=== PATIENT | male | born 1940 | race Caucasian/White ===

== ENCOUNTER 2016-08-26 13:20 | Inpatient (IN) ==
[2016-08-26] MEDS ORDERED: Furosemide 40 MG/4 ML VIAL IVP ONE (13:55)
[2016-08-26] MEDS ORDERED: Ipratropium/Albuterol Neb 3 ML IH ONE (14:01)
[2016-08-26 14:05] LABS: Basophils % 0.1 %; Eosinophils % 0.1 %; Hemoglobin 10.6 g/dL (12.9-16.9); Immature Granulocytes % 0.5 % (0-4); Lymphocytes # 0.7 K/mcL (0.6-4.6); Mean Corpuscular HGB Conc 32.1 g/dL (31.6-35.5); Mean Corpuscular Volume 90.4 fL (83.0-100.0); Mean Platelet Volume 10.3 fL (9.4-12.4); Monocytes # 0.7 K/mcL (0.0-1.3); Monocytes % 6.4 %; Platelet Count 160 K/mcL (140-400); Red Blood Count 3.65 M/mcL (4.19-5.50); Red Cell Distribution Width 14.1 % (11.5-14.5); Segmented Neutrophils % 86.9 %
[2016-08-26 14:10] LABS: INR 1.2; Prothrombin Time 12.8 Seconds (9.4-12.1)
[2016-08-26 14:13] LABS: Activated Partial Thrombo Time 31.8 Seconds (26.0-36.0)
[2016-08-26 14:20] LABS: Alanine Aminotransferase 18 Units/L (0-55); Albumin 3.3 g/dL (3.5-5.0); Albumin/Globulin Ratio 0.8 (1.1-2.2); Alkaline Phosphatase 79 Units/L (38-126); Aspartate Amino Transferase 15 Units/L (5-34); BUN/Creatinine Ratio 20 (6-26); Bilirubin,Direct 0.6 mg/dL (0.0-0.5); Bilirubin,Indirect 0.5 mg/dL (0.0-1.2); Bilirubin,Total 1.1 mg/dL (0.2-1.2); Blood Urea Nitrogen 26 mg/dL (8-26); Calcium 9.6 mg/dL (8.6-10.8); Carbon Dioxide 27 mEq/L (19-29); Chloride 98 mEq/L (98-109); Globulin 4.4 g/dL (2.4-3.5); Glucose 125 mg/dL (70-99); Magnesium 2.2 mg/dL (1.6-2.6); Osmolality,Calculated 290 (280-300); Potassium 3.9 mEq/L (3.5-4.5); Sodium 137 mEq/L (136-145); Total Protein 7.7 g/dL (6.0-8.3); eGFR For African Americans > 60 (> 60); eGFR For Non-African Americans 55 (> 60)
[2016-08-26 14:33] LABS: Neutrophils # 9.6 K/mcL (1.6-8.9)
[2016-08-26 14:34] LABS: Polychromasia 1+ (Not Present)
[2016-08-26] MEDS ORDERED: Piperacillin/Tazobactam 3.375 GM in D5% in Water (Mini-Bag+) 100 ML IVPB ONE (16:07)
[2016-08-26 16:40] LABS: Bilirubin,Urine Small (Negative); Blood,Urine Negative (Negative); Clarity,Urine Cloudy (Clear); Color,Urine Orange (Yellow); Glucose,Urine (UA) Normal (Normal); Ketones,Urine Trace mg/dL (Negative); Leukocyte Esterase,Urine Small (Negative); Nitrite,Urine Positive (Negative); PH,Urine 5.5 pH Units (5.0-8.0); Protein,Urine Trace mg/dL (Neg-Trace); Specific Gravity,Urine 1.017 (1.010-1.025); Urobilinogen,Urine Normal (Normal)
[2016-08-26 16:44] LABS: Bacteria,Urine None Seen per hpf (None-Few); Hyaline Casts,Urine None Seen per lpf (None-Few); RBC,Urine 0-3 per hpf (0-3); Squamous Epithelial Cell,Urine None Seen per lpf (None-Few); WBC,Urine 0-3 per hpf (0-3)
--- NOTE | 2016-08-26 16:46 | Emergency Department Note ---
Disposition Clinical Impression: Multifocal pneumonia Disposition: Admitted As Inpatient Condition: Fair Referrals: ChemungRadha navarro DO [Primary Care Provider] - Forms: ED Satisfaction Letter SOB HPI - General Chief Complaint: ED Shortness of Breath/Dyspnea Stated Complaint: EHCTOR Time Seen by Provider: 08/26/16 13:38 Source: patient, family Limitations: no limitations Nursing Notes Reviewed: Yes Vital Signs Reviewed: Yes - History of Present Illness Pt Subjective Complaint: shortness of breath, cough Onset (ago): day(s) (3) Context: recent illness Severity: moderate Consistency/Duration: intermittent, gradually worsening Improves with: rest, bronchodilators Worsens with: exertion Known history of: COPD, congestive heart failure Associated symptoms: Reports: fever Treatment prior to arrival: bronchodilator Cough present: Yes Cough Description: Involuntary Cough Frequency: Intermittent Sputum production: Yes Sputum Amount: Scant - Related Data Home Medications Medication Instructions Recorded Confirmed Albuterol Neb [Proventil Neb] 2.5 mg IH QID PRN 03/31/15 03/31/15 Albuterol Sulfate [Proventil Hfa] 2 puff IH QID PRN 03/31/15 03/31/15 Atorvastatin [Lipitor] 10 mg PO HS 03/31/15 03/31/15 Cetirizine HCl [Zyrtec] 10 mg PO DAILY 03/31/15 03/31/15 Cholestyramine/Aspartame 4 gm PO DAILY 03/31/15 03/31/15 [Cholestyramine Light Packet] ClonazePAM [Klonopin] 0.5 mg PO BID 03/31/15 03/31/15 Dicyclomine [Bentyl] 20 mg PO QID 03/31/15 03/31/15 Domperidome 20 mg PO QIDAC 03/31/15 03/31/15 Esomeprazole Magnesium [Nexium] 40 mg PO DAILY 03/31/15 03/31/15 Fluticasone Propionate Nasal 100 mcg NS DAILY 03/31/15 03/31/15 [Flonase] Furosemide [Lasix] 40 mg PO QPM 03/31/15 03/31/15 Furosemide [Lasix] 80 mg PO QAM 03/31/15 03/31/15 Gabapentin [Neurontin] 600 mg PO BID 03/31/15 03/31/15 HYDROcodone/Acet 5/325 mg [[place] 1 - 2 tab PO TID PRN 03/31/15 03/31/15 5-325 mg] Montelukast [Singulair] 10 mg PO DAILY 03/31/15 03/31/15 Nortriptyline [Pamelor] 75 mg PO HS 03/31/15 03/31/15 Phenazopyridine HCl [Pyridium] 200 mg PO TID 03/31/15 03/31/15 Potassium Chloride [Klor-Con 10 meq PO BID 03/31/15 03/31/15 Sprinkle] Ranitidine HCl [Zantac] 150 mg PO HS 03/31/15 03/31/15 Sertraline [Zoloft] 50 mg PO HS 03/31/15 03/31/15 Tamsulosin [Flomax] 0.4 mg PO DAILY 03/31/15 03/31/15 Theophylline Anhydrous [Theodur] 300 mg PO TID 03/31/15 03/31/15 Tizanidine HCl [Zanaflex] 4 - 8 mg PO HS 03/31/15 03/31/15 Previous Rx's Medication Instructions Recorded Azithromycin [Zithromax Tri-Kurt] 500 mg PO DAILY #8 tablet 04/04/15 Allergies Allergy/AdvReac Type Severity Reaction Status Date / Time ciprofloxacin [From Cipro] Allergy Hives Verified 03/31/15 15:16 levofloxacin [From Levaquin] Allergy Hives Verified 03/31/15 15:16 Tetracycline Allergy Rash Verified 03/31/15 17:20 All systems ED: reviewed and negative except as stated. Constitutional: Reports: fever, chills Respiratory: Reports: cough, dyspnea Past Medical History - Past Medical History Source: patient, old records reviewed, obtained from family, nursing notes reviewed Medical history: Reports: CHF, COPD, hyperlipidemia, hypertension, other Surgical history: Reports: appendectomy, knee replacement, sinus surgery, other (hiatal hernia) Psychiatric history: Reports: no psych history - Social History Smoking Status: Never smoker Alcohol use: Reports: none Drug use: Reports: none Physical Exam - General Limitations: no limitations General appearance: alert - Head Head exam: atraumatic, normocephalic, normal inspection - Eye Eye exam: Present: normal appearance, PERRL, EOMI - Neck Neck exam: Present: normal inspection - Chest Chest inspection: Present: normal inspection, symmetric chest wall rise - Respiratory Respiratory exam: Present: other (bilat scattered coarse rhonchi). Absent: accessory muscle use - Cardiovascular Cardiovascular exam: Present: regular rate, normal rhythm, normal heart sounds - Abdominal Exam Abdominal exam: Present: soft, Non-Tender. Absent: tenderness, distention, guarding, rebound, rigidity - Expanded Lower Extremity Exam Ankle exam: Present: other (bilat pitting edema) - Back Exam Back exam: Present: normal inspection, full ROM. Absent: tenderness - Neurological Exam Neurological exam: Present: alert, oriented X3 - Psychiatric Psychiatric exam: Present: normal affect, normal mood - Skin Skin exam: Present: warm, dry, intact, normal color Course Vital Signs Temperature 102.0 F H 08/26/16 13:25 Pulse Rate 84 08/26/16 13:25 Respiratory Rate 22 08/26/16 13:25 Blood Pressure 127/76 08/26/16 13:25 O2 Sat by Pulse Oximetry 88 08/26/16 13:25 Temperature 102.6 F H 08/26/16 15:49 Pulse Rate 89 08/26/16 15:49 Respiratory Rate 28 08/26/16 15:49 Blood Pressure 124/58 08/26/16 15:49 O2 Sat by Pulse Oximetry 93 08/26/16 15:49 Oxygen Delivery Oxygen Delivery Nasal Cannula Shortness of Breath/Dyspnea - Differential Diagnosis Likely: congestive heart failure, pneumonia, asthma with exacerbation, pulmonary embolism, pneumothorax - Medical Records Medical records reviewed: Yes I reviewed the patient's medical records. - Lab Data Lab results reviewed: Yes I reviewed the patient's lab results. Result diagrams: 08/26/16 13:52 08/26/16 13:55 Lab Results 08/26/16 08/26/16 08/26/16 Range/Units 13:52 13:52 13:55 WBC 11.0 (4.3-11.1) K/mcL RBC 3.65 L (4.19-5.50) M/mcL Hgb 10.6 L (12.9-16.9) g/dL Hct 33.0 L (37.5-50.1) % MCV 90.4 (83.0-100.0) fL MCH 29.0 (28.0-33.3) pg MCHC 32.1 (31.6-35.5) g/dL RDW 14.1 (11.5-14.5) % Plt Count 160 (140-400) K/mcL MPV 10.3 (9.4-12.4) fL Immature Gran % 0.5 (0-4) % Seg Neutrophils % 86.9 % Lymphocytes % 6.0 % Monocytes % 6.4 % Eosinophils % 0.1 % Basophils % 0.1 % Neutrophils # 9.6 H (1.6-8.9) K/mcL Lymphocytes # 0.7 (0.6-4.6) K/mcL Monocytes # 0.7 (0.0-1.3) K/mcL Eosinophils # 0.0 (0.0-0.6) K/mcL Basophils # 0.0 (0.0-0.2) K/mcL Polychromasia 1+ A (Not Present) PT 12.8 H (9.4-12.1) Seconds INR 1.2 APTT 31.8 (26.0-36.0) Seconds Sodium 137 (136-145) mEq/L Potassium 3.9 (3.5-4.5) mEq/L Chloride 98 (98-109) mEq/L Carbon Dioxide 27 (19-29) mEq/L BUN 26 (8-26) mg/dL Creatinine 1.28 H (0.72-1.25) mg/dL Est GFR ( Amer) > 60 (> 60) Est GFR (Non-Af Amer) 55 L (> 60) BUN/Creatinine Ratio 20 (6-26) Glucose 125 H (70-99) mg/dL Calculated Osmolality 290 (280-300) Lactic Acid (0.5-2.2) mmol/L Calcium 9.6 (8.6-10.8) mg/dL Magnesium 2.2 (1.6-2.6) mg/dL Total Bilirubin 1.1 (0.2-1.2) mg/dL Direct Bilirubin 0.6 H (0.0-0.5) mg/dL Indirect Bilirubin 0.5 (0.0-1.2) mg/dL AST 15 (5-34) Units/L ALT 18 (0-55) Units/L Alkaline Phosphatase 79 (38-126) Units/L Troponin I (0-0.03) ng/mL Serum Total Protein 7.7 (6.0-8.3) g/dL Albumin 3.3 L (3.5-5.0) g/dL Globulin 4.4 H (2.4-3.5) g/dL Albumin/Globulin Ratio 0.8 L (1.1-2.2) 08/26/16 08/26/16 Range/Units 13:55 13:55 WBC (4.3-11.1) K/mcL RBC (4.19-5.50) M/mcL Hgb (12.9-16.9) g/dL Hct (37.5-50.1) % MCV (83.0-100.0) fL MCH (28.0-33.3) pg MCHC (31.6-35.5) g/dL RDW (11.5-14.5) % Plt Count (140-400) K/mcL MPV (9.4-12.4) fL Immature Gran % (0-4) % Seg Neutrophils % % Lymphocytes % % Monocytes % % Eosinophils % % Basophils % % Neutrophils # (1.6-8.9) K/mcL Lymphocytes # (0.6-4.6) K/mcL Monocytes # (0.0-1.3) K/mcL Eosinophils # (0.0-0.6) K/mcL Basophils # (0.0-0.2) K/mcL Polychromasia (Not Present) PT (9.4-12.1) Seconds INR APTT (26.0-36.0) Seconds Sodium (136-145) mEq/L Potassium (3.5-4.5) mEq/L Chloride (98-109) mEq/L Carbon Dioxide (19-29) mEq/L BUN (8-26) mg/dL Creatinine (0.72-1.25) mg/dL Est GFR ( Amer) (> 60) Est GFR (Non-Af Amer) (> 60) BUN/Creatinine Ratio (6-26) Glucose (70-99) mg/dL Calculated Osmolality (280-300) Lactic Acid 1.2 (0.5-2.2) mmol/L Calcium (8.6-10.8) mg/dL Magnesium (1.6-2.6) mg/dL Total Bilirubin (0.2-1.2) mg/dL Direct Bilirubin (0.0-0.5) mg/dL Indirect Bilirubin (0.0-1.2) mg/dL AST (5-34) Units/L ALT (0-55) Units/L Alkaline Phosphatase (38-126) Units/L Troponin I 0.01 (0-0.03) ng/mL Serum Total Protein (6.0-8.3) g/dL Albumin (3.5-5.0) g/dL Globulin (2.4-3.5) g/dL Albumin/Globulin Ratio (1.1-2.2) - Radiology Data Radiology results reviewed: Yes I reviewed the patient's radiology results.
[2016-08-26] MEDS ORDERED: Naloxone 0.4 MG/ML INJ IVP PRN (17:41)
[2016-08-26] MEDS ORDERED: Acetaminophen 325 MG TABLET PO PRN (17:41)
[2016-08-26] MEDS ORDERED: Albuterol 2.5 MG/3 ML NEBULIZER IH PRN (17:49)
--- NOTE | 2016-08-26 18:04 | Internal Med History&Physical ---
Date of Encounter: 08/26/16 Time of Encounter: 18:02 Assessment and Plan (1) Sepsis Current visit: No Status: Acute Patient with pneumonia, fever of 102.6 and tachypnea, meeting sepsis criteria. Blood cultures and urine cultures obtained and pending. sputum culture ordered. Lactate normal at 1.2 Antibiotics initiated with zosyn and Azithromycin. Qualifiers: Sepsis type: sepsis due to unspecified organism Qualified Code(s): A41.9 - Sepsis, unspecified organism (2) Multifocal pneumonia Current visit: Yes Status: Acute patient presents with shortness of fever, chest congestion. CT of the chest showed multifocal bilateral pneumonia. Zosyn and azithromycin IV piggyback Sputum culture DuoNeb treatments 4 times a day Albuterol nebulizer every 2 when necessary Titrate oxygen to maintain oxygen saturation greater than 90%. (3) Acute respiratory failure Current visit: No Status: Acute Patient requiring 4L NC to maintain saturation > 90%. Only wears oxygen at home overnight. Patient with multifocal pnuemonia on CT. ABG ordered duoneb treatments QID albuterol nebulizer Q2 prn titrate oxygen to maintain saturation > 90%. Qualifiers: Respiratory failure complication: hypoxia Qualified Code(s): J96.01 - Acute respiratory failure with hypoxia (4) COPD (chronic obstructive pulmonary disease) Current visit: No Status: Acute Patient with COPD, wears oxygen at night. Continue home doses of Singulair and Budesonide/formotorol duoneb treatments QID albuterol nebulizer Q2hr PRN titrate oxygen to maintain O2 saturation > 90% Qualifiers: COPD type: unspecified COPD Qualified Code(s): J44.9 - Chronic obstructive pulmonary disease, unspecified (5) DVT prophylaxis Current visit: No Status: Acute anti-embolic stockings lovenox 40mg SQ daily Internal Medicine - H&P: HPI Chief complaint: shortness of breath Admitted From: Emergency Dept Plans for Post Hospital Care: Home History of present illness: Mr. Gaston is a 75 year old male with COPD, hyperlipidemia, hypertension, GERD, congestive heart failure who presented to the emergency department today with complaints of fever, chest congestion, and shortness of breath. Patient reports he started experiencing chest congestion approximately 1 week ago and it has been progressively getting worse, fevers started couple days ago he has been having chills, and poor appetite. Shortness of breath has gradually been increasing over time as well. He has pain in his chest when he coughs and when he takes deep breaths. He denies headache, palpitations, vomiting, abdominal pain, diarrhea. Evaluation in the emergency department revealed a fever with temperature 102.6, white count of 11.0, lactate was normal at 1.2, troponin was normal at 0.01. Chest x-ray showed suggestion of mild perihilar congestive changes, mild dependent opacification at the left base with small effusion. CT of the chest showed multifocal bilateral pneumonic infiltrates, with patchy areas of consolidation seen predominantly within the lower lobes, there is also small amount of endobronchial material seen within the left lower lobe posteriorly which could be related to aspiration. On exam, patient satting 89- 90% on 4L NC. Lungs with diffuse rales bilaterally. Heart with regular rate and rhythm. Past Med Surg Social Fam HX - Past Medical History Medical history: CHF, COPD, GERD (manzano's esophagus), hyperlipidemia, hypertension, other Psychiatric history: no psych history - Past Surgical History Surgical History: appendectomy, knee replacement, sinus surgery, other (hiatal hernia repair) - Social History Smoking Status: Former smoker Alcohol use: none Drug use: none - Family History Mother Living Status: Father Living Status: Hx Family Cardiac Disorders: Yes Internal Medicine - H&P: Meds Albuterol Neb [Proventil Neb] 2.5 mg IH QID PRN 03/31/15 [History] Albuterol Sulfate [Proventil Hfa] 2 puff IH QID PRN 03/31/15 [History] Atorvastatin [Lipitor] 10 mg PO HS 03/31/15 [History] Cetirizine HCl [Zyrtec] 10 mg PO DAILY 03/31/15 [History] Cholestyramine/Aspartame [Cholestyramine Light Packet] 4 gm PO DAILY 03/31/15 [ History] Dicyclomine [Bentyl] 20 mg PO QID 03/31/15 [History] Esomeprazole Magnesium [Nexium] 40 mg PO DAILY 03/31/15 [History] Fluticasone Propionate Nasal [Flonase] 100 mcg NS DAILY 03/31/15 [History] Furosemide [Lasix] 40 mg PO QPM 03/31/15 [History] Furosemide [Lasix] 80 mg PO QAM 03/31/15 [History] Gabapentin [Neurontin] 600 mg PO BID 03/31/15 [History] Montelukast [Singulair] 10 mg PO DAILY 03/31/15 [History] Nortriptyline [Pamelor] 75 mg PO HS 03/31/15 [History] Potassium Chloride [Klor-Con Sprinkle] 10 meq PO BID 03/31/15 [History] Ranitidine HCl [Zantac] 150 mg PO HS 03/31/15 [History] Sertraline [Zoloft] 50 mg PO HS 03/31/15 [History] Tamsulosin [Flomax] 0.4 mg PO DAILY 03/31/15 [History] Tizanidine HCl [Zanaflex] 4 - 8 mg PO HS 03/31/15 [History] Budesonide/Formoterol 160/4.5 [Symbicort 160/4.5] 2 puff IH BIDR 08/26/16 [ History] Domperidone 20 mg PO QIDAC 08/26/16 [History] OxyCODONE CONC 5 mg PO BID PRN 08/26/16 [History] Allergies ciprofloxacin [From Cipro] Allergy (Verified 03/31/15 15:16) Hives levofloxacin [From Levaquin] Allergy (Verified 03/31/15 15:16) Hives Tetracycline Allergy (Verified 03/31/15 17:20) Rash All Systems PM: A 10-system review of systems was performed and is negative for pertinent findings except as documented above in the HPI. - Constitutional Constitutional: anorexia, chills, fever(s), malaise, no night sweats - EENT Eyes: blurry vision, no change in vision, no discharge, no pain, no photophobia Ears: no ear discharge, no ear pain, no tinnitus Nose, mouth and throat: no dysphagia, no nasal discharge, no neck pain, no sore throat - Cardiovascular Cardiovascular ROS IM: dyspnea, no chest pain, no diaphoresis, no lightheadedness, no palpitations, no syncope - Respiratory Respiratory: cough, dyspnea, wheezing, pain on inspiration, pain with cough, no excessive phlegm production - Gastrointestinal Gastrointestinal: no abdominal pain, no diarrhea, no hematemesis, no hematochezia, no melena, no nausea, no vomiting - Musculoskeletal Musculoskeletal ROS IM: no numbness, no tingling - Integumentary Integumentary IM: no rash, no unusual bruising - Neurological Neurological ROS: no confusion, no convulsions, no focal weakness, no numbness, no tingling, no tremor(s) - Hematologic/Lymphatic Hematologic/Lymphatic: no easy bruising - Constitutional Vitals: Temp Pulse Resp BP Pulse Ox 101.2 F H 84 28 109/53 89 08/26/16 16:58 08/26/16 16:58 08/26/16 16:58 08/26/16 16:58 08/26/16 16:58 General appearance: Present: A&O X 3, pleasant, no acute distress - Head Head exam: Present: atraumatic, normocephalic - Eye Eye exam: Present: PERRL, conjuntiva pink, sclera anicteric Pupils: Present: PERRL - Neck Neck exam general surgery: Present: supple, trachea midline. Absent: lymphadenopathy - Respiratory Respiratory exam: Present: rales (bilateral), tachypnea (mild). Absent: accessory muscle use, rhonchi, wheezes - Cardiovascular Cardiovascular exam: Present: RRR, +S1, +S2. Absent: diastolic murmur, gallop, rubs, systolic murmur - GI/Abdominal GI/Abdominal exam: Present: normal bowel sounds, soft, no peritoneal signs. Absent: distended, tenderness - Extremities Exam Extremities exam: Present: warm, radial pulses palpable and symetrical. Absent : calf tenderness, cyanotic, pedal edema - Neurological Exam Neurological exam: Present: CN II-XII intact, oriented X3, no focal deficits. Absent: facial droop, speech deficit - Skin Skin exam: Present: dry, intact Internal Med - H&P Results - Labs CBC & Chem 7: 08/26/16 13:52 08/26/16 13:55 Labs: All Lab Results (24 Hours) 08/26/16 08/26/16 08/26/16 Range/Units 13:52 13:52 13:55 WBC 11.0 (4.3-11.1) K/mcL RBC 3.65 L (4.19-5.50) M/mcL Hgb 10.6 L (12.9-16.9) g/dL Hct 33.0 L (37.5-50.1) % MCV 90.4 (83.0-100.0) fL MCH 29.0 (28.0-33.3) pg MCHC 32.1 (31.6-35.5) g/dL RDW 14.1 (11.5-14.5) % Plt Count 160 (140-400) K/mcL MPV 10.3 (9.4-12.4) fL Immature Gran % 0.5 (0-4) % Seg Neutrophils % 86.9 % Lymphocytes % 6.0 % Monocytes % 6.4 % Eosinophils % 0.1 % Basophils % 0.1 % Neutrophils # 9.6 H (1.6-8.9) K/mcL Lymphocytes # 0.7 (0.6-4.6) K/mcL Monocytes # 0.7 (0.0-1.3) K/mcL Eosinophils # 0.0 (0.0-0.6) K/mcL Basophils # 0.0 (0.0-0.2) K/mcL Polychromasia 1+ A (Not Present) PT 12.8 H (9.4-12.1) Seconds INR 1.2 APTT 31.8 (26.0-36.0) Seconds Sodium 137 (136-145) mEq/L Potassium 3.9 (3.5-4.5) mEq/L Chloride 98 (98-109) mEq/L Carbon Dioxide 27 (19-29) mEq/L BUN 26 (8-26) mg/dL Creatinine 1.28 H (0.72-1.25) mg/dL Est GFR ( Amer) > 60 (> 60) Est GFR (Non-Af Amer) 55 L (> 60) BUN/Creatinine Ratio 20 (6-26) Glucose 125 H (70-99) mg/dL Calculated Osmolality 290 (280-300) Lactic Acid (0.5-2.2) mmol/L Calcium 9.6 (8.6-10.8) mg/dL Magnesium 2.2 (1.6-2.6) mg/dL Total Bilirubin 1.1 (0.2-1.2) mg/dL Direct Bilirubin 0.6 H (0.0-0.5) mg/dL Indirect Bilirubin 0.5 (0.0-1.2) mg/dL AST 15 (5-34) Units/L ALT 18 (0-55) Units/L Alkaline Phosphatase 79 (38-126) Units/L Troponin I (0-0.03) ng/mL Serum Total Protein 7.7 (6.0-8.3) g/dL Albumin 3.3 L (3.5-5.0) g/dL Globulin 4.4 H (2.4-3.5) g/dL Albumin/Globulin Ratio 0.8 L (1.1-2.2) Urine Color (Yellow) Urine Clarity (Clear) Urine pH (5.0-8.0) pH Units Ur Specific [place] (1.010-1.025) Urine Protein (Neg-Trace) mg/dL Urine Glucose (UA) (Normal) mg/dL Urine Ketones (Negative) mg/dL Urine Blood (Negative) Urine Nitrite (Negative) Urine Bilirubin (Negative) Urine Urobilinogen (Normal) mg/dL Ur Leukocyte Esterase (Negative) Urine Microscopic RBC (0-3) per hpf Urine Microscopic WBC (0-3) per hpf Ur Squamous Epith Cells (None-Few) per lpf Urine Bacteria (None-Few) per hpf Hyaline Casts (None-Few) per lpf Ur Culture Indicated? (NO) 08/26/16 08/26/16 08/26/16 Range/Units 13:55 13:55 16:00 WBC (4.3-11.1) K/mcL RBC (4.19-5.50) M/mcL Hgb (12.9-16.9) g/dL Hct (37.5-50.1) % MCV (83.0-100.0) fL MCH (28.0-33.3) pg MCHC (31.6-35.5) g/dL RDW (11.5-14.5) % Plt Count (140-400) K/mcL MPV (9.4-12.4) fL Immature Gran % (0-4) % Seg Neutrophils % % Lymphocytes % % Monocytes % % Eosinophils % % Basophils % % Neutrophils # (1.6-8.9) K/mcL Lymphocytes # (0.6-4.6) K/mcL Monocytes # (0.0-1.3) K/mcL Eosinophils # (0.0-0.6) K/mcL Basophils # (0.0-0.2) K/mcL Polychromasia (Not Present) PT (9.4-12.1) Seconds INR APTT (26.0-36.0) Seconds Sodium (136-145) mEq/L Potassium (3.5-4.5) mEq/L Chloride (98-109) mEq/L Carbon Dioxide (19-29) mEq/L BUN (8-26) mg/dL Creatinine (0.72-1.25) mg/dL Est GFR ( Amer) (> 60) Est GFR (Non-Af Amer) (> 60) BUN/Creatinine Ratio (6-26) Glucose (70-99) mg/dL Calculated Osmolality (280-300) Lactic Acid 1.2 (0.5-2.2) mmol/L Calcium (8.6-10.8) mg/dL Magnesium (1.6-2.6) mg/dL Total Bilirubin (0.2-1.2) mg/dL Direct Bilirubin (0.0-0.5) mg/dL Indirect Bilirubin (0.0-1.2) mg/dL AST (5-34) Units/L ALT (0-55) Units/L Alkaline Phosphatase (38-126) Units/L Troponin I 0.01 (0-0.03) ng/mL Serum Total Protein (6.0-8.3) g/dL Albumin (3.5-5.0) g/dL Globulin (2.4-3.5) g/dL Albumin/Globulin Ratio (1.1-2.2) Urine Color [place] A (Yellow) Urine Clarity Cloudy A (Clear) Urine pH 5.5 (5.0-8.0) pH Units Ur Specific [place] 1.017 (1.010-1.025) Urine Protein Trace (Neg-Trace) mg/dL Urine Glucose (UA) Normal (Normal) mg/dL Urine Ketones Trace H (Negative) mg/dL Urine Blood Negative (Negative) Urine Nitrite Positive A (Negative) Urine Bilirubin Small H (Negative) Urine Urobilinogen Normal (Normal) mg/dL Ur Leukocyte Esterase Small H (Negative) Urine Microscopic RBC 0-3 (0-3) per hpf Urine Microscopic WBC 0-3 (0-3) per hpf Ur Squamous Epith Cells None Seen (None-Few) per lpf Urine Bacteria None Seen (None-Few) per hpf Hyaline Casts None Seen (None-Few) per lpf Ur Culture Indicated? YES A (NO) - Impressions ITS Impressions Chest X-Ray 08/26/16 13:42 IMPRESSION: Suggestion of mild perihilar congestive changes. Mild dependent opacification at the left base with small effusion. D/ / Erik Najera MD / Erik Najera MD Interpreting Provider: Erik Najera MD Chest CT 08/26/16 14:56 IMPRESSION: Multifocal bilateral pneumonic infiltrates are identified, with patchy areas of consolidation seen predominantly within the lower lobes. There is also a small amount of endobronchial material seen within the left lower lobe posteriorly which could be related to aspiration. Atherosclerotic disease with heavy coronary artery involvement. Multilevel degenerative changes are seen in the spine. Mildly asymmetric gynecomastia, left greater than right. D/ / Erik Peres MD / Erik Peres MD Interpreting Provider: Erik Peres MD - Diagnostic Studies Chest x-ray Additional comments: Chest X-Ray 08/26/16 13:42 IMPRESSION: Suggestion of mild perihilar congestive changes. Mild dependent opacification at the left base with small effusion. D/ / Erik Najera MD / Erik Najera MD Interpreting Provider: Erik Najera MD CT scan - chest Additional comments: Chest CT 08/26/16 14:56
[2016-08-26] MEDS: Azithromycin 500 MG in D5% in Water 250 ML IVPB SCH (18:34)
--- NOTE | 2016-08-26 18:56 | Event Note ---
Date of Encounter: 08/26/16 Time of Encounter: 18:49 Patient seen and examined with nurse practitioner. Agree with this assessment and plan. Multiple lobar pneumonia. Will treat for community acquired pneumonia. However because of concern for aspiration Zosyn will be added to cover for anaerobes. Hypoxic respiratory failure. patient requiring 4 L of nasal oxygen. conversational dyspnea. Arterial blood gas will be checked. If Patient continues to spiked fevers with current antibiotics, will add Vancomycin. Sputum and blood cultures. Patient is full code. Inpatient admission
[2016-08-26] MEDS: Ipratropium/Albuterol Neb 3 ML IH SCH ×2 (19:15→22:00)
[2016-08-26] MEDS: tiZANidine 4 MG TABLET PO SCH (21:25)
[2016-08-26] MEDS: Potassium Chloride Elixir 20 MEQ/15 ML UDC PO SCH (21:25)
[2016-08-26] MEDS: Famotidine 20 MG TABLET PO SCH (21:25)
[2016-08-26] MEDS: Gabapentin 300 MG CAPSULE PO SCH (21:25)
[2016-08-26] MEDS: Budesonide/Formoterol 160/4.5 MDI IH SCH (22:01)
[2016-08-27] MEDS: Piperacillin/Tazobactam 3.375 GM in D5% in Water (Mini-Bag+) 100 ML IVPB SCH ×3 (00:14→15:57)
[2016-08-27] MEDS: Ipratropium/Albuterol Neb 3 ML IH SCH ×4 (03:24→23:01)
[2016-08-27 05:09] LABS: Basophils % 0.1 %; Eosinophils # 0.1 K/mcL (0.0-0.6); Eosinophils % 0.8 %; Hematocrit 31.7 % (37.5-50.1); Hemoglobin 10.1 g/dL (12.9-16.9); Immature Granulocytes % 0.4 % (0-4); Lymphocytes # 1.2 K/mcL (0.6-4.6); Lymphocytes % 12.6 %; Mean Corpuscular HGB Conc 31.9 g/dL (31.6-35.5); Mean Corpuscular Hemoglobin 29.4 pg (28.0-33.3); Mean Corpuscular Volume 92.2 fL (83.0-100.0); Mean Platelet Volume 10.8 fL (9.4-12.4); Monocytes # 0.7 K/mcL (0.0-1.3); Monocytes % 7.2 %; Platelet Count 150 K/mcL (140-400); Red Blood Count 3.44 M/mcL (4.19-5.50); Red Cell Distribution Width 14.3 % (11.5-14.5); Segmented Neutrophils % 78.9 %
[2016-08-27 05:20] LABS: Neutrophils # 7.3 K/mcL (1.6-8.9)
[2016-08-27 05:35] LABS: BUN/Creatinine Ratio 19 (6-26); Blood Urea Nitrogen 24 mg/dL (8-26); Calcium 8.9 mg/dL (8.6-10.8); Carbon Dioxide 23 mEq/L (19-29); Chloride 98 mEq/L (98-109); Glucose 123 mg/dL (70-99); Osmolality,Calculated 285 (280-300); Potassium 3.5 mEq/L (3.5-4.5); Sodium 135 mEq/L (136-145); eGFR For African Americans > 60 (> 60); eGFR For Non-African Americans 55 (> 60)
[2016-08-27 06:02] LABS: Hypochromasia Present (Not Present); Platelet Estimate Normal (Normal); Polychromasia 1+ (Not Present)
[2016-08-27] MEDS: *HR* Enoxaparin 40 MG/0.4 ML SYRINGE SQ SCH (06:27)
[2016-08-27] MEDS ORDERED: Aminoglycoside Consult 1 EACH MC ONE (07:40)
[2016-08-27] MEDS: Loratadine 10 MG TABLET PO SCH (08:56)
[2016-08-27] MEDS: Potassium Chloride Elixir 20 MEQ/15 ML UDC PO SCH ×2 (08:56→21:27)
[2016-08-27] MEDS: Famotidine 20 MG TABLET PO SCH ×2 (08:56→21:28)
[2016-08-27] MEDS: Gabapentin 300 MG CAPSULE PO SCH ×2 (08:56→21:27)
[2016-08-27] MEDS ORDERED: Vancomycin 1,000 MG in D5% in Water 250 ML IVPB SCH (09:00)
[2016-08-27] MEDS ORDERED: Vancomycin 1,500 MG in D5% in Water 250 ML IVPB ONE (09:23)
[2016-08-27] MEDS: Furosemide 40 MG TABLET PO SCH (10:50)
[2016-08-27] MEDS: Budesonide/Formoterol 160/4.5 MDI IH SCH ×2 (11:05→23:01)
--- NOTE | 2016-08-27 11:08 | Internal Med Progress Note ---
Date of Encounter: 08/27/16 Time of Encounter: 11:03 - Assessment and plan (1) Acute respiratory failure Current Visit: No Status: Acute Assessment and plan: Hypoxic respiratory failure. This is improving. Oxygen requirements decreasing. Currently on 4 L of oxygen. Qualifiers: Respiratory failure complication: hypoxia Qualified Code(s): J96.01 - Acute respiratory failure with hypoxia (2) Multifocal pneumonia Current Visit: Yes Status: Acute Assessment and plan: This is community acquired pneumonia. However because of concern of aspiration Zosyn has been added to cover for anaerobes. Patient continues to spiked fevers and therefore I have covered empirically for MRSA with vancomycin until sputum on blood cultures are back. Await speech service comment on swallow (3) CHF (congestive heart failure) Current Visit: Yes Status: Acute Assessment and plan: I will start the patient on lasix 40 mg PO daily today. Qualifiers: Qualified Code(s): I50.9 - Heart failure, unspecified - Subjective Interval history: Patient seen and examined. Notices some improvement in his respiratory status. Oxygen requirements are decreasing. Currently on 4 L of nasal oxygen. Patient continues to have fever spikes. Antibiotic coverage has been broadened. - Constitutional Vitals: Temp Pulse Resp BP Pulse Ox 101.6 F H 63 32 103/56 93 08/27/16 06:44 08/27/16 10:46 08/27/16 10:46 08/27/16 09:15 08/27/16 10:46 General appearance: Present: A&O X 3, pleasant, no acute distress Exam: Gen.: patient is alert oriented times 3 not in distress. Cardiac: normal S1 S2 no additional sounds or murmurs chest: crackles and bronchial breathing in both lower lobes abdomen: soft nontender nondistended normal bowel sounds neuro: no focal deficit Internal Medicine: Result - Labs CBC & Chem 7: 08/27/16 04:25 08/27/16 04:25 Labs: Short CBC 08/27/16 Range/Units 04:25 WBC 9.2 (4.3-11.1) K/mcL Hgb 10.1 L (12.9-16.9) g/dL Hct 31.7 L (37.5-50.1) % Plt Count 150 (140-400) K/mcL Neutrophils # 7.3 (1.6-8.9) K/mcL BMP 08/27/16 04:25 Sodium 135 L Potassium 3.5 Chloride 98 Carbon Dioxide 23 BUN 24 Creatinine 1.28 H Glucose 123 H Calcium 8.9 - ABG Interpretation ABG results: PT/INR, D-dimer PT 12.8 Seconds (9.4-12.1) H 08/26/16 13:52 Consult Discharge Plan - Plan Referrals: Radha Rojas DO [Primary Care Provider] - 09/03/16 10:30 am
--- NOTE | 2016-08-27 12:18 | Electrocardiograph Report ---
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
[2016-08-27] MEDS: Azithromycin 500 MG in D5% in Water 250 ML IVPB SCH (15:50)
[2016-08-27] MEDS: tiZANidine 4 MG TABLET PO SCH (21:28)
[2016-08-28] MEDS: Piperacillin/Tazobactam 3.375 GM in D5% in Water (Mini-Bag+) 100 ML IVPB SCH ×3 (01:11→16:14)
[2016-08-28 04:16] LABS: Basophils % 0.3 %; Eosinophils # 0.3 K/mcL (0.0-0.6); Eosinophils % 3.5 %; Hematocrit 29.1 % (37.5-50.1); Hemoglobin 9.2 g/dL (12.9-16.9); Immature Granulocytes % 1.1 % (0-4); Lymphocytes % 10.1 %; Mean Corpuscular HGB Conc 31.6 g/dL (31.6-35.5); Mean Corpuscular Hemoglobin 28.9 pg (28.0-33.3); Mean Corpuscular Volume 91.5 fL (83.0-100.0); Mean Platelet Volume 10.3 fL (9.4-12.4); Monocytes # 0.9 K/mcL (0.0-1.3); Neutrophils # 7.5 K/mcL (1.6-8.9); Platelet Count 163 K/mcL (140-400); Red Blood Count 3.18 M/mcL (4.19-5.50); Red Cell Distribution Width 14.2 % (11.5-14.5)
[2016-08-28 04:32] LABS: BUN/Creatinine Ratio 21 (6-26); Blood Urea Nitrogen 25 mg/dL (8-26); Calcium 8.9 mg/dL (8.6-10.8); Carbon Dioxide 26 mEq/L (19-29); Chloride 103 mEq/L (98-109); Glucose 120 mg/dL (70-99); Magnesium 2.2 mg/dL (1.6-2.6); Osmolality,Calculated 294 (280-300); Potassium 3.8 mEq/L (3.5-4.5); Sodium 139 mEq/L (136-145); eGFR For African Americans > 60 (> 60); eGFR For Non-African Americans 60 (> 60)
[2016-08-28 05:28] LABS: Platelet Clumps Few (Not Present)
[2016-08-28] MEDS: Ipratropium/Albuterol Neb 3 ML IH SCH ×4 (05:48→21:44)
[2016-08-28] MEDS: *HR* Enoxaparin 40 MG/0.4 ML SYRINGE SQ SCH (05:53)
[2016-08-28] MEDS: Potassium Chloride Elixir 20 MEQ/15 ML UDC PO SCH ×2 (07:38→20:59)
[2016-08-28] MEDS: Furosemide 40 MG TABLET PO SCH (07:39)
[2016-08-28] MEDS: Gabapentin 300 MG CAPSULE PO SCH ×2 (07:39→20:59)
[2016-08-28] MEDS: Loratadine 10 MG TABLET PO SCH (07:39)
[2016-08-28] MEDS ORDERED: Vancomycin 1,250 MG in D5% in Water 250 ML IVPB SCH (10:00)
[2016-08-28] MEDS: Budesonide/Formoterol 160/4.5 MDI IH SCH ×2 (10:54→21:44)
--- NOTE | 2016-08-28 12:47 | Internal Med Progress Note ---
Date of Encounter: 08/28/16 Time of Encounter: 10:00 - Assessment and plan (1) Sepsis Current Visit: No Status: Acute Assessment and plan: Secondary to multifocal pneumonia. CT chest showed multifocal bilateral pneumonic infiltrates with patchy areas of consolidation seen predominantly within the lower lobes. There is also a small amount of endobronchial material within the left lower lobe posteriorly. 08/26 blood cultures are negative so far. Urine culture negative. Influenza test negative. Stop IV azithromycin and vancomycin. Continue IV Zosyn. Check Legionella and Streptococcus antigen in urine. Qualifiers: Sepsis type: sepsis due to unspecified organism Qualified Code(s): A41.9 - Sepsis, unspecified organism (2) Acute respiratory failure Current Visit: No Status: Acute Assessment and plan: Hypoxemic respiratory failure. Contrary to multifocal pneumonia and COPD exacerbation. With history of a static heart failure, last echocardiogram in 2014 (LVEF 50%). CT chest showed multifocal bilateral pneumonic infiltrates with patchy areas of consolidation seen predominantly within the lower lobes. There is also a small amount of endobronchial material within the left lower lobe posteriorly. Continue nebulizations, singular, Mucinex and empiric antibiotics with IV Zosyn. Clinically is slowly improving. Check echocardiogram. Qualifiers: Respiratory failure complication: hypoxia Qualified Code(s): J96.01 - Acute respiratory failure with hypoxia (3) Multifocal pneumonia Current Visit: Yes Status: Acute Assessment and plan: Bacterial pneumonia. Plan as above. (4) Acute exacerbation of chronic obstructive pulmonary disease (COPD) Current Visit: Yes Status: Acute Assessment and plan: Plan as above. - Subjective Interval history: Patient complains of persistent cough. - Constitutional Vitals: Temp Pulse Resp BP Pulse Ox 98.1 F 75 18 113/53 99 08/28/16 11:33 08/28/16 12:00 08/28/16 11:33 08/28/16 11:33 08/28/16 10:55 General appearance: Present: cooperative, A&O X 3, pleasant, no acute distress, answers questions appropriately - Neck Neck exam general surgery: Present: supple, trachea midline. Absent: lymphadenopathy - Respiratory Respiratory exam: Present: rales (bilateral crackles L>R) - Cardiovascular Cardiovascular exam: Present: RRR - GI/Abdominal GI/Abdominal exam: Present: normal bowel sounds, soft. Absent: distended, tenderness - Extremities Exam Extremities exam: Absent: pedal edema - Back Exam Back exam: Absent: CVA tenderness (L), CVA tenderness (R) - Neurological Exam Neurological exam: Present: alert, oriented X3, no focal deficits, strengths equal and symetr throughout. Absent: facial droop, speech deficit Internal Medicine: Result - Labs CBC & Chem 7: 08/28/16 03:38 08/28/16 03:38 Labs: Short CBC 08/28/16 Range/Units 03:38 WBC 9.8 (4.3-11.1) K/mcL Hgb 9.2 L (12.9-16.9) g/dL Hct 29.1 L (37.5-50.1) % Plt Count 163 (140-400) K/mcL Neutrophils # 7.5 (1.6-8.9) K/mcL BMP 08/28/16 03:38 Sodium 139 Potassium 3.8 Chloride 103 Carbon Dioxide 26 BUN 25 Creatinine 1.19 Glucose 120 H Calcium 8.9 - ABG Interpretation ABG results: PT/INR, D-dimer PT 12.8 Seconds (9.4-12.1) H 08/26/16 13:52 Consult Discharge Plan - Plan Referrals: Radha Rojas DO [Primary Care Provider] - 09/03/16 10:30 am
--- NOTE | 2016-08-28 17:40 | ECHO - Doppler Report ---
Echocardiogram Name: Sesar Gaston Date of Study: 08/28/2016 Date: 1940 Ht: 68.0 in Medical Record#: [id number] Age: 75 Wt: 168.0 lb Gender: Male BSA: 1.9 Order #: [id number] Location: [facility] Room #: 2N06 Reading Physician: Lamine Abdullahi MD, [facility] Auto V[employer] Top Installer: Dede Bush RVT Ordering Physician: Henrietta Dominguez MD Primary Physician: Radha Rojas DO Indications: Pulmonary edema Impressions: LVEF 40-45%. Mild segmental left ventricular systolic dysfunction. Moderate aortic regurgitation. Mild left ventricular diastolic dysfunction. Moderate mitral stenosis. Left Ventricular Wall Motion: Rest Echo Findings The apex, apical septal, mid inferior septal and mid anterior septal galindo were hypokinetic. All other wall segments showed normal motion. Findings: Study Quality * Technically adequate exam. Right Ventricle * Normal right ventricular structure and function. Right Atrium * Normal right atrial size. Aortic Valve * Moderate aortic regurgitation. * Normal aortic valve structure. * No aortic stenosis. Interatrial Septum * No evidence of PFO by color Doppler. Aorta * Normally sized aortic root. Pericardium * The pericardium appears normal. Left Ventricle * Basal sigmoid septum. * Mild left ventricular diastolic dysfunction. * LVEF 40-45%. * Mild segmental left ventricular systolic dysfunction. Tricuspid Valve * No tricuspid stenosis. * Trace tricuspid regurgitation. * Unable to estimate RVSP due to lack of TR jet. Pulmonic Valve * No pulmonic regurgitation. * No pulmonic stenosis. Mitral Valve * Moderate mitral stenosis. * Mean transmitral gradient is mean 8 mmhg mmHg. * Moderate mitral annular calcification * No mitral regurgitation. IVC * Normal IVC dimensions and inspiratory collapse. Left Atrium * Moderately dilated left atrium. History Family History of CAD Congestive Heart Failure Measurements: BP: 113/ 53 2D Normal Values RVIDd: 1.95 cm <2.7 cm IVSd: .81 cm 0.6 - 1.0 cm LVIDd: 4.31 cm 3.7 - 5.6 cm LVPWd: .87 cm 0.6 - 1.1 cm LVIDs: 3.21 cm 1.5 - 3.6 cm LA: 4.80 cm 2.0 - 4.0cm %FS: 25.50 cm >25 % LA volume: 93 Mitral Valve Peak Velocity 1.78 m/sec Mean Velocity:1.33 m/sec Peak Grad:13.00 mmHg Mean Grad:8.00 mmHg Pressure Time:38.00 msec Valve Area:5.79 cm2 Peak E:1.47 m/sec Peak A:.97 m/sec E/A Ratio:1.5 Peak E' Lat [place]:10.1 cm/s Peak E' Med [place]:7.83 cm/s E/E' Lat Ratio:14.6 E/E' Med Ratio:18.8 Aortic Valve AI pressure Half-time: 360.00 msec Tricuspid Valve TV Regurg Peak Grad: 11.00mmHg TV Regurg Peak [place]: 1.68m/sec Updated by Lamine Abdullahi MD, FACC on 08/28/2016 5:32:58 PM electronically signed on 08/28/2016 5:35:58 PM with status of Final Wall Motion [place]: 1=Normal, 2=Hypokinesis, 3=Akinesis, 4=Dyskinesis, 5=Aneurysmal, 6=Hyperkinetic, X=Not Visualized (Blank)=Missing
[2016-08-28] MEDS: tiZANidine 4 MG TABLET PO SCH (20:58)
[2016-08-28] MEDS: Famotidine 20 MG TABLET PO SCH (20:59)
[2016-08-29] MEDS: Piperacillin/Tazobactam 3.375 GM in D5% in Water (Mini-Bag+) 100 ML IVPB SCH ×4 (00:09→23:37)
[2016-08-29] MEDS: Benzonatate 100 MG CAPSULE PO PRN ×2 (00:50→20:41)
[2016-08-29 04:08] LABS: Basophils % 0.4 %; Eosinophils # 0.4 K/mcL (0.0-0.6); Eosinophils % 4.6 %; Hematocrit 27.5 % (37.5-50.1); Hemoglobin 8.7 g/dL (12.9-16.9); Immature Granulocytes % 3.1 % (0-4); Lymphocytes # 1.2 K/mcL (0.6-4.6); Lymphocytes % 12.6 %; Mean Corpuscular HGB Conc 31.6 g/dL (31.6-35.5); Mean Corpuscular Hemoglobin 28.6 pg (28.0-33.3); Mean Corpuscular Volume 90.5 fL (83.0-100.0); Mean Platelet Volume 9.8 fL (9.4-12.4); Monocytes # 1.1 K/mcL (0.0-1.3); Monocytes % 11.9 %; Neutrophils # 6.3 K/mcL (1.6-8.9); Platelet Count 173 K/mcL (140-400); Red Blood Count 3.04 M/mcL (4.19-5.50); Red Cell Distribution Width 14.1 % (11.5-14.5); Segmented Neutrophils % 67.4 %
[2016-08-29 04:24] LABS: BUN/Creatinine Ratio 21 (6-26); Blood Urea Nitrogen 19 mg/dL (8-26); Calcium 8.6 mg/dL (8.6-10.8); Carbon Dioxide 25 mEq/L (19-29); Chloride 101 mEq/L (98-109); Glucose 112 mg/dL (70-99); Magnesium 2.1 mg/dL (1.6-2.6); Osmolality,Calculated 287 (280-300); Potassium 3.7 mEq/L (3.5-4.5); Sodium 137 mEq/L (136-145); eGFR For African Americans > 60 (> 60); eGFR For Non-African Americans > 60 (> 60)
[2016-08-29] MEDS: Ipratropium/Albuterol Neb 3 ML IH SCH ×4 (05:07→23:13)
[2016-08-29] MEDS: *HR* Enoxaparin 40 MG/0.4 ML SYRINGE SQ SCH (06:14)
[2016-08-29] MEDS: Loratadine 10 MG TABLET PO SCH (08:22)
[2016-08-29] MEDS: Furosemide 40 MG TABLET PO SCH (08:22)
[2016-08-29] MEDS: Gabapentin 300 MG CAPSULE PO SCH ×2 (08:23→21:58)
[2016-08-29] MEDS: Potassium Chloride Elixir 20 MEQ/15 ML UDC PO SCH ×2 (08:23→21:59)
[2016-08-29] MEDS: Budesonide/Formoterol 160/4.5 MDI IH SCH ×2 (10:58→23:13)
[2016-08-29] MEDS: HYDROcodone BIT/Homatropine 5 MG TABLET PO SCH ×2 (11:46→20:41)
--- NOTE | 2016-08-29 17:24 | Internal Med Progress Note ---
Date of Encounter: 08/29/16 Time of Encounter: 10:30 - Assessment and plan (1) Sepsis Current Visit: No Status: Acute Assessment and plan: Secondary to multifocal pneumonia. CT chest showed multifocal bilateral pneumonic infiltrates with patchy areas of consolidation seen predominantly within the lower lobes. There is also a small amount of endobronchial material within the left lower lobe posteriorly. 08/26 blood cultures are negative so far. Urine culture negative. Influenza test negative. Negative Legionella and Streptococcus antigen in urine. slowly improving. Continue IV Zosyn. Qualifiers: Sepsis type: sepsis due to unspecified organism Qualified Code(s): A41.9 - Sepsis, unspecified organism (2) Acute respiratory failure Current Visit: No Status: Acute Assessment and plan: Hypoxemic respiratory failure. Contrary to multifocal pneumonia and COPD exacerbation. With history of a static heart failure, last echocardiogram in 2014 (LVEF 50%). CT chest showed multifocal bilateral pneumonic infiltrates with patchy areas of consolidation seen predominantly within the lower lobes. There is also a small amount of endobronchial material within the left lower lobe posteriorly. Echocardiogram 08/28 showed LVEF 40-45%, moderate AR, mild LV diastolic dysfunction, moderate MS. Clinically is slowly improving. Still requiring 3L NC. will repeat CXR. Continue nebulizations, singular, Mucinex and empiric antibiotics with IV Zosyn. Qualifiers: Respiratory failure complication: hypoxia Qualified Code(s): J96.01 - Acute respiratory failure with hypoxia (3) Multifocal pneumonia Current Visit: Yes Status: Acute Assessment and plan: Bacterial pneumonia. Plan as above. (4) Acute exacerbation of chronic obstructive pulmonary disease (COPD) Current Visit: Yes Status: Acute Assessment and plan: Plan as above. (5) Heart failure Current Visit: Yes Status: Acute Assessment and plan: chronic systolic HF, compensated. continue home dose furosemide. fluid restriction. 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 - Constitutional Vitals: Temp Pulse Resp BP Pulse Ox 98.0 F 66 16 105/55 97 08/29/16 16:08 08/29/16 16:08 08/29/16 16:16 08/29/16 16:08 05/21/17 16:16 General appearance: Present: cooperative, A&O X 3, pleasant, no acute distress, answers questions appropriately - Respiratory Respiratory exam: Present: rales (crackles bibasal, less compared to yesterday.) - Cardiovascular Cardiovascular exam: Present: RRR - GI/Abdominal GI/Abdominal exam: Present: normal bowel sounds, soft. Absent: distended, tenderness - Extremities Exam Extremities exam: Absent: pedal edema - Back Exam Back exam: Absent: CVA tenderness (L), CVA tenderness (R) - Neurological Exam Neurological exam: Present: alert, oriented X3. Absent: facial droop, speech deficit - Skin Skin exam: Absent: rash Internal Medicine: Result - Labs CBC & Chem 7: 08/29/16 03:56 08/29/16 03:56 Labs: Short CBC 08/29/16 Range/Units 03:56 WBC 9.3 (4.3-11.1) K/mcL Hgb 8.7 L (12.9-16.9) g/dL Hct 27.5 L (37.5-50.1) % Plt Count 173 (140-400) K/mcL Neutrophils # 6.3 (1.6-8.9) K/mcL BMP 08/29/16 03:56 Sodium 137 Potassium 3.7 Chloride 101 Carbon Dioxide 25 BUN 19 Creatinine 0.92 Glucose 112 H Calcium 8.6 - ABG Interpretation ABG results: PT/INR, D-dimer PT 12.8 Seconds (9.4-12.1) H 08/26/16 13:52 Consult Discharge Plan - Plan Referrals: Radha Rojas DO [Primary Care Provider] - 09/03/16 10:30 am
[2016-08-29] MEDS: tiZANidine 4 MG TABLET PO SCH (21:58)
[2016-08-29] MEDS: Famotidine 20 MG TABLET PO SCH (21:58)
[2016-08-30] MEDS: Ipratropium/Albuterol Neb 3 ML IH SCH ×4 (04:11→23:39)
[2016-08-30 04:48] LABS: Hematocrit 28.6 % (37.5-50.1); Mean Corpuscular HGB Conc 31.5 g/dL (31.6-35.5); Mean Corpuscular Hemoglobin 28.8 pg (28.0-33.3); Mean Corpuscular Volume 91.7 fL (83.0-100.0); Mean Platelet Volume 10.4 fL (9.4-12.4); Platelet Count 214 K/mcL (140-400); Red Blood Count 3.12 M/mcL (4.19-5.50); Red Cell Distribution Width 14.1 % (11.5-14.5)
[2016-08-30 04:56] LABS: BUN/Creatinine Ratio 20 (6-26); Blood Urea Nitrogen 16 mg/dL (8-26); Calcium 8.7 mg/dL (8.6-10.8); Carbon Dioxide 27 mEq/L (19-29); Chloride 101 mEq/L (98-109); Glucose 110 mg/dL (70-99); Osmolality,Calculated 284 (280-300); Potassium 3.9 mEq/L (3.5-4.5); Sodium 136 mEq/L (136-145); eGFR For African Americans > 60 (> 60); eGFR For Non-African Americans > 60 (> 60)
[2016-08-30] MEDS: *HR* Enoxaparin 40 MG/0.4 ML SYRINGE SQ SCH (05:28)
[2016-08-30] MEDS: Benzonatate 100 MG CAPSULE PO PRN (05:28)
[2016-08-30 05:42] LABS: Eosinophils # 0.7 K/mcL (0.0-0.6); Lymphocytes # 1.5 K/mcL (0.6-4.6); Neutrophils # 5.9 K/mcL (1.6-8.9); Platelet Estimate Normal (Normal)
[2016-08-30] MEDS: Piperacillin/Tazobactam 3.375 GM in D5% in Water (Mini-Bag+) 100 ML IVPB SCH ×2 (08:33→17:37)
[2016-08-30] MEDS: Gabapentin 300 MG CAPSULE PO SCH ×2 (08:34→21:30)
[2016-08-30] MEDS: Potassium Chloride Elixir 20 MEQ/15 ML UDC PO SCH ×2 (08:34→21:31)
[2016-08-30] MEDS: HYDROcodone BIT/Homatropine 5 MG TABLET PO SCH (08:35)
[2016-08-30] MEDS: Loratadine 10 MG TABLET PO SCH (08:35)
[2016-08-30] MEDS ORDERED: Furosemide 40 MG/4 ML VIAL IVP SCH (09:00)
[2016-08-30] MEDS: Budesonide/Formoterol 160/4.5 MDI IH SCH ×2 (10:38→23:39)
[2016-08-30] MEDS: Furosemide 40 MG/4 ML VIAL IVP SCH (17:37)
--- NOTE | 2016-08-30 18:17 | Internal Med Progress Note ---
Date of Encounter: 08/30/16 Time of Encounter: 11:30 - Assessment and plan (1) Sepsis Current Visit: No Status: Acute Assessment and plan: Secondary to multifocal pneumonia. CT chest showed multifocal bilateral pneumonic infiltrates with patchy areas of consolidation seen predominantly within the lower lobes. There is also a small amount of endobronchial material within the left lower lobe posteriorly. 08/26 blood cultures are negative so far. Urine culture negative. Influenza test negative. Negative Legionella and Streptococcus antigen in urine. slowly improving. Continue IV Zosyn. Qualifiers: Sepsis type: sepsis due to unspecified organism Qualified Code(s): A41.9 - Sepsis, unspecified organism (2) Acute respiratory failure Current Visit: No Status: Acute Assessment and plan: Hypoxemic respiratory failure. On admission, it was secondary to multifocal pneumonia and COPD exacerbation. since 08/29, his systolic heart failure exacerbation is also contributing to his respiratory failure. this is likely from fluid resuscitation. CT chest showed multifocal bilateral pneumonic infiltrates with patchy areas of consolidation seen predominantly within the lower lobes. There is also a small amount of endobronchial material within the left lower lobe posteriorly. Echocardiogram 08/28 showed LVEF 40-45%, moderate AR, mild LV diastolic dysfunction, moderate MS. Clinically improving slowly. Still requiring 3L NC. repeat CXR showed pulmonary edema and multifocal pna. increase Iv lasix to bid. Continue nebulizations, singular, Mucinex and empiric antibiotics with IV Zosyn. Qualifiers: Respiratory failure complication: hypoxia Qualified Code(s): J96.01 - Acute respiratory failure with hypoxia (3) Multifocal pneumonia Current Visit: Yes Status: Acute Assessment and plan: Bacterial pneumonia. Plan as above. (4) Heart failure Current Visit: Yes Status: Acute Assessment and plan: acute systolic HF. PAtient takes furosemide 80 mg in AM and furosemide 40 mg pm. increase IV lasix to 40 mg bid. fluid restriction. Qualifiers: Heart failure type: combined Heart failure chronicity: acute Qualified Code(s): I50.41 - Acute combined systolic (congestive) and diastolic (congestive ) heart failure (5) Acute exacerbation of chronic obstructive pulmonary disease (COPD) Current Visit: Yes Status: Acute Assessment and plan: Plan as above. - Subjective Interval history: Patient reports dry cough. his shortness of breath is better compared to admission. - Constitutional Vitals: Temp Pulse Resp BP Pulse Ox 98.1 F 67 18 108/57 91 08/30/16 16:34 08/30/16 16:34 08/30/16 16:34 08/30/16 16:34 08/30/16 16:34 General appearance: Present: cooperative, A&O X 3, pleasant, no acute distress, answers questions appropriately - Neck Neck exam general surgery: Present: supple, trachea midline. Absent: lymphadenopathy - Respiratory Respiratory exam: Present: rales (diffuse rales bilaterally) - Cardiovascular Cardiovascular exam: Present: RRR - GI/Abdominal GI/Abdominal exam: Present: normal bowel sounds, soft. Absent: distended, tenderness - Extremities Exam Extremities exam: Present: pedal edema (1+ le edema) - Neurological Exam Neurological exam: Present: alert, oriented X3, no focal deficits, strengths equal and symetr throughout. Absent: facial droop, speech deficit - Skin Skin exam: Absent: rash Internal Medicine: Result - Labs CBC & Chem 7: 08/30/16 03:53 08/30/16 03:53 Labs: Short CBC 08/30/16 Range/Units 03:53 WBC 10.0 (4.3-11.1) K/mcL Hgb 9.0 L (12.9-16.9) g/dL Hct 28.6 L (37.5-50.1) % Plt Count 214 (140-400) K/mcL Neutrophils # 5.9 (1.6-8.9) K/mcL BMP 08/30/16 03:53 Sodium 136 Potassium 3.9 Chloride 101 Carbon Dioxide 27 BUN 16 Creatinine 0.79 Glucose 110 H Calcium 8.7 - ABG Interpretation ABG results: PT/INR, D-dimer PT 12.8 Seconds (9.4-12.1) H 08/26/16 13:52 - Impressions Impressions Chest X-Ray 08/29/16 17:26 IMPRESSION: 1. Unchanged bibasilar airspace opacities worse in the lower lobes, most likely pneumonia possibly with superimposed atelectasis. 2. Suspected trace bilateral effusions. 3. Pulmonary vascular congestion. D/ / Refugio Ford MD / Refugio Ford MD Interpreting Provider: Refugio Ford MD - VTE Documentation of Mechanical Device: Graduated compression elastic hosiery Consult Discharge Plan - Plan Referrals: Radha Rojas DO [Primary Care Provider] - 09/03/16 10:30 am
[2016-08-30] MEDS: Famotidine 20 MG TABLET PO SCH (21:31)
[2016-08-30] MEDS: tiZANidine 4 MG TABLET PO SCH (21:31)
[2016-08-31] MEDS: Piperacillin/Tazobactam 3.375 GM in D5% in Water (Mini-Bag+) 100 ML IVPB SCH ×3 (01:00→16:01)
[2016-08-31] MEDS: Ipratropium/Albuterol Neb 3 ML IH SCH ×4 (04:28→22:21)
[2016-08-31] MEDS: *HR* Enoxaparin 40 MG/0.4 ML SYRINGE SQ SCH (06:57)
[2016-08-31 06:59] LABS: BUN/Creatinine Ratio 25 (6-26); Blood Urea Nitrogen 19 mg/dL (8-26); Carbon Dioxide 30 mEq/L (19-29); Chloride 100 mEq/L (98-109); Glucose 119 mg/dL (70-99); Osmolality,Calculated 289 (280-300); Potassium 3.8 mEq/L (3.5-4.5); Sodium 138 mEq/L (136-145); eGFR For African Americans > 60 (> 60); eGFR For Non-African Americans > 60 (> 60)
[2016-08-31 07:08] LABS: Eosinophils # 0.5 K/mcL (0.0-0.6); Hematocrit 29.6 % (37.5-50.1); Hemoglobin 9.2 g/dL (12.9-16.9); Mean Corpuscular HGB Conc 31.1 g/dL (31.6-35.5); Mean Corpuscular Hemoglobin 28.2 pg (28.0-33.3); Mean Corpuscular Volume 90.8 fL (83.0-100.0); Mean Platelet Volume 10.2 fL (9.4-12.4); Platelet Count 261 K/mcL (140-400); Red Blood Count 3.26 M/mcL (4.19-5.50); Red Cell Distribution Width 14.2 % (11.5-14.5)
[2016-08-31 07:44] LABS: Lymphocytes # 2.8 K/mcL (0.6-4.6); Monocytes # 0.3 K/mcL (0.0-1.3); Neutrophils # 9.1 K/mcL (1.6-8.9); Platelet Estimate Normal (Normal)
[2016-08-31] MEDS: Loratadine 10 MG TABLET PO SCH (09:50)
[2016-08-31] MEDS: Gabapentin 300 MG CAPSULE PO SCH ×2 (09:50→21:36)
[2016-08-31] MEDS: Furosemide 40 MG/4 ML VIAL IVP SCH ×2 (09:50→16:00)
[2016-08-31] MEDS: Potassium Chloride Elixir 20 MEQ/15 ML UDC PO SCH ×2 (09:52→21:36)
[2016-08-31] MEDS: Budesonide/Formoterol 160/4.5 MDI IH SCH ×2 (11:17→22:22)
--- NOTE | 2016-08-31 12:09 | Pulmonology Consult Note ---
Date of Encounter: 08/31/16 Time of Encounter: 12:04 Assessment and Plan (1) Pneumonia Current Visit: No Status: Acute Clinical history of dysphasia and radiographic appearance of pneumonia consistent with aspiration pneumonia. Recommend a 7 day total course of antibiotics. Patient is currently on Zosyn, and it would be reasonable to transition to Augmentin at the time of discharge in order to finish a 7 day course. Qualifiers: Pneumonia type: aspiration pneumonia Aspiration pneumonia type: unspecified Laterality: unspecified laterality Lung location: unspecified part of lung Qualified Code(s): J69.0 - Pneumonitis due to inhalation of food and vomit (2) Dysphagia Current Visit: Yes Status: Acute Long-standing history of dysphagia concerning for an esophageal stricture. I suspect this is the etiology of his aspiration pneumonia. It would be reasonable to have the patient evaluated by GI for possible EGD. Qualifiers: Dysphagia type: unspecified Qualified Code(s): R13.10 - Dysphagia, unspecified (3) Abnormal CT scan, chest Current Visit: Yes Status: Acute As above, consistent with aspiration pneumonia. There is a minimal amount of mucus plugging noted in the left lower lobe. It would be reasonable to initiate a flutter valve to assist with mucus clearance. Patient is clinically improving, and I see no indication for bronchoscopy. (4) Hypoxia Current Visit: Yes Status: Acute Chronic hypoxia as the patient is on 2 L of home oxygen nightly. Acute worsening related to pneumonia, and he may need continuous oxygen therapy until this resolves. Recommend obtaining ambulatory room air oxygen saturations for further evaluation of oxygen needs prior to discharge. No further recommendations from a pulmonary perspective. Please call with questions. History of Present Illness Consult date: 08/31/16 Requesting physician: Delicia Guerra Reason for consult: abnormal CXR/CT Chief complaint: Pneumonia History of present illness: 75-year-old white male with a medical history significant for congestive heart failure who presented to the hospital for evaluation of a febrile illness associated with adductive cough and progressive dyspnea. Patient states that he had approximately a week of a cough productive of purulent sputum. This was associated with intermittent fevers and progressive dyspnea. He presented to the emergency department 08/26/2016 for evaluation. Workup included a CT scan of the chest which revealed bibasilar infiltrates left greater than right, and there is concern for mucous plugging on the left. The patient reports feeling significant better since initiation of antibiotics. He is remained on low flow oxygen via nasal cannula (he reports that he is on 2 L nightly at home). The patient reports a long-standing history of dysphagia. He states that he has difficulty swallowing solids with the sensation that the food gets stuck mcfp down. He often times will have to drink significant amounts of water in order to assist with swallowing. He states that there were plans for him to have an outpatient EGD with a physician in [place] for further evaluation. Past Med Surg Social Fam HX - Past Medical History Medical history: CHF, COPD, GERD (manzano's esophagus), hyperlipidemia, hypertension, other Psychiatric history: no psych history - Past Surgical History Surgical History: appendectomy, knee replacement, sinus surgery, other (hiatal hernia repair) - Social History Smoking Status: Former smoker Alcohol use: none Drug use: none - Family History Mother Living Status: Hx Family Cardiac Disorders: Yes Father Living Status: Hx Family Cardiac Disorders: Yes Hx Family Neurologic Disorders: Yes (alzheimers) Medications and Allergies Albuterol Neb [Proventil Neb] 2.5 mg IH QID PRN 03/31/15 [History] Albuterol Sulfate [Proventil Hfa] 2 puff IH QID PRN 03/31/15 [History] Atorvastatin [Lipitor] 10 mg PO HS 03/31/15 [History] Cetirizine HCl [Zyrtec] 10 mg PO DAILY 03/31/15 [History] Cholestyramine/Aspartame [Cholestyramine Light Packet] 4 gm PO DAILY 03/31/15 [ History] Dicyclomine [Bentyl] 20 mg PO QID 03/31/15 [History] Esomeprazole Magnesium [Nexium] 40 mg PO DAILY 03/31/15 [History] Fluticasone Propionate Nasal [Flonase] 100 mcg NS DAILY 03/31/15 [History] Furosemide [Lasix] 40 mg PO QPM 03/31/15 [History] Furosemide [Lasix] 80 mg PO QAM 03/31/15 [History] Gabapentin [Neurontin] 600 mg PO BID 03/31/15 [History] Montelukast [Singulair] 10 mg PO DAILY 03/31/15 [History] Nortriptyline [Pamelor] 75 mg PO HS 03/31/15 [History] Potassium Chloride [Klor-Con Sprinkle] 10 meq PO BID 03/31/15 [History] Ranitidine HCl [Zantac] 150 mg PO HS 03/31/15 [History] Sertraline [Zoloft] 50 mg PO HS 03/31/15 [History] Tamsulosin [Flomax] 0.4 mg PO DAILY 03/31/15 [History] Tizanidine HCl [Zanaflex] 4 - 8 mg PO HS 03/31/15 [History] Budesonide/Formoterol 160/4.5 [Symbicort 160/4.5] 2 puff IH BIDR 08/26/16 [ History] Domperidone 20 mg PO QIDAC 08/26/16 [History] OxyCODONE CONC 5 mg PO BID PRN 08/26/16 [History] Allergies ciprofloxacin [From Cipro] Allergy (Verified 03/31/15 15:16) Hives levofloxacin [From Levaquin] Allergy (Verified 03/31/15 15:16) Hives Tetracycline Allergy (Verified 03/31/15 17:20) Rash All Systems: A 10-system review of systems was performed and is negative for pertinent findings except as documented above in the HPI. Physical Examination Vital Signs: Vital Signs, Last 4 Hours Temp Pulse Resp BP Pulse Ox 08/31/16 11:25 97.6 F 64 17 109/76 96 General: no acute distress Eyes: nonicteric ENT: oropharynx moist Neck: supple, no lymphadenopathy Lungs: Clear to auscultation bilaterally Cardiovascular: regular rate and rhythm Gastrointestinal: normoactive bowel sounds, soft, non-tender, non-distended Integumentary: normal Extremities: no cyanosis, no edema Musculoskeletal: no deformities Neuro: normal mental status, non-focal exam Psych: mood appropriate, affect normal Results - Laboratory Findings CBC and BMP: 08/31/16 06:24 08/31/16 06:24 PT/INR, D-dimer PT 12.8 Seconds (9.4-12.1) H 08/26/16 13:52 Abnormal lab findings: Abnormal lab results WBC 12.6 K/mcL (4.3-11.1) H 08/31/16 06:24 RBC 3.26 M/mcL (4.19-5.50) L 08/31/16 06:24 Hgb 9.2 g/dL (12.9-16.9) L 08/31/16 06:24 Hct 29.6 % (37.5-50.1) L 08/31/16 06:24 MCHC 31.1 g/dL (31.6-35.5) L 08/31/16 06:24 Metamyelocytes % 4.0 % (0) H 08/30/16 03:53 Myelocytes % 2.0 % (0) H 08/30/16 03:53 Promyelocytes % 3.0 % (0) H 08/30/16 03:53 Neutrophils # 9.1 K/mcL (1.6-8.9) H 08/31/16 06:24 Clumped Platelets Few (Not Present) A 08/28/16 03:38 Polychromasia 1+ (Not Present) A 08/27/16 04:25 Hypochromasia Present (Not Present) A 08/27/16 04:25 PT 12.8 Seconds (9.4-12.1) H 08/26/16 13:52 Carbon Dioxide 30 mEq/L (19-29) H 08/31/16 06:24 Glucose 119 mg/dL (70-99) H 08/31/16 06:24 Direct Bilirubin 0.6 mg/dL (0.0-0.5) H 08/26/16 13:55 Albumin 3.3 g/dL (3.5-5.0) L 08/26/16 13:55 Globulin 4.4 g/dL (2.4-3.5) H 08/26/16 13:55 Albumin/Globulin Ratio 0.8 (1.1-2.2) L 08/26/16 13:55 Urine Color [place] (Yellow) A 08/26/16 16:00 Urine Clarity Cloudy (Clear) A 08/26/16 16:00 Urine Ketones Trace mg/dL (Negative) H 08/26/16 16:00 Urine Nitrite Positive (Negative) A 08/26/16 16:00 Urine Bilirubin Small (Negative) H 08/26/16 16:00 Ur Leukocyte Esterase Small (Negative) H 08/26/16 16:00 Ur Culture Indicated? YES (NO) A 08/26/16 16:00 - Microbiology Findings Microbiology Findings: Microbiology, Last 48 Hours 08/30/16 13:10 Sputum Culture - Preliminary Sputum - Clinical Findings Intake & Output: Intake & Output 08/30/16 08/31/16 08/31/16 23:59 07:59 15:59 Intake Total 200 / 200 0 / 0 240 / 240 Output Total 300 / 300 200 / 200 Balance -100 / -100 -200 / -200 240 / 240 Weight 76.7 kg Consult Discharge Plan - Plan Referrals: Radha Rojas DO [Primary Care Provider] - 09/03/16 10:30 am
--- NOTE | 2016-08-31 15:23 | Internal Med Progress Note ---
Date of Encounter: 08/31/16 Time of Encounter: 10:30 - Assessment and plan (1) Acute respiratory failure Current Visit: Yes Status: Acute Assessment and plan: Clinically improving. Currently on 3 L nasal cannula. Qualifiers: Respiratory failure complication: hypoxia Qualified Code(s): J96.01 - Acute respiratory failure with hypoxia (2) Sepsis Current Visit: No Status: Acute Assessment and plan: Likely from aspiration pneumonia and multifocal pneumonia. On IV antibiotics. WBC count slightly elevated today. No fever or chills reported. Consulted pulmonology for further recommendations. Appreciate input. Qualifiers: Sepsis type: sepsis due to unspecified organism Qualified Code(s): A41.9 - Sepsis, unspecified organism (3) Multifocal pneumonia Current Visit: Yes Status: Acute Assessment and plan: Likely from aspiration. Consider modified barium swallow study. Aspiration precautions. Speech therapy has evaluated patient. We will recommend reevaluation. (4) CHF (congestive heart failure) Current Visit: Yes Status: Acute Assessment and plan: Continue IV Lasix. Monitor input and output closely. Renal function remained stable Qualifiers: Congestive heart failure type: combined Congestive heart failure chronicity : acute on chronic Qualified Code(s): I50.43 - Acute on chronic combined systolic (congestive) and diastolic (congestive) heart failure (5) Acute exacerbation of chronic obstructive pulmonary disease (COPD) Current Visit: Yes Status: Acute Assessment and plan: Continue bronchodilator treatments. This is improving. (6) Dysphagia Current Visit: Yes Status: Suspected Assessment and plan: Patient appears to be having episodes of aspiration and has history of Dominguez' s esophagus. We will get a modified barium swallow study and also consult GI for further recommendations. Qualifiers: Dysphagia type: other dysphagia Qualified Code(s): R13.19 - Other dysphagia - Subjective Interval history: Patient is awake and alert. Feels his breathing is better. Does complain of some choking while eating food. Denies any nausea or vomiting. No chest pain. - Constitutional Vitals: Temp Pulse Resp BP Pulse Ox 97.6 F 64 17 109/76 96 08/31/16 11:25 08/31/16 11:25 08/31/16 11:25 08/31/16 11:25 08/31/16 11:25 General appearance: Present: cooperative, A&O X 3, pleasant, no acute distress, answers questions appropriately - Respiratory Respiratory exam: Present: prolonged expiratory phase, rhonchi. Absent: accessory muscle use, rales, wheezes - Cardiovascular Cardiovascular exam: Present: RRR, +S1, +S2. Absent: diastolic murmur, gallop, rubs, systolic murmur - GI/Abdominal GI/Abdominal exam: Present: normal bowel sounds, soft, no peritoneal signs. Absent: distended, tenderness - Extremities Exam Extremities exam: Present: warm, radial pulses palpable and symetrical. Absent : calf tenderness, cyanotic, pedal edema - Neurological Exam Neurological exam: Present: alert, oriented X3, no focal deficits. Absent: facial droop, speech deficit Internal Medicine: Result - Labs CBC & Chem 7: 08/31/16 06:24 08/31/16 06:24 Labs: Short CBC 08/31/16 Range/Units 06:24 WBC 12.6 H (4.3-11.1) K/mcL Hgb 9.2 L (12.9-16.9) g/dL Hct 29.6 L (37.5-50.1) % Plt Count 261 (140-400) K/mcL Neutrophils # 9.1 H (1.6-8.9) K/mcL BMP 08/31/16 06:24 Sodium 138 Potassium 3.8 Chloride 100 Carbon Dioxide 30 H BUN 19 Creatinine 0.75 Glucose 119 H Calcium 9.0 - ABG Interpretation ABG results: PT/INR, D-dimer PT 12.8 Seconds (9.4-12.1) H 08/26/16 13:52 - VTE Documentation of Mechanical Device: Graduated compression elastic hosiery Consult Discharge Plan - Plan Referrals: Radha Rojas DO [Primary Care Provider] - 09/03/16 10:30 am - Attending Attestation This document has been at least partially created by [employer] recognition technology by Dr. Guerra. Errors in grammar, wording or other phrases may exist. If errors are found after the documentation is signed, they will be addressed individually in the addendum section of this document when appropriate.
[2016-08-31] MEDS: tiZANidine 4 MG TABLET PO SCH (21:36)
[2016-09-01] MEDS: Piperacillin/Tazobactam 3.375 GM in D5% in Water (Mini-Bag+) 100 ML IVPB SCH ×3 (00:16→15:31)
[2016-09-01] MEDS: Ipratropium/Albuterol Neb 3 ML IH SCH ×4 (04:20→23:52)
[2016-09-01] MEDS: *HR* Enoxaparin 40 MG/0.4 ML SYRINGE SQ SCH (06:43)
[2016-09-01] MEDS: Furosemide 40 MG/4 ML VIAL IVP SCH (08:38)
[2016-09-01] MEDS: Loratadine 10 MG TABLET PO SCH (08:42)
[2016-09-01] MEDS: Potassium Chloride Elixir 20 MEQ/15 ML UDC PO SCH ×2 (08:43→21:20)
[2016-09-01] MEDS: Gabapentin 300 MG CAPSULE PO SCH ×2 (08:43→21:19)
[2016-09-01 08:45] LABS: Hemoglobin 9.1 g/dL (12.9-16.9); Mean Corpuscular HGB Conc 31.4 g/dL (31.6-35.5); Mean Corpuscular Hemoglobin 28.7 pg (28.0-33.3); Mean Corpuscular Volume 91.5 fL (83.0-100.0); Mean Platelet Volume 9.9 fL (9.4-12.4); Platelet Count 293 K/mcL (140-400); Red Blood Count 3.17 M/mcL (4.19-5.50); Red Cell Distribution Width 14.2 % (11.5-14.5)
[2016-09-01 08:51] LABS: BUN/Creatinine Ratio 26 (6-26); Blood Urea Nitrogen 21 mg/dL (8-26); Calcium 9.1 mg/dL (8.6-10.8); Carbon Dioxide 34 mEq/L (19-29); Chloride 99 mEq/L (98-109); Glucose 102 mg/dL (70-99); Osmolality,Calculated 293 (280-300); Potassium 3.6 mEq/L (3.5-4.5); Sodium 140 mEq/L (136-145); eGFR For African Americans > 60 (> 60); eGFR For Non-African Americans > 60 (> 60)
[2016-09-01 09:06] LABS: Eosinophils # 0.7 K/mcL (0.0-0.6); Lymphocytes # 2.2 K/mcL (0.6-4.6); Monocytes # 0.5 K/mcL (0.0-1.3); Neutrophils # 8.4 K/mcL (1.6-8.9); Platelet Estimate Normal (Normal)
[2016-09-01] MEDS: Budesonide/Formoterol 160/4.5 MDI IH SCH ×2 (09:52→23:52)
--- NOTE | 2016-09-01 12:14 | Gastroenterology Consult Note ---
<Refugio Ham Kylie - Last Filed: 09/01/16 12:11> Date of Encounter: 09/01/16 Time of Encounter: 10:45 - Assessment and plan (1) Dysphagia Current Visit: Yes Status: Suspected Assessment and plan: Plan for EGD with dilation today to r/o structural causes such as stricture, tumor,etc vs esophageal motility disorder. Keep NPO. Qualifiers: Dysphagia type: other dysphagia Qualified Code(s): R13.19 - Other dysphagia (2) COPD (chronic obstructive pulmonary disease) Current Visit: No Status: Acute Assessment and plan: Management per primary team. Qualifiers: COPD type: unspecified COPD Qualified Code(s): J44.9 - Chronic obstructive pulmonary disease, unspecified (3) Multifocal pneumonia Current Visit: Yes Status: Acute Assessment and plan: Management per primary team. (4) CHF (congestive heart failure) Current Visit: Yes Status: Acute Assessment and plan: Management per primary team. Qualifiers: Congestive heart failure type: combined Congestive heart failure chronicity : acute on chronic Qualified Code(s): I50.43 - Acute on chronic combined systolic (congestive) and diastolic (congestive) heart failure - Time Spent With Patient Total time spent is greater than 50% in coordination of care (as documented) at patient's floor/unit and/or counseling patient: GI History of Present Illness - Data of Consult Patient: new to practice Consult date: 09/01/16 Requesting Physician: Delicia Guerra MD - Consult Narrative Reason for consult: dysphagia History of present illness: Mr. Gaston is a 75 year old male with PMHx of CHF, COPD, GERD, Manzano's esophagus, HLD, HTN who presented to the ED with cough productive of purulent sputum, intermittent fevers, and worsening dyspnea. Chest x-ray showed suggestion of mild perihilar congestive changes, mild dependent opacification at the left base with small effusion. CT of the chest showed multifocal bilateral pneumonic infiltrates, with patchy areas of consolidation seen predominantly within the lower lobes, there is also small amount of endobronchial material seen within the left lower lobe posteriorly which could be related to aspiration. He denies abdominal pain, nausea, vomiting, hematemesis, diarrhea, melena, or hematochezia. The patient reports a long- standing history of dysphagia. He states that he has difficulty swallowing solids with the sensation that the food gets stuck senior living down. He often times will have to drink significant amounts of water in order to assist with swallowing. He states that there were plans for him to have an outpatient EGD with a physician in [place] for further evaluation. We were consulted to evaluate his dysphagia. Procedures: EGD 1-2 years ago in [place] per pt report. NSAIDs: None Anticoagulation: None Past Med Surg Social Fam HX - Past Medical History Medical history: CHF, COPD, GERD (manzano's esophagus), hyperlipidemia, hypertension, other Psychiatric history: no psych history - Past Surgical History Surgical History: appendectomy, knee replacement, sinus surgery, other (hiatal hernia repair) - Social History Smoking Status: Former smoker Alcohol use: none Drug use: none - Family History Mother Living Status: Hx Family Cardiac Disorders: Yes Father Living Status: Hx Family Cardiac Disorders: Yes Hx Family Neurologic Disorders: Yes (alzheimers) - Gastrointestinal Gastrointestinal: Present: as per HPI - Constitutional Constitutional: as per HPI - EENT Eyes: as per HPI Ears: Present: as per HPI Nose, mouth and throat: Present: as per HPI - Cardiovascular Cardiovascular ROS: Present: as per HPI - Respiratory Respiratory IM: Present: as per HPI - Genitourinary Genitourinary: Absent: change in color, Urinary frequency - Neurological ROS Neurological GI: Present: as per HPI - Hematologic/Lymphatic Hematologic/Lymphatic pediatric: Present: as per HPI - Musculoskeletal Musculoskeletal ROS GI: Present: as per HPI - Integumentary Integumentary GI: Present: as per HPI - Psychiatric ROS Psychiatric GI: Present: as per HPI - Endocrine Endocrine IM: Present: as per HPI - Constitutional Vitals: Temp Pulse Resp BP Pulse Ox 98.1 F 78 21 138/68 92 09/01/16 11:24 09/01/16 11:24 09/01/16 11:24 09/01/16 11:24 09/01/16 11:24 General appearance: Present: cooperative, A&O X 3, no acute distress, answers questions appropriately - Head Head exam: Present: atraumatic, normocephalic - Eye Eye exam: Present: normal appearance, sclera anicteric - ENT ENT exam: Present: mucous membranes dry - Neck Neck exam general surgery: Present: normal inspection, trachea midline - Respiratory Respiratory exam: Present: decreased breath sounds, CTAB. Absent: rales, rhonchi - Cardiovascular Cardiovascular exam: Present: RRR, +S1, +S2 - GI/Abdominal GI/Abdominal exam: Present: soft, no peritoneal signs. Absent: distended, firm , guarding, tenderness - Rectal Rectal exam: Present: deferred - Extremities Exam Extremities exam: Present: warm - Neurological Exam Neurological exam: Present: no focal deficits - Psychiatric Psychiatric exam: Present: normal affect, normal mood - Skin Skin exam: Present: dry, intact, normal color, warm Results - Labs CBC & Chem 7: 09/01/16 08:27 09/01/16 08:27 Labs: Last Result Calcium 9.1 mg/dL (8.6-10.8) 09/01/16 08:27 Troponin I 0.01 ng/mL (0-0.03) 08/26/16 13:55 Entire Visit Hgb 9.1 g/dL (12.9-16.9) L 09/01/16 08:27 Hct 29.0 % (37.5-50.1) L 09/01/16 08:27 PT 12.8 Seconds (9.4-12.1) H 08/26/16 13:52 Total Bilirubin 1.1 mg/dL (0.2-1.2) 08/26/16 13:55 AST 15 Units/L (5-34) 08/26/16 13:55 ALT 18 Units/L (0-55) 08/26/16 13:55 - ABG ABG results: PT/INR, D-dimer PT 12.8 Seconds (9.4-12.1) H 08/26/16 13:52 Consult Discharge Plan - Plan Referrals: Radha Rojas DO [Primary Care Provider] - 09/10/16 10:00 am <Neal Cornejo - Last Filed: 09/01/16 18:21> Date of Encounter: 09/01/16 Time of Encounter: 14:00 - Time Spent With Patient Total time spent is greater than 50% in coordination of care (as documented) at patient's floor/unit and/or counseling patient: GI History of Present Illness - Data of Consult Requesting Physician: Delicia Guerra MD - Consult Narrative History of present illness: Mr. Gaston is a 75 year old male - Constitutional Vitals: Temp Pulse Resp BP Pulse Ox 98.2 F 66 18 108/57 93 09/01/16 16:20 09/01/16 16:20 09/01/16 16:20 09/01/16 16:20 09/01/16 16:20 Results - Labs CBC & Chem 7: 09/01/16 08:27 09/01/16 08:27 Labs: Last Result Calcium 9.1 mg/dL (8.6-10.8) 09/01/16 08:27 Troponin I 0.01 ng/mL (0-0.03) 08/26/16 13:55 Entire Visit Hgb 9.1 g/dL (12.9-16.9) L 09/01/16 08:27 Hct 29.0 % (37.5-50.1) L 09/01/16 08:27 PT 12.8 Seconds (9.4-12.1) H 08/26/16 13:52 Total Bilirubin 1.1 mg/dL (0.2-1.2) 08/26/16 13:55 AST 15 Units/L (5-34) 08/26/16 13:55 ALT 18 Units/L (0-55) 08/26/16 13:55 - ABG ABG results: PT/INR, D-dimer PT 12.8 Seconds (9.4-12.1) H 08/26/16 13:52 - Attending Attestation I examined this patient and my medical decision-making was reviewed with the MECHANICAL LEAD/PA/Advanced Practice Nurse/Resident Physician. I agree with the documented findings, disposition and treatment plan as described except to the extent set forth below. Dysphagia in this patient with a history of Manzano esophagus rule out esophageal cancer
--- NOTE | 2016-09-01 14:01 | Anesthesia Evaluation PreOp ---
Date of Encounter: 09/01/16 Time of Encounter: 13:59 - Past History Planned Operation: EGD Alcohol Use: none Drug use: none Medications and Allergies Albuterol Neb [Proventil Neb] 2.5 mg IH QID PRN 03/31/15 [History] Albuterol Sulfate [Proventil Hfa] 2 puff IH QID PRN 03/31/15 [History] Atorvastatin [Lipitor] 10 mg PO HS 03/31/15 [History] Cetirizine HCl [Zyrtec] 10 mg PO DAILY 03/31/15 [History] Cholestyramine/Aspartame [Cholestyramine Light Packet] 4 gm PO DAILY 03/31/15 [ History] Dicyclomine [Bentyl] 20 mg PO QID 03/31/15 [History] Esomeprazole Magnesium [Nexium] 40 mg PO DAILY 03/31/15 [History] Fluticasone Propionate Nasal [Flonase] 100 mcg NS DAILY 03/31/15 [History] Furosemide [Lasix] 40 mg PO QPM 03/31/15 [History] Furosemide [Lasix] 80 mg PO QAM 03/31/15 [History] Gabapentin [Neurontin] 600 mg PO BID 03/31/15 [History] Montelukast [Singulair] 10 mg PO DAILY 03/31/15 [History] Nortriptyline [Pamelor] 75 mg PO HS 03/31/15 [History] Potassium Chloride [Klor-Con Sprinkle] 10 meq PO BID 03/31/15 [History] Ranitidine HCl [Zantac] 150 mg PO HS 03/31/15 [History] Sertraline [Zoloft] 50 mg PO HS 03/31/15 [History] Tamsulosin [Flomax] 0.4 mg PO DAILY 03/31/15 [History] Tizanidine HCl [Zanaflex] 4 - 8 mg PO HS 03/31/15 [History] Budesonide/Formoterol 160/4.5 [Symbicort 160/4.5] 2 puff IH BIDR 08/26/16 [ History] Domperidone 20 mg PO QIDAC 08/26/16 [History] OxyCODONE CONC 5 mg PO BID PRN 08/26/16 [History] Allergies ciprofloxacin [From Cipro] Allergy (Verified 03/31/15 15:16) Hives levofloxacin [From Levaquin] Allergy (Verified 03/31/15 15:16) Hives Tetracycline Allergy (Verified 03/31/15 17:20) Rash - Meds/Allergy Pre-op Review Medications Reviewed: Yes Allergies Reviewed: Yes Anesthesia Results - Labs 09/01/16 08:27 09/01/16 08:27 Echo 08/28/16 EF - 40-45% Mod valvular dx - Imaging EKG: image reviewed (SR) Anesthesia Exam O2 Sat Weight 76 kg O2 Sat by Pulse Oximetry 92 O2 Sat by Pulse Oximetry 94 O2 Sat by Pulse Oximetry 94 O2 Sat by Pulse Oximetry 93 O2 Sat by Pulse Oximetry 90 O2 Sat by Pulse Oximetry 94 O2 Sat by Pulse Oximetry 96 O2 Sat by Pulse Oximetry 94 O2 Sat by Pulse Oximetry 94 O2 Sat by Pulse Oximetry 97 O2 Sat by Pulse Oximetry 93 Vital Signs Temp Pulse Resp BP Pulse Ox 102.0 F H 84 22 127/76 88 08/26/16 13:25 08/26/16 13:25 08/26/16 13:25 08/26/16 13:25 08/26/16 13:25 Vital Signs/O2 Sat, Most Current Temp Pulse Resp BP Pulse Ox 98.1 F 66 21 138/68 92 09/01/16 11:24 09/01/16 12:40 09/01/16 11:24 09/01/16 11:24 09/01/16 11:24 Height: 5'6'' Weight: 167# NPO (# of Hours): > 8 Hrs Pain Scale: 0 Pain Scale Used: Numeric (1 - 10) Anesthesia Assess/Plan ASA Score: 3 Modified Deisy Scale for Level of Consciousness: Cooperative, oriented, and tranquil Anesthetic Plan: MAC Autologous Blood: Yes Monitoring Plan: Standard Monitors Recovery Plan: Other
--- NOTE | 2016-09-01 15:43 | Internal Med Progress Note ---
Date of Encounter: 09/01/16 Time of Encounter: 14:45 - Assessment and plan (1) Acute respiratory failure Current Visit: Yes Status: Acute Assessment and plan: Continue O2 supplementation. Will evaluate for home oxygen. Due to multifocal pneumonia and CHF. Chest physiotherapy. Moderate risk for complications. Qualifiers: Respiratory failure complication: hypoxia Qualified Code(s): J96.01 - Acute respiratory failure with hypoxia (2) Sepsis Current Visit: No Status: Acute Assessment and plan: Likely from aspiration pneumonia. Blood cultures have been negative. Will complete antibiotic course tomorrow. WBC count at 12.4 today. Qualifiers: Sepsis type: sepsis due to unspecified organism Qualified Code(s): A41.9 - Sepsis, unspecified organism (3) Multifocal pneumonia Current Visit: Yes Status: Acute Assessment and plan: Possibly from aspiration. Discussed with GI. Plan for upper GI endoscopy today. Follow results. Continue aspiration precautions. Speech and swallow therapy. (4) CHF (congestive heart failure) Current Visit: Yes Status: Acute Assessment and plan: On IV Lasix. We will transition to oral Lasix at the patient is clinically getting better. Qualifiers: Congestive heart failure type: combined Congestive heart failure chronicity : acute on chronic Qualified Code(s): I50.43 - Acute on chronic combined systolic (congestive) and diastolic (congestive) heart failure (5) Acute exacerbation of chronic obstructive pulmonary disease (COPD) Current Visit: Yes Status: Acute Assessment and plan: On bronchodilator nebs and O2 supplementation along with Symbicort. (6) Dysphagia Current Visit: Yes Status: Suspected Assessment and plan: Follow results of upper GI endoscopy. Continue aspiration precautions. Speech and swallow therapy. Qualifiers: Dysphagia type: other dysphagia Qualified Code(s): R13.19 - Other dysphagia - Subjective Interval history: Patient is awake and alert. No new complaints today. Having upper GI endoscopy later today. Does have cough intermittently. Shortness of breath is improving. Continues to require 3 L O2 supplementation. - Constitutional Vitals: Temp Pulse Resp BP Pulse Ox 98.3 F 62 20 121/65 92 09/01/16 14:00 09/01/16 14:00 09/01/16 14:00 09/01/16 14:00 09/01/16 11:24 General appearance: Present: cooperative, A&O X 3, pleasant, no acute distress, answers questions appropriately - Respiratory Respiratory exam: Present: prolonged expiratory phase, wheezes (Minimal). Absent: accessory muscle use, rales, rhonchi - Cardiovascular Cardiovascular exam: Present: RRR, +S1, +S2. Absent: diastolic murmur, gallop, rubs, systolic murmur - GI/Abdominal GI/Abdominal exam: Present: normal bowel sounds, soft, no peritoneal signs. Absent: distended, tenderness - Extremities Exam Extremities exam: Present: warm, radial pulses palpable and symetrical. Absent : calf tenderness, cyanotic, pedal edema - Neurological Exam Neurological exam: Present: alert, oriented X3, no focal deficits. Absent: pronater drift, facial droop, speech deficit - Skin Skin exam: Present: dry, intact Internal Medicine: Result - Labs CBC & Chem 7: 09/01/16 08:27 09/01/16 08:27 Labs: Short CBC 09/01/16 Range/Units 08:27 WBC 12.4 H (4.3-11.1) K/mcL Hgb 9.1 L (12.9-16.9) g/dL Hct 29.0 L (37.5-50.1) % Plt Count 293 (140-400) K/mcL Neutrophils # 8.4 (1.6-8.9) K/mcL BMP 09/01/16 08:27 Sodium 140 Potassium 3.6 Chloride 99 Carbon Dioxide 34 H BUN 21 Creatinine 0.81 Glucose 102 H Calcium 9.1 - ABG Interpretation ABG results: PT/INR, D-dimer PT 12.8 Seconds (9.4-12.1) H 08/26/16 13:52 - VTE Documentation of Mechanical Device: Graduated compression elastic hosiery Consult Discharge Plan - Plan Referrals: Radha Rojas DO [Primary Care Provider] - 09/10/16 10:00 am - Attending Attestation This document has been at least partially created by [employer] recognition technology by Dr. Guerra. Errors in grammar, wording or other phrases may exist. If errors are found after the documentation is signed, they will be addressed individually in the addendum section of this document when appropriate.
[2016-09-01] MEDS ORDERED: *HR* Midazolam HCl 5 MG/5 ML VIAL IVP ONE (17:06)
[2016-09-01] MEDS ORDERED: *HR* FentaNYL (PF) 100 MCG/2 ML VIAL ONE (17:06)
[2016-09-01] MEDS: *HR* Midazolam HCl 5 MG/5 ML VIAL IVP PRN ×2 (17:12→17:15)
[2016-09-01] MEDS: *HR* FentaNYL (PF) 100 MCG/2 ML VIAL IVP PRN ×2 (17:12→17:15)
[2016-09-01] MEDS: Furosemide 40 MG TABLET PO SCH (18:57)
[2016-09-01] MEDS: tiZANidine 4 MG TABLET PO SCH (21:20)
[2016-09-01] MEDS: Benzonatate 100 MG CAPSULE PO PRN (23:14)
[2016-09-02] MEDS: Piperacillin/Tazobactam 3.375 GM in D5% in Water (Mini-Bag+) 100 ML IVPB SCH ×3 (00:11→16:00)
[2016-09-02 04:39] LABS: Basophils # 0.1 K/mcL (0.0-0.2); Basophils % 0.9 %; Eosinophils # 0.6 K/mcL (0.0-0.6); Eosinophils % 4.7 %; Hematocrit 28.8 % (37.5-50.1); Hemoglobin 9.2 g/dL (12.9-16.9); Immature Granulocytes % 10.1 % (0-4); Lymphocytes # 1.6 K/mcL (0.6-4.6); Lymphocytes % 12.4 %; Mean Corpuscular HGB Conc 31.9 g/dL (31.6-35.5); Mean Corpuscular Hemoglobin 29.1 pg (28.0-33.3); Mean Corpuscular Volume 91.1 fL (83.0-100.0); Monocytes # 0.9 K/mcL (0.0-1.3); Monocytes % 6.6 %; Neutrophils # 8.6 K/mcL (1.6-8.9); Platelet Count 318 K/mcL (140-400); Red Blood Count 3.16 M/mcL (4.19-5.50); Red Cell Distribution Width 14.3 % (11.5-14.5); Segmented Neutrophils % 65.3 %
[2016-09-02] MEDS: Ipratropium/Albuterol Neb 3 ML IH SCH ×4 (05:04→22:19)
[2016-09-02 05:18] LABS: Platelet Estimate Normal (Normal)
[2016-09-02] MEDS: *HR* Enoxaparin 40 MG/0.4 ML SYRINGE SQ SCH (06:31)
[2016-09-02] MEDS: Potassium Chloride Elixir 20 MEQ/15 ML UDC PO SCH ×2 (08:45→21:25)
[2016-09-02] MEDS: Gabapentin 300 MG CAPSULE PO SCH ×2 (08:46→21:24)
[2016-09-02] MEDS: Furosemide 40 MG TABLET PO SCH (08:46)
[2016-09-02] MEDS: Loratadine 10 MG TABLET PO SCH (08:46)
[2016-09-02] MEDS: Budesonide/Formoterol 160/4.5 MDI IH SCH ×2 (10:25→22:20)
[2016-09-02] MEDS: Benzonatate 100 MG CAPSULE PO PRN (11:56)
--- NOTE | 2016-09-02 16:16 | Internal Med Progress Note ---
Date of Encounter: 09/02/16 Time of Encounter: 09:45 - Assessment and plan (1) Acute respiratory failure Current Visit: Yes Status: Acute Assessment and plan: Improving. Continue O2 supplementation and treating underlying conditions. Qualifiers: Respiratory failure complication: hypoxia Qualified Code(s): J96.01 - Acute respiratory failure with hypoxia (2) Sepsis Current Visit: Yes Status: Acute Assessment and plan: Likely due to aspiration pneumonia. Leukocytosis worse today. Consulted infectious disease and will follow recommendations. No fever, chills reported. Qualifiers: Sepsis type: sepsis due to unspecified organism Qualified Code(s): A41.9 - Sepsis, unspecified organism (3) Multifocal pneumonia Current Visit: Yes Status: Acute Assessment and plan: Likely aspiration related. Has received 7 days of antibiotics (4) CHF (congestive heart failure) Current Visit: Yes Status: Acute Assessment and plan: Resume home dosage of Lasix. Clinically improving. Qualifiers: Congestive heart failure type: combined Congestive heart failure chronicity : acute on chronic Qualified Code(s): I50.43 - Acute on chronic combined systolic (congestive) and diastolic (congestive) heart failure (5) Acute exacerbation of chronic obstructive pulmonary disease (COPD) Current Visit: Yes Status: Acute Assessment and plan: On bronchodilators. Continue O2 supplementation. (6) Dysphagia Current Visit: Yes Status: Suspected Assessment and plan: Upper GI endoscopy showed Dominguez's esophagus and gastroparesis. Patient takes domperidone at home. Will start patient on Reglan here for gastroparesis. Qualifiers: Dysphagia type: other dysphagia Qualified Code(s): R13.19 - Other dysphagia - Subjective Interval history: Patient complains of cough. Shortness of breath is improving. No chest pain. Tolerating diet well. - Constitutional Vitals: Temp Pulse Resp BP Pulse Ox 98.4 F 66 18 110/60 94 09/02/16 15:26 09/02/16 15:26 09/02/16 15:26 09/02/16 15:26 09/02/16 15:26 General appearance: Present: cooperative, A&O X 3, pleasant, no acute distress, answers questions appropriately - Neck Neck exam general surgery: Present: supple, trachea midline. Absent: lymphadenopathy - Respiratory Respiratory exam: Present: CTAB. Absent: accessory muscle use, rales, rhonchi, wheezes - Cardiovascular Cardiovascular exam: Present: RRR, +S1, +S2. Absent: diastolic murmur, gallop, rubs, systolic murmur - GI/Abdominal GI/Abdominal exam: Present: normal bowel sounds, soft, no peritoneal signs. Absent: distended, tenderness - Extremities Exam Extremities exam: Present: warm, radial pulses palpable and symetrical. Absent : calf tenderness, cyanotic, pedal edema - Neurological Exam Neurological exam: Present: alert, oriented X3, no focal deficits. Absent: facial droop, speech deficit Internal Medicine: Result - Labs CBC & Chem 7: 09/02/16 03:47 09/01/16 08:27 Labs: Short CBC 09/02/16 Range/Units 03:47 WBC 13.2 H (4.3-11.1) K/mcL Hgb 9.2 L (12.9-16.9) g/dL Hct 28.8 L (37.5-50.1) % Plt Count 318 (140-400) K/mcL Neutrophils # 8.6 (1.6-8.9) K/mcL - ABG Interpretation ABG results: PT/INR, D-dimer PT 12.8 Seconds (9.4-12.1) H 08/26/16 13:52 - VTE Documentation of Mechanical Device: Graduated compression elastic hosiery Consult Discharge Plan - Plan Referrals: Radha Rojas DO [Primary Care Provider] - 09/10/16 10:00 am - Attending Attestation This document has been at least partially created by [employer] recognition technology by Dr. Guerra. Errors in grammar, wording or other phrases may exist. If errors are found after the documentation is signed, they will be addressed individually in the addendum section of this document when appropriate.
--- NOTE | 2016-09-02 17:38 | Infectious Disease Consult ---
Date of Encounter: 09/02/16 Time of Encounter: 17:38 Assessment and Plan (1) COPD (chronic obstructive pulmonary disease) Status: Acute Assessment and plan: On 3 L nasal cannula. At baseline. Qualifiers: COPD type: unspecified COPD Qualified Code(s): J44.9 - Chronic obstructive pulmonary disease, unspecified (2) Acute respiratory failure Status: Acute Qualifiers: Respiratory failure complication: hypoxia Qualified Code(s): J96.01 - Acute respiratory failure with hypoxia (3) Pneumonia Status: Acute Assessment and plan: Multifocal pneumonia. NOT ASPIRATION but system doesn't allow me to choose any other dx Causative organism not clear. Sputum culture did not reveal bacterial organism and urine legionella and pneumococcal antigen were negative Clinically improved on Zosyn although chest x-ray appears to be unchanged best Reviewing the cultures on this patient, no history of pseudomonas. Patient is also allergic to Levaquin and ciprofloxacin. On discharge consider discharging on Augmentin and Bactrim combination. If patient returns with worsening pneumonia again, we'll try to get another sputum culture see if Pseudomonas is the culprit and then he might need IV antibiotics if we can give him fluoroquinolones. Patient is on day 8 of IV antibiotics, consider discharging him on Augmentin to finish a 14 day course. No need to treat yeast in the sputum. Qualifiers: Pneumonia type: aspiration pneumonia Aspiration pneumonia type: unspecified Laterality: bilateral Lung location: unspecified part of lung Qualified Code(s): J69.0 - Pneumonitis due to inhalation of food and vomit (4) CHF exacerbation Status: Acute Qualifiers: Congestive heart failure type: unspecified congestive heart failure type Qualified Code(s): I50.9 - Heart failure, unspecified (5) Acute exacerbation of chronic obstructive pulmonary disease (COPD) Status: Acute (6) Multifocal pneumonia Status: Acute Assessment and plan: Causative organism not clear. Clinically patient seems to be improving Came in with sepsis like picture which has been resolved Improving on Zosyn day 8 Sputum positive for yeast no indication to treat Consider the seeing home on Augmentin plus Bactrim combination. (7) Gastroparesis Status: Acute Infectious Disease HPI - Data of Consult Patient: new to practice Consult date: 09/02/16 Requesting Physician: Delicia Guerra MD Primary Care Provider: Radha Rojas - Consult Narrative Reason for consult: pneumonia History of present illness: Mr. Gaston is a 75 year old male Patient is a 75-year-old gentleman admitted on 08/26/2016 with shortness of breath, we are consulted on 09/02/2016 for worsening leukocytosis, yeast in the sputum on multifocal pneumonia. Patient is 75-year-old gentleman with extensive past medical history including COPD, hyperlipidemia, hypertension, GERD and congestive heart failure who presented to the emergency department on the day of admission complaining of fever, chest congestion and shortness of breath that. Apparently the symptoms started about a week prior to admission and have been getting progressively worse. Fever started about 2-3 days prior to the admission but no temperature was obtained at home. Patient was also having chills and just worsening appetite and anorexia. Patient came in to the emergency department for evaluation. In the ED patient was found to be febrile with a temperature of 102.6, white blood cell count of 11,000 with neutrophilic predominance at 87%. Patient had no bands. Patient was also noted to have acute kidney injury, dehydration but no lactic acidosis. A UA was obtained which showed no pyuria but showed small nitrites and leukocyte esterase. A CT chest was obtained which revealed multifocal bilateral pneumonia infiltrates with patchy areas of consolidation seen predominantly within the lower lobes. There is also a small amount of and drill bronchial material seen within the left lower lobe posteriorly which could be related to aspiration. Patient was started on vancomycin, Zosyn and azithromycin. Blood cultures were obtained on 518 2 out of 2 sets were negative urine culture was obtained on 518 which also did not reveal a UTI urine legionella and strep antigen were obtained and came back negative. Influenza A and B antigen nasopharyngeal was also negative. Sputum culture was obtained on and it revealed T species. 2 days post admission azithromycin was DCd, vancomycin was DCd and Zosyn was continued.. Since admission patient is doing significantly better. Patient is back at baseline, comes to his breathing and coughing. Requiring 3 L O2 nasal cannula. Has this hacking cough but he tells me that his chronic. Nursing tells me that he had a swallow eval in the past was eating normal food. Patient denies any diarrhea. CC: Delicia Guerra MD Past Med Surg Social Fam HX - Past Medical History Medical history: CHF, COPD, GERD (manzano's esophagus), hyperlipidemia, hypertension, other Psychiatric history: no psych history - Past Surgical History Surgical History: appendectomy, knee replacement, sinus surgery, other (hiatal hernia repair) - Social History Smoking Status: Former smoker Alcohol use: none Drug use: none - Family History Mother Living Status: Hx Family Cardiac Disorders: Yes Father Living Status: Hx Family Cardiac Disorders: Yes Hx Family Neurologic Disorders: Yes (alzheimers) Infectious Disease-CN:Meds Albuterol Neb [Proventil Neb] 2.5 mg IH QID PRN 03/31/15 [History] Albuterol Sulfate [Proventil Hfa] 2 puff IH QID PRN 03/31/15 [History] Atorvastatin [Lipitor] 10 mg PO HS 03/31/15 [History] Cetirizine HCl [Zyrtec] 10 mg PO DAILY 03/31/15 [History] Cholestyramine/Aspartame [Cholestyramine Light Packet] 4 gm PO DAILY 03/31/15 [ History] Dicyclomine [Bentyl] 20 mg PO QID 03/31/15 [History] Esomeprazole Magnesium [Nexium] 40 mg PO DAILY 03/31/15 [History] Fluticasone Propionate Nasal [Flonase] 100 mcg NS DAILY 03/31/15 [History] Furosemide [Lasix] 40 mg PO QPM 03/31/15 [History] Furosemide [Lasix] 80 mg PO QAM 03/31/15 [History] Gabapentin [Neurontin] 600 mg PO BID 03/31/15 [History] Montelukast [Singulair] 10 mg PO DAILY 03/31/15 [History] Nortriptyline [Pamelor] 75 mg PO HS 03/31/15 [History] Potassium Chloride [Klor-Con Sprinkle] 10 meq PO BID 03/31/15 [History] Ranitidine HCl [Zantac] 150 mg PO HS 03/31/15 [History] Sertraline [Zoloft] 50 mg PO HS 03/31/15 [History] Tamsulosin [Flomax] 0.4 mg PO DAILY 03/31/15 [History] Tizanidine HCl [Zanaflex] 4 - 8 mg PO HS 03/31/15 [History] Budesonide/Formoterol 160/4.5 [Symbicort 160/4.5] 2 puff IH BIDR 08/26/16 [ History] Domperidone 20 mg PO QIDAC 08/26/16 [History] OxyCODONE CONC 5 mg PO BID PRN 08/26/16 [History] Amoxicillin/Clavulanate [Augmentin] 875 mg PO BIDWM #12 tablet 09/03/16 [Rx] Benzonatate [Tessalon] 100 mg PO TID PRN #20 capsule 09/03/16 [Rx] GuaiFENesin/Dextromethorphan [Robitussin/Dm] 10 ml PO QID PRN #200 ml 09/03/16 [ Rx] Sulfamethoxazole/Trimeth DS [Bactrim Ds] 1 each PO BID #12 tablet 09/03/16 [Rx] Allergies ciprofloxacin [From Cipro] Allergy (Verified 03/31/15 15:16) Hives levofloxacin [From Levaquin] Allergy (Verified 03/31/15 15:16) Hives Tetracycline Allergy (Verified 03/31/15 17:20) Rash Review of systems: 10 point review of systems done, negative other for what mentioned in history of present illness. Exam - Constitutional Vitals: Temp Pulse Resp BP Pulse Ox 98.4 F 74 18 110/60 94 09/02/16 15:26 09/02/16 16:00 09/02/16 15:26 09/02/16 15:26 09/02/16 15:26 General appearance: no acute distress, no febrile - Head Head exam: Present: atraumatic, normocephalic - Eye Eye exam: Present: EOMI, PERRL - Neck Neck exam: Present: full ROM. Absent: meningismus - Respiratory Additional comments: Air sounds diminished universally, some diffuse rhonchi at the bases. - Cardiovascular Cardiovascular exam: Present: RRR, +S1, +S2 - GI/Abdominal GI/Abdominal exam: Present: normal bowel sounds, soft. Absent: tenderness - Extremities Exam Extremities exam: Present: normal inspection. Absent: pedal edema - Neurological Exam Neurological exam: Present: alert, oriented X3 - Psychiatric Psychiatric exam: Present: normal affect, normal mood - Skin Skin exam: Absent: rash Infectious Disease CN: Results - Labs CBC & Chem 7: 09/02/16 03:47 09/01/16 08:27 Cultures: Cultures 08/30/16 13:10 Sputum Culture - Preliminary Sputum Yeast Species 08/27/16 04:30 Influenza Types A,B Antigen (GEO) - Final Nasopharyngeal - VTE Documentation of Mechanical Device: Graduated compression elastic hosiery Consult Discharge Plan - Plan Instructions: Sulfamethoxazole/Trimethoprim (By mouth), Benzonatate (By mouth) , Guaifenesin (By mouth), Amoxicillin/Clavulanate Potassium (By mouth), Heart Failure (DC), Pneumonia (DC) Referrals: Radha Rojas DO [Primary Care Provider] - 09/10/16 10:00 am Prescriptions: Amoxicillin/Clavulanate [Augmentin] 875 mg PO BIDWM #12 tablet Benzonatate [Tessalon] 100 mg PO TID PRN #20 capsule PRN Reason: Cough GuaiFENesin/Dextromethorphan [Robitussin/Dm] 10 ml PO QID PRN #200 ml PRN Reason: COUGH/CHEST CONGESTION Sulfamethoxazole/Trimeth DS [Bactrim Ds] 1 each PO BID #12 tablet
[2016-09-02] MEDS ORDERED: Furosemide 40 MG TABLET PO SCH (18:00)
[2016-09-02] MEDS: tiZANidine 4 MG TABLET PO SCH (21:25)
[2016-09-02] MEDS: Lactobacillus 1 EACH CAP.SPRINK PO SCH (21:25)
[2016-09-03] MEDS: Ipratropium/Albuterol Neb 3 ML IH SCH ×2 (05:12→10:36)
[2016-09-03] MEDS: *HR* Enoxaparin 40 MG/0.4 ML SYRINGE SQ SCH (05:34)
[2016-09-03] MEDS ORDERED: Sulfamethoxazole/Trimeth DS 1 EACH TABLET PO SCH (09:00)
[2016-09-03] MEDS ORDERED: Furosemide 40 MG TABLET PO SCH (09:00)
[2016-09-03] MEDS: Gabapentin 300 MG CAPSULE PO SCH (09:24)
[2016-09-03] MEDS: Loratadine 10 MG TABLET PO SCH (09:25)
[2016-09-03] MEDS: Lactobacillus 1 EACH CAP.SPRINK PO SCH (09:26)
[2016-09-03] MEDS: Potassium Chloride Elixir 20 MEQ/15 ML UDC PO SCH (09:26)
--- NOTE | 2016-09-03 10:03 | Discharge Summary ---
Date of Encounter: 09/03/16 Time of Encounter: 09:57 - Discharge Diagnosis (1) Acute respiratory failure Priority: Primary Status: Acute Qualifiers: Respiratory failure complication: hypoxia Qualified Code(s): J96.01 - Acute respiratory failure with hypoxia (2) Sepsis Priority: Secondary Status: Acute Qualifiers: Sepsis type: sepsis due to unspecified organism Qualified Code(s): A41.9 - Sepsis, unspecified organism (3) Multifocal pneumonia Priority: Secondary Status: Acute (4) CHF (congestive heart failure) Priority: Secondary Status: Acute Qualifiers: Congestive heart failure type: combined Congestive heart failure chronicity : acute on chronic Qualified Code(s): I50.43 - Acute on chronic combined systolic (congestive) and diastolic (congestive) heart failure (5) Acute exacerbation of chronic obstructive pulmonary disease (COPD) Priority: Secondary Status: Acute (6) Dysphagia Priority: Secondary Status: Suspected Qualifiers: Dysphagia type: other dysphagia Qualified Code(s): R13.19 - Other dysphagia (7) Gastroparesis Priority: Secondary Status: Acute - Discharge Medications Prescriptions: Amoxicillin/Clavulanate [Augmentin] 875 mg PO BIDWM #12 tablet Benzonatate [Tessalon] 100 mg PO TID PRN #20 capsule PRN Reason: Cough GuaiFENesin/Dextromethorphan [Robitussin/Dm] 10 ml PO QID PRN #200 ml PRN Reason: COUGH/CHEST CONGESTION Sulfamethoxazole/Trimeth DS [Bactrim Ds] 1 each PO BID #12 tablet Home Medications: Albuterol Neb [Proventil Neb] 2.5 mg IH QID PRN 03/31/15 [History] Albuterol Sulfate [Proventil Hfa] 2 puff IH QID PRN 03/31/15 [History] Atorvastatin [Lipitor] 10 mg PO HS 03/31/15 [History] Cetirizine HCl [Zyrtec] 10 mg PO DAILY 03/31/15 [History] Cholestyramine/Aspartame [Cholestyramine Light Packet] 4 gm PO DAILY 03/31/15 [ History] Dicyclomine [Bentyl] 20 mg PO QID 03/31/15 [History] Esomeprazole Magnesium [Nexium] 40 mg PO DAILY 03/31/15 [History] Fluticasone Propionate Nasal [Flonase] 100 mcg NS DAILY 03/31/15 [History] Furosemide [Lasix] 40 mg PO QPM 03/31/15 [History] Furosemide [Lasix] 80 mg PO QAM 03/31/15 [History] Gabapentin [Neurontin] 600 mg PO BID 03/31/15 [History] Montelukast [Singulair] 10 mg PO DAILY 03/31/15 [History] Nortriptyline [Pamelor] 75 mg PO HS 03/31/15 [History] Potassium Chloride [Klor-Con Sprinkle] 10 meq PO BID 03/31/15 [History] Ranitidine HCl [Zantac] 150 mg PO HS 03/31/15 [History] Sertraline [Zoloft] 50 mg PO HS 03/31/15 [History] Tamsulosin [Flomax] 0.4 mg PO DAILY 03/31/15 [History] Tizanidine HCl [Zanaflex] 4 - 8 mg PO HS 03/31/15 [History] Budesonide/Formoterol 160/4.5 [Symbicort 160/4.5] 2 puff IH BIDR 08/26/16 [ History] Domperidone 20 mg PO QIDAC 08/26/16 [History] OxyCODONE CONC 5 mg PO BID PRN 08/26/16 [History] Amoxicillin/Clavulanate [Augmentin] 875 mg PO BIDWM #12 tablet 09/03/16 [Rx] Benzonatate [Tessalon] 100 mg PO TID PRN #20 capsule 09/03/16 [Rx] GuaiFENesin/Dextromethorphan [Robitussin/Dm] 10 ml PO QID PRN #200 ml 09/03/16 [ Rx] Sulfamethoxazole/Trimeth DS [Bactrim Ds] 1 each PO BID #12 tablet 09/03/16 [Rx] Allergies/Adverse Reactions: Allergies ciprofloxacin [From Cipro] Allergy (Verified 03/31/15 15:16) Hives levofloxacin [From Levaquin] Allergy (Verified 03/31/15 15:16) Hives Tetracycline Allergy (Verified 03/31/15 17:20) Rash Date of admission: 08/26/16 19:04 Primary care physician: Radha Rojas Consults: 08/26/16 20:06 Consult to Nutrition [CONS] Routine Comment: Consulting Provider: NUTRITION Reason for Dietary Consult: MST Score Consult to Barrel Inspector [CONS] Routine Reason for SW Consult: discharge planning 08/26/16 23:27 Consult to Speech Therapy [CONS] Routine Comment: Evaluate, develop and implement POC Reason for Consult: patient reports trouble swallowing. Concern for aspiration pneumonia. Please perform swallow study. thanks. Call Completed: No 08/31/16 09:51 Consult to Pulmonology [CONS] Routine Consulting Provider: [facility] [place] Reason for Consult: Multifocal Pneumonia - worsening WBC Time Notified: 09:51 Call Completed: Yes 08/31/16 15:30 Consult to Gastroenterology [CONS] Routine Consulting Provider: [facility] [place] Reason for Consult: Dysphagia/ Aspiration. Hx of Barretts. COncern for stricture. Call Completed: Yes 09/02/16 07:54 Consult to Infectious Diseases [CONS] Routine Consulting Provider: Infectious Disease [facility] Reason for Consult: Worsening leukocytosis/ yeast in sputum/ multifocal pneumonia Call Completed: Yes Discharging clinician: Delicia Guerra Anticipated date of discharge: 09/03/16 - Patient Status Disposition: Home, Self-Care Condition: Good Functional capacity at discharge: independent ambulation - Discharge Instructions Instructions: Pneumonia (DC), Heart Failure (DC) Follow Up With: Radha Rojas DO [Primary Care Provider] - 09/10/16 10:00 am - Diet and Activity Activity: increase activity as tolerated, wear oxygen at all times Diet: low fat, low cholesterol, low salt diet, other (Fluid restriction to 1800 mL per day) Hospital course: Mr. Gaston is a 75 year old male patient with a history of COPD, CHF and Dominguez' s esophagus who was admitted here with sepsis, acute respiratory failure and multifocal pneumonia. He was treated with IV antibiotics, O2 supplementation and bronchodilators. His cultures have so far been negative. It appears that the patient could have underlying aspiration pneumonia as he has a history of gastroparesis. He underwent upper GI endoscopy to look for any esophageal strictures. 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 He has been treated for his gastroparesis with Reglan here. He does take domperidone at home. He has completed 8 days of IV antibiotics and now has been transitioned to oral antibiotics per infectious disease recommendations. He still has slight leukocytosis but this could be reactive. He has not had any further fevers or chills. Clinically he is doing much better. He is stable to be discharged home. He was evaluated for O2 supplementation and he does qualify for chronic home oxygen use and this is currently being arranged. He can follow up with his primary care provider after discharge for further management. He will complete treatment for pneumonia with Augmentin and Bactrim per infectious disease recommendation. - Time Spent with Patient Total time spent providing and/or coordinating discharge services: Greater than 30 minutes (45 min) - Constitutional Vitals: Temp Pulse Resp BP Pulse Ox 98.4 F 64 14 113/62 94 09/03/16 08:07 09/03/16 08:07 09/03/16 08:07 09/03/16 08:07 09/03/16 08:07 General appearance: Present: cooperative, A&O X 3, pleasant, no acute distress, answers questions appropriately - Respiratory Respiratory exam: Present: prolonged expiratory phase. Absent: accessory muscle use, rales, wheezes - Cardiovascular Cardiovascular exam: Present: RRR, +S1, +S2. Absent: diastolic murmur, gallop, rubs, systolic murmur - GI/Abdominal GI/Abdominal exam: Present: normal bowel sounds, soft, no peritoneal signs. Absent: distended, tenderness - Extremities Exam Extremities exam: Present: warm, radial pulses palpable and symetrical. Absent : calf tenderness, cyanotic, pedal edema - VTE Documentation of Mechanical Device: Graduated compression elastic hosiery - Attending Attestation This document has been at least partially created by [employer] voice recognition technology by Dr. Guerra. Errors in grammar, wording or other phrases may exist. If errors are found after the documentation is signed, they will be addressed individually in the addendum section of this document when appropriate.
[2016-09-03] MEDS: Budesonide/Formoterol 160/4.5 MDI IH SCH (10:36)
--- NOTE | 2016-09-03 11:10 | Infectious Disease Progress No ---
Date of Encounter: 09/03/16 Time of Encounter: 11:08 - Assessment and Plan (1) Sepsis Status: Acute The patient had three SIRS criteria on admission. Secondary to multifocal PNA. Resolved. Blood cultures drawn 08/26/16 are negative. Qualifiers: Sepsis type: sepsis due to unspecified organism Qualified Code(s): A41.9 - Sepsis, unspecified organism (2) Multifocal pneumonia Status: Acute Location: bilateral, multifocal. Causative organism unclear. Sputum culture only grew out yeast. S. pneumo and Legionella UAT negative. CT of the chest completed 08/26/16 showed multifocal bilateral pulmonary infiltrates with patchy areas of consolidation predominantly in the lower lobes. There was also noted to be a small amount of endobronchial materail seen within the posterior lower lobe concerning for aspiration. Repeat CXR shows minimal change, but clinically the patient is markedly improved. He has been treated with 9 days of IV Zosyn. Continue Zosyn 3.375 grams IV Q8H. Duration of treatment depends on the clinical picture, but would recommend completing a 14 day course of treatment. Would recommend switching to PO Augmentin when ready for discharge. Monitor renal function and dose-adjust antibiotics. Recommend follow-up with PCP after discharge. (3) Acute respiratory failure Status: Acute Secondary to PNA. Appears improved. Qualifiers: Respiratory failure complication: hypoxia Qualified Code(s): J96.01 - Acute respiratory failure with hypoxia (4) Acute exacerbation of chronic obstructive pulmonary disease (COPD) Status: Acute (5) CHF (congestive heart failure) Status: Acute Qualifiers: Congestive heart failure type: combined Congestive heart failure chronicity : acute on chronic Qualified Code(s): I50.43 - Acute on chronic combined systolic (congestive) and diastolic (congestive) heart failure (6) Gastroparesis Status: Acute - Subjective Interval history: Patient seen and examined. No acute events noted overnight. Patient states he is being discharged home today. States he feels better. Denies fevers or chills. Denies chest pain, but states he continues to have some shortness of breath, but states this is improved since he was admitted. He reports a dry cough yesterday, but none today. He denies nausea, vomiting, diarrhea, or constipation. He denies urinary complaints. He denies pain at this time. He denies oral thrush or skin lesions. Infect Dis PN-Objective Data - Labs CBC & Chem 7: 05/25/17 03:47 09/01/16 08:27 Cultures: Cultures 08/30/16 13:10 Sputum Culture - Final Sputum Kaya albicans 08/27/16 04:30 Influenza Types A,B Antigen (EGO) - Final Nasopharyngeal Exam - Constitutional Vitals: Temp Pulse Resp BP Pulse Ox 98.4 F 64 18 113/62 94 09/03/16 08:07 09/03/16 08:07 09/03/16 10:36 09/03/16 08:07 09/03/16 10:36 General appearance: average body habitus, cooperative, no acute distress - Head Head exam: Present: atraumatic, normal inspection, normocephalic - Eye Eye exam: Present: EOMI, normal appearance Pupils: Present: normal accommodation, PERRL - ENT ENT exam: Present: mucous membranes moist - Neck Neck exam: Present: normal inspection - Respiratory Respiratory exam: Present: CTAB. Absent: rales, respiratory distress, rhonchi, wheezes - Cardiovascular Cardiovascular exam: Present: RRR, +S1, +S2 - GI/Abdominal GI/Abdominal exam: Present: normal bowel sounds, soft. Absent: distended, tenderness - Extremities Exam Extremities exam: Present: normal inspection. Absent: joint swelling, pedal edema, tenderness - Neurological Exam Neurological exam: Present: alert, oriented X3, no focal deficits - Psychiatric Psychiatric exam: Present: normal affect, normal mood - Skin Skin exam: Present: dry, intact, normal color, warm - VTE Documentation of Mechanical Device: Graduated compression elastic hosiery Consult Discharge Plan - Plan Instructions: Sulfamethoxazole/Trimethoprim (By mouth), Benzonatate (By mouth) , Guaifenesin (By mouth), Amoxicillin/Clavulanate Potassium (By mouth), Heart Failure (DC), Pneumonia (DC) Referrals: Radha Rojas DO [Primary Care Provider] - 09/10/16 10:00 am Prescriptions: Amoxicillin/Clavulanate [Augmentin] 875 mg PO BIDWM #12 tablet Benzonatate [Tessalon] 100 mg PO TID PRN #20 capsule PRN Reason: Cough GuaiFENesin/Dextromethorphan [Robitussin/Dm] 10 ml PO QID PRN #200 ml PRN Reason: COUGH/CHEST CONGESTION Sulfamethoxazole/Trimeth DS [Bactrim Ds] 1 each PO BID #12 tablet - Attending Attestation I examined this patient and my medical decision-making was reviewed with the BILLING CHECKER/PA/Advanced Practice Nurse/Resident Physician. I agree with the documented findings, disposition and treatment plan as described except to the extent set forth below.
[2016-09-03 11:31] VITALS: BP 96/55
== END 2016-09-03 15:38 | disposition home or self-care (01) | DRG 871 ==
LOC: EMEROO 13:20 → SUATTDRO 19:04 → 2NNU 19:04
PROVIDERS: ADMIT Nurse Practitioner Family; ATTEND Internal Medicine
PROC: ENDOEBX (2016-09-01 14:30)

== ENCOUNTER 2016-10-03 13:21 | Observation (INO) ==
--- NOTE | 2016-10-03 13:49 | Emergency Department Note ---
Disposition Clinical Impression: Jerky body movements, Neck pain, Paresthesias, Falls frequently Concussion with loss of consciousness Qualifiers: Encounter type: initial encounter Qualified Code(s): S06.0X9A - Concussion with loss of consciousness of unspecified duration, initial encounter COPD (chronic obstructive pulmonary disease) Qualifiers: COPD type: unspecified COPD Qualified Code(s): J44.9 - Chronic obstructive pulmonary disease, unspecified Disposition: Admitted As Inpatient Condition: Fair Time of Disposition: 17:05 Fall HPI - General Chief Complaint: ED Fall Stated Complaint: fall Time Seen by Provider: 10/03/16 13:23 Source: patient, family, EMS Mode of arrival: ambulatory Limitations: no limitations Nursing Notes Reviewed: Yes Vital Signs Reviewed: Yes - History of Present Illness HPI Narrative: 75-year-old male is here hypertension, CHF, GERD, COPD on 3 L at baseline, status post fall, patient had a questionable mechanical fall with back to his head, he was in his room, due to tremors and leg shaking, he fell backwards striking the back of his head and now complains of 4 of 10 head pain, he denies any neck pain though he does have some upper neck pain on further questioning, mostly by his back of his head, and got up and tried to get on the bed and hit his head again and he laid on the bed and waited for EMS to arrive.. Patient states he feels bilateral numbness in his hands he states "I cannot feel them when I push them on one another", he denies any weakness, he can move his upper and lower extremities. Has chest pain abdominal pain, nausea vomiting diarrhea constipation, Pt Subjective Complaint: fall Onset (ago): hour(s) Fall From: standing Fall Witnessed: no Place Fall Occurred: home Loss of Consciousness: unsure Prolonged Down Time?: unclear Symptoms Prior to Fall: lightheadedness Context: tripped/slipped, other (No ACs) Location of injury: head, neck Location of injury - extremities: Bilateral: hand (Paresthesias feels numb) Severity: mild Severity scale (1-10): 4 Associated symptoms (after fall): Reports: numbness. Denies: weakness, chest pain, unable to walk, lightheaded, vertigo, confusion - Related Data Home Medications Medication Instructions Recorded Confirmed Albuterol Neb [Proventil Neb] 2.5 mg IH QID PRN 03/31/15 10/03/16 Albuterol Sulfate [Proventil Hfa] 2 puff IH QID PRN 03/31/15 10/03/16 Atorvastatin [Lipitor] 10 mg PO HS 03/31/15 10/03/16 Cetirizine HCl [Zyrtec] 10 mg PO DAILY 03/31/15 10/03/16 Cholestyramine/Aspartame 4 gm PO DAILY 03/31/15 10/03/16 [Cholestyramine Light Packet] Dicyclomine [Bentyl] 20 mg PO QID 03/31/15 10/03/16 Esomeprazole Magnesium [Nexium] 40 mg PO DAILY 03/31/15 10/03/16 Fluticasone Propionate Nasal 100 mcg NS DAILY 03/31/15 10/03/16 [Flonase] Furosemide [Lasix] 40 mg PO QPM 03/31/15 10/03/16 Furosemide [Lasix] 80 mg PO QAM 03/31/15 10/03/16 Gabapentin [Neurontin] 600 mg PO BID 03/31/15 10/03/16 Montelukast [Singulair] 10 mg PO DAILY 03/31/15 10/03/16 Nortriptyline [Pamelor] 75 mg PO HS 03/31/15 10/03/16 Potassium Chloride [Klor-Con 10 meq PO BID 03/31/15 10/03/16 Sprinkle] Ranitidine HCl [Zantac] 150 mg PO HS 03/31/15 10/03/16 Sertraline [Zoloft] 50 mg PO HS 03/31/15 10/03/16 Tamsulosin [Flomax] 0.4 mg PO DAILY 03/31/15 10/03/16 Tizanidine HCl [Zanaflex] 4 - 8 mg PO HS 03/31/15 10/03/16 Budesonide/Formoterol 160/4.5 2 puff IH BIDR 08/26/16 10/03/16 [Symbicort 160/4.5] Domperidone 20 mg PO QIDAC 08/26/16 10/03/16 OxyCODONE CONC 5 mg PO BID PRN 08/26/16 10/03/16 Allergies Allergy/AdvReac Type Severity Reaction Status Date / Time ciprofloxacin [From Cipro] Allergy Hives Verified 03/31/15 15:16 levofloxacin [From Levaquin] Allergy Hives Verified 03/31/15 15:16 Tetracycline Allergy Rash Verified 03/31/15 17:20 All systems ED: reviewed and negative except as stated. Constitutional: Reports: weakness. Denies: fever, chills Cardiovascular: Denies: chest pain, palpitations Respiratory: Denies: cough, dyspnea Gastrointestinal: Denies: abdominal pain Genitourinary: Denies: urgency, dysuria Musculoskeletal: Reports: as per HPI, neck pain. Denies: back pain Neurological: Reports: as per HPI, headache, numbness, paresthesias. Denies: confusion, abnormal gait Psychiatric: Denies: anxiety Fall PMH - Past Medical History Medical history: Reports: CHF, COPD, GERD, hyperlipidemia, hypertension, other Surgical history: Reports: appendectomy, knee replacement, sinus surgery, other (hiatal hernia repair) Psychiatric history: Reports: no psych history - Social History Smoking Status: Former smoker Alcohol use: Reports: none Drug use: Reports: none Physical Exam A airway patent B bilateral breath sounds C +2 dorsalis pedis and radial pulses bilaterally D bilateral upper extremity sensory deficits no weakness upper or lower extremities E no obvious abrasions deformity or ecchymosis. Constitutional: alert and oriented, in NAD, vital signs reviewed and wnl HEENT: NCAT, sclera anicteric Neck: + Upper cervical tenderness to palpation with no step-off or deformity Resp: normal chest inspection, CTA bilaterally, no resp distress CV: RRR, no m/g/r GI: normal inspection, Soft, NTND, BS present Back: no Palpable step-off or deformity no tenderness to palpation Neuro: A&O3, + weakness on physical exam, subjective decreased sensation in his bilateral hands, normal sensation in his shoulders and arms and forearms MSK: normal inspection, bilateral UE and LE with normal ROM Skin: No rashes, skin warm, dry, intact - General Limitations: no limitations General appearance: in no apparent distress Course Course Narrative: 75-year-old male with a mechanical fall, we will give basic lab work and EKG, also plan to do a CT of the head and C-spine and T-spine and lumbar spine given some mild lumbar tenderness to palpation with no step-off, most concerning is that he has upper extremity sensory deficits unconcern for central cord syndrome , we will get CT imaging given neuro logic symptoms, he may need MRI imaging and transfer to a trauma center - Reevaluation(s) Reevaluation #1: CT imaging negative for acute fracture, patient still with numbness in his bilateral upper extremities. - Consultations Consultation #1: I spoke with Dr. Troy, he recommends clearing C-spine given his negative CT, and transient upper extremity numbness, resolved clear the C-spine of this patient, although given frequent falls concern was to admit patient to the service with a neurology consult. I did speak with Dr. Purcell as well, he recommended admission possible MRI imaging of the T-spine. Time: 17:04 Vital Signs Temperature 98.2 F 10/03/16 13:24 Pulse Rate 62 10/03/16 13:24 Respiratory Rate 16 10/03/16 13:24 Blood Pressure 126/71 10/03/16 13:24 O2 Sat by Pulse Oximetry 93 10/03/16 13:24 Temperature 98.2 F 10/03/16 13:24 Pulse Rate 56 10/03/16 15:55 Respiratory Rate 16 10/03/16 15:55 Blood Pressure 117/62 10/03/16 15:55 O2 Sat by Pulse Oximetry 97 10/03/16 15:55 Oxygen Delivery Oxygen Delivery Nasal Cannula Fall - MDM Narrative Medical decision making narrative: 75-year-old male admitted to the hospitalist service for her logic workup given jerky clonic movements, frequent falls, head injury and transient upper extremity paresthesias. Consultation neurology and orthospine, patient admitted neuro vascularly intact and hemodynamically stable at the time of ED disposition - Differential Diagnosis Likely: syncope - Medical Records Medical records reviewed: Yes I reviewed the patient's medical records. - Lab Data Lab results reviewed: Yes I reviewed the patient's lab results. Result diagrams: 10/03/16 14:18 10/03/16 14:18 Lab Results 10/03/16 10/03/16 10/03/16 Range/Units 14:18 14:18 14:18 WBC 9.1 (4.3-11.1) K/mcL RBC 3.13 L (4.19-5.50) M/mcL Hgb 8.9 L (12.9-16.9) g/dL Hct 29.0 L (37.5-50.1) % MCV 92.7 (83.0-100.0) fL MCH 28.4 (28.0-33.3) pg MCHC 30.7 L (31.6-35.5) g/dL RDW 15.6 H (11.5-14.5) % Plt Count 152 (140-400) K/mcL MPV 9.9 (9.4-12.4) fL Immature Gran % 1.1 (0-4) % Seg Neutrophils % 70.9 % Lymphocytes % 15.2 % Monocytes % 8.9 % Eosinophils % 3.5 % Basophils % 0.4 % Neutrophils # 6.4 (1.6-8.9) K/mcL Lymphocytes # 1.4 (0.6-4.6) K/mcL Monocytes # 0.8 (0.0-1.3) K/mcL Eosinophils # 0.3 (0.0-0.6) K/mcL Basophils # 0.0 (0.0-0.2) K/mcL PT 12.2 H (9.4-12.1) Seconds INR 1.1 Sodium 139 (136-145) mEq/L Potassium 3.8 (3.5-4.5) mEq/L Chloride 101 (98-109) mEq/L Carbon Dioxide 30 H (19-29) mEq/L BUN 19 (8-26) mg/dL Creatinine 0.97 (0.72-1.25) mg/dL Est GFR ( Amer) > 60 (> 60) Est GFR (Non-Af Amer) > 60 (> 60) BUN/Creatinine Ratio 20 (6-26) Glucose 109 H (70-99) mg/dL Calculated Osmolality 291 (280-300) Calcium 8.9 (8.6-10.8) mg/dL Troponin I (0-0.03) ng/mL 10/03/16 Range/Units 14:18 WBC (4.3-11.1) K/mcL RBC (4.19-5.50) M/mcL Hgb (12.9-16.9) g/dL Hct (37.5-50.1) % MCV (83.0-100.0) fL MCH (28.0-33.3) pg MCHC (31.6-35.5) g/dL RDW (11.5-14.5) % Plt Count (140-400) K/mcL MPV (9.4-12.4) fL Immature Gran % (0-4) % Seg Neutrophils % % Lymphocytes % % Monocytes % % Eosinophils % % Basophils % % Neutrophils # (1.6-8.9) K/mcL Lymphocytes # (0.6-4.6) K/mcL Monocytes # (0.0-1.3) K/mcL Eosinophils # (0.0-0.6) K/mcL Basophils # (0.0-0.2) K/mcL PT (9.4-12.1) Seconds INR Sodium (136-145) mEq/L Potassium (3.5-4.5) mEq/L Chloride (98-109) mEq/L Carbon Dioxide (19-29) mEq/L BUN (8-26) mg/dL Creatinine (0.72-1.25) mg/dL Est GFR ( Amer) (> 60) Est GFR (Non-Af Amer) (> 60) BUN/Creatinine Ratio (6-26) Glucose (70-99) mg/dL Calculated Osmolality (280-300) Calcium (8.6-10.8) mg/dL Troponin I 0.00 (0-0.03) ng/mL - Radiology Data Radiology results reviewed: Yes I reviewed the patient's radiology results. Cervical Spine CT 10/03/16 13:41 IMPRESSION: No acute abnormality of the cervical spine. D/ / Scott Matos MD / Scott Matos MD Interpreting Provider: Scott Matos MD Head CT 10/03/16 13:41 IMPRESSION: No acute intracranial abnormality. 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 D/ / Sage North MD / Sage North MD Interpreting Provider: Sage North MD Lumbar Spine CT 10/03/16 13:41 IMPRESSION: No evidence of acute traumatic injury of the thoracic or lumbar spine. D/ / 10/03/2016 14:51:47 Marysol Max MD / nat Interpreting Provider: Marysol Max MD Thoracic Spine CT 10/03/16 13:41 IMPRESSION: No evidence of acute traumatic injury of the thoracic or lumbar spine. D/ / 10/03/2016 14:51:47 Marysol Max MD / nat Interpreting Provider: Marysol Max MD Chest X-Ray 10/03/16 14:12 IMPRESSION: Cardiomegaly with vascular congestion, mild pulmonary edema and small left pleural effusion. D/ / 10/03/2016 14:48:48 Erik Albarran MD / nat Interpreting Provider: Erik Albarran MD - EKG Data EKG attestation: Yes I reviewed and interpreted this EKG. EKG shows normal: sinus rhythm (58 bpm sinus bradycardia LA 173 QRS [address] segment elevations or depressions, normal axis.) Interpretation: no acute changes - Core Measures AMI Core Measures Followed: No Attestation Statement - Attestation Attestation: I personally interviewed and examined this patient and my medical decision- making was reviewed with the ED Resident Physician, Dr. Langley I agree with the documented findings, disposition and treatment plan as described except to the extent set forth below. Pt is a 75-year-old elderly male who presents to the emergency department today after sustaining a fall in which he fell backwards and hit the back of his head at the occiput with positive loss of consciousness. Patient arrives to the emergency department for evaluation of fall, head injury with positive loss of consciousness, and questionable C1 neck pain with initial presentation of bilateral upper extremity paresthesias. Patient has no appreciable weakness in the upper extremities. Patient's concerned because he states he has been having these "jerking" episodes which sound like tonic-clonic movements that are intermittent, random in which extremity it happens with no preceding symptoms that have been contributing to falls. Patient states he began the use when he was ill with pneumonia that he was subsequently hospitalized for proximally month ago. Patient states he has been having them continuously since that time states he has multiple episodes continuously throughout the day minutes apart from each other. Patient states he cannot control them. Patient reports that he maintains consciousness during these episodes of this jerking or spasms. Patient states he was standing up to go off the toilet today and his right lower extremity had this jerking motion which is what caused him to fall. Patient has no loss of bowel or bladder, no tongue biting, no postictal periods, and no alteration of consciousness during the episode as he is aware of what is going on. Patient has no other neurologic complaints of slurred speech, no visual changes, no vertigo or dizziness, no weakness of his extremities and no numbness or paresthesias of his lower extremities. Patient was placed in cervical spine immobilization and IV saline ESTABLISHED to quality assurance monitor body and pulse ox. Labs were obtained and patient was sent for imaging of his head CT and L-spines for evaluation of fall. All of patient's imaging is within normal limits with no bony injury. Relayed reports of imaging results to patient and family, but family remains concerned about these jerking episodes and that he is a fall risk at home while they continue. Patient reports that he has had been in the emergency department during his ED course witnessed by his family. Patient also has a long history of chronic neck pain for which she is received epidural injections and had EMG testing. Patient states this EMG testing was 3 years ago and there was some changes to the left upper extremity that were noted by his doctor. Patient denies having any upper extremity numbness in his hands bilaterally or these jerking episodes prior to this hospitalization for pneumonia. At this time we discussed the patient's initial presentation of numbness with the spine doctors here that were construction plumber in regards to any concern for central cord. Once patient returned back from CT his paresthesias had completely resolved repeat neuro exam was within normal limits and patient is no longer having any paresthesias complete resolution. They felt that he did not require ongoing C-spine immobilization and most likely needed evaluated by neurology for transient symptoms and does not feel this is related to today's fall. We will admit the patient for further evaluation of these transient neurologic symptoms, discussed with hospitalist who accepted patient for admission for further evaluation and management.
[2016-10-03] MEDS ORDERED: 0.9 % Sodium Chloride 500 ML IVC ONE (14:01)
[2016-10-03 14:30] LABS: Basophils % 0.4 %; Eosinophils # 0.3 K/mcL (0.0-0.6); Eosinophils % 3.5 %; Hemoglobin 8.9 g/dL (12.9-16.9); Immature Granulocytes % 1.1 % (0-4); Lymphocytes # 1.4 K/mcL (0.6-4.6); Lymphocytes % 15.2 %; Mean Corpuscular HGB Conc 30.7 g/dL (31.6-35.5); Mean Corpuscular Hemoglobin 28.4 pg (28.0-33.3); Mean Corpuscular Volume 92.7 fL (83.0-100.0); Mean Platelet Volume 9.9 fL (9.4-12.4); Monocytes # 0.8 K/mcL (0.0-1.3); Monocytes % 8.9 %; Neutrophils # 6.4 K/mcL (1.6-8.9); Platelet Count 152 K/mcL (140-400); Red Blood Count 3.13 M/mcL (4.19-5.50); Red Cell Distribution Width 15.6 % (11.5-14.5); Segmented Neutrophils % 70.9 %
[2016-10-03 14:35] LABS: INR 1.1; Prothrombin Time 12.2 Seconds (9.4-12.1)
[2016-10-03 14:45] LABS: BUN/Creatinine Ratio 20 (6-26); Blood Urea Nitrogen 19 mg/dL (8-26); Calcium 8.9 mg/dL (8.6-10.8); Carbon Dioxide 30 mEq/L (19-29); Chloride 101 mEq/L (98-109); Glucose 109 mg/dL (70-99); Osmolality,Calculated 291 (280-300); Potassium 3.8 mEq/L (3.5-4.5); Sodium 139 mEq/L (136-145); eGFR For African Americans > 60 (> 60); eGFR For Non-African Americans > 60 (> 60)
[2016-10-03] MEDS ORDERED: Naloxone 0.4 MG/ML INJ IVP PRN (19:29)
[2016-10-03] MEDS ORDERED: Ondansetron 4 MG/2 ML VIAL IVP PRN (19:29)
--- NOTE | 2016-10-03 19:30 | Internal Med History&Physical ---
Date of Encounter: 10/03/16 Time of Encounter: 19:15 Assessment and Plan (1) Falls frequently Current visit: Yes Status: Acute Patient has been complaining of frequent falls over the past for 4-5 weeks - Associated with myoclonic jerks and transient upper extremity paresthesia Unclear etiology for the myoclonic jerks chest x-ray - cardiomegaly with mild pulmonary edema CT of the head - no acute intracranial abnormality EKG - sinus bradycardia with no acute ST-T changes, troponin negative CT of the cervical spine, thoracic spine and lumbar spine - negative for any acute abnormality Neurology consult - ED physician has discussed with Dr. Purcell MRI pending (2) COPD (chronic obstructive pulmonary disease) Current visit: Yes Status: Chronic Chronic, stable, not in exacerbation Continue O2 via nasal cannula and albuterol and Symbicort Qualifiers: COPD type: unspecified COPD Qualified Code(s): J44.9 - Chronic obstructive pulmonary disease, unspecified (3) CHF (congestive heart failure) Current visit: No Status: Chronic Chronic systolic and diastolic dysfunction, LVEF 40-45% Not in exacerbation Continue home dose of Lasix and home medications Strict I's and O's and daily weight Qualifiers: Congestive heart failure type: combined Congestive heart failure chronicity : acute on chronic Qualified Code(s): I50.43 - Acute on chronic combined systolic (congestive) and diastolic (congestive) heart failure (4) Gastroparesis Current visit: No Status: Chronic No acute symptoms Continue home medication - domperidone (5) DVT prophylaxis Current visit: No Status: Acute Continue subcutaneous heparin Internal Medicine - H&P: HPI Chief complaint: Falls, Jerking movements Admitted From: Emergency Dept History of present illness: Mr. Gaston is a 75 year old male with past medical history of CHF, COPD, GERD, hypertension and hyperlipidemia. He presents to the ED with complaints of multiple falls and tremors and jerking movements of his arms and legs. Patient states he had 2 falls today. He seems to have fallen backwards, striking the back of his head. He initially had some head pain, but no neck pain. Patient also initially had some bilateral numbness in his hands. Patient describes the tremors in his arms and legs as jerking movements, which have been going on for about 4-5 weeks. Movements are random and he describes it like a tonic clonic movement which are intermittent and happens to each extremity at a time. No preceding symptoms. These movements have been likely causing his falls. Patient states he is unable to control these movements. He was treated about a month ago for pneumonia and thinks his symptoms started around that time. No loss of consciousness. Patient denies chest pain denies shortness of breath denies headache or dizziness at this time. No focal deficits and no slurred speech and no facial drooping. He has had frequent falls in the past. Initial imaging with CT of the head, CT C-spine, CT thoracic and lumbar spine are all normal. Patient's transient paresthesias of upper extremities have now improved. No neurovascular compromise, and patient is hemodynamically stable. Initial suspicion for central cord syndrome, but symptoms are now improved. ED physician has discussed with neurologist who recommended MRI imaging and admission. On examination patient is awake and alert. Not in any distress. Able to provide history. Patient has been explained about his condition and plan of care. Understood and agreed. No unanswered questions. No family members at bedside. CODE STATUS full code. Past Med Surg Social Fam HX - Past Medical History Medical history: CHF, COPD, GERD, hyperlipidemia, hypertension, other Psychiatric history: no psych history - Past Surgical History Surgical History: appendectomy, sinus surgery, other - Social History Smoking Status: Former smoker Alcohol use: none Drug use: none - Family History Mother Living Status: Hx Family Cardiac Disorders: Yes Father Living Status: Hx Family Cardiac Disorders: Yes Hx Family Neurologic Disorders: Yes (alzheimers) Internal Medicine - H&P: Meds Albuterol Neb [Proventil Neb] 2.5 mg IH QID PRN 03/31/15 [History] Albuterol Sulfate [Proventil Hfa] 2 puff IH QID PRN 03/31/15 [History] Atorvastatin [Lipitor] 10 mg PO HS 03/31/15 [History] Cetirizine HCl [Zyrtec] 10 mg PO DAILY 03/31/15 [History] Cholestyramine/Aspartame [Cholestyramine Light Packet] 4 gm PO DAILY 03/31/15 [ History] Dicyclomine [Bentyl] 20 mg PO QID 03/31/15 [History] Esomeprazole Magnesium [Nexium] 40 mg PO DAILY 03/31/15 [History] Fluticasone Propionate Nasal [Flonase] 100 mcg NS DAILY 03/31/15 [History] Furosemide [Lasix] 40 mg PO QPM 03/31/15 [History] Furosemide [Lasix] 80 mg PO QAM 03/31/15 [History] Gabapentin [Neurontin] 600 mg PO BID 03/31/15 [History] Montelukast [Singulair] 10 mg PO DAILY 03/31/15 [History] Nortriptyline [Pamelor] 75 mg PO HS 03/31/15 [History] Potassium Chloride [Klor-Con Sprinkle] 10 meq PO BID 03/31/15 [History] Ranitidine HCl [Zantac] 150 mg PO HS 03/31/15 [History] Sertraline [Zoloft] 50 mg PO HS 03/31/15 [History] Tamsulosin [Flomax] 0.4 mg PO DAILY 03/31/15 [History] Tizanidine HCl [Zanaflex] 4 - 8 mg PO HS 03/31/15 [History] Budesonide/Formoterol 160/4.5 [Symbicort 160/4.5] 2 puff IH BIDR 08/26/16 [ History] Domperidone 20 mg PO QIDAC 08/26/16 [History] OxyCODONE CONC 5 mg PO BID PRN 08/26/16 [History] Allergies ciprofloxacin [From Cipro] Allergy (Verified 03/31/15 15:16) Hives levofloxacin [From Levaquin] Allergy (Verified 03/31/15 15:16) Hives Tetracycline Allergy (Verified 03/31/15 17:20) Rash All Systems PM: A 10-system review of systems was performed and is negative for pertinent findings except as documented above in the HPI. - Constitutional Constitutional: as per HPI, fatigue, weakness, no fever(s) - EENT Eyes: no blurry vision, no loss of vision - Cardiovascular Cardiovascular ROS IM: no chest pain, no diaphoresis, no dyspnea, no dyspnea on exertion, no lightheadedness, no orthopnea, no syncope - Respiratory Respiratory: no cough, no dyspnea, no dyspnea on exertion, no chest congestion - Gastrointestinal Gastrointestinal: no abdominal pain, no cramping, no diarrhea, no nausea, no vomiting - Genitourinary Genitourinary ROS male: no dysuria - Musculoskeletal Musculoskeletal ROS IM: arthralgias, numbness (Now resolved) - Neurological Neurological ROS: frequent falls, paresthesias, tingling, tremor(s), weakness, no abnormal speech, no convulsions, no dizziness, no focal weakness, no loss of vision - Constitutional Vitals: Temp Pulse Resp BP Pulse Ox 98.4 F 65 15 138/66 95 10/03/16 18:48 10/03/16 18:48 10/03/16 18:48 10/03/16 18:48 10/03/16 18:48 General appearance: Present: A&O X 3, pleasant, no acute distress, answers questions appropriately - Head Head exam: Present: atraumatic - Eye Eye exam: Present: EOMI - ENT ENT exam: Present: mucous membranes moist - Neck Neck exam general surgery: Present: supple - Respiratory Respiratory exam: Present: CTAB. Absent: rales, rhonchi, wheezes, tachypnea - Cardiovascular Cardiovascular exam: Present: RRR, +S1, +S2, systolic murmur - GI/Abdominal GI/Abdominal exam: Present: soft. Absent: distended, guarding, tenderness - Extremities Exam Extremities exam: Present: radial pulses palpable and symetrical. Absent: cyanotic, pedal edema - Neurological Exam Neurological exam: Present: alert, CN II-XII intact, oriented X3, no focal deficits, strengths equal and symetr throughout. Absent: motor sensory deficit , facial droop, speech deficit Internal Med - H&P Results - Labs CBC & Chem 7: 10/03/16 14:18 10/03/16 14:18
[2016-10-03] MEDS ORDERED: Furosemide 40 MG TABLET PO SCH (19:45)
[2016-10-03] MEDS: Aspirin 81 MG TAB.CHEW PO SCH (22:39)
[2016-10-03] MEDS: Famotidine 20 MG TABLET PO SCH (22:39)
[2016-10-03] MEDS: Gabapentin 300 MG CAPSULE PO SCH (22:39)
[2016-10-03] MEDS: DOMPERIDONE 20 MG PO SCH (22:45)
[2016-10-03] MEDS: Acetaminophen 325 MG TABLET PO PRN (22:49)
[2016-10-03] MEDS: Albuterol 2.5 MG/3 ML NEBULIZER IH SCH (23:00)
[2016-10-03] MEDS: Budesonide/Formoterol 160/4.5 MDI IH SCH (23:00)
[2016-10-03 23:35] LABS: Bilirubin,Urine Negative (Negative); Blood,Urine Negative (Negative); Clarity,Urine Clear (Clear); Color,Urine Dark Yellow (Yellow); Glucose,Urine (UA) Normal (Normal); Ketones,Urine Negative (Negative); Leukocyte Esterase,Urine Negative (Negative); Nitrite,Urine Negative (Negative); Protein,Urine Negative (Neg-Trace); Specific Gravity,Urine 1.016 (1.010-1.025); Urobilinogen,Urine Normal (Normal)
[2016-10-04 03:33] LABS: Basophils % 0.4 %; Eosinophils # 0.4 K/mcL (0.0-0.6); Eosinophils % 4.8 %; Hemoglobin 9.1 g/dL (12.9-16.9); Immature Granulocytes % 0.9 % (0-4); Lymphocytes # 1.7 K/mcL (0.6-4.6); Lymphocytes % 21.2 %; Mean Corpuscular HGB Conc 30.3 g/dL (31.6-35.5); Mean Corpuscular Hemoglobin 28.3 pg (28.0-33.3); Mean Corpuscular Volume 93.2 fL (83.0-100.0); Mean Platelet Volume 10.2 fL (9.4-12.4); Monocytes # 0.9 K/mcL (0.0-1.3); Monocytes % 10.6 %; Neutrophils # 5.1 K/mcL (1.6-8.9); Platelet Count 147 K/mcL (140-400); Red Blood Count 3.22 M/mcL (4.19-5.50); Red Cell Distribution Width 15.5 % (11.5-14.5); Segmented Neutrophils % 62.1 %
[2016-10-04 03:50] LABS: BUN/Creatinine Ratio 18 (6-26); Blood Urea Nitrogen 16 mg/dL (8-26); Calcium 8.5 mg/dL (8.6-10.8); Carbon Dioxide 29 mEq/L (19-29); Chloride 103 mEq/L (98-109); Glucose 104 mg/dL (70-99); Osmolality,Calculated 289 (280-300); Potassium 3.9 mEq/L (3.5-4.5); Sodium 139 mEq/L (136-145); eGFR For African Americans > 60 (> 60); eGFR For Non-African Americans > 60 (> 60)
[2016-10-04] MEDS: Albuterol 2.5 MG/3 ML NEBULIZER IH SCH ×2 (04:32→11:09)
[2016-10-04] MEDS ORDERED: *HR* Heparin 5,000 UNIT/ML VIAL SQ SCH (06:00)
[2016-10-04] MEDS: DOMPERIDONE 20 MG PO SCH ×2 (08:38→12:12)
[2016-10-04] MEDS: Aspirin 81 MG TAB.CHEW PO SCH (08:46)
[2016-10-04] MEDS: Acetaminophen 325 MG TABLET PO PRN (08:47)
[2016-10-04] MEDS: Gabapentin 300 MG CAPSULE PO SCH (08:47)
[2016-10-04] MEDS: Famotidine 20 MG TABLET PO SCH (08:47)
[2016-10-04] MEDS ORDERED: Loratadine 10 MG TABLET PO SCH (09:00)
[2016-10-04] MEDS ORDERED: Furosemide 40 MG TABLET PO SCH (09:00)
[2016-10-04] MEDS ORDERED: CHOLESTYRAMINE LIGHT PO SCH (09:00)
--- NOTE | 2016-10-04 09:37 | Neurology - Consult Note ---
Date of Encounter: 10/04/16 Time of Encounter: 09:37 Assessment and Plan (1) Jerky body movements Current Visit: Yes Status: Acute Consulted for right lower extremity muscle jerking which instigated episodes of imbalance leading to patient falling and hitting his head. Patient currently has no neurological deficits, muscle spasms and jerking not witnessed today. Patient's strength is equal bilaterally 5/5. Patient's able to ambulate without issue patient has no drop foot actions or dragging of his right lower extremity when ambulating. Patient's myoclonic muscle jerks may be a symptom of some cerebral irritation. Patient is currently under polypharmacy treatment for other medical problems and was admitted for pneumonia not too long ago (4 weeks). Recommend no additional treatments at this time additions of new medications. Monitor for any change in symptoms. Given patient's exam, we do not feel MRI is warranted at this time. If symptoms worsen or new symptoms appear that her neurologic in nature reconsult neurology. History of Present Illness Chief complaint: fall 2/2 right leg spasm/ jerking, hit head HPI: Mr. Gaston is a 75 year old male with past medical history for hypertension CHF, COPD, GERD, patient states suffered mechanical ground-level fall 2, 1 day ago. Patient states he was in the bathroom when right leg spasmed and started jerking cause him to lose his balance and fell. Patient's son-in-law helped him up to the bed no loss of consciousness was observed. Patient denies any confusion after the fall. Patient states that after jerking stopped he got up and sustained a second fall this time striking the back of his head ground, no loss consciousness and no confusion. He asked to be helped to the bed again but his son-in-law called the squad patient was brought to the emergency department. CT head was taken which showed no acute intracranial hemorrhage, no fractures seen on CT, T-spine, L-spine. Patient complains to pain 6/10 back of the head constant worse with touch. Patient complains shortness of breath Home O2 for CHF, Nonproductive Cough states he was recently treated for pneumonia times one month ago and admitted for 10 days, cough persists since then. Patient denies any hearing changes, ear pain, notices floaters in his vision 2 months, neck pain for chronic neck pain for which she sees pain specialist. Patient denies chest pain, headache, nausea, vomiting, fever, chills, night sweats, abdominal pain, diarrhea. Patient states he has been having intermittent jerks since then but not as much as yesterday. No jerks and spasms noticed at time of exam Past Med Surg Social Fam HX - Past Medical History Attestation: Yes The following information was validated with the patient. Source: patient Medical history: CHF, COPD, GERD, hyperlipidemia, hypertension, other Psychiatric history: no psych history - Past Surgical History Surgical History: appendectomy, sinus surgery, other - Social History Smoking Status: Former smoker Alcohol use: none Drug use: none - Family History Mother Living Status: Hx Family Cardiac Disorders: Yes Father Living Status: Hx Family Cardiac Disorders: Yes Hx Family Neurologic Disorders: Yes (alzheimers) Medications and Allergies Albuterol Neb [Proventil Neb] 2.5 mg IH QID PRN 03/31/15 [History] Albuterol Sulfate [Proventil Hfa] 2 puff IH QID PRN 03/31/15 [History] Atorvastatin [Lipitor] 10 mg PO HS 03/31/15 [History] Cetirizine HCl [Zyrtec] 10 mg PO DAILY 03/31/15 [History] Cholestyramine/Aspartame [Cholestyramine Light Packet] 4 gm PO DAILY 03/31/15 [ History] Dicyclomine [Bentyl] 20 mg PO QID 03/31/15 [History] Esomeprazole Magnesium [Nexium] 40 mg PO DAILY 03/31/15 [History] Fluticasone Propionate Nasal [Flonase] 100 mcg NS DAILY 03/31/15 [History] Furosemide [Lasix] 40 mg PO QPM 03/31/15 [History] Furosemide [Lasix] 80 mg PO QAM 03/31/15 [History] Gabapentin [Neurontin] 600 mg PO BID 03/31/15 [History] Montelukast [Singulair] 10 mg PO DAILY 03/31/15 [History] Nortriptyline [Pamelor] 75 mg PO HS 03/31/15 [History] Potassium Chloride [Klor-Con Sprinkle] 10 meq PO BID 03/31/15 [History] Ranitidine HCl [Zantac] 150 mg PO HS 03/31/15 [History] Sertraline [Zoloft] 50 mg PO HS 03/31/15 [History] Tamsulosin [Flomax] 0.4 mg PO DAILY 03/31/15 [History] Tizanidine HCl [Zanaflex] 4 - 8 mg PO HS 03/31/15 [History] Budesonide/Formoterol 160/4.5 [Symbicort 160/4.5] 2 puff IH BIDR 08/26/16 [ History] Domperidone 20 mg PO QIDAC 08/26/16 [History] OxyCODONE CONC 5 mg PO BID PRN 08/26/16 [History] Allergies ciprofloxacin [From Cipro] Allergy (Verified 03/31/15 15:16) Hives levofloxacin [From Levaquin] Allergy (Verified 03/31/15 15:16) Hives Tetracycline Allergy (Verified 03/31/15 17:20) Rash All Systems: A 10-system review of systems was performed and is negative for pertinent findings except as documented above in the HPI. - Constitutional Constitutional ROS IM: as per HPI Physical Examination - Vital Signs Vital Signs: Initial Vital Signs Temp Pulse Resp BP Pulse Ox 98.2 F 62 16 126/71 93 10/03/16 13:24 10/03/16 13:24 10/03/16 13:24 10/03/16 13:24 10/03/16 13:24 - Constitutional General appearance: comfortable - Neurologic Sensorimotor examination: intact Detailed motor examination: grossly full strength in all extremities, full strength in all major muscle groups Motor examination - right side: 5/5: deltoids, biceps, triceps, wrist flexion, wrist extension, extruding machine operator, hip flexors, tibialis Anterior, quadriceps, toe extension (EHL), plantarflexion Motor examination - left side: 5/5: deltoids, biceps, triceps, wrist flexion, wrist extension, hip flexors, extruding machine operator, quadriceps, tibialis Anterior, toe extension (EHL), plantarflexion Detailed sensory examination: intact, light touch Reflexes: Biceps: 2+, Triceps: 2+, Brachioradialis: 2+, Patella: 2+, Achilles: 2 + Mental Status Examination: awake, alert, oriented to person, oriented to place, oriented to time, follows commands appropriately, answers questions appropriately, no agnosia, no aphasia, no aproxia Cranial nerve examination: PERRL, EOMI, visual mcintyre intact, corneal reflexes brisk symmetrically, sensory to face intact, mastication intact, no facial asymmetry is present, no dysarthria, hearing is intact symmetrically, soft palate elevates bilaterally upon phonation, gag reflex intact, flexes SCM and trapezius muscles symmetrically with full power, tongue protrudes midline, no atrophy or facial fasiculations present Cerebellar examination: no dysmetria, performs finger to nose and heel to chavez symmetrically without ataxia, no difficulty with rapid alternating movements Results - Laboratory Findings CBC and BMP: 10/04/16 02:55 10/04/16 02:55 Abnormal lab findings: Abnormal lab results RBC 3.22 M/mcL (4.19-5.50) L 10/04/16 02:55 Hgb 9.1 g/dL (12.9-16.9) L 10/04/16 02:55 Hct 30.0 % (37.5-50.1) L 10/04/16 02:55 MCHC 30.3 g/dL (31.6-35.5) L 10/04/16 02:55 RDW 15.5 % (11.5-14.5) H 10/04/16 02:55 PT 12.2 Seconds (9.4-12.1) H 10/03/16 14:18 Glucose 104 mg/dL (70-99) H 10/04/16 02:55 Calcium 8.5 mg/dL (8.6-10.8) L 10/04/16 02:55 B-Natriuretic Peptide 118 pg/mL (0-100) H 10/04/16 02:55 - Diagnostic Findings EKG: image reviewed (EKG in 10/03/2016 at 1430 hrs. shows sinus bradycardia with no acute ST elevations or depressions in any leads.) Additional findings: Cervical Spine CT 10/03/16 13:41 IMPRESSION: No acute abnormality of the cervical spine. D/ / Scott Matos MD / Scott Matos MD Interpreting Provider: Scott Matos MD Head CT 10/03/16 13:41 IMPRESSION: No acute intracranial abnormality. 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 D/ / Sage North MD / Sage North MD Interpreting Provider: Sage North MD Lumbar Spine CT 10/03/16 13:41 IMPRESSION: No evidence of acute traumatic injury of the thoracic or lumbar spine. D/ / 10/03/2016 14:51:47 Marysol Max MD / nat Interpreting Provider: Marysol Max MD Thoracic Spine CT 10/03/16 13:41 IMPRESSION: No evidence of acute traumatic injury of the thoracic or lumbar spine. D/ / 10/03/2016 14:51:47 Marysol Max MD / nat Interpreting Provider: Marysol Max MD Chest X-Ray 10/03/16 14:12 IMPRESSION: Cardiomegaly with vascular congestion, mild pulmonary edema and small left pleural effusion. D/ / 10/03/2016 14:48:48 Erik Albarran MD / nat Interpreting Provider: Erik Albarran MD Consult Discharge Plan - Plan Referrals: Radha Rojas DO [Primary Care Provider] -
[2016-10-04] MEDS: Budesonide/Formoterol 160/4.5 MDI IH SCH (11:10)
[2016-10-04 11:16] VITALS: BP 112/70
--- NOTE | 2016-10-04 13:38 | Electrocardiograph Report ---
[place] [id number] Test Date: 2016-10-03 Pat Name: Sesar Gaston Department: 105 Room: 3B41 Gender: M Fit Model: : 1940 Requested By: Eric Langley Order Number: [id number] Reading MD: Lamine Abdullahi MD Measurements Intervals [place] Rate: 58 P: -15 GA: 173 QRS: -19 QRSD: 101 T: 21 QT: 418 QTc: 416 Interpretive Statements SINUS BRADYCARDIA MODERATE VOLTAGE CRITERIA FOR LVH Electronically Signed On 10-04-2016 13:36:44 EDT by Lamine Abdullahi MD
--- NOTE | 2016-10-04 14:16 | Discharge Summary ---
Date of Encounter: 10/04/16 Time of Encounter: 09:10 - Discharge Diagnosis (1) Falls frequently Priority: Primary Status: Acute Comments: Patient reports that he has had jerking to both legs, both arms, worse right leg jerking than left for one month. He reports that he fell and hit his head in the bathroom yesterday. His grandson helped him up. He reports an occipital headache there is a contusion to the occiput. She states that he has fallen several times at home due to the jerking. He has been evaluated by PT and OT. They have determined he has no inpatient needs and can be discharged home without therapy at home. He has also been evaluated by cardiology. I agree that during exam patient had no neurological deficits, no muscle spasms, and jerking was not witnessed during my nor neurology's assessments. Patient is strong and equal bilaterally in both upper and lower extremities. Patient was able to ambulate without issue for both me and neurology. Neurology suggests that patient is under polypharmacy treatment for other medical problems and has recent pneumonia. They have no new recommendations. They do not feel that he needs an MRI. Patient has no injuries from fall at home. He states he does not need medication for his headache. I would suggest that he use a walker and have assistance when he is up and walking until symptoms have resolved. Cervical Spine CT 10/03/16 13:41 IMPRESSION: No acute abnormality of the cervical spine. D/ / Scott Matos MD / Scott Matos MD Interpreting Provider: Scott Matos MD Head CT 10/03/16 13:41 IMPRESSION: No acute intracranial abnormality. 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 D/ / Sage North MD / Sage North MD Interpreting Provider: Sage North MD Lumbar Spine CT 10/03/16 13:41 IMPRESSION: No evidence of acute traumatic injury of the thoracic or lumbar spine. D/ / 10/03/2016 14:51:47 Marysol Max MD / nat Interpreting Provider: Marysol Max MD Thoracic Spine CT 10/03/16 13:41 IMPRESSION: No evidence of acute traumatic injury of the thoracic or lumbar spine. D/ / 10/03/2016 14:51:47 Marysol Max MD / nat Interpreting Provider: Marysol Max MD Chest X-Ray 10/03/16 14:12 IMPRESSION: Cardiomegaly with vascular congestion, mild pulmonary edema and small left pleural effusion. D/ / 10/03/2016 14:48:48 Erik Albarran MD / ant Interpreting Provider: Erik Albarran MD (2) COPD (chronic obstructive pulmonary disease) Priority: Secondary Status: Chronic Comments: There is no acute exacerbation. His lungs are clear and diminished posteriorly. Patient's saturations are mid 90s on 4 L. He wears oxygen at home at 3 L continuously. There is no peripheral edema. Continue home medications. Qualifiers: COPD type: unspecified COPD Qualified Code(s): J44.9 - Chronic obstructive pulmonary disease, unspecified (3) CHF (congestive heart failure) Priority: Secondary Status: Chronic Comments: No acute exacerbation at this time. Lungs are clear and diminished posteriorly. There is no wheezing, rhonchi, Rales, stridor. Patient is not in respiratory distress. He has oxygen at home that he wears at 3 L all the time. He takes Lasix twice daily, 2 different doses. BNP is 118. No need for change in treatment. Continue home medications. Qualifiers: Congestive heart failure type: combined Congestive heart failure chronicity : acute on chronic Qualified Code(s): I50.43 - Acute on chronic combined systolic (congestive) and diastolic (congestive) heart failure (4) Gastroparesis Priority: Secondary Status: Chronic Comments: Continue home medication. No acute (5) DVT prophylaxis Priority: Secondary Status: Acute Comments: Heparin subcutaneous. - Discharge Medications Home Medications: Albuterol Neb [Proventil Neb] 2.5 mg IH QID PRN 03/31/15 [History] Albuterol Sulfate [Proventil Hfa] 2 puff IH QID PRN 03/31/15 [History] Atorvastatin [Lipitor] 10 mg PO HS 03/31/15 [History] Cetirizine HCl [Zyrtec] 10 mg PO DAILY 03/31/15 [History] Cholestyramine/Aspartame [Cholestyramine Light Packet] 4 gm PO DAILY 03/31/15 [ History] Dicyclomine [Bentyl] 20 mg PO QID 03/31/15 [History] Esomeprazole Magnesium [Nexium] 40 mg PO DAILY 03/31/15 [History] Fluticasone Propionate Nasal [Flonase] 100 mcg NS DAILY 03/31/15 [History] Furosemide [Lasix] 40 mg PO QPM 03/31/15 [History] Furosemide [Lasix] 80 mg PO QAM 03/31/15 [History] Gabapentin [Neurontin] 600 mg PO BID 03/31/15 [History] Montelukast [Singulair] 10 mg PO DAILY 03/31/15 [History] Nortriptyline [Pamelor] 75 mg PO HS 03/31/15 [History] Potassium Chloride [Klor-Con Sprinkle] 10 meq PO BID 03/31/15 [History] Ranitidine HCl [Zantac] 150 mg PO HS 03/31/15 [History] Sertraline [Zoloft] 50 mg PO HS 03/31/15 [History] Tamsulosin [Flomax] 0.4 mg PO DAILY 03/31/15 [History] Tizanidine HCl [Zanaflex] 4 - 8 mg PO HS 03/31/15 [History] Budesonide/Formoterol 160/4.5 [Symbicort 160/4.5] 2 puff IH BIDR 08/26/16 [ History] Domperidone 20 mg PO QIDAC 08/26/16 [History] OxyCODONE CONC 5 mg PO BID PRN 08/26/16 [History] Allergies/Adverse Reactions: Allergies ciprofloxacin [From Cipro] Allergy (Verified 03/31/15 15:16) Hives levofloxacin [From Levaquin] Allergy (Verified 03/31/15 15:16) Hives Tetracycline Allergy (Verified 03/31/15 17:20) Rash Date of admission: 10/03/16 19:29 Primary care physician: Radha Rojas Discharging clinician: Vandana Mueller Anticipated date of discharge: 10/04/16 - Patient Status Disposition: Home, Self-Care Condition: Good Functional capacity at discharge: uses cane/walker Overall status at discharge: patient is back to baseline - Discharge Instructions Follow Up With: Radha Rojas DO [Primary Care Provider] - Additional Instructions: Please follow up with her primary care physician in the next 7-10 days for a follow-up appointment. I am going to write you a prescription for a walker, please use a walker for extra stability within her home. If you choose to not use the walker, please make sure that you are using her cane. Resume your normal home medications. Please return to the emergency department if you have any other concerns, your symptoms become worse, or if you fall and become injured - Diet and Activity Activity: ambulate only with your walker, increase activity as tolerated Diet: advance to your usual diet Hospital course: Mr. Gaston is a 75 year old male with a past medical history of COPD, CHF, GERD, gastroparesis. Patient states that he has been falling over the last few days. States he was in the bathroom when his right leg jerked and caused him to fall backwards hitting his head on the wall. He says that his grandson helped him up from the ground. He did not lose consciousness. There is no laceration. He denies any confusion, however he states that he had an occipital headache, denies need for pain medication. He reports that he has had jerking in both upper and lower extremities, worse in his right leg and his left leg. Onset one month ago. Patient states that he lives with his family, so they are close. Until recently, he cared for young grandchildren at his daughter's home while she worked. Patient had no injuries from falls. He has no neurological deficits. There is no slurred speech, no facial droop, grasps are strong and equal bilaterally, both upper and lower extremities. There is no nystagmus. He denies nausea, vomiting, chest pain, shortness of breath. His lungs are clear anteriorly and posteriorly diminished. He has no peripheral edema. Abdomen is soft slightly rounded, bowel sounds present. Soft and nontender to palpation. I did not witness any jerking or myoclonic movements during assessment. Patient was recently treated for pneumonia with antibiotics at home. He also takes multiple drugs for other medical problems. Patient should follow with primary care for medication review. At this time I see nothing to change other than several sedating that occasions that he takes at bedtime, but sedation does not seem to be the issue for the falls. Patient's labs are within normal limits. He does seem to have some mild anemia , but his been present for about 2 months. He will follow up outpatient for that. BNP is only mildly elevated at 118. Continue Lasix at home. His vital signs have been stable and within normal limits. Mr. Gaston was seen by our hospice social worker who states that he has been falling when he is not using his cane at home. He says that he attempts to help the grandchildren carry things up and down the stairs, this also causes him to feel unbalanced. He is aware that he needs to be more careful about using his cane at home. I am going to write him a prescription for a walker to use when he is walking for more stability. Patient is ready and appropriate for discharge. - Time Spent with Patient Total time spent providing and/or coordinating discharge services: Less than 30 minutes - Constitutional Vitals: Temp Pulse Resp BP Pulse Ox 97.9 F 55 16 112/70 97 10/04/16 11:15 10/04/16 11:15 10/04/16 11:15 10/04/16 11:15 10/04/16 11:15 General appearance: Present: A&O X 3, pleasant, no acute distress, answers questions appropriately - Head Head exam: Present: normal inspection - Eye Eye exam: Present: normal appearance, nystagmus, conjuntiva pink - ENT ENT exam: Present: mucous membranes moist, normal exam - Neck Neck exam general surgery: Present: normal inspection. Absent: lymphadenopathy , tenderness - Respiratory Respiratory exam: Present: CTAB, rales, rhonchi. Absent: respiratory distress, stridor, wheezes, tachypnea - Cardiovascular Cardiovascular exam: Present: RRR, +S1, +S2. Absent: diastolic murmur, systolic murmur - GI/Abdominal GI/Abdominal exam: Present: normal bowel sounds, soft. Absent: hepatomegaly, tenderness - Extremities Exam Extremities exam: Present: warm, radial pulses palpable and symetrical. Absent : pedal edema, tenderness - Neurological Exam Neurological exam: Present: alert, oriented X3, strengths equal and symetr throughout. Absent: motor sensory deficit, no focal deficits, pronater drift, facial droop, speech deficit - Skin Skin exam: Present: dry, intact, normal color, warm
[2016-10-05] MEDS ORDERED: Cholestyramine 4 GM POWD.PACK PO SCH (09:00)
== END 2016-10-04 16:33 | disposition home or self-care (01) ==
LOC: 3BNU 13:21 → EMEROO 13:21 → 3BNU 17:59
PROVIDERS: ADMIT Nurse Practitioner Family; ATTEND Registered Nurse

== ENCOUNTER 2017-01-11 18:36 | Inpatient (IN) ==
[2017-01-11] MEDS ORDERED: methylPREDNISolone 125 MG/2 ML VIAL IVP ONE (19:00)
[2017-01-11] MEDS ORDERED: Ipratropium/Albuterol Neb 3 ML IH ONE ×2 (19:00→20:32)
--- NOTE | 2017-01-11 19:15 | Emergency Department Note ---
Disposition Clinical Impression: Hypoxia COPD (chronic obstructive pulmonary disease) Qualifiers: COPD type: COPD with acute exacerbation Qualified Code(s): J44.1 - Chronic obstructive pulmonary disease with (acute) exacerbation Disposition: Admitted As Inpatient Condition: Good SOB HPI - General Chief Complaint: ED Shortness of Breath/Dyspnea Stated Complaint: HECTOR Time Seen by Provider: 01/11/17 18:44 Source: patient Limitations: no limitations Nursing Notes Reviewed: Yes Vital Signs Reviewed: Yes - History of Present Illness The patient is a 76 y/o M with a past medical history of COPD and CHF who presents with cough and shortness of breath. Patient is on 3L of oxygen at home. Patient states that the cough is productive and has been going on for 3 days and has progressively worsened. Patient admits he had a temperature of 100.4F at his primary care physician office today around 3:30pm. Patient also states that he has been having shortness of breath at rest and with exertion that is progressively worsening over the past three days. Patient admits that laying down flat also makes it worse. He admits using his nebulizer last night that improved his breathing. His primary care physician told him today that he has fluids in his left lung and if he feels worse later today, then he needs to report to the ER. Patient states that he was recently admitted to [facility] on for bilateral pneumonia and COPD exacerbation. Patient denies any headaches , vision changes, chest pain, abdominal pain, nausea and vomiting, dizziness, any neurological deficits, and any weaknesses at this time. - Related Data Home Medications Medication Instructions Recorded Confirmed Albuterol Neb [Proventil Neb] 2.5 mg IH QID PRN 03/31/15 01/11/17 Albuterol Sulfate [Proventil Hfa] 2 puff IH QID PRN 03/31/15 01/11/17 Cetirizine HCl [Zyrtec] 10 mg PO DAILY 03/31/15 01/11/17 Cholestyramine/Aspartame 4 gm PO DAILY 03/31/15 01/11/17 [Cholestyramine Light Packet] Dicyclomine [Bentyl] 20 mg PO QID 03/31/15 01/11/17 Esomeprazole Magnesium [Nexium] 40 mg PO DAILY 03/31/15 01/11/17 Fluticasone Propionate Nasal 100 mcg NS DAILY 03/31/15 01/11/17 [Flonase] Furosemide [Lasix] 40 mg PO QPM 03/31/15 01/11/17 Furosemide [Lasix] 80 mg PO QAM 03/31/15 01/11/17 Gabapentin [Neurontin] 600 mg PO BID 03/31/15 01/11/17 Montelukast [Singulair] 10 mg PO DAILY 03/31/15 01/11/17 Nortriptyline [Pamelor] 75 mg PO HS 03/31/15 01/11/17 Potassium Chloride [Klor-Con 10 meq PO BID 03/31/15 01/11/17 Sprinkle] Ranitidine HCl [Zantac] 150 mg PO HS 03/31/15 01/11/17 Sertraline [Zoloft] 50 mg PO HS 03/31/15 01/11/17 Tamsulosin [Flomax] 0.4 mg PO DAILY 03/31/15 01/11/17 Tizanidine HCl [Zanaflex] 4 - 8 mg PO HS 03/31/15 01/11/17 Budesonide/Formoterol 160/4.5 2 puff IH BIDR 08/26/16 01/11/17 [Symbicort 160/4.5] Domperidone 20 mg PO QIDAC 08/26/16 01/11/17 OxyCODONE CONC 5 mg PO BID PRN 08/26/16 01/11/17 Tiotropium [Spiriva] 18 mcg IH 0700 12/15/16 01/11/17 Atorvastatin Calcium [Lipitor] 20 mg PO HS 01/11/17 01/11/17 Previous Rx's Medication Instructions Recorded Aspirin 81 mg PO DAILY #30 tab 12/22/16 Benzonatate [Tessalon] 200 mg PO TID PRN #90 cap 12/22/16 GuaiFENesin ER [Mucinex] 1,200 mg PO BID #120 12/22/16 Allergies Allergy/AdvReac Type Severity Reaction Status Date / Time ciprofloxacin [From Cipro] Allergy Hives Verified 03/31/15 15:16 levofloxacin [From Levaquin] Allergy Hives Verified 03/31/15 15:16 Tetracycline Allergy Rash Verified 03/31/15 17:20 All systems ED: reviewed and negative except as stated. Constitutional: Reports: fever. Denies: weakness Cardiovascular: Reports: dyspnea on exertion, orthopnea. Denies: chest pain, palpitations Respiratory: Reports: cough, dyspnea, wheezes, sputum production. Denies: hemoptysis Gastrointestinal: Denies: abdominal pain, nausea, vomiting, diarrhea, constipation Genitourinary: Reports: other (Patient states that he takes pyridium which makes his urine look red and orange.). Denies: urgency, dysuria, frequency, hematuria Past Medical History - Past Medical History Medical history: Reports: CHF, COPD, GERD, hyperlipidemia, hypertension Surgical history: Reports: appendectomy, sinus surgery Psychiatric history: Reports: no psych history - Social History Smoking Status: Former smoker Smokeless Tobacco Status: No Alcohol use: Reports: none Drug use: Reports: none Physical Exam - General Limitations: no limitations General appearance: alert - Chest Chest inspection: Present: normal inspection, symmetric chest wall rise - Respiratory Respiratory exam: Present: respiratory distress, wheezes, other (Conversational dyspnea) - Expanded Respiratory Exam Location: wheezes: Left, Right, Upper, Lower, rales: Left, Right, Upper, Lower, decreased breath sounds: Left, Right, Lower - Cardiovascular Cardiovascular exam: Present: regular rate. Absent: bradycardia, tachycardia, rubs, gallop, clicks - Abdominal Exam Abdominal exam: Present: soft, Non-Tender, other (No umbilicus present.). Absent: tenderness, distention, guarding, rebound, rigidity - Neurological Exam Neurological exam: Present: alert, oriented X3 Course Vital Signs Temperature 99.9 F H 01/11/17 18:37 Pulse Rate 70 01/11/17 18:37 Respiratory Rate 20 01/11/17 18:37 Blood Pressure 106/58 01/11/17 18:37 O2 Sat by Pulse Oximetry 88 01/11/17 18:37 Temperature 99.9 F H 01/11/17 18:37 Pulse Rate 70 01/11/17 18:37 Respiratory Rate 16 01/11/17 21:57 Blood Pressure 150/60 01/11/17 21:57 O2 Sat by Pulse Oximetry 95 01/11/17 20:55 Oxygen Delivery Oxygen Delivery Nasal Cannula Shortness of Breath/Dyspnea - MDM Narrative Medical decision making narrative: The patient is a 76 y/o M with a past medical history of COPD and CHF who presents with productive cough and shortness of breath. Patient is on 3L of oxygen at home. He was recently admitted to [facility] on 12/16/15 for bilateral pneumonia and COPD exacerbation.Patient is afebrile at this time but he did take 2 Tylenol at 6:00pm. O2 sat 88% on room air. Patient is placed on 3L of oxygen. Will give patient Duoneb with solumedrol. Dyspnea workup pending with blood cultures pending. 20:01 - CBC showed elevated WBC of 13.2 and Hgb is 8.8, which is lower than his baseline. CXR still pending. Will do a fecal occult test at this time. 21:20- Spoke with Dr. Mukherjee and discussed the patient. Dr. Mukherjee agrees to accept the patient. 21:31- Reassessed the patient. Oxygen is 91% on 3 L. Patient states he feel the same after the breathing treatment. Expiratory wheezes and crackles are still present on exam. Will do another DuoNeb treatment. Patient agrees with another breathing treatment. - Medical Records Medical records reviewed: Yes I reviewed the patient's medical records. - Lab Data Lab results reviewed: Yes I reviewed the patient's lab results. Result diagrams: 01/11/17 19:31 01/11/17 19:31 Lab Results 01/11/17 01/11/17 01/11/17 Range/Units 19:31 19:31 19:31 WBC 12.4 H (4.3-11.1) K/mcL RBC 3.10 L (4.19-5.50) M/mcL Hgb 8.8 L (12.9-16.9) g/dL Hct 27.7 L (37.5-50.1) % MCV 89.4 (83.0-100.0) fL MCH 28.4 (28.0-33.3) pg MCHC 31.8 (31.6-35.5) g/dL RDW 15.0 H (11.5-14.5) % Plt Count 211 (140-400) K/mcL MPV 9.5 (9.4-12.4) fL Immature Gran % 4.1 H (0-4) % Seg Neutrophils % 74.8 % Lymphocytes % 9.8 % Monocytes % 8.4 % Eosinophils % 2.7 % Basophils % 0.2 % Neutrophils # 9.3 H (1.6-8.9) K/mcL Lymphocytes # 1.2 (0.6-4.6) K/mcL Monocytes # 1.0 (0.0-1.3) K/mcL Eosinophils # 0.3 (0.0-0.6) K/mcL Basophils # 0.0 (0.0-0.2) K/mcL Sodium 138 (136-145) mEq/L Potassium 3.4 L (3.5-4.5) mEq/L Chloride 99 (98-109) mEq/L Carbon Dioxide 30 H (19-29) mEq/L BUN 18 (8-26) mg/dL Creatinine 1.10 (0.72-1.25) mg/dL Est GFR ( Amer) > 60 (> 60) Est GFR (Non-Af Amer) > 60 (> 60) BUN/Creatinine Ratio 16 (6-26) Glucose 117 H (70-99) mg/dL Calculated Osmolality 289 (280-300) Lactic Acid 0.9 (0.5-2.2) mmol/L Calcium 9.2 (8.6-10.8) mg/dL Troponin I (0-0.03) ng/mL B-Natriuretic Peptide (0-100) pg/mL Stool Occult Blood (Negative) 01/11/17 01/11/17 01/11/17 Range/Units 19:31 19:31 20:30 WBC (4.3-11.1) K/mcL RBC (4.19-5.50) M/mcL Hgb (12.9-16.9) g/dL Hct (37.5-50.1) % MCV (83.0-100.0) fL MCH (28.0-33.3) pg MCHC (31.6-35.5) g/dL RDW (11.5-14.5) % Plt Count (140-400) K/mcL MPV (9.4-12.4) fL Immature Gran % (0-4) % Seg Neutrophils % % Lymphocytes % % Monocytes % % Eosinophils % % Basophils % % Neutrophils # (1.6-8.9) K/mcL Lymphocytes # (0.6-4.6) K/mcL Monocytes # (0.0-1.3) K/mcL Eosinophils # (0.0-0.6) K/mcL Basophils # (0.0-0.2) K/mcL Sodium (136-145) mEq/L Potassium (3.5-4.5) mEq/L Chloride (98-109) mEq/L Carbon Dioxide (19-29) mEq/L BUN (8-26) mg/dL Creatinine (0.72-1.25) mg/dL Est GFR ( Amer) (> 60) Est GFR (Non-Af Amer) (> 60) BUN/Creatinine Ratio (6-26) Glucose (70-99) mg/dL Calculated Osmolality (280-300) Lactic Acid (0.5-2.2) mmol/L Calcium (8.6-10.8) mg/dL Troponin I 0.02 (0-0.03) ng/mL B-Natriuretic Peptide 121 H (0-100) pg/mL Stool Occult Blood Negative (Negative) - Radiology Data Radiology results reviewed: Yes I reviewed the patient's radiology results. Chest X-Ray 01/11/17 19:00 IMPRESSION: No acute cardiopulmonary process. D/ / 01/11/2017 20:25:33 Marysol Max MD / earshara Interpreting Provider: Marysol Max MD Attestation Statement - Attestation Attestation: I examined this patient and my medical decision-making was reviewed with the Resident Physician, Dr. Caldera. I agree with the documented findings, disposition and treatment plan as described except to the extent set forth below. Patient is a 76-year-old white male with a history of CHF and COPD who presents to the emergency department today with family with complaints of gradually worsening upper respiratory symptoms over the past 3 days. Patient states he started with what seemed like a cold and progressed into a productive cough with yellow sputum and a gradually increasing shortness of breath. Patient denies any chest pain pressure or heaviness, no diaphoresis, no fevers or chills , no abdominal pain or flank pain. Patient denies any lower extremity or abdominal edema. Patient denies any recent changes in his medications and despite his illness over the last 3 days has been taking his medications as prescribed. Patient's is having conversational dyspnea at bedside, patient is on 3 L nasal cannula oxygen at home and on initial presentation was hypoxic on this rate at approximately 88% O2 sats. I agree with patient's physical exam findings as documented. On my assessment patient was satting 92% on his home 3 L nasal cannula oxygen, having mild conversational dyspnea with an occasional coarse cough at bedside. On auscultation patient was having expiratory wheezing bilaterally in the bases. No coarse rhonchi were appreciated. No lower extremity edema. EKG showed no acute evidence of ischemia. Patient was started on breathing treatments and IV steroids as well as aspirin. Patient had an IV saline lock established, laboratory evaluation as well as chest x-ray was obtained. Patient with only minimal improvement with breathing treatments of these were repeated. Laboratory evaluation shows a negative troponin, negative BNP, chest x-ray showed no acute findings, no pneumonia or CHF. Based on patient's clinical symptoms I do feel that we should cover him with antibiotics considering his lung disease. Patient is allergic to Cipro and Levaquin so he was started on Rocephin and Zithromax. Due to his hypoxia we will bring the patient for further evaluation and treatment of his exacerbation of COPD. Patient agrees with this plan. Case was discussed with the hospitalist who accepted patient for admission.
[2017-01-11] MEDS ORDERED: Aspirin 325 MG TABLET PO ONE (19:35)
[2017-01-11 19:40] LABS: Basophils % 0.2 %; Eosinophils # 0.3 K/mcL (0.0-0.6); Eosinophils % 2.7 %; Hematocrit 27.7 % (37.5-50.1); Hemoglobin 8.8 g/dL (12.9-16.9); Immature Granulocytes % 4.1 % (0-4); Lymphocytes # 1.2 K/mcL (0.6-4.6); Lymphocytes % 9.8 %; Mean Corpuscular HGB Conc 31.8 g/dL (31.6-35.5); Mean Corpuscular Hemoglobin 28.4 pg (28.0-33.3); Mean Corpuscular Volume 89.4 fL (83.0-100.0); Mean Platelet Volume 9.5 fL (9.4-12.4); Monocytes % 8.4 %; Neutrophils # 9.3 K/mcL (1.6-8.9); Platelet Count 211 K/mcL (140-400); Segmented Neutrophils % 74.8 %
[2017-01-11 19:53] LABS: BUN/Creatinine Ratio 16 (6-26); Blood Urea Nitrogen 18 mg/dL (8-26); Calcium 9.2 mg/dL (8.6-10.8); Carbon Dioxide 30 mEq/L (19-29); Chloride 99 mEq/L (98-109); Glucose 117 mg/dL (70-99); Osmolality,Calculated 289 (280-300); Potassium 3.4 mEq/L (3.5-4.5); Sodium 138 mEq/L (136-145); eGFR For African Americans > 60 (> 60); eGFR For Non-African Americans > 60 (> 60)
[2017-01-11] MEDS ORDERED: Azithromycin 500 MG in D5% in Water 250 ML IVPB ONE (20:32)
[2017-01-12] MEDS ORDERED: *HR* Promethazine 25 MG/ML VIAL IVP PRN (00:24)
[2017-01-12] MEDS ORDERED: *HR* Morphine 2 MG/ML SYRINGE IVP PRN (00:24)
[2017-01-12] MEDS ORDERED: *HR* HYDROcodone/Acet 5/325 mg TABLET PO PRN (00:24)
[2017-01-12] MEDS ORDERED: Naloxone 0.4 MG/ML INJ IVP PRN (00:24)
[2017-01-12] MEDS ORDERED: MOM Conc 10 ML UD.LIQ PO PRN (00:24)
[2017-01-12] MEDS ORDERED: Acetaminophen 325 MG TABLET PO PRN (00:24)
[2017-01-12] MEDS ORDERED: Ondansetron 4 MG/2 ML VIAL IVP PRN (00:24)
[2017-01-12] MEDS ORDERED: Benzonatate 100 MG CAPSULE PO PRN (00:26)
[2017-01-12] MEDS: Furosemide 40 MG TABLET PO SCH ×3 (00:48→17:00)
[2017-01-12] MEDS: Albuterol 2.5 MG/3 ML NEBULIZER IH SCH ×3 (00:53→07:44)
--- NOTE | 2017-01-12 02:35 | Internal Med History&Physical ---
Date of Encounter: 01/12/17 Time of Encounter: 01:00 Assessment and Plan (1) SIRS (systemic inflammatory response syndrome) Current visit: No Status: Acute Pt does meet SIRS criteria with elevated WBC, Fever Tmax 100.4, source of inf as Pneumonia will admit the pt into Tele Will start him on broad spec abx coverage with Zosyn , cont Azithromycin for atypical coverage blood cx drawn in the ER will check Sputum cx (2) Pneumonia Current visit: No Status: Acute Mostly bacterial pneumonia will get CT of chest since he does have recurrent pneumonia and also have significant coarse BS, concerned for bronchieactasis / pneumonitis cont broad spec abx Qualifiers: Pneumonia type: due to other aerobic Gram-negative bacteria Laterality: bilateral Lung location: unspecified part of lung Qualified Code(s): J15.6 - Pneumonia due to other Gram-negative bacteria (3) Acute exacerbation of chronic obstructive pulmonary disease (COPD) Current visit: No Status: Acute started him on IV Steroids cont duoneb and O2 cont home steroid INH (4) Chronic respiratory failure with hypoxia Current visit: Yes Status: Acute on 3 lit home O2 (5) Essential hypertension Current visit: Yes Status: Acute Resumed home meds (6) Gastroparesis Current visit: No Status: Chronic resumed all his home meds Internal Medicine - H&P: HPI Chief complaint: Shortness of breath Admitted From: Emergency Dept Plans for Post Hospital Care: Home History of present illness: Mr. Gaston is a 76 year old male with known PMH of HTN, COPD, Chronic hypoxic resp failure on home O2 at 3lit, chronic diastolic CHF pt who recently admitted here on 12/15/16 with pneumonia, now he presented to ER with fever and chills, as well as progressively worsening SOB / RODRIGUEZ. He also has cough with yellowish expectoration and had fever T max 100.4 this afternoon at PCP office. He denied any CP. No nausea / vomiting. Past Med Surg Social Fam HX - Past Medical History Medical history: CHF, COPD, GERD, hyperlipidemia, hypertension Psychiatric history: no psych history - Past Surgical History Surgical History: appendectomy, sinus surgery - Social History Smoking Status: Former smoker Smokeless Tobacco Status: No Alcohol use: none Drug use: none - Family History Mother Living Status: Hx Family Cardiac Disorders: Yes Father Living Status: Hx Family Cardiac Disorders: Yes (heart problems) Hx Family Neurologic Disorders: Yes (alzheimers) Brother Age: 92 Living Status: Still Living Hx Family Cardiac Disorders: Yes Sister Age: 80 Family Member Ethnicity: Non- Living Status: Still Living Hx Family Cardiac Disorders: Yes Internal Medicine - H&P: Meds Albuterol Neb [Proventil Neb] 2.5 mg IH QID PRN 03/31/15 [History] Albuterol Sulfate [Proventil Hfa] 2 puff IH QID PRN 03/31/15 [History] Cetirizine HCl [Zyrtec] 10 mg PO DAILY 03/31/15 [History] Cholestyramine/Aspartame [Cholestyramine Light Packet] 4 gm PO DAILY 03/31/15 [ History] Dicyclomine [Bentyl] 20 mg PO QID 03/31/15 [History] Esomeprazole Magnesium [Nexium] 40 mg PO DAILY 03/31/15 [History] Fluticasone Propionate Nasal [Flonase] 100 mcg NS DAILY 03/31/15 [History] Furosemide [Lasix] 40 mg PO QPM 03/31/15 [History] Furosemide [Lasix] 80 mg PO QAM 03/31/15 [History] Gabapentin [Neurontin] 600 mg PO BID 03/31/15 [History] Montelukast [Singulair] 10 mg PO DAILY 03/31/15 [History] Nortriptyline [Pamelor] 75 mg PO HS 03/31/15 [History] Potassium Chloride [Klor-Con Sprinkle] 10 meq PO BID 03/31/15 [History] Ranitidine HCl [Zantac] 150 mg PO HS 03/31/15 [History] Sertraline [Zoloft] 50 mg PO HS 03/31/15 [History] Tamsulosin [Flomax] 0.4 mg PO DAILY 03/31/15 [History] Tizanidine HCl [Zanaflex] 4 - 8 mg PO HS 03/31/15 [History] Budesonide/Formoterol 160/4.5 [Symbicort 160/4.5] 2 puff IH BIDR 08/26/16 [ History] Domperidone 20 mg PO QIDAC 08/26/16 [History] OxyCODONE CONC 5 mg PO BID PRN 05/18/17 [History] Tiotropium [Spiriva] 18 mcg IH 0700 12/15/16 [History] Aspirin 81 mg PO DAILY #30 tab 12/22/16 [Rx] Benzonatate [Tessalon] 200 mg PO TID PRN #90 cap 12/22/16 [Rx] GuaiFENesin ER [Mucinex] 1,200 mg PO BID #120 12/22/16 [Rx] Atorvastatin Calcium [Lipitor] 20 mg PO HS 01/11/17 [History] 3 Allergy/AdvReac Type Severity Reaction Status Date / Time ciprofloxacin [From Cipro] Allergy Hives Verified 03/31/15 15:16 levofloxacin [From Levaquin] Allergy Hives Verified 03/31/15 15:16 Tetracycline Allergy Rash Verified 03/31/15 17:20 All Systems PM: A 10-system review of systems was performed and is negative for pertinent findings except as documented above in the HPI. Review of systems: All the systems are reviewed everything is benign except the systems and symptoms I mentioned in the history of present illness - Constitutional Vitals: Temp Pulse Resp BP Pulse Ox 100.1 F H 79 17 114/67 90 01/11/17 22:28 01/11/17 22:28 01/11/17 22:28 01/11/17 22:28 01/11/17 22:28 General appearance: Present: A&O X 3, no acute distress, answers questions appropriately - Head Head exam: Present: atraumatic, normal inspection - Respiratory Respiratory exam: Present: decreased breath sounds, rhonchi (moderate), wheezes (moderate). Absent: rales, respiratory distress Additional comments: junky and coarse BS b/l - Cardiovascular Cardiovascular exam: Present: RRR, +S1, +S2. Absent: systolic murmur - GI/Abdominal GI/Abdominal exam: Present: normal bowel sounds, soft. Absent: distended, rebound, rigid, tenderness - Extremities Exam Extremities exam: Absent: calf tenderness, pedal edema, tenderness - Neurological Exam Neurological exam: Present: alert, oriented X3, no focal deficits - Psychiatric Psychiatric exam: Present: normal affect, normal mood - Skin Skin exam: Present: dry Internal Med - H&P Results - Labs CBC & Chem 7: 01/11/17 19:31 01/11/17 19:31
[2017-01-12] MEDS: Piperacillin/Tazobactam 3.375 GM in D5% in Water (Mini-Bag+) 100 ML IVPB SCH ×3 (03:13→18:19)
[2017-01-12] MEDS: MethylPREDNISolone 40 MG/ML VIAL IVP SCH ×3 (05:34→17:00)
[2017-01-12] MEDS: *HR* Enoxaparin 40 MG/0.4 ML SYRINGE SQ SCH (05:34)
[2017-01-12 05:50] LABS: Basophils % 0.1 %; Eosinophils % 0.1 %; Hematocrit 29.3 % (37.5-50.1); Hemoglobin 9.3 g/dL (12.9-16.9); Immature Granulocytes % 1.6 % (0-4); Lymphocytes # 0.8 K/mcL (0.6-4.6); Lymphocytes % 5.9 %; Mean Corpuscular HGB Conc 31.7 g/dL (31.6-35.5); Mean Corpuscular Hemoglobin 28.6 pg (28.0-33.3); Mean Corpuscular Volume 90.2 fL (83.0-100.0); Mean Platelet Volume 10.2 fL (9.4-12.4); Monocytes # 0.2 K/mcL (0.0-1.3); Monocytes % 1.6 %; Neutrophils # 12.2 K/mcL (1.6-8.9); Platelet Count 230 K/mcL (140-400); Red Blood Count 3.25 M/mcL (4.19-5.50); Red Cell Distribution Width 14.8 % (11.5-14.5); Segmented Neutrophils % 90.7 %
[2017-01-12 06:09] LABS: BUN/Creatinine Ratio 18 (6-26); Blood Urea Nitrogen 19 mg/dL (8-26); Calcium 9.3 mg/dL (8.6-10.8); Carbon Dioxide 31 mEq/L (19-29); Chloride 98 mEq/L (98-109); Glucose 165 mg/dL (70-99); Magnesium 2.2 mg/dL (1.6-2.6); Osmolality,Calculated 292 (280-300); Potassium 3.4 mEq/L (3.5-4.5); Sodium 138 mEq/L (136-145); eGFR For African Americans > 60 (> 60); eGFR For Non-African Americans > 60 (> 60)
[2017-01-12] MEDS ORDERED: Tiotropium 18 MCG inhalation IH SCH (07:00)
[2017-01-12] MEDS ORDERED: DOMPERIDONE 20 MG PO SCH (07:30)
[2017-01-12] MEDS: Budesonide/Formoterol 160/4.5 MDI IH SCH ×2 (07:44→20:59)
[2017-01-12] MEDS ORDERED: Albuterol 2.5 MG/3 ML NEBULIZER IH PRN (08:10)
[2017-01-12] MEDS: Aspirin 81 MG TAB.CHEW PO SCH (08:11)
[2017-01-12] MEDS: Loratadine 10 MG TABLET PO SCH (08:11)
[2017-01-12] MEDS: Gabapentin 300 MG CAPSULE PO SCH ×2 (08:12→20:11)
[2017-01-12] MEDS: Fluticasone Propionate Nasal 50 MCG/SPRAY BOTTLE NS SCH (08:13)
[2017-01-12] MEDS ORDERED: Famotidine 20 MG TABLET PO SCH (09:00)
[2017-01-12] MEDS: Azithromycin 500 MG in D5% in Water 250 ML IVPB SCH (11:29)
[2017-01-12] MEDS: DOMPERIDONE 20 MG PO SCH ×3 (11:32→22:16)
--- NOTE | 2017-01-12 12:22 | Electrocardiograph Report ---
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
--- NOTE | 2017-01-12 14:41 | Internal Med Progress Note ---
Date of Encounter: 01/12/17 Time of Encounter: 14:39 - Assessment and plan (1) Sepsis Current Visit: No Status: Acute Assessment and plan: Acute on chronic hypoxic respiratory failure secondary to acute COPD exacerbation due to sepsis from healthcare associated pneumonia present upon admission and/gram-negative pneumonia Continue Solu-Medrol, oxygen therapy Continue Zosyn and azithromycin Uses 3 L of oxygen at home Sputum culture pending Qualifiers: Sepsis type: sepsis due to unspecified organism Qualified Code(s): A41.9 - Sepsis, unspecified organism (2) COPD (chronic obstructive pulmonary disease) Current Visit: Yes Status: Chronic Qualifiers: COPD type: COPD with acute exacerbation Qualified Code(s): J44.1 - Chronic obstructive pulmonary disease with (acute) exacerbation (3) Pneumonia Current Visit: No Status: Acute Qualifiers: Pneumonia type: due to other aerobic Gram-negative bacteria Laterality: bilateral Lung location: unspecified part of lung Qualified Code(s): J15.6 - Pneumonia due to other Gram-negative bacteria (4) Acute exacerbation of chronic obstructive pulmonary disease (COPD) Current Visit: No Status: Acute (5) Hypokalemia Current Visit: No Status: Resolved Assessment and plan: Likely exacerbated by Lasix Replete as needed (6) Congestive heart failure Current Visit: No Status: Acute Assessment and plan: Chronic diastolic CHF Continue Lasix Qualifiers: Congestive heart failure type: diastolic Congestive heart failure chronicity: chronic Qualified Code(s): I50.32 - Chronic diastolic (congestive ) heart failure (7) HCAP (healthcare-associated pneumonia) Current Visit: No Status: Acute (8) Essential hypertension Current Visit: Yes Status: Acute Assessment and plan: Stable (9) Gastroparesis Current Visit: No Status: Chronic Assessment and plan: Stable - Subjective Interval history: Not for billing purposes. Feels still very short of breath but less than yesterday, denies any chest pain , no abdominal pain, no dizziness, no fevers or chills, no dysuria or diarrhea - Constitutional Vitals: Temp Pulse Resp BP Pulse Ox 97.7 F 70 18 104/55 89 01/12/17 11:17 01/12/17 11:17 01/12/17 11:17 01/12/17 11:17 01/12/17 11:17 General appearance: Present: A&O X 3, no acute distress, answers questions appropriately - Head Head exam: Present: atraumatic, normocephalic - Eye Eye exam: Present: PERRL, conjuntiva pink, sclera anicteric Pupils: Present: PERRL - Neck Neck exam general surgery: Present: supple, trachea midline. Absent: lymphadenopathy - Respiratory Respiratory exam: Present: CTAB, rales, wheezes (Diffuse crackles and wheezing) . Absent: accessory muscle use, rhonchi - Cardiovascular Cardiovascular exam: Present: RRR, +S1, +S2. Absent: diastolic murmur, gallop, rubs, systolic murmur - GI/Abdominal GI/Abdominal exam: Present: normal bowel sounds, soft, no peritoneal signs. Absent: distended, tenderness - Extremities Exam Extremities exam: Present: warm, radial pulses palpable and symmetrical. Absent : calf tenderness, cyanotic, pedal edema - Neurological Exam Neurological exam: Present: CN II-XII intact, oriented X3, no focal deficits. Absent: pronater drift, facial droop, speech deficit - Skin Skin exam: Present: dry, intact Internal Medicine: Result - Labs CBC & Chem 7: 01/12/17 05:14 01/12/17 05:14 Labs: Short CBC 01/12/17 Range/Units 05:14 WBC 13.5 H (4.3-11.1) K/mcL Hgb 9.3 L (12.9-16.9) g/dL Hct 29.3 L (37.5-50.1) % Plt Count 230 (140-400) K/mcL Neutrophils # 12.2 H (1.6-8.9) K/mcL BMP 01/12/17 05:14 Sodium 138 Potassium 3.4 L Chloride 98 Carbon Dioxide 31 H BUN 19 Creatinine 1.05 Glucose 165 H Calcium 9.3 - Impressions Impressions Chest CT 01/12/17 08:00 IMPRESSION: 1. Stable pleural based nodule in the left upper lobe unchanged dating back to 05/23/2012, given the long-term stability, considered benign. 2. Bilateral bronchial wall thickening, particular in the bilateral lower lobes with minimal increased density in the left lower lobe. Airspace disease is markedly improved compared to the CT from 08/26/2016. Overall, findings may reflect bronchitis with atelectasis and/or pneumonia/ aspiration pneumonitis. Continued imaging follow-up is suggested. D/ / Destin Mir / Destin Mir Interpreting Provider: Destin Mir Consult Discharge Plan - Plan Referrals: Radha Rojas DO [Primary Care Provider] -
[2017-01-12] MEDS: Ipratropium/Albuterol Neb 3 ML IH SCH ×2 (16:20→21:00)
[2017-01-12] MEDS ORDERED: Azithromycin 500 MG in D5% in Water 250 ML IVPB SCH (18:00)
[2017-01-12] MEDS: Famotidine 20 MG TABLET PO SCH (20:12)
[2017-01-13] MEDS: MethylPREDNISolone 40 MG/ML VIAL IVP SCH ×5 (00:04→20:21)
[2017-01-13] MEDS: Piperacillin/Tazobactam 3.375 GM in D5% in Water (Mini-Bag+) 100 ML IVPB SCH ×3 (03:10→18:06)
[2017-01-13] MEDS: Ipratropium/Albuterol Neb 3 ML IH SCH ×4 (03:29→21:52)
[2017-01-13 04:53] LABS: Hematocrit 28.5 % (37.5-50.1); Hemoglobin 8.8 g/dL (12.9-16.9); Mean Corpuscular HGB Conc 30.9 g/dL (31.6-35.5); Mean Corpuscular Hemoglobin 27.7 pg (28.0-33.3); Mean Corpuscular Volume 89.6 fL (83.0-100.0); Mean Platelet Volume 10.4 fL (9.4-12.4); Platelet Count 265 K/mcL (140-400); Red Blood Count 3.18 M/mcL (4.19-5.50); Red Cell Distribution Width 14.9 % (11.5-14.5)
[2017-01-13 05:05] LABS: BUN/Creatinine Ratio 27 (6-26); Calcium 8.9 mg/dL (8.6-10.8); Carbon Dioxide 27 mEq/L (19-29); Chloride 101 mEq/L (98-109); Glucose 152 mg/dL (70-99); Osmolality,Calculated 296 (280-300); Potassium 3.7 mEq/L (3.5-4.5); Sodium 138 mEq/L (136-145); eGFR For African Americans > 60 (> 60); eGFR For Non-African Americans 57 (> 60)
[2017-01-13 05:10] LABS: Blood Urea Nitrogen 33 mg/dL (8-26)
[2017-01-13] MEDS: *HR* Enoxaparin 40 MG/0.4 ML SYRINGE SQ SCH (05:55)
[2017-01-13] MEDS: Loratadine 10 MG TABLET PO SCH (08:21)
[2017-01-13] MEDS: Aspirin 81 MG TAB.CHEW PO SCH (08:21)
[2017-01-13] MEDS: Cholestyramine 4 GM POWD.PACK PO SCH (08:22)
[2017-01-13] MEDS: Gabapentin 300 MG CAPSULE PO SCH ×2 (08:22→20:20)
[2017-01-13] MEDS: Furosemide 40 MG TABLET PO SCH ×2 (08:22→17:04)
[2017-01-13] MEDS: DOMPERIDONE 20 MG PO SCH ×4 (08:23→22:12)
[2017-01-13] MEDS: Fluticasone Propionate Nasal 50 MCG/SPRAY BOTTLE NS SCH (08:23)
[2017-01-13] MEDS: Budesonide/Formoterol 160/4.5 MDI IH SCH ×2 (10:26→21:52)
[2017-01-13] MEDS: Azithromycin 500 MG in D5% in Water 250 ML IVPB SCH (10:58)
--- NOTE | 2017-01-13 12:19 | Internal Med Progress Note ---
Date of Encounter: 01/13/17 Time of Encounter: 12:17 - Assessment and plan (1) Sepsis Current Visit: No Status: Acute Assessment and plan: Acute on chronic hypoxic respiratory failure secondary to acute COPD exacerbation due to sepsis from healthcare associated pneumonia present upon admission /gram-negative pneumonia Continue Solu-Medrol, oxygen therapy Continue Zosyn and azithromycin day 2 Uses 3 L of oxygen at home Sputum culture pending CT scan of the chest showed bilateral bronchial wall thickening especially in day lower lobes, increased density in the left lower lobe with possible reflect bronchitis with atelectasis or pneumonia/aspiration pneumonitis Qualifiers: Sepsis type: sepsis due to unspecified organism Qualified Code(s): A41.9 - Sepsis, unspecified organism (2) COPD (chronic obstructive pulmonary disease) Current Visit: Yes Status: Chronic Qualifiers: COPD type: COPD with acute exacerbation Qualified Code(s): J44.1 - Chronic obstructive pulmonary disease with (acute) exacerbation (3) Pneumonia Current Visit: No Status: Acute Qualifiers: Pneumonia type: due to other aerobic Gram-negative bacteria Laterality: bilateral Lung location: unspecified part of lung Qualified Code(s): J15.6 - Pneumonia due to other Gram-negative bacteria (4) Acute exacerbation of chronic obstructive pulmonary disease (COPD) Current Visit: No Status: Acute (5) Hypokalemia Current Visit: No Status: Resolved Assessment and plan: Likely exacerbated by Lasix Replete as needed (6) Congestive heart failure Current Visit: No Status: Acute Assessment and plan: Chronic diastolic CHF Continue Lasix Qualifiers: Congestive heart failure type: diastolic Congestive heart failure chronicity: chronic Qualified Code(s): I50.32 - Chronic diastolic (congestive ) heart failure (7) HCAP (healthcare-associated pneumonia) Current Visit: No Status: Acute (8) Essential hypertension Current Visit: Yes Status: Acute Assessment and plan: Stable (9) Gastroparesis Current Visit: No Status: Chronic Assessment and plan: Stable - Subjective Interval history: Feels less short of breath but , denies any chest pain, no abdominal pain, no dizziness, no fevers (had a fever of 100.1 on 01/11/2017 )or chills, no dysuria or diarrhea - Constitutional Vitals: Temp Pulse Resp BP Pulse Ox 97.9 F 71 19 115/66 94 01/13/17 11:22 01/13/17 11:22 01/13/17 11:22 01/13/17 11:22 01/13/17 11:22 General appearance: Present: A&O X 3, no acute distress, answers questions appropriately - Head Head exam: Present: atraumatic, normocephalic - Eye Eye exam: Present: PERRL, conjuntiva pink, sclera anicteric Pupils: Present: PERRL - Neck Neck exam general surgery: Present: supple, trachea midline. Absent: lymphadenopathy - Respiratory Respiratory exam: Present: CTAB, rales, wheezes (Diffuse crackles and wheezing) . Absent: accessory muscle use, rhonchi - Cardiovascular Cardiovascular exam: Present: RRR, +S1, +S2, systolic murmur (Systolic murmur 2 out of 6 radiated to the aortic area). Absent: diastolic murmur, gallop, rubs - GI/Abdominal GI/Abdominal exam: Present: normal bowel sounds, soft, no peritoneal signs. Absent: distended, tenderness - Extremities Exam Extremities exam: Present: warm, radial pulses palpable and symmetrical. Absent : calf tenderness, cyanotic, pedal edema - Neurological Exam Neurological exam: Present: CN II-XII intact, oriented X3, no focal deficits. Absent: pronater drift, facial droop, speech deficit - Skin Skin exam: Present: dry, intact Internal Medicine: Result - Labs CBC & Chem 7: 01/13/17 03:50 01/13/17 03:50 Labs: Short CBC 01/13/17 Range/Units 03:50 WBC 14.4 H (4.3-11.1) K/mcL Hgb 8.8 L (12.9-16.9) g/dL Hct 28.5 L (37.5-50.1) % Plt Count 265 (140-400) K/mcL BMP 01/13/17 03:50 Sodium 138 Potassium 3.7 Chloride 101 Carbon Dioxide 27 BUN 33 H D Creatinine 1.24 Glucose 152 H Calcium 8.9 Consult Discharge Plan - Plan Referrals: Radha Rojas DO [Primary Care Provider] - 01/19/17 11:00 am (Please follow up as schedule...)
[2017-01-13] MEDS: Famotidine 20 MG TABLET PO SCH (20:20)
[2017-01-14] MEDS: Piperacillin/Tazobactam 3.375 GM in D5% in Water (Mini-Bag+) 100 ML IVPB SCH (03:11)
[2017-01-14] MEDS: Ipratropium/Albuterol Neb 3 ML IH SCH ×4 (04:36→22:16)
[2017-01-14 05:46] LABS: Hematocrit 29.7 % (37.5-50.1); Hemoglobin 9.2 g/dL (12.9-16.9); Mean Corpuscular Hemoglobin 28.2 pg (28.0-33.3); Mean Corpuscular Volume 91.1 fL (83.0-100.0); Mean Platelet Volume 10.1 fL (9.4-12.4); Platelet Count 280 K/mcL (140-400); Red Blood Count 3.26 M/mcL (4.19-5.50)
[2017-01-14] MEDS: *HR* Enoxaparin 40 MG/0.4 ML SYRINGE SQ SCH (06:02)
[2017-01-14 06:07] LABS: BUN/Creatinine Ratio 29 (6-26); Blood Urea Nitrogen 37 mg/dL (8-26); Calcium 8.6 mg/dL (8.6-10.8); Carbon Dioxide 28 mEq/L (19-29); Chloride 104 mEq/L (98-109); Glucose 139 mg/dL (70-99); Osmolality,Calculated 303 (280-300); Potassium 3.8 mEq/L (3.5-4.5); Sodium 141 mEq/L (136-145); eGFR For African Americans > 60 (> 60); eGFR For Non-African Americans 55 (> 60)
[2017-01-14] MEDS: Cholestyramine 4 GM POWD.PACK PO SCH (08:06)
[2017-01-14] MEDS: DOMPERIDONE 20 MG PO SCH ×4 (08:06→21:06)
--- NOTE | 2017-01-14 08:57 | Internal Med Progress Note ---
Date of Encounter: 01/14/17 Time of Encounter: 08:54 - Assessment and plan (1) Sepsis Current Visit: No Status: Acute Assessment and plan: Acute on chronic hypoxic respiratory failure secondary to acute COPD exacerbation due to sepsis from healthcare associated pneumonia present upon admission /gram-negative pneumonia Continue Solu-Medrol, oxygen therapy De-escalate antibiotics, discontinue Zosyn and azithromycin day 3 Start Unasyn IV Uses 3 L of oxygen at home Sputum culture showed normal ambreen CT scan of the chest showed bilateral bronchial wall thickening especially in day lower lobes, increased density in the left lower lobe with possible reflect bronchitis with atelectasis or pneumonia/aspiration pneumonitis Qualifiers: Sepsis type: sepsis due to unspecified organism Qualified Code(s): A41.9 - Sepsis, unspecified organism (2) COPD (chronic obstructive pulmonary disease) Current Visit: Yes Status: Chronic Qualifiers: COPD type: COPD with acute exacerbation Qualified Code(s): J44.1 - Chronic obstructive pulmonary disease with (acute) exacerbation (3) Pneumonia Current Visit: No Status: Acute Qualifiers: Pneumonia type: due to other aerobic Gram-negative bacteria Laterality: bilateral Lung location: unspecified part of lung Qualified Code(s): J15.6 - Pneumonia due to other Gram-negative bacteria (4) Acute exacerbation of chronic obstructive pulmonary disease (COPD) Current Visit: No Status: Acute (5) Hypokalemia Current Visit: No Status: Resolved Assessment and plan: Likely exacerbated by Lasix Replete as needed (6) Congestive heart failure Current Visit: No Status: Acute Assessment and plan: Chronic diastolic CHF Continue Lasix Qualifiers: Congestive heart failure type: diastolic Congestive heart failure chronicity: chronic Qualified Code(s): I50.32 - Chronic diastolic (congestive ) heart failure (7) HCAP (healthcare-associated pneumonia) Current Visit: No Status: Acute (8) Essential hypertension Current Visit: Yes Status: Acute Assessment and plan: Stable (9) Gastroparesis Current Visit: No Status: Chronic Assessment and plan: Stable - Subjective Interval history: Mildly short of breath , denies any chest pain, no abdominal pain, no dizziness , no fevers (had a fever of 100.1 on 01/11/2017 )or chills, no dysuria or diarrhea - Constitutional Vitals: Temp Pulse Resp BP Pulse Ox 97.6 F 69 17 138/70 96 01/14/17 06:43 10/06/17 06:43 01/14/17 06:43 01/14/17 06:43 01/14/17 06:43 General appearance: Present: A&O X 3, no acute distress, answers questions appropriately - Head Head exam: Present: atraumatic, normocephalic - Eye Eye exam: Present: PERRL, conjuntiva pink, sclera anicteric Pupils: Present: PERRL - Neck Neck exam general surgery: Present: supple, trachea midline. Absent: lymphadenopathy - Respiratory Respiratory exam: Present: CTAB, rales (Diffuse crackles and rhonchi, minimal wheezing). Absent: accessory muscle use, rhonchi, wheezes - Cardiovascular Cardiovascular exam: Present: RRR, +S1, +S2, systolic murmur (Systolic murmur 2 out of 6 radiated to the aortic area). Absent: diastolic murmur, gallop, rubs - GI/Abdominal GI/Abdominal exam: Present: normal bowel sounds, soft, no peritoneal signs. Absent: distended, tenderness - Extremities Exam Extremities exam: Present: warm, radial pulses palpable and symmetrical. Absent : calf tenderness, cyanotic, pedal edema - Neurological Exam Neurological exam: Present: CN II-XII intact, oriented X3, no focal deficits. Absent: pronater drift, facial droop, speech deficit - Skin Skin exam: Present: dry, intact Internal Medicine: Result - Labs CBC & Chem 7: 01/14/17 05:05 01/14/17 05:05 Labs: Short CBC 01/14/17 Range/Units 05:05 WBC 15.2 H (4.3-11.1) K/mcL Hgb 9.2 L (12.9-16.9) g/dL Hct 29.7 L (37.5-50.1) % Plt Count 280 (140-400) K/mcL BMP 01/14/17 05:05 Sodium 141 Potassium 3.8 Chloride 104 Carbon Dioxide 28 BUN 37 H Creatinine 1.28 H Glucose 139 H Calcium 8.6 Consult Discharge Plan - Plan Referrals: Radha Rojas DO [Primary Care Provider] - 01/19/17 11:00 am (Please follow up as schedule...)
[2017-01-14] MEDS: Furosemide 40 MG TABLET PO SCH ×2 (09:57→17:25)
[2017-01-14] MEDS: Aspirin 81 MG TAB.CHEW PO SCH (09:58)
[2017-01-14] MEDS: Loratadine 10 MG TABLET PO SCH (09:58)
[2017-01-14] MEDS: Fluticasone Propionate Nasal 50 MCG/SPRAY BOTTLE NS SCH (09:59)
[2017-01-14] MEDS: Gabapentin 300 MG CAPSULE PO SCH ×2 (09:59→21:04)
[2017-01-14] MEDS: MethylPREDNISolone 40 MG/ML VIAL IVP SCH ×3 (09:59→21:05)
[2017-01-14] MEDS: Budesonide/Formoterol 160/4.5 MDI IH SCH ×2 (10:10→22:15)
[2017-01-14] MEDS: Azithromycin 500 MG in D5% in Water 250 ML IVPB SCH (11:46)
[2017-01-14] MEDS: Ampicillin/Sulbactam 1,500 MG in 0.9 % Sodium Chloride Mini Bag 100 ML IVPB SCH ×2 (13:26→17:25)
[2017-01-14] MEDS: Famotidine 20 MG TABLET PO SCH (21:05)
[2017-01-14 21:08] LABS: Adenovirus F 40/41 PCR Not detected (Not detect); Astrovirus PCR Not detected (Not detect); C.difficile Toxin A/B by PCR See reflex test (Not detect); Campylobacter by PCR Not detected (Not detect); Cryptosporidium by PCR Not detected (Not detect); Cyclospora cayetanensis PCR Not detected (Not detect); E. coli O157 by PCR Not detected (Not detect); Entamoeba histolytica PCR Not detected (Not detect); Enteroaggregative E.coli(EAEC) Not detected (Not detect); Enteropathogenic E.coli(EPEC) Not detected (Not detect); Enterotoxigenic E.coli (ETEC) Not detected (Not detect); Giardia lamblia PCR Not detected (Not detect); Norovirus GI/GII PCR Not detected (Not detect); Plesiomonas shigelloides PCR Not detected (Not detect); Rotavirus A PCR Not detected (Not detect); Salmonella PCR Not detected (Not detect); Sapovirus PCR Not detected (Not detect); Shig/EnteroinvasiveE coli EIEC Not detected (Not detect); Shigalike tox-prod E coli STEC Not detected (Not detect); Vibrio PCR Not detected (Not detect); Vibrio cholerae PCR Not detected (Not detect); Yersinia enterocolitica PCR Not detected (Not detect)
[2017-01-15] MEDS: Ampicillin/Sulbactam 1,500 MG in 0.9 % Sodium Chloride Mini Bag 100 ML IVPB SCH ×2 (00:23→06:02)
[2017-01-15] MEDS: Ipratropium/Albuterol Neb 3 ML IH SCH ×2 (04:12→10:55)
[2017-01-15] MEDS: *HR* Enoxaparin 40 MG/0.4 ML SYRINGE SQ SCH (06:02)
[2017-01-15] MEDS: Cholestyramine 4 GM POWD.PACK PO SCH (06:34)
[2017-01-15 07:31] VITALS: BP 148/79
[2017-01-15 07:58] LABS: BUN/Creatinine Ratio 32 (6-26); Blood Urea Nitrogen 29 mg/dL (8-26); Calcium 8.2 mg/dL (8.6-10.8); Carbon Dioxide 28 mEq/L (19-29); Chloride 107 mEq/L (98-109); Glucose 113 mg/dL (70-99); Osmolality,Calculated 303 (280-300); Potassium 3.8 mEq/L (3.5-4.5); Sodium 143 mEq/L (136-145); eGFR For African Americans > 60 (> 60); eGFR For Non-African Americans > 60 (> 60)
[2017-01-15] MEDS ORDERED: MetroNIDAZOLE 500 MG/100 ML 500 MG/100 ML BAG IVPB SCH (08:00)
--- NOTE | 2017-01-15 08:04 | Discharge Summary ---
Date of Encounter: 01/15/17 Time of Encounter: 08:01 - Discharge Diagnosis (1) Sepsis Priority: Primary Status: Acute Comments: Acute on chronic hypoxic respiratory failure secondary to acute COPD exacerbation due to sepsis from healthcare associated pneumonia present upon admission /gram-negative pneumonia Qualifiers: Sepsis type: sepsis due to unspecified organism Qualified Code(s): A41.9 - Sepsis, unspecified organism (2) COPD (chronic obstructive pulmonary disease) Priority: Primary Status: Chronic Qualifiers: COPD type: COPD with acute exacerbation Qualified Code(s): J44.1 - Chronic obstructive pulmonary disease with (acute) exacerbation (3) Pneumonia Priority: Primary Status: Acute Qualifiers: Pneumonia type: due to other aerobic Gram-negative bacteria Laterality: bilateral Lung location: unspecified part of lung Qualified Code(s): J15.6 - Pneumonia due to other Gram-negative bacteria (4) Acute exacerbation of chronic obstructive pulmonary disease (COPD) Priority: Primary Status: Acute (5) Hypokalemia Priority: Secondary Status: Resolved (6) Congestive heart failure Priority: Secondary Status: Acute Qualifiers: Congestive heart failure type: diastolic Congestive heart failure chronicity: chronic Qualified Code(s): I50.32 - Chronic diastolic (congestive ) heart failure (7) HCAP (healthcare-associated pneumonia) Priority: Primary Status: Acute (8) Essential hypertension Priority: Secondary Status: Acute (9) Gastroparesis Priority: Secondary Status: Chronic - Discharge Medications Prescriptions: Amoxicillin/Clavulanate [Augmentin] 875 mg PO BIDWM #8 tablet metroNIDAZOLE [Flagyl] 500 mg PO TID #21 tablet Potassium Chloride 10 meq PO DAILY #30 tab.er.prt predniSONE [PredniSONE] 10 mg PO DAILY 20 Days tablet Home Medications: Albuterol Neb [Proventil Neb] 2.5 mg IH QID PRN 03/31/15 [History] Albuterol Sulfate [Proventil Hfa] 2 puff IH QID PRN 03/31/15 [History] Cetirizine HCl [Zyrtec] 10 mg PO DAILY 03/31/15 [History] Cholestyramine/Aspartame [Cholestyramine Light Packet] 4 gm PO DAILY 03/31/15 [ History] Dicyclomine [Bentyl] 20 mg PO QID 03/31/15 [History] Esomeprazole Magnesium [Nexium] 40 mg PO DAILY 03/31/15 [History] Fluticasone Propionate Nasal [Flonase] 100 mcg NS DAILY 03/31/15 [History] Furosemide [Lasix] 40 mg PO QPM 03/31/15 [History] Furosemide [Lasix] 80 mg PO QAM 03/31/15 [History] Gabapentin [Neurontin] 600 mg PO BID 03/31/15 [History] Montelukast [Singulair] 10 mg PO DAILY 03/31/15 [History] Nortriptyline [Pamelor] 75 mg PO HS 03/31/15 [History] Potassium Chloride [Klor-Con Sprinkle] 10 meq PO BID 03/31/15 [History] Ranitidine HCl [Zantac] 150 mg PO HS 03/31/15 [History] Sertraline [Zoloft] 50 mg PO HS 03/31/15 [History] Tamsulosin [Flomax] 0.4 mg PO DAILY 03/31/15 [History] Tizanidine HCl [Zanaflex] 4 - 8 mg PO HS 03/31/15 [History] Budesonide/Formoterol 160/4.5 [Symbicort 160/4.5] 2 puff IH BIDR 08/26/16 [ History] Domperidone 20 mg PO QIDAC 08/26/16 [History] OxyCODONE CONC 5 mg PO BID PRN 08/26/16 [History] Tiotropium [Spiriva] 18 mcg IH 0700 12/15/16 [History] Aspirin 81 mg PO DAILY #30 tab 12/22/16 [Rx] Benzonatate [Tessalon] 200 mg PO TID PRN #90 cap 12/22/16 [Rx] GuaiFENesin ER [Mucinex] 1,200 mg PO BID #120 12/22/16 [Rx] Atorvastatin Calcium [Lipitor] 20 mg PO HS 01/11/17 [History] Amoxicillin/Clavulanate [Augmentin] 875 mg PO BIDWM #8 tablet 01/15/17 [Rx] Potassium Chloride 10 meq PO DAILY #30 tab.er.prt 01/15/17 [Rx] metroNIDAZOLE [Flagyl] 500 mg PO TID #21 tablet 01/15/17 [Rx] predniSONE [PredniSONE] 10 mg PO DAILY 20 Days tablet 01/15/17 [Rx] Allergies/Adverse Reactions: 3 Allergy/AdvReac Type Severity Reaction Status Date / Time ciprofloxacin [From Cipro] Allergy Hives Verified 03/31/15 15:16 levofloxacin [From Levaquin] Allergy Hives Verified 03/31/15 15:16 Tetracycline Allergy Rash Verified 03/31/15 17:20 Procedures/tests Complete & Pending: Procedures Performed prior 72 hours Category Date Time Status CT chest wo con [CT] Routine Cat Scan 01/12/17 08:00 Completed Date of admission: 01/12/17 00:24 Primary care physician: Radha Rojas - Patient Status Disposition: Home Health Service Condition: Good Overall status at discharge: patient is progressing back to baseline - Discharge Instructions Follow Up With: Radha Rojas DO [Primary Care Provider] - 01/19/17 11:00 am (Please follow up as schedule...) Additional Instructions: Follow-up with primary care physician within the next 7 days. Continue prednisone taper. Complete 4 more days of Augmentin, one week of Flagyl/ metronidazole. Minimize fluid intake. Continue oxygen therapy - Diet and Activity Activity: increase activity as tolerated Diet: low fat, low cholesterol Hospital course: Mr. Gaston is a 76 year old male with known PMH of HTN, COPD O 2 dep 3 Lt at home , Chronic hypoxic resp failure on home O2 at 3lit, chronic diastolic CHF, GERD, hypertension, hyperlipidemia, who recently was admitted here on 12/15/16 with pneumonia, now he presented to ER with fever and chills, as well as progressively worsening SOB / RODRIGUEZ. He also has cough with yellowish expectoration and had fever T max 100.4 at his PCP office. He denied any CP. No nausea / vomiting. CT scan of the chest showed bilateral bronchial wall thickening with bilateral lower lobes increased densities mainly in the left lower lobe. Air space disease improved, overall findings reflected bronchitis with atelectases and/or pneumonia/aspiration pneumonitis. Uses 3 L of oxygen at home Sputum culture showed normal ambreen Was continued on Solu-Medrol, oxygen therapy Received 3 days of Zosyn and azithromycin day 3, was switched to Unasyn IV. Developed diarrhea , GI panel was sent, c diff toxin A was positive, and reflex test for toxin B was negative showing no active infection. The patient prefers to be treated as he is on steroids and will continue antibiotics. Stable to be discharged, we will complete 4 more days of Augmentin and one week of metronidazole, prednisone taper - Time Spent with Patient Total time spent providing and/or coordinating discharge services: Greater than 30 minutes (40 min) - Constitutional Vitals: Temp Pulse Resp BP Pulse Ox 97.6 F 66 16 148/79 97 01/15/17 07:26 01/15/17 07:26 01/15/17 07:26 01/15/17 07:26 01/15/17 07:26 General appearance: Present: A&O X 3, no acute distress, answers questions appropriately - Head Head exam: Present: atraumatic, normocephalic - Eye Eye exam: Present: PERRL, conjuntiva pink, sclera anicteric Pupils: Present: PERRL - Neck Neck exam general surgery: Present: supple, trachea midline. Absent: lymphadenopathy - Respiratory Respiratory exam: Present: CTAB, rales (Diffuse rhonchi and bibasilar crackles) . Absent: accessory muscle use, rhonchi, wheezes - Cardiovascular Cardiovascular exam: Present: RRR, +S1, +S2. Absent: diastolic murmur, gallop, rubs, systolic murmur - GI/Abdominal GI/Abdominal exam: Present: normal bowel sounds, soft, no peritoneal signs. Absent: distended, tenderness - Extremities Exam Extremities exam: Present: warm, radial pulses palpable and symmetrical. Absent : calf tenderness, cyanotic, pedal edema - Neurological Exam Neurological exam: Present: CN II-XII intact, oriented X3, no focal deficits. Absent: pronater drift, facial droop, speech deficit - Skin Skin exam: Present: dry, intact
[2017-01-15 08:20] LABS: Hematocrit 27.4 % (37.5-50.1); Hemoglobin 8.7 g/dL (12.9-16.9); Mean Corpuscular HGB Conc 31.8 g/dL (31.6-35.5); Mean Corpuscular Hemoglobin 29.1 pg (28.0-33.3); Mean Corpuscular Volume 91.6 fL (83.0-100.0); Mean Platelet Volume 10.1 fL (9.4-12.4); Platelet Count 274 K/mcL (140-400); Red Blood Count 2.99 M/mcL (4.19-5.50); Red Cell Distribution Width 14.9 % (11.5-14.5)
--- NOTE | 2017-01-15 08:21 | Physician Discharge Referral ---
Home Health/Hosp Referral Info Transfer to: Home Health Provider in Charge Post Discharge: PCP - Diagnosis (1) Sepsis Status: Acute (2) COPD (chronic obstructive pulmonary disease) Status: Chronic (3) Pneumonia Status: Acute (4) Acute exacerbation of chronic obstructive pulmonary disease (COPD) Status: Acute (5) Hypokalemia Status: Resolved (6) Congestive heart failure Status: Acute (7) HCAP (healthcare-associated pneumonia) Status: Acute (8) Essential hypertension Status: Acute (9) Gastroparesis Status: Chronic - Respiratory Orders Smoking Cessation: Smoking cessation has been advised. For more information, call the [place] [employer] Quit Line at 8-019-DAXH-NOW. - Diet/Nutrition Diet/Nutrition Orders: No Added Salt (IAN) - Services Needed Following services are medically necessary services: Nursing, Home Health Aide, Physical Therapy Home Care Orders: Follow-up with primary care physician within the next 7 days. Continue prednisone taper. Complete 4 more days of Augmentin, one week of Flagyl/ metronidazole. Minimize fluid intake. Continue oxygen therapy - Transfer Medications Prescriptions: Amoxicillin/Clavulanate [Augmentin] 875 mg PO BIDWM #8 tablet metroNIDAZOLE [Flagyl] 500 mg PO TID #21 tablet Potassium Chloride 10 meq PO DAILY #30 tab.er.prt predniSONE [PredniSONE] 10 mg PO DAILY 20 Days tablet Home Medications: Albuterol Neb [Proventil Neb] 2.5 mg IH QID PRN 03/31/15 [History] Albuterol Sulfate [Proventil Hfa] 2 puff IH QID PRN 03/31/15 [History] Cetirizine HCl [Zyrtec] 10 mg PO DAILY 03/31/15 [History] Cholestyramine/Aspartame [Cholestyramine Light Packet] 4 gm PO DAILY 03/31/15 [ History] Dicyclomine [Bentyl] 20 mg PO QID 03/31/15 [History] Esomeprazole Magnesium [Nexium] 40 mg PO DAILY 03/31/15 [History] Fluticasone Propionate Nasal [Flonase] 100 mcg NS DAILY 03/31/15 [History] Furosemide [Lasix] 40 mg PO QPM 03/31/15 [History] Furosemide [Lasix] 80 mg PO QAM 03/31/15 [History] Gabapentin [Neurontin] 600 mg PO BID 03/31/15 [History] Montelukast [Singulair] 10 mg PO DAILY 03/31/15 [History] Nortriptyline [Pamelor] 75 mg PO HS 03/31/15 [History] Potassium Chloride [Klor-Con Sprinkle] 10 meq PO BID 03/31/15 [History] Ranitidine HCl [Zantac] 150 mg PO HS 03/31/15 [History] Sertraline [Zoloft] 50 mg PO HS 03/31/15 [History] Tamsulosin [Flomax] 0.4 mg PO DAILY 03/31/15 [History] Tizanidine HCl [Zanaflex] 4 - 8 mg PO HS 03/31/15 [History] Budesonide/Formoterol 160/4.5 [Symbicort 160/4.5] 2 puff IH BIDR 08/26/16 [ History] Domperidone 20 mg PO QIDAC 08/26/16 [History] OxyCODONE CONC 5 mg PO BID PRN 08/26/16 [History] Tiotropium [Spiriva] 18 mcg IH 0700 12/15/16 [History] Aspirin 81 mg PO DAILY #30 tab 12/22/16 [Rx] Benzonatate [Tessalon] 200 mg PO TID PRN #90 cap 12/22/16 [Rx] GuaiFENesin ER [Mucinex] 1,200 mg PO BID #120 12/22/16 [Rx] Atorvastatin Calcium [Lipitor] 20 mg PO HS 01/11/17 [History] Amoxicillin/Clavulanate [Augmentin] 875 mg PO BIDWM #8 tablet 01/15/17 [Rx] Potassium Chloride 10 meq PO DAILY #30 tab.er.prt 01/15/17 [Rx] metroNIDAZOLE [Flagyl] 500 mg PO TID #21 tablet 01/15/17 [Rx] predniSONE [PredniSONE] 10 mg PO DAILY 20 Days tablet 01/15/17 [Rx] Allergies/Adverse Reactions: 3 Allergy/AdvReac Type Severity Reaction Status Date / Time ciprofloxacin [From Cipro] Allergy Hives Verified 03/31/15 15:16 levofloxacin [From Levaquin] Allergy Hives Verified 03/31/15 15:16 Tetracycline Allergy Rash Verified 03/31/15 17:20 Certification: Further, I certify that my clinical findings support that this patient is homebound (i.e. absences from home require considerable and taxing effort and are for medical reasons or buddhist services or infrequently or short duration when for other reasons) because: Homebound Reason: Patient requires assistance of a person or device to safely leave home Attestation: My signature below is to certify that this patient is under my care and that I, or nurse practitioner, or a physician's payroll and benefits assistant working with me, has a face-to -face encounter with this patient.
[2017-01-15] MEDS: Gabapentin 300 MG CAPSULE PO SCH (10:36)
[2017-01-15] MEDS: Furosemide 40 MG TABLET PO SCH (10:36)
[2017-01-15] MEDS: Loratadine 10 MG TABLET PO SCH (10:36)
[2017-01-15] MEDS: Aspirin 81 MG TAB.CHEW PO SCH (10:36)
[2017-01-15] MEDS: MethylPREDNISolone 40 MG/ML VIAL IVP SCH (10:37)
[2017-01-15] MEDS ORDERED: FLUARIX QUAD 2017-18 36MOS UP/PF 0.5 ML SYRINGE IM ONE (10:48)
[2017-01-15] MEDS: Budesonide/Formoterol 160/4.5 MDI IH SCH (10:55)
== END 2017-01-15 13:08 | disposition home health service (06) | DRG 871 ==
LOC: EMEROO 18:36 → 2ANU 18:36
PROVIDERS: ADMIT Family Medicine; ATTEND Internal Medicine

== ENCOUNTER 2017-06-22 15:07 | Inpatient (IN) ==
[2017-06-22] MEDS ORDERED: Ipratropium/Albuterol Neb 3 ML IH ONE (15:52)
--- NOTE | 2017-06-22 15:58 | Emergency Department Note ---
Disposition Clinical Impression: Acute exacerbation of chronic obstructive airways disease Community acquired pneumonia Qualifiers: Laterality: unspecified laterality Qualified Code(s): J18.9 - Pneumonia, unspecified organism Anemia Qualifiers: Anemia type: unspecified type Qualified Code(s): D64.9 - Anemia, unspecified Disposition: Admitted As Inpatient Condition: Good Time of Disposition: 17:57 General Adult HPI - General Chief complaint: ED Shortness of Breath/Dyspnea Stated complaint: congested/chest pressure Time Seen by Provider: 06/22/17 15:14 Source: patient, family Limitations: no limitations Nursing Notes Reviewed: Yes Vital Signs Reviewed: Yes - History of Present Illness HPI Narrative: 3 day History of worsening shortness of breath. History of COPD and CHF. States that he is normally short of breath but this is worse than normal. Has a fever chills. He denies any chest pain. Productive cough with white sputum. Pain Scale: 0 - Related Data Home Medications Medication Instructions Recorded Confirmed Albuterol Sulfate [Proventil Hfa] 2 puff IH QID PRN 03/31/15 06/22/17 Cetirizine HCl [Zyrtec] 10 mg PO DAILY 03/31/15 06/22/17 Cholestyramine/Aspartame 4 gm PO DAILY 03/31/15 06/22/17 [Cholestyramine Light Packet] Dicyclomine [Bentyl] 20 mg PO QID 03/31/15 06/22/17 Esomeprazole Magnesium [Nexium] 40 mg PO DAILY 03/31/15 06/22/17 Fluticasone Propionate Nasal 100 mcg NS DAILY 03/31/15 06/22/17 [Flonase] Furosemide [Lasix] 40 mg PO QPM 03/31/15 06/22/17 Furosemide [Lasix] 80 mg PO QAM 03/31/15 06/22/17 Gabapentin [Neurontin] 600 mg PO BID 03/31/15 06/22/17 Montelukast [Singulair] 10 mg PO DAILY 03/31/15 06/22/17 Nortriptyline [Pamelor] 75 mg PO HS 03/31/15 06/22/17 Potassium Chloride [Klor-Con 10 meq PO BID 03/31/15 06/22/17 Sprinkle] Ranitidine HCl [Zantac] 150 mg PO HS 03/31/15 06/22/17 Sertraline [Zoloft] 50 mg PO HS 03/31/15 06/22/17 Tamsulosin [Flomax] 0.4 mg PO DAILY 03/31/15 06/22/17 Tizanidine HCl [Zanaflex] 4 - 8 mg PO HS 03/31/15 06/22/17 Domperidone 20 mg PO QIDAC 08/26/16 06/22/17 OxyCODONE CONC 5 mg PO BID PRN 08/26/16 06/22/17 Atorvastatin Calcium [Lipitor] 20 mg PO HS 01/11/17 06/22/17 Formoterol Fumarate [Perforomist] 20 mcg IH BID 06/22/17 06/22/17 Ipratropium Neb [Atrovent Neb] 0.5 mg IH Q6HR 06/22/17 06/22/17 Roflumilast [Daliresp] 500 mcg PO DAILY 06/22/17 06/22/17 Previous Rx's Medication Instructions Recorded Aspirin 81 mg PO DAILY #30 tab 12/22/16 Allergies Allergy/AdvReac Type Severity Reaction Status Date / Time ciprofloxacin [From Cipro] Allergy Hives Verified 03/31/15 15:16 levofloxacin [From Levaquin] Allergy Hives Verified 03/31/15 15:16 Tetracycline Allergy Rash Verified 03/31/15 17:20 All systems ED: reviewed and negative except as stated. Constitutional: Denies: fever, chills ENT ED: Denies: congestion Cardiovascular: Reports: edema (biLateral lower extremities). Denies: chest pain, syncope Respiratory: Reports: cough, dyspnea (3 days), sputum production (Yellow to white). Denies: wheezes Gastrointestinal: Denies: abdominal pain, nausea, vomiting, diarrhea Musculoskeletal: Denies: back pain Integumentary: Denies: rash Neurological: Reports: confusion. Denies: headache Past Medical History - Past Medical History Attestation: Yes The following information was validated with the patient. Source: patient Medical history: Reports: CHF, COPD, GERD, hyperlipidemia, hypertension Surgical history: Reports: appendectomy, sinus surgery Psychiatric history: Reports: no psych history - Social History Smoking Status: Former smoker Smokeless Tobacco Status: No Alcohol use: Reports: none Drug use: Reports: none Physical Exam - General Limitations: no limitations General appearance: alert, in no apparent distress - Head Head exam: atraumatic, normocephalic, normal inspection - Eye Eye exam: Present: normal appearance, PERRL, EOMI - ENT ENT exam: normal exam, normal oropharynx, mucous membranes moist - Neck Neck exam: Present: normal inspection, full ROM, trachea midline. Absent: tenderness - Chest Chest inspection: Present: normal inspection, symmetric chest wall rise - Respiratory Respiratory exam: Present: other (Rales of the right upper and lower lobes.). Absent: accessory muscle use, prolonged expiratory phase - Cardiovascular Cardiovascular exam: Present: regular rate, normal rhythm - Abdominal Exam Abdominal exam: Present: soft, Non-Tender, normal bowel sounds. Absent: organomegaly - Extremities Exam Extremities exam: Present: normal inspection, full ROM, pedal edema (bilateral) . Absent: tenderness - Back Exam Back exam: Present: normal inspection, full ROM. Absent: tenderness - Neurological Exam Neurological exam: Present: alert - Psychiatric Psychiatric exam: Present: normal affect, normal mood - Skin Skin exam: Present: warm, dry, intact Course Course Narrative: Male Pt presenting to the emergency department complaining of a Three-day history of worsening shortness of breath. Patient has history of COPD and CHF. States that he is chronically short of breath but this has been getting worse over 3 days. A productive cough of white sputum. Denies any swelling to his lower extremities. He denies any fever or chills. Denies any chest pain. He frequently has to come to the hospital to be treated for pneumonia. Reports last episode of pneumonia was approximately 1 year ago. Resting comfortably in bed at this time does have rales in his right lung field. Left has some mild wheezing. We will give him a DuoNeb and obtain a chest x-ray at this time. - Reevaluation(s) Reevaluation #1: On revaluation Pt stated that the Pt has also been confused recently. A head CT was added and found to be normal. Pt elevated white blood cell count with a productive sputum and history of COPD. We will start the patient on antibiotics and admitted to the hospital for his increased confusion, pneumonia , anemia. - Consultations Consultation #1: Dr Sweeney accepted patient in stable condition Time: 17:56 Vital Signs Temperature 97.1 F L 06/22/17 15:11 Pulse Rate 86 06/22/17 15:11 Respiratory Rate 22 06/22/17 15:11 Blood Pressure 134/75 06/22/17 15:11 O2 Sat by Pulse Oximetry 91 06/22/17 15:11 Temperature 98.1 F 06/22/17 20:15 Pulse Rate 90 06/22/17 20:15 Respiratory Rate 19 06/22/17 20:15 Blood Pressure 107/61 06/22/17 20:15 O2 Sat by Pulse Oximetry 95 06/22/17 20:15 Oxygen Delivery Oxygen Delivery Nasal Cannula Medical Decision Making - Medical Records Medical records reviewed: Yes I reviewed the patient's medical records. - Lab Data Lab results reviewed: Yes I reviewed the patient's lab results. Result diagrams: 06/22/17 16:32 06/22/17 16:32 Lab Results 06/22/17 06/22/17 06/22/17 Range/Units 16:32 16:32 16:32 WBC 16.7 H (4.3-11.1) K/mcL RBC 3.37 L (4.19-5.50) M/mcL Hgb 9.3 L (12.9-16.9) g/dL Hct 30.0 L (37.5-50.1) % MCV 89.0 (83.0-100.0) fL MCH 27.6 L (28.0-33.3) pg MCHC 31.0 L (31.6-35.5) g/dL RDW 15.3 H (11.5-14.5) % Plt Count 172 (140-400) K/mcL MPV 10.4 (9.4-12.4) fL Immature Gran % 0.6 (0-4) % Seg Neutrophils % 79.9 % Lymphocytes % 9.8 % Monocytes % 9.0 % Eosinophils % 0.5 % Basophils % 0.2 % Neutrophils # 13.3 H (1.6-8.9) K/mcL Lymphocytes # 1.6 (0.6-4.6) K/mcL Monocytes # 1.5 H (0.0-1.3) K/mcL Eosinophils # 0.1 (0.0-0.6) K/mcL Basophils # 0.0 (0.0-0.2) K/mcL VBG pH (7.32-7.42) pH Units VBG pCO2 (41-51) mmHg VBG pO2 (25-50) mmHg VBG HCO3 (21-27) mEq/L Sodium 136 (136-145) mEq/L Potassium 3.6 (3.5-5.1) mEq/L Chloride 98 (98-107) mEq/L Carbon Dioxide 28 (23-29) mEq/L BUN 22 (8-23) mg/dL Creatinine 1.21 (0.70-1.30) mg/dL Est GFR ( Amer) > 60 (> 60) Est GFR (Non-Af Amer) 58 L (> 60) BUN/Creatinine Ratio 18 (6-26) Glucose 124 H (70-105) mg/dL Calculated Osmolality 287 (280-300) Lactic Acid 0.7 (0.5-2.2) mmol/L Calcium 9.7 (8.6-10.3) mg/dL Troponin I 0.03 (< 0.04) ng/mL B-Natriuretic Peptide (Less than 100) pg/mL 06/22/17 06/22/17 Range/Units 16:32 16:46 WBC (4.3-11.1) K/mcL RBC (4.19-5.50) M/mcL Hgb (12.9-16.9) g/dL Hct (37.5-50.1) % MCV (83.0-100.0) fL MCH (28.0-33.3) pg MCHC (31.6-35.5) g/dL RDW (11.5-14.5) % Plt Count (140-400) K/mcL MPV (9.4-12.4) fL Immature Gran % (0-4) % Seg Neutrophils % % Lymphocytes % % Monocytes % % Eosinophils % % Basophils % % Neutrophils # (1.6-8.9) K/mcL Lymphocytes # (0.6-4.6) K/mcL Monocytes # (0.0-1.3) K/mcL Eosinophils # (0.0-0.6) K/mcL Basophils # (0.0-0.2) K/mcL VBG pH 7.45 H (7.32-7.42) pH Units VBG pCO2 42 (41-51) mmHg VBG pO2 85 H (25-50) mmHg VBG HCO3 29 H (21-27) mEq/L Sodium (136-145) mEq/L Potassium (3.5-5.1) mEq/L Chloride (98-107) mEq/L Carbon Dioxide (23-29) mEq/L BUN (8-23) mg/dL Creatinine (0.70-1.30) mg/dL Est GFR ( Amer) (> 60) Est GFR (Non-Af Amer) (> 60) BUN/Creatinine Ratio (6-26) Glucose (70-105) mg/dL Calculated Osmolality (280-300) Lactic Acid (0.5-2.2) mmol/L Calcium (8.6-10.3) mg/dL Troponin I (< 0.04) ng/mL B-Natriuretic Peptide 146 H (Less than 100) pg/mL - Radiology Data Radiology results reviewed: Yes I reviewed the patient's radiology results. Chest X-Ray 06/22/17 15:50 IMPRESSION: Mild bibasilar atelectasis. D/ / 06/22/2017 16:29:47 Kulwinder Justice MD / earnold Interpreting Provider: Kulwinder Justice MD Head CT 06/22/17 16:30 IMPRESSION: No acute intracranial abnormality. Extensive paranasal sinus disease. The presence of fluid suggests acute inflammation. D/ / Venice Santos Cha, MD / Venice Santos Cha, MD Interpreting Provider: Venice Santos Cha, MD - EKG Data EKG #1 EKG attestation: Yes I reviewed and interpreted this EKG. EKG results narrative: Sinus rhythm at a rate 82. AK interval is 167. QRS duration is 96. QT is 360. QTC is 398. No signs of acute ischemia. No previous EKG to compare to. Attestation Statement - Attestation Attestation: I examined this patient and my medical decision-making was reviewed with the Resident Physician. I agree with the documented findings, disposition and treatment plan as described except to the extent set forth below. COPD versus CHF. Bronchodilators provided. Patient had some confusion recently related to respiration illness. CT scan of the head shows no acute findings. Plan to admit for further evaluation of COPD exacerbation versus CHF in the setting of confusion.
[2017-06-22 16:49] LABS: VBG HCO3 29 mEq/L (21-27); VBG PCO2 42 mmHg (41-51); VBG PH 7.45 pH Units (7.32-7.42); VBG PO2 85 mmHg (25-50)
[2017-06-22 17:00] LABS: Basophils % 0.2 %; Eosinophils # 0.1 K/mcL (0.0-0.6); Eosinophils % 0.5 %; Hemoglobin 9.3 g/dL (12.9-16.9); Immature Granulocytes % 0.6 % (0-4); Lymphocytes # 1.6 K/mcL (0.6-4.6); Lymphocytes % 9.8 %; Mean Corpuscular Hemoglobin 27.6 pg (28.0-33.3); Mean Platelet Volume 10.4 fL (9.4-12.4); Monocytes # 1.5 K/mcL (0.0-1.3); Neutrophils # 13.3 K/mcL (1.6-8.9); Platelet Count 172 K/mcL (140-400); Red Blood Count 3.37 M/mcL (4.19-5.50); Red Cell Distribution Width 15.3 % (11.5-14.5); Segmented Neutrophils % 79.9 %
[2017-06-22 17:22] LABS: BUN/Creatinine Ratio 18 (6-26); Blood Urea Nitrogen 22 mg/dL (8-23); Calcium 9.7 mg/dL (8.6-10.3); Carbon Dioxide 28 mEq/L (23-29); Chloride 98 mEq/L (98-107); Glucose 124 mg/dL (70-105); Osmolality,Calculated 287 (280-300); Potassium 3.6 mEq/L (3.5-5.1); Sodium 136 mEq/L (136-145); Troponin I 0.03 ng/mL (< 0.04); eGFR For African Americans > 60 (> 60); eGFR For Non-African Americans 58 (> 60)
[2017-06-22] MEDS ORDERED: Azithromycin 500 MG in D5% in Water 250 ML IVPB ONE (17:44)
[2017-06-22] MEDS ORDERED: Acetaminophen 325 MG TABLET PO PRN (22:19)
[2017-06-22] MEDS ORDERED: Naloxone 0.4 MG/ML INJ IVP PRN (22:19)
[2017-06-22] MEDS ORDERED: Ipratropium/Albuterol Neb 3 ML IH PRN (22:24)
[2017-06-22] MEDS ORDERED: OXYCODONE Oral CONC 10 MG/0.5 ML ORAL.SYG PO PRN (22:26)
[2017-06-22] MEDS ORDERED: Acetylcysteine 10% 2 ML INHSOL IH SCH (22:30)
--- NOTE | 2017-06-22 23:02 | Internal Med History&Physical ---
Date of Encounter: 06/22/17 Time of Encounter: 20:00 Assessment and Plan (1) DVT prophylaxis Current visit: Yes Status: Acute Heparin subcutaneously (2) Acute exacerbation of chronic obstructive pulmonary disease (COPD) Current visit: No Status: Acute Patient has increased the shortness of breath. Bilateral rhonchi. Consider COPD exacerbation. - Place patient on antibiotic, steroid, and bronchodilator - Oxygen supportive treatment and symptomatic treatment - Closely monitor patient (3) Congestive heart failure Current visit: No Status: Acute Appears euvolemic at this point. Continue home medications. Recent echo shows LVEF 60% Qualifiers: Qualified Code(s): I50.32 - Chronic diastolic (congestive) heart failure (4) Essential hypertension Current visit: No Status: Acute Continue home medications (5) Community acquired pneumonia Current visit: Yes Status: Acute Patient has leukocytosis, cough with brownish sputum, consider early pneumonia. Patient has not been hospitalized for more than 3 months. Treat as commented a creatinine pneumonia with azithromycin and Rocephin. Qualifiers: Laterality: unspecified laterality Qualified Code(s): J18.9 - Pneumonia, unspecified organism Internal Medicine - H&P: HPI Chief complaint: SOB Admitted From: Home Plans for Post Hospital Care: Home History of present illness: Mr. Gaston is a 76 year old male with history of COPD, CHF, GERD, gastroparesis, presented to ER for shortness of breath and a cough for 3 days. Patient also has poor appetite and poor intake during the 3 days. Patient has brownish sputum. Patient denies a fever but has chills. Patient denies chest pain. Patient has mild nausea but no vomiting. Patient denies leg swelling. Patient did have a hospitalization in last 3 months. Past Med Surg Social Fam HX - Past Medical History Medical history: CHF, COPD, GERD, hyperlipidemia, hypertension Psychiatric history: no psych history - Past Surgical History Surgical History: appendectomy, sinus surgery - Social History Smoking Status: Former smoker Smokeless Tobacco Status: No Alcohol use: none Drug use: none - Family History Mother Living Status: Age at : 90 Hx Family Cardiac Disorders: Yes Father Living Status: Age at : 89 Hx Family Cardiac Disorders: Yes ([place]) Hx Family Neurologic Disorders: Yes (alzheimers) Brother Living Status: Still Living Hx Family Cardiac Disorders: Yes Sister Name: Jossie and Kristi Family Member Ethnicity: Non- Living Status: Still Living Hx Family Cardiac Disorders: Yes Hx Family Cancer: Yes (Breast) Hx Family Endocrine Disorder: Yes (Type II) Internal Medicine - H&P: Meds Albuterol Sulfate [Proventil Hfa] 2 puff IH QID PRN 03/31/15 [History] Cetirizine HCl [Zyrtec] 10 mg PO DAILY 03/31/15 [History] Cholestyramine/Aspartame [Cholestyramine Light Packet] 4 gm PO DAILY 03/31/15 [ History] Dicyclomine [Bentyl] 20 mg PO QID 03/31/15 [History] Esomeprazole Magnesium [Nexium] 40 mg PO DAILY 03/31/15 [History] Fluticasone Propionate Nasal [Flonase] 100 mcg NS DAILY 03/31/15 [History] Furosemide [Lasix] 40 mg PO QPM 03/31/15 [History] Furosemide [Lasix] 80 mg PO QAM 03/31/15 [History] Gabapentin [Neurontin] 600 mg PO BID 03/31/15 [History] Montelukast [Singulair] 10 mg PO DAILY 03/31/15 [History] Nortriptyline [Pamelor] 75 mg PO HS 03/31/15 [History] Potassium Chloride [Klor-Con Sprinkle] 10 meq PO BID 03/31/15 [History] Ranitidine HCl [Zantac] 150 mg PO HS 03/31/15 [History] Sertraline [Zoloft] 50 mg PO HS 03/31/15 [History] Tamsulosin [Flomax] 0.4 mg PO DAILY 03/31/15 [History] Tizanidine HCl [Zanaflex] 4 - 8 mg PO HS 03/31/15 [History] Domperidone 20 mg PO QIDAC 08/26/16 [History] OxyCODONE CONC 5 mg PO BID PRN 08/26/16 [History] Aspirin 81 mg PO DAILY #30 tab 12/22/16 [Rx] Atorvastatin Calcium [Lipitor] 20 mg PO HS 01/11/17 [History] Formoterol Fumarate [Perforomist] 20 mcg IH BID 06/22/17 [History] Ipratropium Neb [Atrovent Neb] 0.5 mg IH Q6HR 06/22/17 [History] Roflumilast [Daliresp] 500 mcg PO DAILY 06/22/17 [History] 3 Allergy/AdvReac Type Severity Reaction Status Date / Time ciprofloxacin [From Cipro] Allergy Hives Verified 03/31/15 15:16 levofloxacin [From Levaquin] Allergy Hives Verified 03/31/15 15:16 Tetracycline Allergy Rash Verified 03/31/15 17:20 All Systems PM: A 10-system review of systems was performed and is negative for pertinent findings except as documented above in the HPI. - Constitutional Vitals: Temp Pulse Resp BP Pulse Ox 98.1 F 90 19 107/61 95 06/22/17 20:15 06/22/17 20:15 06/22/17 20:15 06/22/17 20:15 06/22/17 20:15 General appearance: Present: mild distress, A&O X 3, answers questions appropriately - Head Head exam: Present: atraumatic, normocephalic - Eye Eye exam: Present: PERRL, conjuntiva pink, sclera anicteric Pupils: Present: PERRL - Neck Neck exam general surgery: Present: supple, trachea midline. Absent: lymphadenopathy - Respiratory Respiratory exam: Present: CTAB, rhonchi (Diffused rhonchi bilaterally). Absent : accessory muscle use, rales, wheezes - Cardiovascular Cardiovascular exam: Present: RRR, +S1, +S2. Absent: diastolic murmur, gallop, rubs, systolic murmur - GI/Abdominal GI/Abdominal exam: Present: normal bowel sounds, soft, no peritoneal signs. Absent: distended, tenderness - Extremities Exam Extremities exam: Present: warm, radial pulses palpable and symmetrical. Absent : calf tenderness, cyanotic, pedal edema - Neurological Exam Neurological exam: Present: CN II-XII intact, oriented X3, no focal deficits. Absent: pronater drift, facial droop, speech deficit - Skin Skin exam: Present: dry, intact Internal Med - H&P Results - Labs CBC & Chem 7: 06/22/17 16:32 06/22/17 16:32
[2017-06-23] MEDS: Ipratropium/Albuterol Neb 3 ML IH SCH ×4 (02:30→22:48)
[2017-06-23] MEDS: Acetylcysteine 10% 2 ML INHSOL IH SCH ×4 (02:30→22:48)
[2017-06-23] MEDS: *HR* Heparin 5,000 UNIT/ML VIAL SQ SCH ×2 (05:59→17:35)
[2017-06-23 06:20] LABS: Basophils # 0.1 K/mcL (0.0-0.2); Basophils % 0.4 %; Eosinophils # 0.3 K/mcL (0.0-0.6); Hematocrit 27.5 % (37.5-50.1); Hemoglobin 8.8 g/dL (12.9-16.9); Immature Granulocytes % 0.4 % (0-4); Lymphocytes # 2.1 K/mcL (0.6-4.6); Lymphocytes % 14.9 %; Mean Corpuscular Hemoglobin 27.9 pg (28.0-33.3); Mean Corpuscular Volume 87.3 fL (83.0-100.0); Monocytes # 1.2 K/mcL (0.0-1.3); Monocytes % 8.7 %; Neutrophils # 10.5 K/mcL (1.6-8.9); Platelet Count 168 K/mcL (140-400); Red Blood Count 3.15 M/mcL (4.19-5.50); Red Cell Distribution Width 15.3 % (11.5-14.5); Segmented Neutrophils % 73.6 %
[2017-06-23 09:08] LABS: BUN/Creatinine Ratio 20 (6-26); Blood Urea Nitrogen 22 mg/dL (8-23); Calcium 9.3 mg/dL (8.6-10.3); Carbon Dioxide 28 mEq/L (23-29); Chloride 98 mEq/L (98-107); Glucose 115 mg/dL (70-105); Magnesium 2.1 mg/dL (1.6-2.6); Osmolality,Calculated 286 (280-300); Potassium 3.4 mEq/L (3.5-5.1); Sodium 136 mEq/L (136-145); eGFR For African Americans > 60 (> 60); eGFR For Non-African Americans > 60 (> 60)
[2017-06-23] MEDS: Loratadine 10 MG TABLET PO SCH (09:54)
[2017-06-23] MEDS: DOMPERIDONE 20 MG PO SCH ×4 (09:54→20:48)
[2017-06-23] MEDS: Azithromycin 500 MG in D5% in Water 250 ML IVPB SCH (09:54)
[2017-06-23] MEDS: Aspirin 81 MG TAB.CHEW PO SCH (09:55)
[2017-06-23] MEDS: Furosemide 40 MG TABLET PO SCH ×2 (09:55→17:35)
[2017-06-23] MEDS: predniSONE 20 MG TABLET PO SCH (09:55)
[2017-06-23] MEDS: Gabapentin 300 MG CAPSULE PO SCH ×2 (09:55→20:45)
[2017-06-23] MEDS: (Roflumilast [Daliresp] 500 MCG) PO SCH (09:56)
[2017-06-23] MEDS: Fluticasone Propionate Nasal 50 MCG/SPRAY BOTTLE NS SCH (10:18)
[2017-06-23] MEDS: Cholestyramine 4 GM POWD.PACK PO SCH (10:19)
[2017-06-23] MEDS: Ondansetron 4 MG/2 ML VIAL IVP PRN (11:01)
[2017-06-23] MEDS: tiZANidine 4 MG TABLET PO SCH (20:44)
[2017-06-23] MEDS: Famotidine 20 MG TABLET PO SCH (20:47)
--- NOTE | 2017-06-23 21:40 | Internal Med Progress Note ---
Date of Encounter: 06/23/17 Time of Encounter: 21:38 - Assessment and plan (1) Acute exacerbation of chronic obstructive pulmonary disease (COPD) Current Visit: No Status: Acute Assessment and plan: Improving. Continue steroids and nebs. Continue antibiotics as per below. Continue supplemental O2 (on home requirement of 2L NC at present). Monitor closely. (2) Community acquired pneumonia Current Visit: Yes Status: Suspected Assessment and plan: Suspected CAP given leukocytosis and cough with brownish sputum. Continue rocephin and azithromycin for now. Consider deescalating with improved respiratory status. Repeat CBC in AM. Qualifiers: Laterality: unspecified laterality Qualified Code(s): J18.9 - Pneumonia, unspecified organism (3) Congestive heart failure Current Visit: Yes Status: Chronic Assessment and plan: Appears euvolemic at this point. Continue home medications. Recent echo shows LVEF 60%. Qualifiers: Qualified Code(s): I50.32 - Chronic diastolic (congestive) heart failure (4) Essential hypertension Current Visit: Yes Status: Chronic Assessment and plan: Controlled. Continue home medications. (5) Hypokalemia Current Visit: Yes Status: Acute Assessment and plan: K = 3.4. Give KCl 20 mEq PO once. Recheck BMP in AM. (6) DVT prophylaxis Current Visit: Yes Status: Acute Assessment and plan: Continue SC heparin. - Time Spent With Patient less than 15 minutes - Subjective Interval history: Patient had no acute events overnight. He states that he is feeling better this AM. He denies chest pain, SOB, fever, or chills. He has no new complaints. - Constitutional Vitals: Temp Pulse Resp BP Pulse Ox 98.1 F 68 16 104/66 99 06/23/17 18:55 06/23/17 18:55 06/23/17 18:55 06/23/17 18:55 06/23/17 20:31 General appearance: Present: cooperative, A&O X 3, pleasant, no acute distress, answers questions appropriately - Respiratory Respiratory exam: Present: wheezes (Bilateral expiratory wheezing). Absent: accessory muscle use, rales, rhonchi Additional comments: Normal WOB - Cardiovascular Cardiovascular exam: Present: RRR, +S1, +S2. Absent: diastolic murmur, gallop, rubs, systolic murmur Additional comments: No BLE edema - GI/Abdominal GI/Abdominal exam: Present: normal bowel sounds, soft. Absent: distended, hepatomegaly, mass, splenomegaly, tenderness - Psychiatric Psychiatric exam: Present: normal affect, normal mood. Absent: anxious, depressed - Skin Skin exam: Present: dry, intact, warm. Absent: cyanosis, rash Internal Medicine: Result - Labs CBC & Chem 7: 06/23/17 05:16 06/23/17 05:16 Labs: Short CBC 06/23/17 Range/Units 05:16 WBC 14.3 H (4.3-11.1) K/mcL Hgb 8.8 L (12.9-16.9) g/dL Hct 27.5 L (37.5-50.1) % Plt Count 168 (140-400) K/mcL Neutrophils # 10.5 H (1.6-8.9) K/mcL BMP 06/23/17 05:16 Sodium 136 Potassium 3.4 L Chloride 98 Carbon Dioxide 28 BUN 22 Creatinine 1.12 Glucose 115 H Calcium 9.3 Consult Discharge Plan - Plan Referrals: Radha Rojas DO [Primary Care Provider] -
[2017-06-23] MEDS: cefTRIAXone 1,000 MG in Water for inj. (sterile) 20 ML 10 ML IVPB SCH ×2 (23:22)
[2017-06-24 04:09] LABS: Basophils % 0.1 %; Eosinophils % 0.3 %; Hematocrit 27.6 % (37.5-50.1); Hemoglobin 8.5 g/dL (12.9-16.9); Lymphocytes # 1.4 K/mcL (0.6-4.6); Lymphocytes % 17.2 %; Mean Corpuscular HGB Conc 30.8 g/dL (31.6-35.5); Mean Corpuscular Hemoglobin 27.1 pg (28.0-33.3); Mean Corpuscular Volume 87.9 fL (83.0-100.0); Mean Platelet Volume 10.7 fL (9.4-12.4); Monocytes # 0.7 K/mcL (0.0-1.3); Monocytes % 8.5 %; Neutrophils # 5.7 K/mcL (1.6-8.9); Nucleated Red Blood Cells 0.3 /100 WBC (0); Platelet Count 189 K/mcL (140-400); Red Blood Count 3.14 M/mcL (4.19-5.50); Segmented Neutrophils % 72.9 %
[2017-06-24] MEDS: Acetylcysteine 10% 2 ML INHSOL IH SCH ×4 (04:12→22:40)
[2017-06-24] MEDS: Ipratropium/Albuterol Neb 3 ML IH SCH ×4 (04:12→22:40)
[2017-06-24 04:27] LABS: BUN/Creatinine Ratio 24 (6-26); Blood Urea Nitrogen 29 mg/dL (8-23); Calcium 9.3 mg/dL (8.6-10.3); Carbon Dioxide 29 mEq/L (23-29); Chloride 99 mEq/L (98-107); Glucose 129 mg/dL (70-105); Osmolality,Calculated 290 (280-300); Potassium 4.2 mEq/L (3.5-5.1); Sodium 136 mEq/L (136-145); eGFR For African Americans > 60 (> 60); eGFR For Non-African Americans 58 (> 60)
[2017-06-24] MEDS: *HR* Heparin 5,000 UNIT/ML VIAL SQ SCH ×2 (06:13→17:36)
[2017-06-24] MEDS: Ondansetron 4 MG/2 ML VIAL IVP PRN (08:45)
[2017-06-24] MEDS: Furosemide 40 MG TABLET PO SCH ×2 (08:45→17:35)
[2017-06-24] MEDS: Aspirin 81 MG TAB.CHEW PO SCH (08:45)
[2017-06-24] MEDS: Loratadine 10 MG TABLET PO SCH (08:45)
[2017-06-24] MEDS: Fluticasone Propionate Nasal 50 MCG/SPRAY BOTTLE NS SCH (08:45)
[2017-06-24] MEDS: Azithromycin 500 MG in D5% in Water 250 ML IVPB SCH (08:46)
[2017-06-24] MEDS: predniSONE 20 MG TABLET PO SCH (08:46)
[2017-06-24] MEDS: Gabapentin 300 MG CAPSULE PO SCH ×2 (08:46→21:46)
[2017-06-24] MEDS: (Roflumilast [Daliresp] 500 MCG) PO SCH (10:04)
[2017-06-24] MEDS: Cholestyramine 4 GM POWD.PACK PO SCH (10:04)
[2017-06-24] MEDS: DOMPERIDONE 20 MG PO SCH ×3 (10:04→17:34)
[2017-06-24] MEDS: methylPREDNISolone 125 MG/2 ML VIAL IVP SCH ×2 (13:08→17:35)
[2017-06-24] MEDS: cefTRIAXone 1,000 MG in Water for inj. (sterile) 20 ML 10 ML IVPB SCH (21:45)
[2017-06-24] MEDS: tiZANidine 4 MG TABLET PO SCH (21:46)
[2017-06-24] MEDS: Famotidine 20 MG TABLET PO SCH (21:47)
--- NOTE | 2017-06-24 23:53 | Internal Med Progress Note ---
Date of Encounter: 06/24/17 Time of Encounter: 23:53 - Assessment and plan (1) Acute exacerbation of chronic obstructive pulmonary disease (COPD) Current Visit: No Status: Acute Assessment and plan: Improving per patient. However, still significant wheezing. Will discontinue prednisone and bump up steroids to solumedrol 80 mg IV Q12H. Continue nebs. Continue antibiotics as per below. Continue supplemental O2 (on home requirement of 2L NC at present). Monitor closely. (2) Community acquired pneumonia Current Visit: Yes Status: Suspected Assessment and plan: Suspected CAP given leukocytosis and cough with brownish sputum. Continue rocephin and azithromycin for now. Consider deescalating with improved respiratory status. Repeat CBC in AM. Qualifiers: Laterality: unspecified laterality Qualified Code(s): J18.9 - Pneumonia, unspecified organism (3) Essential hypertension Current Visit: Yes Status: Chronic Assessment and plan: Controlled. Continue home medications. (4) Hypokalemia Current Visit: Yes Status: Resolved Assessment and plan: Resolved. K = 4.2. (5) Chronic CHF Current Visit: Yes Status: Acute Assessment and plan: Appears euvolemic at this point. Continue home medications. Recent echo shows LVEF 60%. Qualifiers: Heart failure type: unspecified Qualified Code(s): I50.9 - Heart failure, unspecified (6) DVT prophylaxis Current Visit: Yes Status: Acute Assessment and plan: Continue SC heparin. - Time Spent With Patient less than 15 minutes - Subjective Interval history: Patient had no acute events overnight. He feels good today; breathing continues to improve per patient. He denies chest pain, SOB, fever, or chills. He has no new complaints. - Constitutional Vitals: Temp Pulse Resp BP Pulse Ox 98.6 F 74 16 125/67 95 06/24/17 21:01 06/24/17 21:01 06/24/17 23:27 06/24/17 21:01 06/24/17 23:27 General appearance: Present: cooperative, A&O X 3, pleasant, no acute distress, answers questions appropriately - Respiratory Respiratory exam: Present: CTAB. Absent: accessory muscle use, rales, rhonchi Additional comments: Mildly labored WOB, bilateral expiratory wheezing - Cardiovascular Cardiovascular exam: Present: RRR, +S1, +S2. Absent: diastolic murmur, gallop, rubs, systolic murmur Additional comments: No BLE edema - GI/Abdominal GI/Abdominal exam: Present: normal bowel sounds, soft. Absent: distended, hepatomegaly, mass, splenomegaly, tenderness - Psychiatric Psychiatric exam: Present: normal affect, normal mood. Absent: anxious, depressed - Skin Skin exam: Present: dry, intact, warm. Absent: cyanosis, rash Internal Medicine: Result - Labs CBC & Chem 7: 06/24/17 03:48 06/24/17 03:48 Labs: Short CBC 06/24/17 Range/Units 03:48 WBC 7.9 (4.3-11.1) K/mcL Hgb 8.5 L (12.9-16.9) g/dL Hct 27.6 L (37.5-50.1) % Plt Count 189 (140-400) K/mcL Neutrophils # 5.7 (1.6-8.9) K/mcL BMP 06/24/17 03:48 Sodium 136 Potassium 4.2 Chloride 99 Carbon Dioxide 29 BUN 29 H Creatinine 1.21 Glucose 129 H Calcium 9.3 Consult Discharge Plan - Plan Referrals: Radha Rojas DO [Primary Care Provider] -
[2017-06-25] MEDS: DOMPERIDONE 20 MG PO SCH ×5 (00:37→21:44)
[2017-06-25] MEDS: Acetylcysteine 10% 2 ML INHSOL IH SCH ×4 (03:56→22:30)
[2017-06-25] MEDS: Ipratropium/Albuterol Neb 3 ML IH SCH ×4 (03:56→22:30)
[2017-06-25] MEDS: methylPREDNISolone 125 MG/2 ML VIAL IVP SCH ×3 (05:42→21:01)
[2017-06-25] MEDS: *HR* Heparin 5,000 UNIT/ML VIAL SQ SCH ×2 (05:42→18:35)
[2017-06-25] MEDS: Furosemide 40 MG TABLET PO SCH (09:17)
[2017-06-25] MEDS: Aspirin 81 MG TAB.CHEW PO SCH (09:25)
[2017-06-25] MEDS: Gabapentin 300 MG CAPSULE PO SCH ×2 (09:25→21:00)
[2017-06-25] MEDS: Cholestyramine 4 GM POWD.PACK PO SCH (09:26)
[2017-06-25] MEDS: Loratadine 10 MG TABLET PO SCH (09:26)
[2017-06-25] MEDS: Azithromycin 500 MG in D5% in Water 250 ML IVPB SCH (09:26)
[2017-06-25] MEDS: (Roflumilast [Daliresp] 500 MCG) PO SCH (09:26)
[2017-06-25] MEDS: Fluticasone Propionate Nasal 50 MCG/SPRAY BOTTLE NS SCH (09:27)
[2017-06-25] MEDS ORDERED: Furosemide 40 MG/4 ML VIAL IVP STA (13:26)
--- NOTE | 2017-06-25 13:30 | Internal Med Progress Note ---
Date of Encounter: 06/25/17 Time of Encounter: 13:28 - Assessment and plan (1) Acute exacerbation of chronic obstructive pulmonary disease (COPD) Current Visit: Yes Status: Acute Assessment and plan: Unchanged from yesterday. Wheezing seems a little better, but now has some intermittent rhonchi. He complains of difficulty coughing up secretions. Will add guaifenesin 600 mg BID. Will increase solumedrol to 80 mg IV Q8H. Will add incentive spirometer due to atelectasis on admission chest x-ray. Continue nebs. Continue antibiotics as per below. Continue supplemental O2. Monitor closely. (2) Community acquired pneumonia Current Visit: Yes Status: Suspected Assessment and plan: Suspected CAP given leukocytosis and cough with brownish sputum. Continue rocephin and azithromycin for now. Consider deescalating with improved respiratory status. CBC in AM. Qualifiers: Laterality: unspecified laterality Qualified Code(s): J18.9 - Pneumonia, unspecified organism (3) Essential hypertension Current Visit: Yes Status: Chronic Assessment and plan: Controlled. Continue home medications. (4) Hypokalemia Current Visit: Yes Status: Resolved Assessment and plan: Resolved. (5) Chronic CHF Current Visit: Yes Status: Acute Assessment and plan: Starting to have some increased fluid retention. Recent echo shows LVEF 60%. Hold PO lasix and start IV lasix 40 mg BID. Check BMP in AM. Having difficulties at night, so make sure HOB is elevated to 45 degrees at bedtime. Qualifiers: Heart failure type: unspecified Qualified Code(s): I50.9 - Heart failure, unspecified (6) DVT prophylaxis Current Visit: Yes Status: Acute Assessment and plan: Continue SC heparin. - Time Spent With Patient less than 15 minutes - Subjective Interval history: Patient had no acute events overnight. He states that he had a "rough" night, with some worsening SOB. This morning he is doing better. He denies chest pain , fever, or chills. He states that he can hear himself with a worse wheeze. He is currently saturating normal on 3 L by NC (at home on 2 L by NC). He has no other complaints. - Constitutional Vitals: Temp Pulse Resp BP Pulse Ox 97.4 F L 60 16 116/60 97 06/25/17 06:00 06/25/17 06:00 06/25/17 10:05 06/25/17 06:00 06/25/17 10:05 General appearance: Present: cooperative, A&O X 3, pleasant, no acute distress, answers questions appropriately - Respiratory Respiratory exam: Absent: accessory muscle use, rales Additional comments: Mildly labored WOB, bilateral intermittent rhonchi with expiratory wheezing - Cardiovascular Cardiovascular exam: Present: RRR, +S1, +S2, systolic murmur. Absent: diastolic murmur, gallop, rubs Additional comments: Trace BLE edema - GI/Abdominal GI/Abdominal exam: Present: normal bowel sounds, soft. Absent: distended, hepatomegaly, mass, splenomegaly, tenderness - Psychiatric Psychiatric exam: Present: normal affect, normal mood. Absent: anxious, depressed - Skin Skin exam: Present: dry, intact, warm. Absent: cyanosis, rash Internal Medicine: Result - Labs CBC & Chem 7: 06/24/17 03:48 06/24/17 03:48 Consult Discharge Plan - Plan Referrals: Radha Rojas DO [Primary Care Provider] -
[2017-06-25] MEDS: Famotidine 20 MG TABLET PO SCH (21:00)
[2017-06-25] MEDS: tiZANidine 4 MG TABLET PO SCH (21:00)
[2017-06-25] MEDS: Furosemide 40 MG/4 ML VIAL IVP SCH (21:01)
[2017-06-25] MEDS: cefTRIAXone 1,000 MG in Water for inj. (sterile) 20 ML 10 ML IVPB SCH (23:39)
[2017-06-26] MEDS: Ipratropium/Albuterol Neb 3 ML IH SCH ×5 (03:46→21:42)
[2017-06-26] MEDS: Acetylcysteine 10% 2 ML INHSOL IH SCH ×4 (03:46→21:41)
[2017-06-26] MEDS: *HR* Heparin 5,000 UNIT/ML VIAL SQ SCH ×2 (05:41→17:41)
[2017-06-26] MEDS: methylPREDNISolone 125 MG/2 ML VIAL IVP SCH ×3 (05:41→21:39)
[2017-06-26 06:37] LABS: Basophils % 0.2 %; Hematocrit 29.1 % (37.5-50.1); Hemoglobin 9.1 g/dL (12.9-16.9); Immature Granulocytes % 3.4 % (0-4); Lymphocytes # 1.3 K/mcL (0.6-4.6); Lymphocytes % 13.5 %; Mean Corpuscular HGB Conc 31.3 g/dL (31.6-35.5); Mean Corpuscular Hemoglobin 27.6 pg (28.0-33.3); Mean Corpuscular Volume 88.2 fL (83.0-100.0); Mean Platelet Volume 10.6 fL (9.4-12.4); Monocytes # 0.6 K/mcL (0.0-1.3); Monocytes % 6.6 %; Neutrophils # 7.2 K/mcL (1.6-8.9); Platelet Count 271 K/mcL (140-400); Red Cell Distribution Width 15.2 % (11.5-14.5); Segmented Neutrophils % 76.3 %
[2017-06-26 07:00] LABS: BUN/Creatinine Ratio 44 (6-26); Blood Urea Nitrogen 54 mg/dL (8-23); Carbon Dioxide 27 mEq/L (23-29); Chloride 99 mEq/L (98-107); Glucose 143 mg/dL (70-105); Osmolality,Calculated 299 (280-300); Potassium 3.8 mEq/L (3.5-5.1); Sodium 136 mEq/L (136-145); eGFR For African Americans > 60 (> 60); eGFR For Non-African Americans 57 (> 60)
[2017-06-26] MEDS: DOMPERIDONE 20 MG PO SCH ×3 (07:57→17:42)
[2017-06-26] MEDS: Gabapentin 300 MG CAPSULE PO SCH ×2 (09:25→21:40)
[2017-06-26] MEDS: Azithromycin 500 MG in D5% in Water 250 ML IVPB SCH (09:25)
[2017-06-26] MEDS: Cholestyramine 4 GM POWD.PACK PO SCH (09:25)
[2017-06-26] MEDS: Loratadine 10 MG TABLET PO SCH (09:25)
[2017-06-26] MEDS: Aspirin 81 MG TAB.CHEW PO SCH (09:25)
[2017-06-26] MEDS: Furosemide 40 MG/4 ML VIAL IVP SCH ×2 (09:25→21:39)
[2017-06-26] MEDS: Fluticasone Propionate Nasal 50 MCG/SPRAY BOTTLE NS SCH (09:27)
[2017-06-26] MEDS: (Roflumilast [Daliresp] 500 MCG) PO SCH (09:27)
--- NOTE | 2017-06-26 20:32 | Internal Med Progress Note ---
Date of Encounter: 06/26/17 Time of Encounter: 20:30 - Assessment and plan (1) Acute exacerbation of chronic obstructive pulmonary disease (COPD) Current Visit: Yes Status: Acute Assessment and plan: Improved. Wheezing better; rhonchi resolved. Cough more productive. Continue guaifenesin and mucomyst for cough. Continue solumedrol; plan for discharge tomorrow with prednisone taper. Continue incentive spirometer for atelectasis. Continue nebs. Continue antibiotics as per below. Continue supplemental O2. Monitor closely. (2) Community acquired pneumonia Current Visit: Yes Status: Suspected Assessment and plan: Suspected CAP given leukocytosis and cough with brownish sputum. Continue rocephin and azithromycin for now. Qualifiers: Laterality: unspecified laterality Qualified Code(s): J18.9 - Pneumonia, unspecified organism (3) Essential hypertension Current Visit: Yes Status: Chronic Assessment and plan: Controlled. Continue home medications. (4) Hypokalemia Current Visit: Yes Status: Resolved Assessment and plan: Resolved. (5) Chronic CHF Current Visit: Yes Status: Chronic Assessment and plan: Lungs sound better today. Recent echo shows LVEF 60%. Continue IV lasix 40 mg BID; plan for discharge home tomorrow with home PO lasix. Check BMP in AM. Keep HOB elevated at bedtime. Qualifiers: Heart failure type: unspecified Qualified Code(s): I50.9 - Heart failure, unspecified (6) DVT prophylaxis Current Visit: Yes Status: Acute Assessment and plan: Continue SC heparin. - Time Spent With Patient less than 15 minutes - Subjective Interval history: Patient had no acute events overnight. He states that breathing continues to improve; he is now "75%" back to baseline. Cough is much better today with new medications. He denies chest pain, fever, or chills. He has no other complaints. - Constitutional Vitals: Temp Pulse Resp BP Pulse Ox 97.9 F 72 18 124/70 95 06/26/17 19:51 06/26/17 19:51 06/26/17 19:51 06/26/17 19:51 06/26/17 19:51 General appearance: Present: cooperative, A&O X 3, pleasant, no acute distress, answers questions appropriately - Respiratory Respiratory exam: Present: CTAB. Absent: accessory muscle use, rales, rhonchi Additional comments: Normal WOB, intermittent expiratory wheeze - Cardiovascular Cardiovascular exam: Present: RRR, +S1, +S2. Absent: diastolic murmur, gallop, rubs, systolic murmur Additional comments: No BLE edema - GI/Abdominal GI/Abdominal exam: Present: normal bowel sounds, soft. Absent: distended, hepatomegaly, mass, splenomegaly, tenderness - Psychiatric Psychiatric exam: Present: normal affect, normal mood. Absent: anxious, depressed - Skin Skin exam: Present: dry, intact, warm. Absent: cyanosis, rash Internal Medicine: Result - Labs CBC & Chem 7: 06/26/17 06:03 06/26/17 06:03 Labs: Short CBC 06/26/17 Range/Units 06:03 WBC 9.5 (4.3-11.1) K/mcL Hgb 9.1 L (12.9-16.9) g/dL Hct 29.1 L (37.5-50.1) % Plt Count 271 (140-400) K/mcL Neutrophils # 7.2 (1.6-8.9) K/mcL BMP 06/26/17 06:03 Sodium 136 Potassium 3.8 Chloride 99 Carbon Dioxide 27 BUN 54 H Creatinine 1.24 Glucose 143 H Calcium 9.0 Consult Discharge Plan - Plan Referrals: Radha Rojas DO [Primary Care Provider] -
[2017-06-26] MEDS: tiZANidine 4 MG TABLET PO SCH (21:40)
[2017-06-26] MEDS: Famotidine 20 MG TABLET PO SCH (21:40)
[2017-06-26] MEDS: cefTRIAXone 1,000 MG in Water for inj. (sterile) 20 ML 10 ML IVPB SCH (22:26)
[2017-06-27] MEDS: Ipratropium/Albuterol Neb 3 ML IH SCH ×6 (03:22→22:21)
[2017-06-27] MEDS: Acetylcysteine 10% 2 ML INHSOL IH SCH ×4 (03:22→22:21)
[2017-06-27 05:21] LABS: BUN/Creatinine Ratio 49 (6-26); Blood Urea Nitrogen 58 mg/dL (8-23); Calcium 8.6 mg/dL (8.6-10.3); Carbon Dioxide 28 mEq/L (23-29); Chloride 98 mEq/L (98-107); Glucose 172 mg/dL (70-105); Osmolality,Calculated 304 (280-300); Potassium 4.1 mEq/L (3.5-5.1); Sodium 137 mEq/L (136-145); eGFR For African Americans > 60 (> 60); eGFR For Non-African Americans 59 (> 60)
[2017-06-27] MEDS: methylPREDNISolone 125 MG/2 ML VIAL IVP SCH ×2 (06:09→18:21)
[2017-06-27] MEDS: *HR* Heparin 5,000 UNIT/ML VIAL SQ SCH ×2 (06:09→18:24)
[2017-06-27] MEDS: DOMPERIDONE 20 MG PO SCH ×2 (10:28→12:40)
[2017-06-27] MEDS: Aspirin 81 MG TAB.CHEW PO SCH (10:29)
[2017-06-27] MEDS: Gabapentin 300 MG CAPSULE PO SCH ×2 (10:29→22:47)
[2017-06-27] MEDS: Loratadine 10 MG TABLET PO SCH (10:29)
[2017-06-27] MEDS: Furosemide 40 MG/4 ML VIAL IVP SCH (10:29)
[2017-06-27] MEDS: (Roflumilast [Daliresp] 500 MCG) PO SCH (10:30)
[2017-06-27] MEDS: Fluticasone Propionate Nasal 50 MCG/SPRAY BOTTLE NS SCH (10:36)
[2017-06-27] MEDS: Azithromycin 500 MG in D5% in Water 250 ML IVPB SCH (10:37)
[2017-06-27] MEDS: Cholestyramine 4 GM POWD.PACK PO SCH (10:49)
[2017-06-27] MEDS ORDERED: Albuterol 2.5 MG/3 ML NEBULIZER IH PRN (13:34)
[2017-06-27] MEDS: Furosemide 40 MG TABLET PO SCH (18:20)
--- NOTE | 2017-06-27 20:55 | Internal Med Progress Note ---
Date of Encounter: 06/27/17 Time of Encounter: 20:52 - Assessment and plan (1) Acute exacerbation of chronic obstructive pulmonary disease (COPD) Current Visit: Yes Status: Acute Assessment and plan: Unchanged. Still minimal wheeze. Patient states not quite back to baseline. Cough improved. Continue guaifenesin and mucomyst for cough. Continue solumedrol at lower dose today; plan for discharge tomorrow with prednisone taper. Continue incentive spirometer for atelectasis. Continue nebs. Continue antibiotics as per below. Continue supplemental O2. Monitor closely. (2) Community acquired pneumonia Current Visit: Yes Status: Suspected Assessment and plan: Suspected CAP given leukocytosis and cough with brownish sputum. Continue rocephin and azithromycin for now. Qualifiers: Laterality: unspecified laterality Qualified Code(s): J18.9 - Pneumonia, unspecified organism (3) Essential hypertension Current Visit: Yes Status: Chronic Assessment and plan: Controlled. Continue home medications. (4) Hypokalemia Current Visit: Yes Status: Resolved (5) Chronic CHF Current Visit: Yes Status: Chronic Assessment and plan: Recent echo shows LVEF 60%. Switch to home PO lasix. Keep HOB elevated at bedtime. Qualifiers: Heart failure type: unspecified Qualified Code(s): I50.9 - Heart failure, unspecified (6) DVT prophylaxis Current Visit: Yes Status: Acute Assessment and plan: Continue SC heparin. - Time Spent With Patient less than 15 minutes - Subjective Interval history: Patient had no acute events overnight. He states that breathing unchanged from yesterday; still not quite back to baseline. Cough continues to get better. He denies chest pain, fever, or chills. He has no other complaints. - Constitutional Vitals: Temp Pulse Resp BP Pulse Ox 98.1 F 72 16 134/65 97 06/27/17 18:57 06/27/17 18:57 06/27/17 18:57 06/27/17 18:57 06/27/17 18:57 General appearance: Present: cooperative, A&O X 3, pleasant, no acute distress, answers questions appropriately - Respiratory Respiratory exam: Absent: accessory muscle use, rales, rhonchi Additional comments: Mildly labored WOB, rare intermittent expiratory wheeze - Cardiovascular Cardiovascular exam: Present: RRR, +S1, +S2. Absent: diastolic murmur, gallop, rubs, systolic murmur Additional comments: No BLE edema - GI/Abdominal GI/Abdominal exam: Present: normal bowel sounds, soft. Absent: distended, hepatomegaly, mass, splenomegaly, tenderness - Psychiatric Psychiatric exam: Present: normal affect, normal mood. Absent: anxious, depressed - Skin Skin exam: Present: intact, warm. Absent: cyanosis, dry, rash Internal Medicine: Result - Labs CBC & Chem 7: 06/26/17 06:03 06/27/17 04:21 Labs: BMP 06/27/17 04:21 Sodium 137 Potassium 4.1 Chloride 98 Carbon Dioxide 28 BUN 58 H Creatinine 1.19 Glucose 172 H Calcium 8.6 Consult Discharge Plan - Plan Referrals: Radha Rojas DO [Primary Care Provider] -
[2017-06-27] MEDS: Famotidine 20 MG TABLET PO SCH (22:48)
[2017-06-27] MEDS: cefTRIAXone 1,000 MG in Water for inj. (sterile) 20 ML 10 ML IVPB SCH (22:48)
[2017-06-27] MEDS: tiZANidine 4 MG TABLET PO SCH (22:48)
[2017-06-28] MEDS: Acetylcysteine 10% 2 ML INHSOL IH SCH (03:13)
[2017-06-28] MEDS: Ipratropium/Albuterol Neb 3 ML IH SCH ×4 (03:13→21:45)
[2017-06-28] MEDS: methylPREDNISolone 125 MG/2 ML VIAL IVP SCH ×2 (06:25→19:02)
[2017-06-28] MEDS: *HR* Heparin 5,000 UNIT/ML VIAL SQ SCH ×2 (06:25→19:02)
--- NOTE | 2017-06-28 08:10 | Electrocardiograph Report ---
[place] [id number] Test Date: 2017-06-22 Pat Name: Sesar Gaston Department: 104 Room: [facility] Gender: M [employer] Teacher: NAE : 1940 Requested By: Diandra Enrique Order Number: [id number] Reading MD: Travis Winn DO Measurements Intervals [place] Rate: 82 P: 4 DC: 167 QRS: -19 QRSD: 96 T: 18 QT: 360 QTc: 398 Interpretive Statements SINUS RHYTHM NONSPECIFIC T-WAVE ABNORMALITY Electronically Signed On 06-28-2017 7:56:21 EDT by Travis Winn DO
[2017-06-28] MEDS ORDERED: Azithromycin 500 MG in D5% in Water 250 ML IVPB SCH (09:00)
[2017-06-28] MEDS: Gabapentin 300 MG CAPSULE PO SCH ×2 (09:15→22:06)
[2017-06-28] MEDS: Cholestyramine 4 GM POWD.PACK PO SCH (09:16)
[2017-06-28] MEDS: Furosemide 40 MG TABLET PO SCH ×2 (09:16→19:02)
[2017-06-28] MEDS: Aspirin 81 MG TAB.CHEW PO SCH (09:16)
[2017-06-28] MEDS: Loratadine 10 MG TABLET PO SCH (09:16)
[2017-06-28] MEDS: Fluticasone Propionate Nasal 50 MCG/SPRAY BOTTLE NS SCH (09:17)
--- NOTE | 2017-06-28 14:45 | Internal Med Progress Note ---
<Jason Rao - Last Filed: 06/28/17 14:48> Date of Encounter: 06/28/17 Time of Encounter: 09:00 - Assessment and plan (1) Acute exacerbation of chronic obstructive pulmonary disease (COPD) Current Visit: Yes Status: Acute Assessment and plan: - Continue steroid, bronchodilators, antibiotic and supplemental oxygen. - Patient likely has significant mucus congestion of chest given patient's rhonchi on lung auscultation. Will increase Mucinex to 1,200 mg PO daily and start chest percussion therapy to loose up the mucus and facilitate movement. - Continue to monitor. Possible discharge tomorrow if patient's respiratory status continues to improve. (2) Community acquired pneumonia Current Visit: Yes Status: Suspected Assessment and plan: - Suspected on admission given leukocytosis, worsening dyspnea and cough on initial presentation. - Will discontinue azithromycin as patient finishes 5-day course today. Continue ceftriaxone for now. Qualifiers: Laterality: unspecified laterality Qualified Code(s): J18.9 - Pneumonia, unspecified organism (3) Essential hypertension Current Visit: Yes Status: Chronic Assessment and plan: - BP within normal range. - Continue current antihypertensive regimen. (4) CHF (congestive heart failure) Current Visit: No Status: Chronic Assessment and plan: - History of systolic CHF with LVEF 40-45% and mild LV diastolic dysfunction per echo on 08/28/16 - Improved as echo on 12/16/16 showed LVEF 60%. - Continue Lasix, strict I/O and daily weight. Qualifiers: Qualified Code(s): I50.43 - Acute on chronic combined systolic (congestive) and diastolic (congestive) heart failure (5) DVT prophylaxis Current Visit: No Status: Acute Assessment and plan: - Continue SQ heparin. - Subjective Interval history: Patient was seen and examined this morning. Patient reports breathing and cough better compared to yesterday but still not back to his baseline yet. Patient feels mucus congestion in the chest. Patient denies fever, chills, chest pain. - Constitutional Vitals: Temp Pulse Resp BP Pulse Ox 97.7 F 73 16 121/61 93 06/28/17 07:00 06/28/17 14:27 06/28/17 14:27 06/28/17 14:27 06/28/17 14:27 General appearance: Present: cooperative, A&O X 3, pleasant, no acute distress, answers questions appropriately - Head Head exam: Present: normal inspection - Eye Eye exam: Present: EOMI - Neck Neck exam general surgery: Present: normal inspection, trachea midline - Respiratory Respiratory exam: Present: rhonchi - Cardiovascular Cardiovascular exam: Present: RRR, +S1, +S2 - GI/Abdominal GI/Abdominal exam: Present: normal bowel sounds, soft. Absent: tenderness - Extremities Exam Extremities exam: Absent: cyanotic, pedal edema - Neurological Exam Neurological exam: Present: alert, no focal deficits. Absent: facial droop, speech deficit - Skin Skin exam: Present: dry, warm Internal Medicine: Result - Labs CBC & Chem 7: 06/26/17 06:03 06/27/17 04:21 Consult Discharge Plan - Plan Referrals: Radha Rojas DO [Primary Care Provider] - 07/01/17 11:00 am <Sage Delaney - Last Filed: 06/28/17 15:30> Date of Encounter: 06/28/17 - Constitutional Vitals: Temp Pulse Resp BP Pulse Ox 97.7 F 73 16 121/61 93 06/28/17 07:00 06/28/17 14:27 06/28/17 14:27 06/28/17 14:27 06/28/17 14:27 Internal Medicine: Result - Labs CBC & Chem 7: 06/26/17 06:03 06/27/17 04:21 - Attending Attestation I performed an independent interview and exam of this patient. I agree with the findings, assessment, and plan of Dr. Villanueva, internal medicine resident. Patient continues to improve. We will change steroids to by mouth. She still has a markedly abnormal lung exam and will need to emphasize pulmonary toilet. Also de-escalate antibiotics for his pneumonia. Patient otherwise appears to be improved. He is not showing any obvious evidence of acute decompensated CHF. Continue his usual meds including oral Lasix. All else as outlined above.
[2017-06-28] MEDS: Sennosides/Docusate Sodium TABLET PO SCH (14:46)
[2017-06-28] MEDS: Famotidine 20 MG TABLET PO SCH (22:06)
[2017-06-28] MEDS: tiZANidine 4 MG TABLET PO SCH (22:06)
[2017-06-28] MEDS: cefTRIAXone 1,000 MG in Water for inj. (sterile) 20 ML 10 ML IVPB SCH (22:07)
[2017-06-29] MEDS: Ipratropium/Albuterol Neb 3 ML IH SCH ×3 (03:55→15:59)
[2017-06-29] MEDS: methylPREDNISolone 125 MG/2 ML VIAL IVP SCH (06:29)
[2017-06-29] MEDS: *HR* Heparin 5,000 UNIT/ML VIAL SQ SCH (06:29)
--- NOTE | 2017-06-29 09:25 | Discharge Summary ---
<Sage Delaney R - Last Filed: 06/29/17 12:47> Date of Encounter: 06/29/17 Hospital course: Mr. Gaston is a 76 year old male - Time Spent with Patient Total time spent providing and/or coordinating discharge services: - Discharge Medications Prescriptions: GuaiFENesin ER [Mucinex] 1,200 mg PO BID #14 tbbp.12hr predniSONE [PredniSONE] See Taper PO DAILY #30 tablet Home Medications: Albuterol Sulfate [Proventil Hfa] 2 puff IH QID PRN 03/31/15 [History] Cetirizine HCl [Zyrtec] 10 mg PO DAILY 03/31/15 [History] Cholestyramine/Aspartame [Cholestyramine Light Packet] 4 gm PO DAILY 03/31/15 [ History] Dicyclomine [Bentyl] 20 mg PO QID 03/31/15 [History] Esomeprazole Magnesium [Nexium] 40 mg PO DAILY 03/31/15 [History] Fluticasone Propionate Nasal [Flonase] 100 mcg NS DAILY 03/31/15 [History] Furosemide [Lasix] 40 mg PO QPM 03/31/15 [History] Furosemide [Lasix] 80 mg PO QAM 03/31/15 [History] Gabapentin [Neurontin] 600 mg PO BID 03/31/15 [History] Montelukast [Singulair] 10 mg PO DAILY 03/31/15 [History] Nortriptyline [Pamelor] 75 mg PO HS 03/31/15 [History] Potassium Chloride [Klor-Con Sprinkle] 10 meq PO BID 03/31/15 [History] Ranitidine HCl [Zantac] 150 mg PO HS 03/31/15 [History] Sertraline [Zoloft] 50 mg PO HS 03/31/15 [History] Tamsulosin [Flomax] 0.4 mg PO DAILY 03/31/15 [History] Tizanidine HCl [Zanaflex] 4 - 8 mg PO HS 03/31/15 [History] Domperidone 20 mg PO QIDAC 08/26/16 [History] OxyCODONE CONC 5 mg PO BID PRN 08/26/16 [History] Aspirin 81 mg PO DAILY #30 tab 12/22/16 [Rx] Atorvastatin Calcium [Lipitor] 20 mg PO HS 01/11/17 [History] Formoterol Fumarate [Perforomist] 20 mcg IH BID 06/22/17 [History] Ipratropium Neb [Atrovent Neb] 0.5 mg IH Q6HR 06/22/17 [History] Roflumilast [Daliresp] 500 mcg PO DAILY 06/22/17 [History] GuaiFENesin ER [Mucinex] 1,200 mg PO BID #14 tbbp.12hr 06/29/17 [Rx] predniSONE [PredniSONE] See Taper PO DAILY #30 tablet 06/29/17 [Rx] Allergies/Adverse Reactions: 3 Allergy/AdvReac Type Severity Reaction Status Date / Time ciprofloxacin [From Cipro] Allergy Hives Verified 03/31/15 15:16 levofloxacin [From Levaquin] Allergy Hives Verified 03/31/15 15:16 Tetracycline Allergy Rash Verified 03/31/15 17:20 Date of admission: 06/22/17 23:51 Primary care physician: Radha Rojas Consults: 06/27/17 12:01 Consult to Physical Therapy [CONS] Routine Comment: Evaluate, develop and implement POC Reason for Consult: EVAL AND TREAT Does patient have active BEDREST order?: No Is patient medically & hemodynamically stable?: No 06/27/17 12:35 Consult to Occupational Therapy [CONS] Routine Comment: Evaluate, develop and implement POC Reason for Consult: eval and treat Does patient have active BEDREST order?: No Is patient medically & hemodynamically stable?: Yes - Constitutional Vitals: Temp Pulse Resp BP Pulse Ox 98 F 75 18 117/57 97 06/29/17 06:34 06/29/17 10:26 06/29/17 10:55 06/29/17 10:26 06/29/17 10:55 - Patient Status Disposition: Home, Self-Care Condition: Good - Discharge Instructions Instructions: Decongestant/Expectorant (By mouth), Prednisone (By mouth), Heart Failure (DC), Urinary Tract Infection in Men (DC), Chronic Obstructive Pulmonary Disease (DC), Sepsis (DC), Chronic Hypertension (DC), Anemia (GEN), Pneumonia (DC) Follow Up With: Radha Rojas DO [Primary Care Provider] - 07/01/17 11:00 am Additional Instructions: Please take prescribed prednisone taper (40 mg daily x 3 days, then 30 mg daily x 3 days, followed by 20 mg daily x 3 days and finally 10 mg daily x 3 days). Please follow up with your primary care physician on 07/01/17 regarding your hospitalization for COPD exacerbation. - Attending Attestation I performed an independent interview and exam of this patient. I agree with the findings, assessment, and plan of Dr. Rao, internal medicine resident. Patient is doing well and is stable for discharge. It will of 45 minutes was spent on discharge and coordination of care. Patient will continue on steroid taper as planned. Patient completed antibiotics. Will need follow-up with his primary care provider next week. <JalenJason - Last Filed: 06/29/17 17:19> - NOTES TO OUTPATIENT PROVIDER Notes to Outpatient Provider: Mr. Gaston was admitted on 06/22/17 for COPD exacerbation and suspected pneumonia. Patient received 5-day course of antibiotic along with steroid, bronchodilators and supplemental oxygen. Patient is discharged home with prednisone taper. Date of Encounter: 06/29/17 Time of Encounter: 08:30 - Discharge Diagnosis (1) Acute exacerbation of chronic obstructive pulmonary disease (COPD) Priority: Primary Status: Acute (2) Community acquired pneumonia Priority: Secondary Status: Suspected Qualifiers: Laterality: unspecified laterality Qualified Code(s): J18.9 - Pneumonia, unspecified organism (3) Essential hypertension Priority: Secondary Status: Chronic (4) Chronic CHF Priority: Secondary Status: Chronic Qualifiers: Heart failure type: unspecified Qualified Code(s): I50.9 - Heart failure, unspecified Hospital course: Mr. Gaston is a 76 year old male with PMH of COPD, CHF, GERD and gastroparesis who presented with 3-day history of worsening dyspnea and cough. Patient was admitted on 06/22/17 for COPD exacerbation and suspected pneumonia. Patient was started on IV Rocephin, azithromycin, Solu-Medrol, scheduled bronchodilators and supplemental oxygen. Mucinex was increased and chest percussion therapy was started for patient's mucus congestion in the chest. Patient's respiratory status improves overtime since admission and patient finished course of IV Rocephin (6 days) and azithromycin (5 days). PT/OT recommended home health but patient declines home health. Given patient improves clinically and remains clinically stable, patient can be discharged home with prescribed prednisone taper (40 mg daily x 3 days, then 30 mg daily x 3 days, followed by 20 mg daily x 3 days and finally 10 mg daily x 3 days). Patient will need follow up with his primary care physician on 07/01/17 regarding his hospitalization for COPD exacerbation. Patient expressed his understanding and agreement with the discharge plan. All questions were answered. Discharge discussed with: patient - Time Spent with Patient Total time spent providing and/or coordinating discharge services: Greater than 30 minutes (45 minutes) Date of admission: 06/22/17 23:51 Primary care physician: Radha Rojas Consults: 06/27/17 12:01 Consult to Physical Therapy [CONS] Routine Comment: Evaluate, develop and implement POC Reason for Consult: EVAL AND TREAT Does patient have active BEDREST order?: No Is patient medically & hemodynamically stable?: No 06/27/17 12:35 Consult to Occupational Therapy [CONS] Routine Comment: Evaluate, develop and implement POC Reason for Consult: eval and treat Does patient have active BEDREST order?: No Is patient medically & hemodynamically stable?: Yes Discharging clinician: Jason Rao Anticipated date of discharge: 06/29/17 - Constitutional Vitals: Temp Pulse Resp BP Pulse Ox 98 F 59 18 133/70 98 06/29/17 06:34 06/29/17 06:34 06/29/17 05:30 06/29/17 06:34 06/29/17 06:34 General appearance: Present: cooperative, A&O X 3, pleasant, no acute distress, answers questions appropriately - Head Head exam: Present: normal inspection - Eye Eye exam: Present: EOMI - Neck Neck exam general surgery: Present: normal inspection, supple - Respiratory Respiratory exam: Present: rhonchi (Occasional, improves compared to yesterday.) - Cardiovascular Cardiovascular exam: Present: RRR, +S1, +S2 - GI/Abdominal GI/Abdominal exam: Present: normal bowel sounds, soft. Absent: tenderness - Extremities Exam Extremities exam: Absent: cyanotic, pedal edema - Neurological Exam Neurological exam: Present: alert, no focal deficits. Absent: facial droop, speech deficit - Skin Skin exam: Present: dry, warm - Patient Status Functional capacity at discharge: independent ambulation Overall status at discharge: patient is progressing back to baseline - Diet and Activity Activity: increase activity as tolerated Diet: advance to your usual diet
[2017-06-29] MEDS: Furosemide 40 MG TABLET PO SCH (09:45)
[2017-06-29] MEDS: Cholestyramine 4 GM POWD.PACK PO SCH (09:45)
[2017-06-29] MEDS: Aspirin 81 MG TAB.CHEW PO SCH (09:45)
[2017-06-29] MEDS: Gabapentin 300 MG CAPSULE PO SCH (09:45)
[2017-06-29] MEDS: Sennosides/Docusate Sodium TABLET PO SCH (09:46)
[2017-06-29] MEDS: Loratadine 10 MG TABLET PO SCH (09:46)
[2017-06-29] MEDS: Fluticasone Propionate Nasal 50 MCG/SPRAY BOTTLE NS SCH (09:47)
[2017-06-29 10:28] VITALS: BP 117/57
== END 2017-06-29 16:29 | disposition home or self-care (01) | DRG 193 ==
LOC: EMEROO 15:07 → 2NENU 15:07
PROVIDERS: ADMIT Student in an Organized Health Care Education/Training Program; ATTEND Family Medicine

== ENCOUNTER 2018-04-09 18:15 | Inpatient (IN) ==
[2018-04-09] MEDS ORDERED: predniSONE 20 MG TABLET PO ONE (18:29)
[2018-04-09] MEDS ORDERED: Ipratropium/Albuterol Neb 3 ML IH ONE (18:29)
--- NOTE | 2018-04-09 18:47 | Emergency Department Note ---
Disposition Clinical Impression: COPD (chronic obstructive pulmonary disease) Qualifiers: COPD type: chronic bronchitis Chronic bronchitis type: mixed simple and mucopurulent Qualified Code(s): J41.8 - Mixed simple and mucopurulent chronic bronchitis Disposition: Still a Patient General Adult HPI - General Chief complaint: ED Shortness of Breath/Dyspnea Stated complaint: HECTOR Time Seen by Provider: 04/09/18 18:26 Source: patient, family Nursing Notes Reviewed: Yes Vital Signs Reviewed: Yes - History of Present Illness HPI Narrative: Attestation note: Patient was seen with the emergency medicine resident/nurse practitioner/physician hospital administrative assistant/transitional resident/medical student: Dr. PATRICIA GONZALES I have personally performed a face to face evaluation on this patient. I have reviewed and agree with history and physical examination patient management and disposition. Briefly the salient points of the case are as follows: 77-year-old male history of COPD CHF comes in with increasing shortness of breath fatigued fevers despite having a course of antibiotics of Zithromax and Augmentin for bronchitis. Uses oxygen at home at night liters per minute has diffuse bilateral auditory wheezes increased work of breathing prolonged expiratory phase he appears nontoxic. Patient will get DuoNeb treatments steroids chest x-ray screening labs EKG shows acute ischemic changes admission anticipated for outpatient failure of pneumonia and COPD flare. Disposition pending Pain Scale: 5 - Related Data Home Medications Medication Instructions Recorded Confirmed Albuterol Sulfate [Proventil Hfa] 2 puff IH QID PRN 03/31/15 06/22/17 Cetirizine HCl [Zyrtec] 10 mg PO DAILY 03/31/15 06/22/17 Cholestyramine/Aspartame 4 gm PO DAILY 03/31/15 06/22/17 [Cholestyramine Light Packet] Dicyclomine [Bentyl] 20 mg PO QID 03/31/15 06/22/17 Esomeprazole Magnesium [Nexium] 40 mg PO DAILY 03/31/15 06/22/17 Fluticasone Propionate Nasal 100 mcg NS DAILY 03/31/15 06/22/17 [Flonase] Furosemide [Lasix] 40 mg PO QPM 03/31/15 06/22/17 Furosemide [Lasix] 80 mg PO QAM 03/31/15 06/22/17 Gabapentin [Neurontin] 600 mg PO BID 03/31/15 06/22/17 Montelukast [Singulair] 10 mg PO DAILY 03/31/15 06/22/17 Nortriptyline [Pamelor] 75 mg PO HS 03/31/15 06/22/17 Potassium Chloride [Klor-Con 10 meq PO BID 03/31/15 06/22/17 Sprinkle] Ranitidine HCl [Zantac] 150 mg PO HS 03/31/15 06/22/17 Sertraline [Zoloft] 50 mg PO HS 03/31/15 06/22/17 Tamsulosin [Flomax] 0.4 mg PO DAILY 03/31/15 06/22/17 Tizanidine HCl [Zanaflex] 4 - 8 mg PO HS 03/31/15 06/22/17 Domperidone 20 mg PO QIDAC 08/26/16 06/22/17 OxyCODONE CONC 5 mg PO BID PRN 08/26/16 06/22/17 Atorvastatin Calcium [Lipitor] 20 mg PO HS 01/11/17 06/22/17 Formoterol Fumarate [Perforomist] 20 mcg IH BID 06/22/17 06/22/17 Ipratropium Neb [Atrovent Neb] 0.5 mg IH Q6HR 06/22/17 06/22/17 Roflumilast [Daliresp] 500 mcg PO DAILY 06/22/17 06/22/17 Previous Rx's Medication Instructions Recorded Aspirin 81 mg PO DAILY #30 tab 12/22/16 GuaiFENesin ER [Mucinex] 1,200 mg PO BID #14 tbbp.12hr 06/29/17 predniSONE [PredniSONE] See Taper PO DAILY #30 tablet 06/29/17 Allergies Allergy/AdvReac Type Severity Reaction Status Date / Time ciprofloxacin [From Cipro] Allergy Hives Verified 04/09/18 18:37 levofloxacin [From Levaquin] Allergy Hives Verified 04/09/18 18:37 tetracycline [Tetracycline] Allergy Rash Verified 04/09/18 18:37 Past Medical History - Past Medical History Medical history: Reports: CHF, COPD, GERD, hyperlipidemia, hypertension Surgical history: Reports: appendectomy, sinus surgery Psychiatric history: Reports: no psych history - Social History Smoking Status: Former smoker Smokeless Tobacco Status: No Alcohol use: Reports: none Drug use: Reports: none Course Vital Signs Temperature 98.8 F 04/09/18 18:19 Pulse Rate 85 04/09/18 18:19 Respiratory Rate 34 04/09/18 18:19 Blood Pressure 166/78 04/09/18 18:19 O2 Sat by Pulse Oximetry 91 04/09/18 18:19 Temperature 98.8 F 04/09/18 18:19 Pulse Rate 84 04/09/18 18:42 Respiratory Rate 28 04/09/18 18:42 Blood Pressure 150/62 04/09/18 18:42 O2 Sat by Pulse Oximetry 95 04/09/18 18:42 Oxygen Delivery Oxygen Delivery Nasal Cannula
--- NOTE | 2018-04-09 18:47 | Emergency Department Note ---
Disposition Clinical Impression: COPD (chronic obstructive pulmonary disease) Qualifiers: COPD type: chronic bronchitis Chronic bronchitis type: mixed simple and mucopurulent Qualified Code(s): J41.8 - Mixed simple and mucopurulent chronic bronchitis Pneumonia Qualifiers: Pneumonia type: due to unspecified organism Laterality: right Lung location: middle lobe of lung Qualified Code(s): J18.1 - Lobar pneumonia, unspecified organism Disposition: Admitted As Inpatient Condition: Good Referrals: Radha Rojas DO [Primary Care Provider] - Forms: ED Satisfaction Letter General Adult HPI - General Chief complaint: ED Shortness of Breath/Dyspnea Stated complaint: HECTOR Time Seen by Provider: 04/09/18 18:26 Source: patient, family Mode of arrival: private vehicle Nursing Notes Reviewed: Yes Vital Signs Reviewed: Yes - History of Present Illness HPI Narrative: 77-year-old male with past medical history including COPD on 3 L of oxygen per nasal cannula at home, congestive heart failure, presenting with chief complaint of worsening shortness of breath for the past 4 days. The patient states he had shortness of breath and productive cough and March 21 he was diagnosed with bronchitis/pneumonia her primary care physician and completed a 5 day course of Augmentin, Z-Kurt, prednisone. For the past 4 days, he complains of progressively worsening shortness of breath with productive cough. He denies fevers. He states his nebulizer treatments are not helping his symptoms. He complains of bilateral chest pain with coughing. No chest pain at rest or on exertion. Denies new lower extremity swelling. Denies abdominal pain, nausea, vomiting, diarrhea. Pain Scale: 5 - Related Data Home Medications Medication Instructions Recorded Confirmed Albuterol Sulfate [Proventil Hfa] 2 puff IH QID PRN 03/31/15 06/22/17 Cetirizine HCl [Zyrtec] 10 mg PO DAILY 03/31/15 06/22/17 Cholestyramine/Aspartame 4 gm PO DAILY 03/31/15 06/22/17 [Cholestyramine Light Packet] Dicyclomine [Bentyl] 20 mg PO QID 03/31/15 06/22/17 Esomeprazole Magnesium [Nexium] 40 mg PO DAILY 03/31/15 06/22/17 Fluticasone Propionate Nasal 100 mcg NS DAILY 03/31/15 06/22/17 [Flonase] Furosemide [Lasix] 40 mg PO QPM 03/31/15 06/22/17 Furosemide [Lasix] 80 mg PO QAM 03/31/15 06/22/17 Gabapentin [Neurontin] 600 mg PO BID 03/31/15 06/22/17 Montelukast [Singulair] 10 mg PO DAILY 03/31/15 06/22/17 Nortriptyline [Pamelor] 75 mg PO HS 03/31/15 06/22/17 Potassium Chloride [Klor-Con 10 meq PO BID 03/31/15 06/22/17 Sprinkle] Ranitidine HCl [Zantac] 150 mg PO HS 03/31/15 06/22/17 Sertraline [Zoloft] 50 mg PO HS 03/31/15 06/22/17 Tamsulosin [Flomax] 0.4 mg PO DAILY 03/31/15 06/22/17 Tizanidine HCl [Zanaflex] 4 - 8 mg PO HS 03/31/15 06/22/17 Domperidone 20 mg PO QIDAC 08/26/16 06/22/17 OxyCODONE CONC 5 mg PO BID PRN 08/26/16 06/22/17 Atorvastatin Calcium [Lipitor] 20 mg PO HS 01/11/17 06/22/17 Formoterol Fumarate [Perforomist] 20 mcg IH BID 06/22/17 06/22/17 Ipratropium Neb [Atrovent Neb] 0.5 mg IH Q6HR 06/22/17 06/22/17 Roflumilast [Daliresp] 500 mcg PO DAILY 06/22/17 06/22/17 Previous Rx's Medication Instructions Recorded Aspirin 81 mg PO DAILY #30 tab 12/22/16 GuaiFENesin ER [Mucinex] 1,200 mg PO BID #14 tbbp.12hr 06/29/17 predniSONE [PredniSONE] See Taper PO DAILY #30 tablet 06/29/17 Allergies Allergy/AdvReac Type Severity Reaction Status Date / Time ciprofloxacin [From Cipro] Allergy Hives Verified 04/09/18 18:37 levofloxacin [From Levaquin] Allergy Hives Verified 04/09/18 18:37 tetracycline [Tetracycline] Allergy Rash Verified 04/09/18 18:37 All systems ED: reviewed and negative except as stated. Review of Systems: As Per HPI Constitutional: Denies: fever, chills, weakness Eyes: Denies: eye pain, vision change ENT ED: Denies: ear pain, throat pain Cardiovascular: Denies: chest pain, palpitations Respiratory: Reports: cough, dyspnea, wheezes Gastrointestinal: Denies: abdominal pain, nausea, vomiting, diarrhea Genitourinary: Denies: urgency, dysuria Musculoskeletal: Denies: back pain Neurological: Denies: headache, weakness Past Medical History - Past Medical History Attestation: Yes The following information was validated with the patient. Source: patient Medical history: Reports: CHF, COPD, GERD, hyperlipidemia, hypertension Surgical history: Reports: appendectomy, sinus surgery Psychiatric history: Reports: no psych history - Social History Smoking Status: Former smoker Smokeless Tobacco Status: No Alcohol use: Reports: none Drug use: Reports: none Physical Exam - General Limitations: no limitations General appearance: alert, in no apparent distress - Head Head exam: atraumatic, normocephalic, normal inspection - Eye Eye exam: Present: normal appearance, PERRL, EOMI - ENT ENT exam: normal exam, normal oropharynx, mucous membranes moist - Neck Neck exam: Present: normal inspection, full ROM, trachea midline - Chest Chest inspection: Present: normal inspection, symmetric chest wall rise - Respiratory Respiratory exam: Present: other (On oxygen per nasal cannula. Bilateral expi ratory wheezing, rhonchorous breath sounds right greater than left.) - Cardiovascular Cardiovascular exam: Present: regular rate, normal rhythm, normal heart sounds - Abdominal Exam Abdominal exam: Present: soft, Non-Tender. Absent: tenderness, distention, guarding, rebound, rigidity - Extremities Exam Extremities exam: Present: normal inspection, full ROM. Absent: tenderness, p edal edema - Neurological Exam Neurological exam: Present: alert, oriented X3, CN II-XII intact - Psychiatric Psychiatric exam: Present: normal affect, normal mood - Skin Skin exam: Present: warm, dry, intact, normal color. Absent: diaphoresis Course Vital Signs Temperature 98.8 F 04/09/18 18:19 Pulse Rate 85 04/09/18 18:19 Respiratory Rate 34 04/09/18 18:19 Blood Pressure 166/78 04/09/18 18:19 O2 Sat by Pulse Oximetry 91 04/09/18 18:19 Temperature 98.8 F 04/09/18 18:43 Pulse Rate 73 04/09/18 20:36 Respiratory Rate 22 04/09/18 20:36 Blood Pressure 126/54 04/09/18 20:36 O2 Sat by Pulse Oximetry 95 04/09/18 20:36 Oxygen Delivery Oxygen Delivery Nasal Cannula Medical Decision Making - MDM Narrative Medical decision making narrative: Patient likely has COPD exacerbation. Given his pulmonary examination with rhonchorous breath sounds and significant wheezing, we will also evaluate for pneumonia. Patient was recently on Augmentin, Z-Kurt, prednisone for 5 days prescribed to him on March 21. We will give DuoNeb treatment. Prednisone. Check EKG, chest x-ray, CBC, BMP, troponin, BNP, lactate. Anticipate the patient will be admitted. 20:00 Mild improvement in wheezing and shortness of breath. Chest x-ray results reviewed. There is streaky opacity in the right middle lobe that may relate to atelectasis or developing infiltrate. Patient does have a mild leukocytosis. He meets SIRS with tachypnea and leukocytosis. Will obtain blood cultures and start IV antibiotics with levofloxacin as patient was recently treated with augmentin and zpak. Lactate normal. Will admit for further management. 20:55 Accepted by Hospitalist, Dr. Uriostegui. Vitals stable. - Medical Records Medical records reviewed: Yes I reviewed the patient's medical records. - Lab Data Lab results reviewed: Yes I reviewed the patient's lab results. Result diagrams: 04/09/18 18:47 04/09/18 18:47 Lab Results 04/09/18 04/09/18 04/09/18 Range/Units 18:47 18:47 18:47 WBC 12.8 H (4.3-11.1) K/mcL RBC 3.64 L (4.19-5.50) M/mcL Hgb 10.4 L (12.9-16.9) g/dL Hct 33.6 L (37.5-50.1) % MCV 92.3 (83.0-100.0) fL MCH 28.6 (28.0-33.3) pg MCHC 31.0 L (31.6-35.5) g/dL RDW 14.9 H (11.5-14.5) % Plt Count 172 (140-400) K/mcL MPV 10.4 (9.4-12.4) fL Immature Gran % 0.7 (0-4) % Seg Neutrophils % 78.7 % Lymphocytes % 7.9 % Monocytes % 7.4 % Eosinophils % 4.9 % Basophils % 0.4 % Neutrophils # 10.1 H (1.6-8.9) K/mcL Lymphocytes # 1.0 (0.6-4.6) K/mcL Monocytes # 1.0 (0.0-1.3) K/mcL Eosinophils # 0.6 (0.0-0.6) K/mcL Basophils # 0.1 (0.0-0.2) K/mcL Sodium 139 (136-145) mEq/L Potassium 4.1 (3.5-5.1) mEq/L Chloride 98 (98-107) mEq/L Carbon Dioxide 31 H (23-29) mEq/L BUN 27 H (8-23) mg/dL Creatinine 1.43 H (0.70-1.30) mg/dL Est GFR ( Amer) 58 L (> 60) Est GFR (Non-Af Amer) 48 L (> 60) BUN/Creatinine Ratio 19 (6-26) Glucose 120 H (70-105) mg/dL Calculated Osmolality 294 (280-300) Lactic Acid 2.2 (0.5-2.2) mmol/L Calcium 9.0 (8.6-10.3) mg/dL Troponin I < 0.03 (< 0.04) ng/mL B-Natriuretic Peptide (Less than 100) pg/mL 04/09/18 Range/Units 18:47 WBC (4.3-11.1) K/mcL RBC (4.19-5.50) M/mcL Hgb (12.9-16.9) g/dL Hct (37.5-50.1) % MCV (83.0-100.0) fL MCH (28.0-33.3) pg MCHC (31.6-35.5) g/dL RDW (11.5-14.5) % Plt Count (140-400) K/mcL MPV (9.4-12.4) fL Immature Gran % (0-4) % Seg Neutrophils % % Lymphocytes % % Monocytes % % Eosinophils % % Basophils % % Neutrophils # (1.6-8.9) K/mcL Lymphocytes # (0.6-4.6) K/mcL Monocytes # (0.0-1.3) K/mcL Eosinophils # (0.0-0.6) K/mcL Basophils # (0.0-0.2) K/mcL Sodium (136-145) mEq/L Potassium (3.5-5.1) mEq/L Chloride (98-107) mEq/L Carbon Dioxide (23-29) mEq/L BUN (8-23) mg/dL Creatinine (0.70-1.30) mg/dL Est GFR ( Amer) (> 60) Est GFR (Non-Af Amer) (> 60) BUN/Creatinine Ratio (6-26) Glucose (70-105) mg/dL Calculated Osmolality (280-300) Lactic Acid (0.5-2.2) mmol/L Calcium (8.6-10.3) mg/dL Troponin I (< 0.04) ng/mL B-Natriuretic Peptide 394 H (Less than 100) pg/mL - Radiology Data Radiology results reviewed: Yes I reviewed the patient's radiology results. - EKG Data EKG #1 EKG attestation: Yes I reviewed and interpreted this EKG. EKG results narrative: Chest x-ray from 1838 shows sinus rhythm with heart rate 86. W[place] interval 91. QRS duration 93. QT 362. QTC 433. No ST elevation or depression noted. No prior EKG to compare to.
[2018-04-09 19:08] LABS: Basophils # 0.1 K/mcL (0.0-0.2); Basophils % 0.4 %; Eosinophils # 0.6 K/mcL (0.0-0.6); Eosinophils % 4.9 %; Hematocrit 33.6 % (37.5-50.1); Hemoglobin 10.4 g/dL (12.9-16.9); Immature Granulocytes % 0.7 % (0-4); Lymphocytes % 7.9 %; Mean Corpuscular Hemoglobin 28.6 pg (28.0-33.3); Mean Corpuscular Volume 92.3 fL (83.0-100.0); Mean Platelet Volume 10.4 fL (9.4-12.4); Monocytes % 7.4 %; Neutrophils # 10.1 K/mcL (1.6-8.9); Platelet Count 172 K/mcL (140-400); Red Blood Count 3.64 M/mcL (4.19-5.50); Red Cell Distribution Width 14.9 % (11.5-14.5); Segmented Neutrophils % 78.7 %
[2018-04-09 19:24] LABS: BUN/Creatinine Ratio 19 (6-26); Blood Urea Nitrogen 27 mg/dL (8-23); Carbon Dioxide 31 mEq/L (23-29); Chloride 98 mEq/L (98-107); Glucose 120 mg/dL (70-105); Osmolality,Calculated 294 (280-300); Potassium 4.1 mEq/L (3.5-5.1); Sodium 139 mEq/L (136-145); eGFR For Non-African Americans 48 (> 60)
[2018-04-09 19:25] LABS: Troponin I < 0.03 ng/mL (< 0.04)
[2018-04-09] MEDS ORDERED: Levofloxacin 750 MG/150 ML 750 MG/150 ML BAG IVPB ONE (20:17)
[2018-04-09] MEDS ORDERED: Naloxone 0.4 MG/ML INJ IVP PRN (23:36)
[2018-04-09] MEDS ORDERED: Albuterol 2.5 MG/3 ML NEBULIZER IH PRN (23:38)
--- NOTE | 2018-04-10 00:20 | Internal Med History&Physical ---
Date of Encounter: 04/10/18 Time of Encounter: 01:20 Internal Medicine - H&P: HPI Chief complaint: Pneumonia Admitted From: Emergency Dept Plans for Post Hospital Care: Home History of present illness: Mr. Gaston is a 77 year old male With shortness of breath for 4 days. He has a history of congestive heart failure, COPD and recently treated for pneumonia outpatient. He had been started on Augmentin, Z-Kurt and prednisone by his primary care physician on March 21, but his symptoms continued to worsen. He is experiencing bilateral chest pain when he coughs but not at rest or with exertion. He has noticed it s putum change his cough from his baseline. Came to emergency room for further evaluation. Emergency room patient's white count was 12.8, hemoglobin 10.4. BMP showed a BUN of 27 and creatinine of 1.43. Patient's GFR was 48. Patient's initial lactic acid level was 2.2, improving to 1.9 on recheck. Initial troponin is undetectable and patient's BUN was elevated at 394. Chest x-ray revealed a st reaky opacity in the right middle lobe which could be developing infiltrate. EKG showed normal sinus rhythm with a rate of 86. There are no ST elevations or depressions noted. Blood cultures were drawn, patient was given breathing treatments, prednisone and levofloxacin, despite patient having a listed allergy to levofloxacin. He was sent to the medical floor for further management. Upon my evaluation patient states that he is feeling better. Says that he first started feeling his symptoms about 4 weeks ago. His symptoms improved after the antibiotics and steroids, but they have returned. He denies nausea, vomiting, chest pain, diarrhea, constipation and abdominal pain. Past Med Surg Social Fam HX - Past Medical History Medical history: CHF, COPD, GERD, hyperlipidemia, hypertension, renal disease Additional medical history: Anemia Psychiatric history: no psych history - Past Surgical History Surgical History: appendectomy, sinus surgery Additional surgical history: hernia repair - Social History Smoking Status: Former smoker Smokeless Tobacco Status: No Alcohol use: none Drug use: none - Family History Mother Living Status: Hx Family Cardiac Disorders: Yes Father Living Status: Hx Family Cardiac Disorders: Yes ([place]) Hx Family Neurologic Disorders: Yes (alzheimers) Brother Living Status: Still Living Hx Family Cardiac Disorders: Yes Sister Family Member Ethnicity: Non- Living Status: Still Living Hx Family Cardiac Disorders: Yes Hx Family Cancer: Yes (Breast) Hx Family Endocrine Disorder: Yes (Type II) Internal Medicine - H&P: Meds Albuterol Sulfate [Proventil Hfa] 2 puff IH QID PRN 03/31/15 [History] Cetirizine HCl [Zyrtec] 10 mg PO DAILY 03/31/15 [History] Cholestyramine/Aspartame [Cholestyramine Light Packet] 4 gm PO DAILY 03/31/15 [History] Dicyclomine [Bentyl] 20 mg PO QID 03/31/15 [History] Esomeprazole Magnesium [Nexium] 40 mg PO DAILY 03/31/15 [History] Fluticasone Propionate Nasal [Flonase] 100 mcg NS DAILY 03/31/15 [History] Furosemide [Lasix] 40 mg PO QPM 03/31/15 [History] Furosemide [Lasix] 80 mg PO QAM 03/31/15 [History] Gabapentin [Neurontin] 600 mg PO BID 03/31/15 [History] Montelukast [Singulair] 10 mg PO DAILY 03/31/15 [History] Nortriptyline [Pamelor] 75 mg PO HS 03/31/15 [History] Potassium Chloride [Klor-Con Sprinkle] 10 meq PO BID 03/31/15 [History] Ranitidine HCl [Zantac] 150 mg PO HS 03/31/15 [History] Sertraline [Zoloft] 50 mg PO HS 03/31/15 [History] Tamsulosin [Flomax] 0.4 mg PO DAILY 03/31/15 [History] Tizanidine HCl [Zanaflex] 4 - 8 mg PO HS 03/31/15 [History] Domperidone 20 mg PO QIDAC 08/26/16 [History] OxyCODONE CONC 5 mg PO BID PRN 08/26/16 [History] Aspirin 81 mg PO DAILY #30 tab 12/22/16 [Rx] Atorvastatin Calcium [Lipitor] 20 mg PO HS 01/11/17 [History] Formoterol Fumarate [Perforomist] 20 mcg IH BID 06/22/17 [History] Ipratropium Neb [Atrovent Neb] 0.5 mg IH Q6HR 06/22/17 [History] Roflumilast [Daliresp] 500 mcg PO DAILY 06/22/17 [History] GuaiFENesin ER [Mucinex] 1,200 mg PO BID #14 tbbp.12hr 06/29/17 [Rx] predniSONE [PredniSONE] See Taper PO DAILY #30 tablet 06/29/17 [Rx] Allergy/AdvReac Type Severity Reaction Status Date / Time ciprofloxacin [From Cipro] Allergy Hives Verified 04/09/18 18:37 levofloxacin [From Levaquin] Allergy Hives Verified 04/09/18 18:37 tetracycline [Tetracycline] Allergy Rash Verified 04/09/18 18:37 All Systems PM: A 10-system review of systems was performed and is negative for pertinent findings except as documented above in the HPI. - Constitutional Vitals: Temp Pulse Resp BP Pulse Ox 98.8 F 77 18 145/52 94 04/09/18 22:20 04/09/18 22:20 04/09/18 22:20 04/09/18 22:20 04/09/18 22:20 General appearance: Present: cooperative, A&O X 3, pleasant, no acute distress, answers questions appropriately Exam: - - Head Head exam: Present: normal inspection - Eye Eye exam: Present: EOMI, normal appearance - Neck Neck exam general surgery: Absent: tenderness - Respiratory Respiratory exam: Present: rales, wheezes. Absent: CTAB, respiratory distress, rhonchi - Cardiovascular Cardiovascular exam: Present: RRR, systolic murmur. Absent: diastolic murmur Additional comments: +2 systolic murmur, known - GI/Abdominal GI/Abdominal exam: Present: normal bowel sounds, soft. Absent: tenderness - Extremities Exam Extremities exam: Present: warm, radial pulses palpable and symmetrical. Absent: calf tenderness, pedal edema, tenderness - Neurological Exam Neurological exam: Present: no focal deficits, strengths equal and symetr throughout. Absent: motor sensory deficit, facial droop, speech deficit - Skin Skin exam: Present: dry, normal color, warm Internal Med - H&P Results - Labs CBC & Chem 7: 04/10/18 02:43 04/09/18 18:47 Labs: Short CBC 04/09/18 Range/Units 18:47 WBC 12.8 H (4.3-11.1) K/mcL Hgb 10.4 L (12.9-16.9) g/dL Hct 33.6 L (37.5-50.1) % Plt Count 172 (140-400) K/mcL Neutrophils # 10.1 H (1.6-8.9) K/mcL BMP 04/09/18 18:47 Sodium 139 Potassium 4.1 Chloride 98 Carbon Dioxide 31 H BUN 27 H Creatinine 1.43 H Glucose 120 H Calcium 9.0 Cardiac Enzymes 04/09/18 Range/Units 18:47 Troponin I < 0.03 (< 0.04) ng/mL - Impressions ITS Impressions Chest X-Ray 04/09/18 18:29 IMPRESSION: Streaky opacity right middle lobe may relate to atelectasis or developing infiltrate. Continued follow-up suggested. D/ / Dony Mark MD / Dony Mark MD Interpreting Provider: Dony Mark MD - Assessment and plan (1) Pneumonia Current Visit: Yes Status: Acute Assessment and plan: Patient has a streaky opacity on chest x-ray. Started on levaqin in the ER. Patient has a listed allergy to this medication but has not demonstrated any allergic signs at this point. Monitoring with bedside pulse ox, and physical exam did not reveal any skin changes. Continue to monitor Will start ceftriaxone in the AM as well as azithromycin Follow up blood cultures when available. Monitor for worsening signs of infection. Qualifiers: Pneumonia type: due to unspecified organism Laterality: right Lung location: middle lobe of lung Qualified Code(s): J18.1 - Lobar pneumonia, unspecified organism (2) Acute exacerbation of chronic obstructive airways disease Current Visit: No Status: Acute Assessment and plan: Breathing treatments and steroids given in the ER. Patient's symptoms improved. Continue breathing treatments Continue steroids Treating pneumonia as above. (3) History of CHF (congestive heart failure) Current Visit: No Status: Acute Assessment and plan: BNP elevated at 394, up from previous value of in the mid-100's. Lasix IV Strict I's and O's Daily weights (4) JANELL (acute kidney injury) Current Visit: Yes Status: Acute Assessment and plan: Patient has elevated creatinine, and decreased GFR. Treating for CHF exacerbation with lasix. Will monitor fluid status, and repeat labs in the AM. Patient takes lasix at home. (5) DVT prophylaxis Current Visit: No Status: Acute Assessment and plan: Subcutaneous heparin - Time Spent With Patient Total time spent is greater than 50% in coordination of care (as documented) at patient's floor/unit and/or counseling patient: Greater than 35 minutes
[2018-04-10 03:15] LABS: Hemoglobin 9.7 g/dL (12.9-16.9); Mean Corpuscular HGB Conc 32.3 g/dL (31.6-35.5); Mean Corpuscular Volume 89.8 fL (83.0-100.0); Mean Platelet Volume 10.4 fL (9.4-12.4); Platelet Count 158 K/mcL (140-400); Red Blood Count 3.34 M/mcL (4.19-5.50); Red Cell Distribution Width 14.9 % (11.5-14.5)
[2018-04-10 03:35] LABS: BUN/Creatinine Ratio 22 (6-26); Blood Urea Nitrogen 27 mg/dL (8-23); Calcium 8.9 mg/dL (8.6-10.3); Carbon Dioxide 30 mEq/L (23-29); Chloride 99 mEq/L (98-107); Glucose 155 mg/dL (70-105); Osmolality,Calculated 288 (280-300); Potassium 4.2 mEq/L (3.5-5.1); Sodium 135 mEq/L (136-145); eGFR For Non-African Americans 57 (> 60)
[2018-04-10] MEDS: Ipratropium/Albuterol Neb 3 ML IH SCH ×4 (04:32→22:24)
[2018-04-10] MEDS: *HR* Heparin 5,000 UNIT/ML VIAL SQ SCH ×2 (04:34→16:38)
[2018-04-10] MEDS ORDERED: Furosemide 40 MG/4 ML VIAL IVP SCH (08:00)
[2018-04-10] MEDS: cefTRIAXone 1,000 MG in Water for inj. (sterile) 20 ML 10 ML IVP SCH (08:48)
[2018-04-10] MEDS: Azithromycin 500 MG in D5% in Water 250 ML IVPB SCH (08:49)
[2018-04-10] MEDS: predniSONE 20 MG TABLET PO SCH (08:49)
--- NOTE | 2018-04-10 13:12 | Event Note ---
Date of Encounter: 04/10/18 Time of Encounter: 13:09 Patient continues to have shortness of breath. Was unable to sleep much last night due to the constant coughing. His not been able to cough up much sputum. No fever reported today. On 3 L nasal cannula at this time. Continue treatment for pneumonia and acute exacerbation of COPD. Continue ceftriaxone and azithromycin. Patient is also receiving IV Lasix due to his history of congestive heart failure. Patient appears to have acute on chronic diastolic congestive heart failure. Renal function has improved. We will transition to oral Lasix tomorrow. We will also obtain 2-D echocardiogram.
[2018-04-10] MEDS: *HR* OxyCODONE Immed Rel 5 MG TABLET PO PRN ×2 (13:49→23:13)
[2018-04-10] MEDS ORDERED: tiZANidine 4 MG TABLET PO PRN (14:42)
[2018-04-10] MEDS: Furosemide 40 MG TABLET PO SCH (16:38)
[2018-04-10] MEDS: Gabapentin 300 MG CAPSULE PO SCH (20:48)
[2018-04-11 04:36] LABS: Basophils % 0.2 %; Eosinophils # 0.1 K/mcL (0.0-0.6); Eosinophils % 1.1 %; Hematocrit 32.5 % (37.5-50.1); Hemoglobin 9.7 g/dL (12.9-16.9); Immature Granulocytes % 0.3 % (0-4); Lymphocytes # 1.6 K/mcL (0.6-4.6); Lymphocytes % 17.5 %; Mean Corpuscular HGB Conc 29.8 g/dL (31.6-35.5); Mean Corpuscular Hemoglobin 28.5 pg (28.0-33.3); Mean Corpuscular Volume 95.6 fL (83.0-100.0); Mean Platelet Volume 10.2 fL (9.4-12.4); Monocytes # 1.1 K/mcL (0.0-1.3); Monocytes % 11.8 %; Platelet Count 163 K/mcL (140-400); Red Cell Distribution Width 15.3 % (11.5-14.5); Segmented Neutrophils % 69.1 %
[2018-04-11 04:44] LABS: Neutrophils # 6.4 K/mcL (1.6-8.9)
[2018-04-11] MEDS: Ipratropium/Albuterol Neb 3 ML IH SCH ×4 (04:51→22:59)
[2018-04-11 04:53] LABS: BUN/Creatinine Ratio 28 (6-26); Blood Urea Nitrogen 30 mg/dL (8-23); Calcium 8.9 mg/dL (8.6-10.3); Carbon Dioxide 29 mEq/L (23-29); Chloride 100 mEq/L (98-107); Glucose 127 mg/dL (70-105); Osmolality,Calculated 292 (280-300); Potassium 3.7 mEq/L (3.5-5.1); Sodium 137 mEq/L (136-145); eGFR For Non-African Americans > 60 (> 60)
[2018-04-11 05:16] LABS: Platelet Estimate Normal (Normal)
[2018-04-11] MEDS: *HR* Heparin 5,000 UNIT/ML VIAL SQ SCH ×2 (06:00→16:40)
[2018-04-11] MEDS: predniSONE 20 MG TABLET PO SCH (07:25)
[2018-04-11] MEDS: Gabapentin 300 MG CAPSULE PO SCH ×2 (07:26→20:06)
[2018-04-11] MEDS: Loratadine 10 MG TABLET PO SCH (07:26)
[2018-04-11] MEDS: Furosemide 40 MG TABLET PO SCH ×2 (07:27→16:40)
[2018-04-11] MEDS: Fluticasone Propionate Nasal 50 MCG/SPRAY BOTTLE NS SCH (07:27)
[2018-04-11] MEDS: cefTRIAXone 1,000 MG in Water for inj. (sterile) 20 ML 10 ML IVP SCH (07:30)
[2018-04-11] MEDS: Azithromycin 500 MG in D5% in Water 250 ML IVPB SCH (07:32)
--- NOTE | 2018-04-11 07:44 | Internal Med Progress Note ---
Hospitalist Progress Note - Encounter Date of Encounter: 04/11/18 Time of Encounter: 07:30 - Subjective Interval History: 77 year old male With shortness of breath for 4 days. He has a history of congestive heart failure, COPD and recently treated for pneumonia outpatient. He had been started on Augmentin, Z-Kurt and prednisone by his primary care physi vikki on March 21, but his symptoms continued to worsen. He is experiencing bilateral chest pain when he coughs but not at rest or with exertion. He has noticed it sputum change his cough from his baseline. Came to emergency room for further evaluation. Feeling slightly better today - Exam Vitals: Temp Pulse Resp BP Pulse Ox 98.1 F 65 18 126/64 97 04/11/18 07:00 04/11/18 07:00 04/11/18 07:00 04/11/18 07:00 04/11/18 07:00 Exam: Gen - Awake, alert, oriented x 3, no acute distress HEENT - NCAT, PERRLA, EOMI, hearing grossly intact, oropharynx benign CV - RRR, normal S1 and S2, no M/R/G, no BLE edema Resp - has wheezes bilaterally GI - Soft, NT/ND, no masses, normal bowel sounds, Skin - Warm, dry, no rashes/lesions/ulcers Psych - Normal mood and affect, no depression or anxiety - Assessment and Plan (1) Pneumonia Current Visit: Yes Status: Acute Assessment and Plan: Pt comes in with coughing and shortness of breath with infiltrate on chest xray. Continue ceftriaxone and azithromycin (2) Acute exacerbation of chronic obstructive pulmonary disease (COPD) Current Visit: No Status: Acute Assessment and Plan: Continue nebs, steroids and antibiotics. Still has wheezes this am (3) Heart failure with preserved ejection fraction Current Visit: Yes Status: Acute Assessment and Plan: Has mild acute worsening of chronic diastolic CHF. Continue lasix (4) JANELL (acute kidney injury) Current Visit: Yes Status: Acute Assessment and Plan: Janell improved with diuresis. Likely secondary to volume overload and poor kidney perfusion (5) DVT prophylaxis Current Visit: Yes Status: Acute Assessment and Plan: Heparin sc - Time Spent with Patient Total time spent is greater than 50% in coordination of care (as documented) at patient's floor/unit and/or counseling patient: Internal Medicine: Result - Labs CBC & Chem 7: 04/11/18 03:49 04/11/18 03:49 Labs: Short CBC 04/11/18 Range/Units 03:49 WBC 9.2 (4.3-11.1) K/mcL Hgb 9.7 L (12.9-16.9) g/dL Hct 32.5 L (37.5-50.1) % Plt Count 163 (140-400) K/mcL Neutrophils # 6.4 (1.6-8.9) K/mcL BMP 04/11/18 03:49 Sodium 137 Potassium 3.7 Chloride 100 Carbon Dioxide 29 BUN 30 H Creatinine 1.08 Glucose 127 H Calcium 8.9 Consult Discharge Plan - Plan Referrals: Radha Rojas DO [Primary Care Provider] - (1) Pneumonia Qualifiers: Pneumonia type: due to unspecified organism Laterality: right Lung location: middle lobe of lung Qualified Code(s): J18.1 - Lobar pneumonia, unspecified organism
[2018-04-11] MEDS: Budesonide/Formoterol 160/4.5 1 PUFF INH IH SCH ×2 (09:52→22:59)
[2018-04-11] MEDS: DOMPERIDONE 10 MG PO SCH (20:06)
[2018-04-11] MEDS: *HR* OxyCODONE Immed Rel 5 MG TABLET PO PRN (22:35)
[2018-04-12] MEDS: Ipratropium/Albuterol Neb 3 ML IH SCH ×4 (04:30→22:59)
[2018-04-12] MEDS: *HR* Heparin 5,000 UNIT/ML VIAL SQ SCH ×2 (06:12→16:45)
[2018-04-12] MEDS: Gabapentin 300 MG CAPSULE PO SCH ×2 (07:59→20:00)
[2018-04-12] MEDS: DOMPERIDONE 10 MG PO SCH (07:59)
[2018-04-12] MEDS: Furosemide 40 MG TABLET PO SCH ×2 (07:59→16:44)
[2018-04-12] MEDS: predniSONE 20 MG TABLET PO SCH (07:59)
[2018-04-12] MEDS: Loratadine 10 MG TABLET PO SCH (08:01)
[2018-04-12] MEDS: Fluticasone Propionate Nasal 50 MCG/SPRAY BOTTLE NS SCH (08:01)
[2018-04-12] MEDS: Azithromycin 500 MG in D5% in Water 250 ML IVPB SCH (08:02)
[2018-04-12] MEDS: cefTRIAXone 1,000 MG in Water for inj. (sterile) 20 ML 10 ML IVP SCH (08:04)
[2018-04-12] MEDS ORDERED: Acetylcysteine 10% 2 ML INHSOL IH ONE (08:33)
[2018-04-12] MEDS ORDERED: GuaiFENesin/Codeine Oral Soln 5 ML UDC PO PRN (08:34)
--- NOTE | 2018-04-12 08:35 | Internal Med Progress Note ---
Hospitalist Progress Note - Encounter Date of Encounter: 04/12/18 Time of Encounter: 08:35 - Subjective Interval History: 77 year old male With shortness of breath for 4 days. He has a history of congestive heart failure, COPD and recently treated for pneumonia outpatient. He had been started on Augmentin, Z-Kurt and prednisone by his primary care physi vikki on March 21, but his symptoms continued to worsen. He is experiencing bilateral chest pain when he coughs but not at rest or with exertion. He has noticed it sputum change his cough from his baseline. Came to emergency room for further evaluation. Feeling slightly better today - Exam Vitals: Temp Pulse Resp BP Pulse Ox 97.8 F 71 18 125/72 96 04/12/18 06:29 04/12/18 06:29 04/12/18 06:29 04/12/18 06:29 04/12/18 08:09 Exam: Gen - Awake, alert, oriented x 3, no acute distress HEENT - NCAT, PERRLA, EOMI, hearing grossly intact, oropharynx benign CV - RRR, normal S1 and S2, no M/R/G, no BLE edema Resp - has wheezes bilaterally GI - Soft, NT/ND, no masses, normal bowel sounds, Skin - Warm, dry, no rashes/lesions/ulcers Psych - Normal mood and affect, no depression or anxiety - Assessment and Plan (1) Pneumonia Current Visit: Yes Status: Acute Assessment and Plan: Pt comes in with coughing and shortness of breath with infiltrate on chest xray. Continue ceftriaxone and azithromycin (2) Acute exacerbation of chronic obstructive pulmonary disease (COPD) Current Visit: Yes Status: Acute Assessment and Plan: Continue nebs, steroids and antibiotics. Still has wheezes this am (3) Heart failure with preserved ejection fraction Current Visit: Yes Status: Acute Assessment and Plan: Has mild acute worsening of chronic diastolic CHF. Continue lasix (4) JANELL (acute kidney injury) Current Visit: Yes Status: Acute Assessment and Plan: Janell improved with diuresis. Likely secondary to volume overload and poor kidney perfusion (5) DVT prophylaxis Current Visit: Yes Status: Acute Assessment and Plan: Heparin sc - Time Spent with Patient Total time spent is greater than 50% in coordination of care (as documented) at patient's floor/unit and/or counseling patient: Internal Medicine: Result - Labs CBC & Chem 7: 04/11/18 03:49 01/01/19 03:49 Consult Discharge Plan - Plan Referrals: Radha Rojas DO [Primary Care Provider] - (1) Pneumonia Qualifiers: Pneumonia type: due to unspecified organism Laterality: right Lung location: middle lobe of lung Qualified Code(s): J18.1 - Lobar pneumonia, unspecified organism
[2018-04-12] MEDS: Budesonide/Formoterol 160/4.5 1 PUFF INH IH SCH ×2 (10:48→22:59)
--- NOTE | 2018-04-12 16:43 | Electrocardiograph Report ---
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
[2018-04-12] MEDS: *HR* OxyCODONE Immed Rel 5 MG TABLET PO PRN (23:14)
[2018-04-13] MEDS: Ipratropium/Albuterol Neb 3 ML IH SCH ×2 (04:02→10:11)
[2018-04-13] MEDS: *HR* Heparin 5,000 UNIT/ML VIAL SQ SCH (06:23)
[2018-04-13 07:02] VITALS: BP 132/61
[2018-04-13] MEDS ORDERED: Azithromycin 250 MG TABLET PO SCH (09:00)
--- NOTE | 2018-04-13 09:00 | Discharge Summary ---
Orders not resulted at time of discharge: Pending orders 04/09/18 21:01 Culture,Blood [BC] Stat Date of Encounter: 04/13/18 Time of Encounter: 09:00 - Discharge Diagnosis (1) Pneumonia Priority: Primary Status: Acute Assessment and Plan: 77 year old male with shortness of breath for 4 days. He has a history of congestive heart failure, COPD and recently treated for pneumonia outpatient. He had been started on Augmentin, Z-Kurt and prednisone by his primary care physician on March 21, but his symptoms continued to worsen. He is experiencing bilateral chest pain when he coughs but not at rest or with exertion. He has noticed it sputum change his cough from his baseline. Came to emergency room for further evaluation. Emergency room patient's white count was 12.8, hemoglobin 10.4. BMP showed a BUN of 27 and creatinine of 1.43. Patient's GFR was 48. Patient's initial lactic acid level was 2.2, improving to 1.9 on recheck. Initial troponin is undetectable and patient's BUN was elevated at 394. Chest x-ray revealed a streaky opacity in the right middle lobe which could be developing infiltrate. He was assessed with acute COPD exacerbation and community acquired pneumonia. He improved on nebs , steroids and antibiotics. He was discharged on a course of azithromycin and a steroid taper Qualifiers: Pneumonia type: due to unspecified organism Laterality: right Lung location: middle lobe of lung Qualified Code(s): J18.1 - Lobar pneumonia, unspecified organism (2) Acute exacerbation of chronic obstructive pulmonary disease (COPD) Priority: Primary Status: Acute (3) Heart failure with preserved ejection fraction Priority: Primary Status: Acute (4) JANELL (acute kidney injury) Priority: Primary Status: Acute (5) DVT prophylaxis Priority: Primary Status: Acute Hospital course: Mr. Gaston is a 77 year old male - Time Spent with Patient Total time spent providing and/or coordinating discharge services: - Discharge Medications Prescriptions: GuaiFENesin/Codeine [ROBITUSSIN w/CODEINE] 10 ml PO Q6HR PRN 10 Days #30 udc PRN Reason: Cough Azithromycin [Azithromycin 6-Tab Pack] 250 mg PO PER PKG DI #6 tab predniSONE [PredniSONE] 40 mg PO DAILY 3 Days #6 tablet Home Medications: Albuterol Sulfate [Proventil Hfa] 2 puff IH QID PRN 03/31/15 [History] Cetirizine HCl [Zyrtec] 10 mg PO DAILY 03/31/15 [History] Cholestyramine/Aspartame [Cholestyramine Light Packet] 4 gm PO BID 03/31/15 [History] Dicyclomine [Bentyl] 20 mg PO QID 03/31/15 [History] Esomeprazole Magnesium [Nexium] 40 mg PO DAILY 03/31/15 [History] Fluticasone Propionate Nasal [Flonase] 50 mcg NS DAILY 03/31/15 [History] Furosemide [Lasix] 40 mg PO QPM 03/31/15 [History] Furosemide [Lasix] 80 mg PO QAM 03/31/15 [History] Gabapentin [Neurontin] 600 mg PO TID 03/31/15 [History] Montelukast [Singulair] 10 mg PO DAILY 03/31/15 [History] Nortriptyline [Pamelor] 25 mg PO HS 03/31/15 [History] Potassium Chloride [Klor-Con Sprinkle] 10 meq PO BIDWM 03/31/15 [History] Ranitidine HCl [Zantac] 150 mg PO HS 03/31/15 [History] Sertraline [Zoloft] 50 mg PO DAILY 03/31/15 [History] Tamsulosin [Flomax] 0.4 mg PO DAILY 03/31/15 [History] Tizanidine HCl [Zanaflex] 4 mg PO TID PRN 03/31/15 [History] Domperidone 20 mg PO QIDAC 08/26/16 [History] Aspirin 81 mg PO DAILY #30 tab 12/22/16 [Rx] Atorvastatin Calcium [Lipitor] 10 mg PO HS 01/11/17 [History] Formoterol Fumarate [Perforomist] 20 mcg IH BID 06/22/17 [History] Ipratropium Neb [Atrovent Neb] 0.5 mg IH Q6HR 06/22/17 [History] Roflumilast [Daliresp] 500 mcg PO DAILY 06/22/17 [History] GuaiFENesin ER [Mucinex] 1,200 mg PO BID #14 tbbp.12hr 06/29/17 [Rx] predniSONE [PredniSONE] See Taper PO DAILY #30 tablet 06/29/17 [Rx] OxyCODONE Immed Rel [Roxicodone 5 MG] 5 mg PO Q6HR PRN 04/10/18 [History] Azithromycin [Azithromycin 6-Tab Pack] 250 mg PO PER PKG DI #6 tab 04/13/18 [Rx] GuaiFENesin/Codeine [ROBITUSSIN w/CODEINE] 10 ml PO Q6HR PRN 10 Days #30 udc 04/13/18 [Rx] predniSONE [PredniSONE] 40 mg PO DAILY 3 Days #6 tablet 04/13/18 [Rx] Allergies/Adverse Reactions: Allergy/AdvReac Type Severity Reaction Status Date / Time ciprofloxacin [From Cipro] Allergy Hives Verified 04/09/18 18:37 levofloxacin [From Levaquin] Allergy Hives Verified 04/09/18 18:37 tetracycline [Tetracycline] Allergy Rash Verified 04/09/18 18:37 Date of admission: 04/10/18 14:32 Primary care physician: Radha Rojas Consults: 04/09/18 23:38 Consult to Nurse Navigator [CONS] Routine Comment: 04/09/18 23:54 Consult to Nurse Navigator [CONS] Routine Comment: - Constitutional Vitals: Temp Pulse Resp BP Pulse Ox 97.8 F 59 15 132/61 96 04/13/18 06:59 04/13/18 06:59 04/13/18 06:59 04/13/18 06:59 04/13/18 06:59 General appearance: Present: cooperative, A&O X 3, pleasant, no acute distress, answers questions appropriately Exam: Gen - Awake, alert, oriented x 3, no acute distress HEENT - NCAT, PERRLA, EOMI, hearing grossly intact, oropharynx benign CV - RRR, normal S1 and S2, no M/R/G, no BLE edema Resp - has wheezes bilaterally GI - Soft, NT/ND, no masses, normal bowel sounds, Skin - Warm, dry, no rashes/lesions/ulcers Psych - Normal mood and affect, no depression or anxiety - Patient Status Disposition: Home Health Service Condition: Good - Discharge Instructions Instructions: Chronic Obstructive Pulmonary Disease (DC) Follow Up With: Radha Rojas DO [Primary Care Provider] - 04/17/18 10:00 am ( Please follow up as schedule...)
[2018-04-13] MEDS: Furosemide 40 MG TABLET PO SCH (09:07)
[2018-04-13] MEDS: predniSONE 20 MG TABLET PO SCH (09:07)
[2018-04-13] MEDS: Loratadine 10 MG TABLET PO SCH (09:08)
[2018-04-13] MEDS: Gabapentin 300 MG CAPSULE PO SCH (09:08)
[2018-04-13] MEDS: Fluticasone Propionate Nasal 50 MCG/SPRAY BOTTLE NS SCH (09:09)
[2018-04-13] MEDS: cefTRIAXone 1,000 MG in Water for inj. (sterile) 20 ML 10 ML IVP SCH (09:09)
[2018-04-13] MEDS: Budesonide/Formoterol 160/4.5 1 PUFF INH IH SCH (10:12)
== END 2018-04-13 12:00 | disposition home health service (06) | DRG 193 ==
LOC: EMEROOARM 18:15 → 2ANU 18:15 → SUATTDRO 21:06 → 2ANU 21:55
PROVIDERS: ADMIT Family Medicine; ATTEND Internal Medicine

== ENCOUNTER 2019-06-11 22:26 | Observation (INO) ==
[2019-06-11] MEDS ORDERED: Azithromycin 500 MG in 0.9 % Sodium Chloride 250 ML IVPB ONE (23:59)
[2019-06-11] MEDS ORDERED: MethylPREDNISolone 40 MG/ML VIAL IVP ONE (23:59)
[2019-06-12] MEDS ORDERED: Ipratropium/Albuterol Neb 3 ML IH ONE (00:07)
[2019-06-12 00:25] LABS: Basophils % 0.6 %; Eosinophils # 0.2 K/mcL (0.0-0.6); Eosinophils % 2.7 %; Hematocrit 33.1 % (37.5-50.1); Hemoglobin 10.1 g/dL (12.9-16.9); Immature Granulocytes % 0.6 % (0-4); Lymphocytes # 1.2 K/mcL (0.6-4.6); Lymphocytes % 18.8 %; Mean Corpuscular HGB Conc 30.5 g/dL (31.6-35.5); Mean Corpuscular Hemoglobin 29.4 pg (28.0-33.3); Mean Corpuscular Volume 96.5 fL (83.0-100.0); Mean Platelet Volume 10.2 fL (9.4-12.4); Monocytes # 0.8 K/mcL (0.0-1.3); Monocytes % 11.8 %; Neutrophils # 4.3 K/mcL (1.6-8.9); Platelet Count 202 K/mcL (140-400); Red Blood Count 3.43 M/mcL (4.19-5.50); Red Cell Distribution Width 16.4 % (11.5-14.5); Segmented Neutrophils % 65.5 %; White Blood Count 6.6 K/mcL (4.3-11.1)
[2019-06-12 00:28] LABS: INR 1.1; Prothrombin Time 12.8 Seconds (9.4-12.1)
[2019-06-12 00:30] LABS: Activated Partial Thrombo Time 34.4 Seconds (26.0-36.0)
[2019-06-12 00:33] LABS: Bilirubin,Urine Negative (Negative); Blood,Urine Negative (Negative); Clarity,Urine Clear (Clear); Color,Urine Orange (Yellow); Glucose,Urine (UA) Normal (Normal); Ketones,Urine Negative (Negative); Leukocyte Esterase,Urine Trace (Negative); Nitrite,Urine Positive (Negative); Protein,Urine Negative (Neg-Trace); Specific Gravity,Urine 1.017 (1.010-1.025); Urobilinogen,Urine Normal (Normal)
[2019-06-12 00:36] LABS: Bacteria,Urine None Seen per hpf (None-Few); Hyaline Casts,Urine None Seen per lpf (None-Few); RBC,Urine 0-3 per hpf (0-3); Squamous Epithelial Cell,Urine Few per lpf (None-Few); WBC,Urine 0-3 per hpf (0-3)
[2019-06-12 00:45] LABS: Albumin 3.7 g/dL (3.5-5.7); Albumin/Globulin Ratio 1.1 (1.1-2.2); Bilirubin,Direct 0.2 mg/dL (0.0-0.2); Bilirubin,Indirect 0.4 mg/dL (0.0-1.0); Bilirubin,Total 0.6 mg/dL (0.3-1.0); Globulin 3.4 g/dL (2.4-3.5); Total Protein 7.1 g/dL (6.4-8.9)
[2019-06-12 00:46] LABS: BUN/Creatinine Ratio 20 (6-26); Blood Urea Nitrogen 29 mg/dL (8-23); Calcium 8.7 mg/dL (8.6-10.3); Carbon Dioxide 31 mEq/L (23-29); Chloride 96 mEq/L (98-107); Glucose 110 mg/dL (70-105); Osmolality,Calculated 290 (280-300); Potassium 3.9 mEq/L (3.5-5.1); Sodium 137 mEq/L (136-145); Troponin I < 0.03 ng/mL (< 0.04); eGFR For African Americans 58 (> 60); eGFR For Non-African Americans 48 (> 60)
[2019-06-12] MEDS ORDERED: Isovue-370 500 ML BOTTLE IVP ONE (00:48)
[2019-06-12] MEDS ORDERED: Naloxone 0.4 MG/ML INJ IVP PRN (02:58)
[2019-06-12] MEDS ORDERED: tiZANidine 4 MG TABLET PO PRN (03:04)
[2019-06-12] MEDS ORDERED: *HR* OxyCODONE Immed Rel 5 MG TABLET PO PRN (03:04)
[2019-06-12] MEDS ORDERED: 0.9 % Sodium Chloride 1,000 ML IVC SCH (04:15)
[2019-06-12] MEDS: Ipratropium Neb 0.5 MG NEBULIZER IH SCH ×4 (04:40→22:27)
[2019-06-12 08:06] LABS: Basophils % 0.5 %; Hematocrit 31.2 % (37.5-50.1); Hemoglobin 9.6 g/dL (12.9-16.9); Lymphocytes # 0.6 K/mcL (0.6-4.6); Lymphocytes % 16.1 %; Mean Corpuscular HGB Conc 30.8 g/dL (31.6-35.5); Mean Corpuscular Hemoglobin 29.4 pg (28.0-33.3); Mean Corpuscular Volume 95.4 fL (83.0-100.0); Mean Platelet Volume 10.3 fL (9.4-12.4); Monocytes # 0.1 K/mcL (0.0-1.3); Monocytes % 3.4 %; Platelet Count 186 K/mcL (140-400); Red Blood Count 3.27 M/mcL (4.19-5.50); Red Cell Distribution Width 16.4 % (11.5-14.5); White Blood Count 3.8 K/mcL (4.3-11.1)
[2019-06-12 08:19] LABS: BUN/Creatinine Ratio 22 (6-26); Blood Urea Nitrogen 29 mg/dL (8-23); Calcium 8.6 mg/dL (8.6-10.3); Carbon Dioxide 29 mEq/L (23-29); Chloride 99 mEq/L (98-107); Glucose 157 mg/dL (70-105); Osmolality,Calculated 291 (280-300); Sodium 136 mEq/L (136-145); eGFR For African Americans > 60 (> 60); eGFR For Non-African Americans 53 (> 60)
[2019-06-12] MEDS: Furosemide 40 MG TABLET PO SCH ×2 (08:44→17:00)
[2019-06-12] MEDS: Gabapentin 300 MG CAPSULE PO SCH ×3 (08:44→21:26)
[2019-06-12] MEDS: DOMPERIDONE 20 MG PO SCH ×2 (08:45→13:19)
[2019-06-12] MEDS: MethylPREDNISolone 40 MG/ML VIAL IVP SCH ×2 (08:45→21:26)
[2019-06-12] MEDS: Loratadine 10 MG TABLET PO SCH (08:45)
[2019-06-12] MEDS ORDERED: NON-FORMULARY MEDICATION 1 EACH EACH (Formoterol Fumarate [Perforomist] 20 MCG) IH SCH (09:00)
[2019-06-12] MEDS: Fluticasone Propionate Nasal 50 MCG/SPRAY BOTTLE NS SCH (15:31)
[2019-06-12] MEDS: Cholestyramine 4 GM POWD.PACK PO SCH ×2 (15:31→21:30)
[2019-06-12] MEDS: Famotidine 20 MG TABLET PO SCH (21:27)
[2019-06-13] MEDS: Ipratropium Neb 0.5 MG NEBULIZER IH SCH ×4 (03:10→21:52)
[2019-06-13 05:00] LABS: Basophils % 0.2 %; Hematocrit 29.6 % (37.5-50.1); Hemoglobin 9.1 g/dL (12.9-16.9); Immature Granulocytes % 0.5 % (0-4); Lymphocytes # 0.9 K/mcL (0.6-4.6); Lymphocytes % 15.6 %; Mean Corpuscular HGB Conc 30.7 g/dL (31.6-35.5); Mean Corpuscular Hemoglobin 29.2 pg (28.0-33.3); Mean Corpuscular Volume 94.9 fL (83.0-100.0); Mean Platelet Volume 10.1 fL (9.4-12.4); Monocytes # 0.5 K/mcL (0.0-1.3); Monocytes % 8.6 %; Neutrophils # 4.3 K/mcL (1.6-8.9); Platelet Count 193 K/mcL (140-400); Red Blood Count 3.12 M/mcL (4.19-5.50); Red Cell Distribution Width 16.1 % (11.5-14.5); Segmented Neutrophils % 75.1 %; White Blood Count 5.7 K/mcL (4.3-11.1)
[2019-06-13 05:18] LABS: BUN/Creatinine Ratio 35 (6-26); Blood Urea Nitrogen 47 mg/dL (8-23); Calcium 8.5 mg/dL (8.6-10.3); Carbon Dioxide 28 mEq/L (23-29); Chloride 100 mEq/L (98-107); Glucose 154 mg/dL (70-105); Osmolality,Calculated 297 (280-300); Sodium 136 mEq/L (136-145); eGFR For African Americans > 60 (> 60); eGFR For Non-African Americans 52 (> 60)
[2019-06-13] MEDS: Furosemide 40 MG TABLET PO SCH ×2 (08:17→17:00)
[2019-06-13] MEDS: Gabapentin 300 MG CAPSULE PO SCH ×3 (08:17→21:07)
[2019-06-13] MEDS: Loratadine 10 MG TABLET PO SCH (08:17)
[2019-06-13] MEDS: MethylPREDNISolone 40 MG/ML VIAL IVP SCH (08:17)
[2019-06-13] MEDS: Cholestyramine 4 GM POWD.PACK PO SCH ×2 (08:18→21:07)
[2019-06-13] MEDS: Fluticasone Propionate Nasal 50 MCG/SPRAY BOTTLE NS SCH (12:07)
[2019-06-13] MEDS: Famotidine 20 MG TABLET PO SCH (21:08)
[2019-06-14] MEDS: Ipratropium Neb 0.5 MG NEBULIZER IH SCH ×2 (03:27→10:22)
[2019-06-14 06:38] LABS: Mean Corpuscular HGB Conc 30.3 g/dL (31.6-35.5); Mean Corpuscular Volume 95.7 fL (83.0-100.0); Mean Platelet Volume 10.6 fL (9.4-12.4); Platelet Count 193 K/mcL (140-400); Red Blood Count 3.45 M/mcL (4.19-5.50); Red Cell Distribution Width 15.9 % (11.5-14.5); White Blood Count 7.7 K/mcL (4.3-11.1)
[2019-06-14 07:01] LABS: BUN/Creatinine Ratio 38 (6-26); Blood Urea Nitrogen 49 mg/dL (8-23); Calcium 8.4 mg/dL (8.6-10.3); Carbon Dioxide 28 mEq/L (23-29); Chloride 101 mEq/L (98-107); Glucose 100 mg/dL (70-105); Osmolality,Calculated 293 (280-300); Potassium 3.8 mEq/L (3.5-5.1); Sodium 135 mEq/L (136-145); eGFR For African Americans > 60 (> 60); eGFR For Non-African Americans 54 (> 60)
[2019-06-14] MEDS: Furosemide 40 MG TABLET PO SCH (08:13)
[2019-06-14] MEDS: Loratadine 10 MG TABLET PO SCH (08:13)
[2019-06-14] MEDS: Gabapentin 300 MG CAPSULE PO SCH (08:13)
[2019-06-14] MEDS: Fluticasone Propionate Nasal 50 MCG/SPRAY BOTTLE NS SCH (08:14)
[2019-06-14] MEDS: Cholestyramine 4 GM POWD.PACK PO SCH (08:15)
[2019-06-14] MEDS ORDERED: predniSONE 20 MG TABLET PO SCH (09:00)
[2019-06-14 12:04] VITALS: BP 97/60
== END 2019-06-14 14:27 | disposition home or self-care (01) ==
LOC: EMEROOARM 22:26 → CDU 22:26 → SUATTDRO 06-12 03:05 → CDU 06-12 03:30 → 3ANU 06-12 15:28
PROVIDERS: ADMIT Internal Medicine; ATTEND Internal Medicine

== ENCOUNTER 2020-07-12 11:27 | Inpatient (IN) ==
[2020-07-12] MEDS ORDERED: 0.9 % Sodium Chloride 1,000 ML IVC ONE ×2 (11:44→13:16)
[2020-07-12] MEDS ORDERED: methylPREDNISolone 125 MG/2 ML VIAL IVP ONE (11:53)
[2020-07-12 12:37] LABS: Eosinophils % 0.1 %; Mean Corpuscular Hemoglobin 27.5 pg (28.0-33.3)
[2020-07-12 12:39] LABS: Basophils # 0.1 K/mcL (0.0-0.2); Basophils % 0.3 %; Hematocrit 32.9 % (37.5-50.1); Hemoglobin 9.8 g/dL (12.9-16.9); Immature Granulocytes % 1.4 % (0-4); Lymphocytes # 0.6 K/mcL (0.6-4.6); Lymphocytes % 1.9 %; Mean Corpuscular HGB Conc 29.8 g/dL (31.6-35.5); Mean Corpuscular Volume 92.2 fL (83.0-100.0); Mean Platelet Volume 10.7 fL (9.4-12.4); Monocytes # 2.8 K/mcL (0.0-1.3); Monocytes % 8.8 %; Neutrophils # 27.5 K/mcL (1.6-8.9); Platelet Count 224 K/mcL (140-400); Red Blood Count 3.57 M/mcL (4.19-5.50); Red Cell Distribution Width 15.8 % (11.5-14.5); Segmented Neutrophils % 87.5 %
[2020-07-12 12:47] LABS: White Blood Count 31.4 K/mcL (4.3-11.1)
[2020-07-12] MEDS ORDERED: cefTRIAXone 1,000 MG in Water for inj. (sterile) 10 ML IVP ONE (12:49)
[2020-07-12] MEDS ORDERED: Azithromycin 500 MG in 0.9 % Sodium Chloride 250 ML IVPB ONE (12:52)
[2020-07-12 12:53] LABS: Albumin 3.7 g/dL (3.5-5.7); Bilirubin,Total 0.6 mg/dL (0.3-1.0); Calcium 9.1 mg/dL (8.6-10.3); Globulin 3.8 g/dL (2.4-3.5); Potassium 3.4 mEq/L (3.5-5.1); Total Protein 7.5 g/dL (6.4-8.9)
[2020-07-12] MEDS ORDERED: Ondansetron 4 MG/2 ML VIAL IVP PRN (13:34)
[2020-07-12] MEDS ORDERED: Naloxone 0.4 MG/ML INJ IVP PRN (13:34)
[2020-07-12 13:37] LABS: Troponin I 0.09 ng/mL (< 0.04)
[2020-07-12] MEDS ORDERED: 0.9 % Sodium Chloride 1,000 ML IVC SCH (13:45)
[2020-07-12] MEDS: Piperacillin/Tazobactam 3.375 GM in 0.9 % Sodium Chloride Mini Bag 100 ML IVPB SCH ×2 (16:06→23:35)
[2020-07-12] MEDS: Ipratropium/Albuterol Neb 3 ML IH SCH ×2 (16:12→22:59)
[2020-07-12] MEDS: 0.9 % Sodium Chloride 1,000 ML IVC SCH (16:30)
[2020-07-12] MEDS: *HR* Heparin 5,000 UNIT/ML VIAL SQ SCH (17:45)
[2020-07-13 01:14] LABS: Calcium 8.4 mg/dL (8.6-10.3); Potassium 3.8 mEq/L (3.5-5.1)
[2020-07-13 01:48] LABS: Bacteria,Urine Few per hpf (None-Few); Bilirubin,Urine Negative (Negative); Blood,Urine Moderate (Negative); Clarity,Urine Clear (Clear); Color,Urine Dark-Yellow (Yellow); Glucose,Urine (UA) Normal (Normal); Ketones,Urine Negative (Negative); Leukocyte Esterase,Urine Trace (Negative); Mucus,Urine Few per lpf (None-Few); Nitrite,Urine Negative (Negative); Protein,Urine 30 mg/dL (Neg-Trace); RBC,Urine TNTC per hpf (0-3); Specific Gravity,Urine 1.019 (1.010-1.025); Urobilinogen,Urine Normal (Normal)
[2020-07-13] MEDS: Ipratropium/Albuterol Neb 3 ML IH SCH ×4 (03:23→22:22)
[2020-07-13] MEDS: *HR* Heparin 5,000 UNIT/ML VIAL SQ SCH ×2 (06:16→17:10)
[2020-07-13] MEDS: 0.9 % Sodium Chloride 1,000 ML IVC SCH (06:16)
[2020-07-13] MEDS ORDERED: tiZANidine 4 MG TABLET PO PRN (07:13)
[2020-07-13] MEDS ORDERED: Fluticasone Propionate Nasal 50 MCG/SPRAY BOTTLE NS PRN (07:13)
[2020-07-13] MEDS: Ipratropium/Albuterol Neb 3 ML IH PRN (07:46)
[2020-07-13] MEDS: Loratadine 10 MG TABLET PO SCH (08:54)
[2020-07-13] MEDS: predniSONE 20 MG TABLET PO SCH (08:55)
[2020-07-13] MEDS: Gabapentin 300 MG CAPSULE PO SCH ×3 (08:55→20:43)
[2020-07-13] MEDS: Piperacillin/Tazobactam 3.375 GM in 0.9 % Sodium Chloride Mini Bag 100 ML IVPB SCH ×2 (08:55→15:28)
[2020-07-13] MEDS ORDERED: NON-FORMULARY MEDICATION 1 EACH EACH (Formoterol Fumarate [Perforomist] 20 MCG/2 ML Vial.N IH SCH (09:00)
[2020-07-13] MEDS: Acetaminophen 325 MG TABLET PO PRN ×2 (12:52→20:43)
[2020-07-13 13:06] LABS: Basophils % 0.1 %
[2020-07-13 13:08] LABS: Eosinophils % 0.1 %; Hematocrit 30.2 % (37.5-50.1); Hemoglobin 9.3 g/dL (12.9-16.9); Immature Granulocytes % 0.8 % (0-4); Lymphocytes % 3.5 %; Mean Corpuscular HGB Conc 30.8 g/dL (31.6-35.5); Mean Corpuscular Hemoglobin 27.6 pg (28.0-33.3); Mean Corpuscular Volume 89.6 fL (83.0-100.0); Mean Platelet Volume 10.8 fL (9.4-12.4); Monocytes % 3.8 %; Platelet Count 203 K/mcL (140-400); Red Blood Count 3.37 M/mcL (4.19-5.50); Segmented Neutrophils % 91.7 %; White Blood Count 26.9 K/mcL (4.3-11.1)
[2020-07-13 13:10] LABS: Lymphocytes # 0.9 K/mcL (0.6-4.6); Neutrophils # 24.7 K/mcL (1.6-8.9)
[2020-07-13 13:37] LABS: Platelet Estimate Slight Decrease (Normal)
[2020-07-13] MEDS ORDERED: *HR* Heparin 5,000 UNIT/ML VIAL IVP ONE (20:28)
[2020-07-13] MEDS ORDERED: *HR* Heparin 5,000 UNIT/ML VIAL IVP PRN ×2 (20:28)
[2020-07-13] MEDS ORDERED: Heparin 25,000UNIT/250ML 1/2NS 25,000 UNIT/250 ML IV.SOLN IVC SCH (20:30)
[2020-07-14] MEDS: Ipratropium/Albuterol Neb 3 ML IH PRN (00:29)
[2020-07-14] MEDS ORDERED: Furosemide 20 MG/2 ML VIAL IVP ONE ×2 (00:36→02:48)
[2020-07-14] MEDS: Piperacillin/Tazobactam 3.375 GM in 0.9 % Sodium Chloride Mini Bag 100 ML IVPB SCH ×3 (00:49→15:39)
[2020-07-14] MEDS: 0.9 % Sodium Chloride 1,000 ML IVC SCH ×2 (01:00→12:36)
[2020-07-14 03:44] LABS: Basophils % 0.2 %; Eosinophils % 0.1 %; Hematocrit 33.1 % (37.5-50.1); Hemoglobin 10.1 g/dL (12.9-16.9); Immature Granulocytes % 0.8 % (0-4); Lymphocytes % 3.7 %; Mean Corpuscular HGB Conc 30.5 g/dL (31.6-35.5); Mean Corpuscular Hemoglobin 27.5 pg (28.0-33.3); Mean Corpuscular Volume 90.2 fL (83.0-100.0); Monocytes # 1.4 K/mcL (0.0-1.3); Monocytes % 5.1 %; Neutrophils # 24.1 K/mcL (1.6-8.9); Platelet Count 239 K/mcL (140-400); Red Blood Count 3.67 M/mcL (4.19-5.50); Segmented Neutrophils % 90.1 %; White Blood Count 26.7 K/mcL (4.3-11.1)
[2020-07-14 03:45] LABS: Basophils # 0.1 K/mcL (0.0-0.2)
[2020-07-14] MEDS: Ipratropium/Albuterol Neb 3 ML IH SCH ×4 (03:46→22:16)
[2020-07-14 03:58] LABS: BUN/Creatinine Ratio 26 (6-26); Blood Urea Nitrogen 32 mg/dL (8-23); Calcium 8.3 mg/dL (8.6-10.3); Carbon Dioxide 24 mEq/L (23-29); Chloride 104 mEq/L (98-107); Glucose 117 mg/dL (70-105); Osmolality,Calculated 292 (280-300); Potassium 3.7 mEq/L (3.5-5.1); Sodium 137 mEq/L (136-145); eGFR For African Americans > 60 (> 60); eGFR For Non-African Americans 56 (> 60)
[2020-07-14 04:17] LABS: Platelet Estimate Normal (Normal)
[2020-07-14 06:10] LABS: ABG Base Excess 0 mEq/L (-2 to 3); ABG HCO3 26 mEq/L (21-27); ABG Oxygen Saturation 97 % (95-98); ABG PCO2 43 mmHg (35-45); ABG PH 7.39 pH Units (7.32-7.45); ABG PO2 90 mmHg (85-104); ABG TCO2 27 mEq/L (20-26)
[2020-07-14] MEDS ORDERED: Perflutren Lipid Microsphere 1.3 ML in 0.9 % Sodium Chloride 8.7 ML IVP PRN (06:53)
[2020-07-14] MEDS ORDERED: *HR* FentaNYL (PF) 100 MCG/2 ML VIAL ONE (08:00)
[2020-07-14] MEDS ORDERED: Dexamethasone 4 MG/ML VIAL ONE (08:01)
[2020-07-14] MEDS ORDERED: Ondansetron 4 MG/2 ML VIAL ONE (08:01)
[2020-07-14] MEDS ORDERED: Lidocaine -MPF 2% 2 ML VIAL ONE (08:01)
[2020-07-14] MEDS ORDERED: Lidocaine -MPF 4% 5 ML AMPUL ONE (08:01)
[2020-07-14] MEDS ORDERED: *HR* Succinylcholine 200 MG/10 ML VIAL IVP ONE (08:01)
[2020-07-14] MEDS ORDERED: *HR* Etomidate 40 MG/20 ML VIAL IVP ONE (08:04)
[2020-07-14] MEDS ORDERED: *HR* Vasopressin 20 UNIT/ML VIAL ONE (08:08)
[2020-07-14] MEDS ORDERED: EPHEDrine 50 MG/ML VIAL ONE (08:11)
[2020-07-14] MEDS ORDERED: *HR* PHENYLEPHRINE 1,000 MCG/10 ML SYRINGE IVP ONE (08:12)
[2020-07-14] MEDS ORDERED: *HR* EPINEPHrine 1 MG/10 ML SYRINGE INTRATRACH PRN (08:46)
[2020-07-14] MEDS: predniSONE 20 MG TABLET PO SCH (10:23)
[2020-07-14] MEDS: Gabapentin 300 MG CAPSULE PO SCH ×3 (10:24→21:40)
[2020-07-14] MEDS: Loratadine 10 MG TABLET PO SCH (10:24)
[2020-07-14] MEDS: Acetaminophen 325 MG TABLET PO PRN (10:45)
[2020-07-14] MEDS ORDERED: *HR* EPINEPHrine 1 MG/10 ML SYRINGE ONE (13:07)
[2020-07-14] MEDS: MethylPREDNISolone 40 MG/ML VIAL IVP SCH (15:39)
[2020-07-14] MEDS: Furosemide 40 MG TABLET PO SCH (16:55)
[2020-07-14] MEDS: Budesonide/Formoterol 160/4.5 1 PUFF INH IH SCH (22:16)
[2020-07-14] MEDS ORDERED: Artificial Tears SOLN 15 ML BOTTLE BOTH EYES PRN (23:14)
[2020-07-14] MEDS ORDERED: *HR* Midazolam HCl 5 MG/5 ML VIAL IVP ONE ×2 (23:21→23:22)
[2020-07-14] MEDS ORDERED: FentaNYL (PF) 1,000 MCG/100 ML IV.SOLN IVC SCH (23:30)
[2020-07-14] MEDS: FentaNYL (PF) 1,000 MCG/100 ML IV.SOLN IVC SCH (23:30)
[2020-07-15] MEDS: Artificial Tears SOLN 15 ML BOTTLE BOTH EYES SCH ×7 (00:34→23:32)
[2020-07-15] MEDS: MethylPREDNISolone 40 MG/ML VIAL IVP SCH ×4 (00:34→23:32)
[2020-07-15] MEDS: Piperacillin/Tazobactam 3.375 GM in 0.9 % Sodium Chloride Mini Bag 100 ML IVPB SCH ×4 (01:26→23:33)
[2020-07-15] MEDS ORDERED: *HR* Midazolam HCl 5 MG/5 ML VIAL IVP ONE (01:46)
[2020-07-15] MEDS ORDERED: *HR* Etomidate 20 MG/10 ML AMPUL IVP ONE (01:46)
[2020-07-15 02:05] LABS: ABG Base Excess 1 mEq/L (-2 to 3); ABG HCO3 27 mEq/L (21-27); ABG Oxygen Saturation 89 % (95-98); ABG PCO2 47 mmHg (35-45); ABG PH 7.37 pH Units (7.32-7.45); ABG PO2 58 mmHg (85-104); ABG TCO2 28 mEq/L (20-26); Blood Gas VT 500 cc
[2020-07-15] MEDS ORDERED: Norepinephrine 8 MG in 0.9 % Sodium Chloride 250 ML IVC SCH (02:15)
[2020-07-15] MEDS: Norepinephrine 4 MG/254 ML IV.SOLN IVC SCH ×2 (03:15→23:31)
[2020-07-15] MEDS: Ipratropium/Albuterol Neb 3 ML IH SCH ×4 (03:29→21:27)
[2020-07-15 03:49] LABS: Basophils % 0.1 %; Hematocrit 27.7 % (37.5-50.1); Immature Granulocytes % 0.6 % (0-4); Lymphocytes # 0.5 K/mcL (0.6-4.6); Lymphocytes % 4.6 %; Mean Corpuscular Hemoglobin 27.1 pg (28.0-33.3); Mean Corpuscular Volume 90.5 fL (83.0-100.0); Mean Platelet Volume 10.7 fL (9.4-12.4); Monocytes # 0.6 K/mcL (0.0-1.3); Monocytes % 5.3 %; Neutrophils # 9.3 K/mcL (1.6-8.9); Platelet Count 190 K/mcL (140-400); Red Blood Count 3.06 M/mcL (4.19-5.50); Red Cell Distribution Width 15.9 % (11.5-14.5); Segmented Neutrophils % 89.4 %
[2020-07-15 03:52] LABS: Hemoglobin 8.3 g/dL (12.9-16.9); White Blood Count 10.4 K/mcL (4.3-11.1)
[2020-07-15 04:10] LABS: Calcium 7.8 mg/dL (8.6-10.3); Magnesium 2.3 mg/dL (1.6-2.6); Potassium 3.8 mEq/L (3.5-5.1)
[2020-07-15 05:38] LABS: ABG Base Excess 2 mEq/L (-2 to 3); ABG HCO3 28 mEq/L (21-27); ABG Oxygen Saturation 100 % (95-98); ABG PCO2 49 mmHg (35-45); ABG PH 7.37 pH Units (7.32-7.45); ABG PO2 374 mmHg (85-104); ABG TCO2 29 mEq/L (20-26); Blood Gas VT 500 cc
[2020-07-15 06:08] LABS: Troponin I 1.73 ng/mL (< 0.04)
[2020-07-15] MEDS: FentaNYL (PF) 1,000 MCG/100 ML IV.SOLN IVC SCH (07:15)
[2020-07-15] MEDS: Chlorhexidine Rinse 15 ML MOUTHWASH MM SCH ×2 (08:21→20:41)
[2020-07-15] MEDS: Pantoprazole 40 MG VIAL IVP SCH (08:21)
[2020-07-15] MEDS: Loratadine 10 MG TABLET PO SCH (08:22)
[2020-07-15] MEDS: Gabapentin 300 MG CAPSULE PO SCH ×3 (08:22→21:04)
[2020-07-15] MEDS: Furosemide 40 MG TABLET PO SCH ×2 (08:22→18:24)
[2020-07-15] MEDS: Aspirin Enteric Coated 81 MG Tablet PO SCH (08:22)
[2020-07-15] MEDS: Budesonide/Formoterol 160/4.5 1 PUFF INH IH SCH ×2 (09:08→21:26)
[2020-07-15] MEDS ORDERED: *HR* EPINEPHrine 1 MG/10 ML SYRINGE INTRATRACH PRN (09:45)
[2020-07-15] MEDS: Potassium Chloride Elixir 20 MEQ/15 ML UDC GTUBE SCH ×2 (13:08→21:06)
[2020-07-15] MEDS: *HR* Heparin 5,000 UNIT/ML VIAL SQ SCH ×2 (17:12→21:06)
[2020-07-15] MEDS: Acetaminophen 325 MG TABLET PO PRN (21:10)
[2020-07-16 04:09] LABS: Basophils % 0.1 %; Hematocrit 30.2 % (37.5-50.1); Hemoglobin 9.2 g/dL (12.9-16.9); Immature Granulocytes % 0.8 % (0-4); Lymphocytes # 0.5 K/mcL (0.6-4.6); Lymphocytes % 4.4 %; Mean Corpuscular HGB Conc 30.5 g/dL (31.6-35.5); Mean Corpuscular Hemoglobin 27.1 pg (28.0-33.3); Mean Corpuscular Volume 89.1 fL (83.0-100.0); Mean Platelet Volume 10.7 fL (9.4-12.4); Monocytes # 0.4 K/mcL (0.0-1.3); Monocytes % 3.7 %; Neutrophils # 9.6 K/mcL (1.6-8.9); Platelet Count 186 K/mcL (140-400); Red Blood Count 3.39 M/mcL (4.19-5.50); Red Cell Distribution Width 15.9 % (11.5-14.5); White Blood Count 10.6 K/mcL (4.3-11.1)
[2020-07-16] MEDS: Ipratropium/Albuterol Neb 3 ML IH SCH ×4 (04:11→22:21)
[2020-07-16 04:24] LABS: BUN/Creatinine Ratio 32 (6-26); Blood Urea Nitrogen 41 mg/dL (8-23); Calcium 8.4 mg/dL (8.6-10.3); Carbon Dioxide 27 mEq/L (23-29); Chloride 107 mEq/L (98-107); Glucose 119 mg/dL (70-105); Magnesium 2.5 mg/dL (1.6-2.6); Osmolality,Calculated 305 (280-300); Phosphorous 4.3 mg/dL (2.7-4.5); Potassium 4.1 mEq/L (3.5-5.1); Sodium 142 mEq/L (136-145); eGFR For African Americans > 60 (> 60); eGFR For Non-African Americans 53 (> 60)
[2020-07-16] MEDS: Artificial Tears SOLN 15 ML BOTTLE BOTH EYES SCH ×2 (05:58→08:22)
[2020-07-16] MEDS: *HR* Heparin 5,000 UNIT/ML VIAL SQ SCH ×3 (06:01→23:13)
[2020-07-16] MEDS: Pantoprazole 40 MG VIAL IVP SCH (09:19)
[2020-07-16] MEDS: Potassium Chloride Elixir 20 MEQ/15 ML UDC GTUBE SCH ×2 (09:20→19:42)
[2020-07-16] MEDS: Furosemide 40 MG TABLET PO SCH ×2 (09:20→16:21)
[2020-07-16] MEDS: Gabapentin 300 MG CAPSULE PO SCH ×3 (09:20→19:42)
[2020-07-16] MEDS: MethylPREDNISolone 40 MG/ML VIAL IVP SCH ×3 (09:20→23:12)
[2020-07-16] MEDS: Piperacillin/Tazobactam 3.375 GM in 0.9 % Sodium Chloride Mini Bag 100 ML IVPB SCH ×3 (09:21→23:13)
[2020-07-16] MEDS: Aspirin Enteric Coated 81 MG Tablet PO SCH (09:21)
[2020-07-16] MEDS: Loratadine 10 MG TABLET PO SCH (09:21)
[2020-07-16] MEDS: Chlorhexidine Rinse 15 ML MOUTHWASH MM SCH (09:22)
[2020-07-16] MEDS: Budesonide/Formoterol 160/4.5 1 PUFF INH IH SCH ×2 (11:55→22:21)
[2020-07-16] MEDS ORDERED: Fluticasone Propionate Nasal 50 MCG/SPRAY BOTTLE NS PRN (12:33)
[2020-07-16] MEDS ORDERED: Naloxone 0.4 MG/ML INJ IVP PRN (12:33)
[2020-07-16] MEDS ORDERED: Acetaminophen 325 MG TABLET PO PRN (12:33)
[2020-07-16] MEDS ORDERED: Ondansetron 4 MG/2 ML VIAL IVP PRN (12:33)
[2020-07-16] MEDS ORDERED: E-Z-PAQUE (BARIUM SULF) SUSP 1 BOTTLE PO ONE (14:20)
[2020-07-16] MEDS ORDERED: E-Z-HD (BARIUM SULF) SUSPENSION PO ONE (14:20)
[2020-07-16] MEDS: DOMPERIDONE 20 MG PO SCH (16:20)
[2020-07-17 03:52] LABS: Basophils % 0.3 %; Hematocrit 29.9 % (37.5-50.1); Lymphocytes # 0.6 K/mcL (0.6-4.6); Lymphocytes % 5.7 %; Mean Corpuscular HGB Conc 30.1 g/dL (31.6-35.5); Mean Corpuscular Hemoglobin 26.7 pg (28.0-33.3); Mean Corpuscular Volume 88.7 fL (83.0-100.0); Mean Platelet Volume 10.6 fL (9.4-12.4); Monocytes # 0.6 K/mcL (0.0-1.3); Monocytes % 5.7 %; Neutrophils # 8.6 K/mcL (1.6-8.9); Platelet Count 191 K/mcL (140-400); Red Blood Count 3.37 M/mcL (4.19-5.50); Red Cell Distribution Width 15.9 % (11.5-14.5); Segmented Neutrophils % 86.3 %
[2020-07-17 04:11] LABS: BUN/Creatinine Ratio 33 (6-26); Blood Urea Nitrogen 45 mg/dL (8-23); Calcium 8.1 mg/dL (8.6-10.3); Carbon Dioxide 29 mEq/L (23-29); Chloride 101 mEq/L (98-107); Glucose 136 mg/dL (70-105); Osmolality,Calculated 300 (280-300); Potassium 3.8 mEq/L (3.5-5.1); Sodium 138 mEq/L (136-145); eGFR For African Americans > 60 (> 60); eGFR For Non-African Americans 50 (> 60)
[2020-07-17] MEDS: Ipratropium/Albuterol Neb 3 ML IH SCH ×4 (05:21→22:19)
[2020-07-17] MEDS: *HR* Heparin 5,000 UNIT/ML VIAL SQ SCH ×3 (05:27→20:41)
[2020-07-17] MEDS: DOMPERIDONE 20 MG PO SCH ×3 (07:20→17:32)
[2020-07-17] MEDS: Pantoprazole 40 MG VIAL IVP SCH (07:24)
[2020-07-17] MEDS: Furosemide 40 MG TABLET PO SCH ×2 (07:24→17:32)
[2020-07-17] MEDS: Gabapentin 300 MG CAPSULE PO SCH ×3 (07:24→20:41)
[2020-07-17] MEDS: Loratadine 10 MG TABLET PO SCH (07:25)
[2020-07-17] MEDS: Aspirin Enteric Coated 81 MG Tablet PO SCH (07:25)
[2020-07-17] MEDS: Piperacillin/Tazobactam 3.375 GM in 0.9 % Sodium Chloride Mini Bag 100 ML IVPB SCH ×3 (07:26→23:03)
[2020-07-17] MEDS: Potassium Chloride Elixir 20 MEQ/15 ML UDC GTUBE SCH ×2 (07:26→20:41)
[2020-07-17] MEDS: MethylPREDNISolone 40 MG/ML VIAL IVP SCH ×3 (07:26→23:03)
[2020-07-17] MEDS: Budesonide/Formoterol 160/4.5 1 PUFF INH IH SCH ×2 (10:38→22:19)
[2020-07-17] MEDS ORDERED: *HR* Midazolam HCl 5 MG/5 ML VIAL IVP ONE ×3 (15:59→16:45)
[2020-07-17] MEDS ORDERED: Lidocaine Viscous Oral Soln 15 ML SOLUTION ONE (16:51)
[2020-07-17] MEDS ORDERED: *HR* EPINEPHrine 1 MG/10 ML SYRINGE INTRATRACH PRN (17:08)
[2020-07-18 03:47] LABS: Hematocrit 30.8 % (37.5-50.1); Hemoglobin 9.4 g/dL (12.9-16.9); Mean Corpuscular HGB Conc 30.5 g/dL (31.6-35.5); Mean Corpuscular Hemoglobin 26.6 pg (28.0-33.3); Mean Platelet Volume 11.1 fL (9.4-12.4); Platelet Count 205 K/mcL (140-400); Red Blood Count 3.54 M/mcL (4.19-5.50)
[2020-07-18 04:05] LABS: BUN/Creatinine Ratio 33 (6-26); Blood Urea Nitrogen 46 mg/dL (8-23); Calcium 8.1 mg/dL (8.6-10.3); Carbon Dioxide 32 mEq/L (23-29); Chloride 101 mEq/L (98-107); Glucose 151 mg/dL (70-105); Osmolality,Calculated 303 (280-300); Sodium 139 mEq/L (136-145); eGFR For African Americans > 60 (> 60); eGFR For Non-African Americans 50 (> 60)
[2020-07-18] MEDS: *HR* Heparin 5,000 UNIT/ML VIAL SQ SCH ×3 (05:26→21:54)
[2020-07-18] MEDS: Ipratropium/Albuterol Neb 3 ML IH SCH ×4 (06:05→22:45)
[2020-07-18] MEDS: MethylPREDNISolone 40 MG/ML VIAL IVP SCH ×2 (08:09→15:41)
[2020-07-18] MEDS: DOMPERIDONE 20 MG PO SCH ×3 (08:09→16:39)
[2020-07-18] MEDS: Potassium Chloride Elixir 20 MEQ/15 ML UDC GTUBE SCH ×2 (08:09→21:56)
[2020-07-18] MEDS: Aspirin Enteric Coated 81 MG Tablet PO SCH (08:10)
[2020-07-18] MEDS: Gabapentin 300 MG CAPSULE PO SCH ×3 (08:10→21:54)
[2020-07-18] MEDS: Pantoprazole 40 MG VIAL IVP SCH (08:10)
[2020-07-18] MEDS: Furosemide 40 MG TABLET PO SCH ×2 (08:10→18:28)
[2020-07-18] MEDS: Loratadine 10 MG TABLET PO SCH (08:11)
[2020-07-18] MEDS: Piperacillin/Tazobactam 3.375 GM in 0.9 % Sodium Chloride Mini Bag 100 ML IVPB SCH ×2 (08:11→15:42)
[2020-07-18] MEDS: Budesonide/Formoterol 160/4.5 1 PUFF INH IH SCH ×2 (10:28→22:44)
[2020-07-18] MEDS: Potassium Chloride Elixir 20 MEQ/15 ML UDC PO SCH (22:30)
[2020-07-19] MEDS: Ipratropium/Albuterol Neb 3 ML IH SCH ×4 (03:18→22:06)
[2020-07-19 05:15] LABS: Hematocrit 34.4 % (37.5-50.1); Hemoglobin 10.6 g/dL (12.9-16.9); Mean Corpuscular HGB Conc 30.8 g/dL (31.6-35.5); Mean Corpuscular Volume 87.8 fL (83.0-100.0); Mean Platelet Volume 10.9 fL (9.4-12.4); Platelet Count 253 K/mcL (140-400); Red Blood Count 3.92 M/mcL (4.19-5.50); Red Cell Distribution Width 16.7 % (11.5-14.5); White Blood Count 16.2 K/mcL (4.3-11.1)
[2020-07-19 05:25] LABS: BUN/Creatinine Ratio 44 (6-26); Blood Urea Nitrogen 57 mg/dL (8-23); Calcium 8.5 mg/dL (8.6-10.3); Carbon Dioxide 30 mEq/L (23-29); Chloride 99 mEq/L (98-107); Glucose 118 mg/dL (70-105); Osmolality,Calculated 301 (280-300); Sodium 137 mEq/L (136-145); eGFR For African Americans > 60 (> 60); eGFR For Non-African Americans 53 (> 60)
[2020-07-19] MEDS: *HR* Heparin 5,000 UNIT/ML VIAL SQ SCH ×3 (05:27→21:34)
[2020-07-19] MEDS: Aspirin Enteric Coated 81 MG Tablet PO SCH (08:41)
[2020-07-19] MEDS: Gabapentin 300 MG CAPSULE PO SCH ×3 (08:41→21:34)
[2020-07-19] MEDS: Potassium Chloride Elixir 20 MEQ/15 ML UDC PO SCH ×2 (08:41→21:34)
[2020-07-19] MEDS: Furosemide 40 MG TABLET PO SCH ×2 (08:42→18:51)
[2020-07-19] MEDS: MethylPREDNISolone 40 MG/ML VIAL IVP SCH (08:42)
[2020-07-19] MEDS: Loratadine 10 MG TABLET PO SCH (08:42)
[2020-07-19] MEDS: Pantoprazole 40 MG VIAL IVP SCH (08:43)
[2020-07-19] MEDS: DOMPERIDONE 20 MG PO SCH ×3 (08:44→18:57)
[2020-07-19] MEDS: Budesonide/Formoterol 160/4.5 1 PUFF INH IH SCH ×2 (12:43→22:07)
[2020-07-19] MEDS: Ipratropium/Albuterol Neb 3 ML IH PRN (20:09)
[2020-07-19 21:13] LABS: ABG Base Excess 10 mEq/L (-2 to 3); ABG HCO3 34 mEq/L (21-27); ABG Oxygen Saturation 95 % (95-98); ABG PCO2 43 mmHg (35-45); ABG PH 7.51 pH Units (7.32-7.45); ABG PO2 70 mmHg (85-104); ABG TCO2 35 mEq/L (20-26)
[2020-07-20] MEDS: Ipratropium/Albuterol Neb 3 ML IH PRN (02:32)
[2020-07-20] MEDS: Ipratropium/Albuterol Neb 3 ML IH SCH ×4 (04:17→22:36)
[2020-07-20] MEDS: *HR* Heparin 5,000 UNIT/ML VIAL SQ SCH ×3 (05:49→20:31)
[2020-07-20] MEDS: Furosemide 40 MG TABLET PO SCH ×2 (08:29→17:06)
[2020-07-20] MEDS: Aspirin Enteric Coated 81 MG Tablet PO SCH (08:29)
[2020-07-20] MEDS: Potassium Chloride Elixir 20 MEQ/15 ML UDC PO SCH ×2 (08:29→20:31)
[2020-07-20] MEDS: Gabapentin 300 MG CAPSULE PO SCH ×3 (08:29→20:30)
[2020-07-20] MEDS: Loratadine 10 MG TABLET PO SCH (08:29)
[2020-07-20] MEDS: DOMPERIDONE 20 MG PO SCH ×3 (08:30→17:07)
[2020-07-20] MEDS: MethylPREDNISolone 40 MG/ML VIAL IVP SCH (08:30)
[2020-07-20] MEDS: Pantoprazole 40 MG VIAL IVP SCH (08:30)
[2020-07-20] MEDS: Budesonide/Formoterol 160/4.5 1 PUFF INH IH SCH ×2 (09:03→22:36)
[2020-07-20 10:10] LABS: Hemoglobin 11.5 g/dL (12.9-16.9); Mean Corpuscular HGB Conc 31.1 g/dL (31.6-35.5); Mean Corpuscular Hemoglobin 27.9 pg (28.0-33.3); Mean Corpuscular Volume 89.8 fL (83.0-100.0); Mean Platelet Volume 10.9 fL (9.4-12.4); Platelet Count 257 K/mcL (140-400); Red Blood Count 4.12 M/mcL (4.19-5.50); Red Cell Distribution Width 17.2 % (11.5-14.5); White Blood Count 19.1 K/mcL (4.3-11.1)
[2020-07-20 10:30] LABS: BUN/Creatinine Ratio 42 (6-26); Blood Urea Nitrogen 54 mg/dL (8-23); Calcium 8.8 mg/dL (8.6-10.3); Carbon Dioxide 30 mEq/L (23-29); Chloride 98 mEq/L (98-107); Glucose 118 mg/dL (70-105); Osmolality,Calculated 300 (280-300); Potassium 3.9 mEq/L (3.5-5.1); Sodium 137 mEq/L (136-145); eGFR For African Americans > 60 (> 60); eGFR For Non-African Americans 54 (> 60)
[2020-07-20] MEDS: Acetylcysteine 10% 2 ML INHSOL IH SCH ×3 (11:05→22:36)
[2020-07-20 13:12] LABS: ABG Base Excess 8 mEq/L (-2 to 3); ABG HCO3 32 mEq/L (21-27); ABG Oxygen Saturation 92 % (95-98); ABG PCO2 40 mmHg (35-45); ABG PH 7.51 pH Units (7.32-7.45); ABG PO2 57 mmHg (85-104); ABG TCO2 33 mEq/L (20-26)
[2020-07-21] MEDS: Acetylcysteine 10% 2 ML INHSOL IH SCH ×4 (04:04→21:15)
[2020-07-21] MEDS: Ipratropium/Albuterol Neb 3 ML IH SCH ×4 (04:04→21:15)
[2020-07-21] MEDS: *HR* Heparin 5,000 UNIT/ML VIAL SQ SCH ×3 (05:48→21:02)
[2020-07-21 07:19] LABS: Mean Platelet Volume 11.3 fL (9.4-12.4)
[2020-07-21 07:20] LABS: Hematocrit 39.5 % (37.5-50.1); Hemoglobin 12.2 g/dL (12.9-16.9); Mean Corpuscular HGB Conc 30.9 g/dL (31.6-35.5); Mean Corpuscular Hemoglobin 27.6 pg (28.0-33.3); Mean Corpuscular Volume 89.4 fL (83.0-100.0); Platelet Count 292 K/mcL (140-400); Red Blood Count 4.42 M/mcL (4.19-5.50); Red Cell Distribution Width 17.8 % (11.5-14.5)
[2020-07-21 07:30] LABS: White Blood Count 30.9 K/mcL (4.3-11.1)
[2020-07-21 07:41] LABS: Calcium 9.1 mg/dL (8.6-10.3); Potassium 4.7 mEq/L (3.5-5.1)
[2020-07-21] MEDS ORDERED: Vancomycin (wt based) 1,000 MG VIAL IVPB SCH (08:00)
[2020-07-21 08:05] LABS: ABG Base Excess 8 mEq/L (-2 to 3); ABG HCO3 30 mEq/L (21-27); ABG Oxygen Saturation 100 % (95-98); ABG PCO2 32 mmHg (35-45); ABG PH 7.58 pH Units (7.32-7.45); ABG PO2 141 mmHg (85-104); ABG TCO2 31 mEq/L (20-26)
[2020-07-21] MEDS: MethylPREDNISolone 40 MG/ML VIAL IVP SCH (08:23)
[2020-07-21] MEDS: Furosemide 40 MG TABLET PO SCH (08:24)
[2020-07-21] MEDS: Loratadine 10 MG TABLET PO SCH (08:24)
[2020-07-21] MEDS: Potassium Chloride Elixir 20 MEQ/15 ML UDC PO SCH ×2 (08:24→21:02)
[2020-07-21] MEDS: Piperacillin/Tazobactam 3.375 GM in 0.9 % Sodium Chloride Mini Bag 100 ML IVPB SCH ×2 (08:24→17:20)
[2020-07-21] MEDS: Gabapentin 300 MG CAPSULE PO SCH ×3 (08:25→21:01)
[2020-07-21] MEDS: Aspirin Enteric Coated 81 MG Tablet PO SCH (08:25)
[2020-07-21] MEDS: DOMPERIDONE 20 MG PO SCH ×3 (08:26→17:19)
[2020-07-21] MEDS: Budesonide/Formoterol 160/4.5 1 PUFF INH IH SCH ×2 (10:04→21:15)
[2020-07-21 11:06] LABS: Adenovirus Not Detected (Not Detect); Bordetella Pertussis Not Detected (Not Detect); Chlamydophila pneumoniae Not Detected (Not Detect); Coronavirus 229E Not Detected (Not Detect); Coronavirus HKU1 Not Detected (Not Detect); Coronavirus NL63 Not Detected (Not Detect); Coronavirus OC43 Not Detected (Not Detect); Human Metapneumovirus Not Detected (Not Detect); Human Rhinovirus/Enterovirus Not Detected (Not Detect); Influenza A Subtype 2009 H1 Not Detected (Not Detect); Influenza B Not Detected (Not Detect); Mycoplasma pneumoniae Not Detected (Not Detect); Parainfluenza Virus 1 Not Detected (Not Detect); Parainfluenza Virus 2 Not Detected (Not Detect); Parainfluenza Virus 3 Not Detected (Not Detect); Parainfluenza Virus 4 Not Detected (Not Detect); Respiratory Syncytial Virus Not Detected (Not Detect); SARS-CoV-2 Not Detected (Not Detect)
[2020-07-21] MEDS ORDERED: 0.9 % Sodium Chloride 250 ML IVC ONE (12:20)
[2020-07-21 12:55] LABS: Bacteria,Urine Few per hpf (None-Few); Bilirubin,Urine Negative (Negative); Blood,Urine Moderate (Negative); Clarity,Urine Clear (Clear); Color,Urine Light-Yellow (Yellow); Glucose,Urine (UA) Normal (Normal); Hyaline Casts,Urine Few per lpf (None Seen); Ketones,Urine Negative (Negative); Leukocyte Esterase,Urine Negative (Negative); Mucus,Urine Few per lpf (None-Few); Nitrite,Urine Negative (Negative); Protein,Urine Trace mg/dL (Neg-Trace); Specific Gravity,Urine 1.014 (1.010-1.025); Squamous Epithelial Cell,Urine Few per hpf (None-Few); Urobilinogen,Urine Normal (Normal); WBC,Urine 0-3 per hpf (0-3)
[2020-07-21] MEDS ORDERED: 0.9 % Sodium Chloride 500 ML IVC ONE (13:49)
[2020-07-21 18:22] LABS: ABG Base Excess 4 mEq/L (-2 to 3); ABG HCO3 28 mEq/L (21-27); ABG Oxygen Saturation 95 % (95-98); ABG PCO2 40 mmHg (35-45); ABG PH 7.45 pH Units (7.32-7.45); ABG PO2 70 mmHg (85-104); ABG TCO2 29 mEq/L (20-26)
[2020-07-22] MEDS: Piperacillin/Tazobactam 3.375 GM in 0.9 % Sodium Chloride Mini Bag 100 ML IVPB SCH ×3 (00:24→15:50)
[2020-07-22] MEDS: Acetylcysteine 10% 2 ML INHSOL IH SCH ×4 (04:01→22:00)
[2020-07-22] MEDS: Ipratropium/Albuterol Neb 3 ML IH SCH ×4 (04:01→22:00)
[2020-07-22 05:18] LABS: Calcium 8.9 mg/dL (8.6-10.3)
[2020-07-22 06:13] LABS: Hematocrit 34.5 % (37.5-50.1); Hemoglobin 10.6 g/dL (12.9-16.9); Mean Corpuscular HGB Conc 30.7 g/dL (31.6-35.5); Mean Corpuscular Hemoglobin 27.9 pg (28.0-33.3); Mean Corpuscular Volume 90.8 fL (83.0-100.0); Mean Platelet Volume 11.1 fL (9.4-12.4); Platelet Count 227 K/mcL (140-400); Red Cell Distribution Width 17.6 % (11.5-14.5); White Blood Count 28.5 K/mcL (4.3-11.1)
[2020-07-22 06:26] LABS: INR 1.2
[2020-07-22 06:28] LABS: Activated Partial Thrombo Time 29.3 Seconds (26.0-36.0)
[2020-07-22] MEDS: Aspirin Enteric Coated 81 MG Tablet PO SCH (08:11)
[2020-07-22] MEDS: Loratadine 10 MG TABLET PO SCH (08:11)
[2020-07-22] MEDS: DOMPERIDONE 20 MG PO SCH ×3 (08:11→15:45)
[2020-07-22] MEDS: Gabapentin 300 MG CAPSULE PO SCH ×3 (08:12→20:42)
[2020-07-22] MEDS: Potassium Chloride Elixir 20 MEQ/15 ML UDC PO SCH ×2 (08:12→20:42)
[2020-07-22] MEDS: *HR* Heparin 5,000 UNIT/ML VIAL SQ SCH ×3 (08:17→21:03)
[2020-07-22] MEDS: MethylPREDNISolone 40 MG/ML VIAL IVP SCH (08:17)
[2020-07-22] MEDS: Budesonide/Formoterol 160/4.5 1 PUFF INH IH SCH ×2 (10:10→22:00)
[2020-07-22] MEDS ORDERED: Ondansetron 4 MG/2 ML VIAL IVP PRN (11:29)
[2020-07-22] MEDS ORDERED: *HR* Propofol 200 MG/20 ML VIAL IVP ONE (12:51)
[2020-07-22 12:55] LABS: Sodium, Urine 14.4 mEq/L
[2020-07-22] MEDS ORDERED: Lidocaine -MPF 2% 2 ML VIAL ONE (14:03)
[2020-07-22] MEDS ORDERED: *HR* Succinylcholine 200 MG/10 ML VIAL IVP ONE (14:03)
[2020-07-22] MEDS ORDERED: Ondansetron 4 MG/2 ML VIAL ONE (14:03)
[2020-07-22] MEDS ORDERED: Dexamethasone 4 MG/ML VIAL ONE (14:03)
[2020-07-22] MEDS ORDERED: *HR* Etomidate 40 MG/20 ML VIAL IVP ONE (14:03)
[2020-07-22 17:08] LABS: Appearance of Body Fluid Cloudy (Clear); Volume of Body Fluid 20 mL
[2020-07-23] MEDS: Piperacillin/Tazobactam 3.375 GM in 0.9 % Sodium Chloride Mini Bag 100 ML IVPB SCH ×4 (00:10→23:56)
[2020-07-23 01:23] LABS: Hematocrit 31.8 % (37.5-50.1); Hemoglobin 9.4 g/dL (12.9-16.9); Mean Corpuscular HGB Conc 29.6 g/dL (31.6-35.5); Mean Corpuscular Hemoglobin 26.9 pg (28.0-33.3); Mean Corpuscular Volume 90.9 fL (83.0-100.0); Mean Platelet Volume 11.1 fL (9.4-12.4); Platelet Count 213 K/mcL (140-400); Red Cell Distribution Width 17.5 % (11.5-14.5); White Blood Count 17.2 K/mcL (4.3-11.1)
[2020-07-23 01:44] LABS: Calcium 8.5 mg/dL (8.6-10.3)
[2020-07-23] MEDS: Ipratropium/Albuterol Neb 3 ML IH SCH ×4 (04:59→22:47)
[2020-07-23] MEDS: Acetylcysteine 10% 2 ML INHSOL IH SCH ×4 (04:59→22:46)
[2020-07-23] MEDS: *HR* Heparin 5,000 UNIT/ML VIAL SQ SCH ×3 (05:47→20:32)
[2020-07-23] MEDS: MethylPREDNISolone 40 MG/ML VIAL IVP SCH (09:03)
[2020-07-23] MEDS: DOMPERIDONE 20 MG PO SCH ×3 (09:03→19:24)
[2020-07-23] MEDS: Budesonide/Formoterol 160/4.5 1 PUFF INH IH SCH ×2 (09:52→22:47)
[2020-07-24] MEDS: Acetylcysteine 10% 2 ML INHSOL IH SCH ×4 (04:40→22:25)
[2020-07-24] MEDS: Ipratropium/Albuterol Neb 3 ML IH SCH ×4 (04:40→22:25)
[2020-07-24] MEDS: *HR* Heparin 5,000 UNIT/ML VIAL SQ SCH ×3 (05:15→20:31)
[2020-07-24 08:14] LABS: Basophils % 0.1 %; Eosinophils # 0.1 K/mcL (0.0-0.6); Eosinophils % 0.9 %; Hemoglobin 9.6 g/dL (12.9-16.9); Immature Granulocytes % 0.6 % (0-4); Lymphocytes # 1.2 K/mcL (0.6-4.6); Lymphocytes % 8.3 %; Mean Corpuscular Hemoglobin 27.9 pg (28.0-33.3); Mean Corpuscular Volume 90.1 fL (83.0-100.0); Mean Platelet Volume 11.1 fL (9.4-12.4); Monocytes % 7.1 %; Neutrophils # 11.7 K/mcL (1.6-8.9); Platelet Count 208 K/mcL (140-400); Red Blood Count 3.44 M/mcL (4.19-5.50); Red Cell Distribution Width 17.2 % (11.5-14.5); White Blood Count 14.1 K/mcL (4.3-11.1)
[2020-07-24] MEDS: Aspirin Enteric Coated 81 MG Tablet PO SCH (08:22)
[2020-07-24] MEDS: MethylPREDNISolone 40 MG/ML VIAL IVP SCH (08:22)
[2020-07-24] MEDS: Potassium Chloride Elixir 20 MEQ/15 ML UDC PO SCH ×2 (08:22→20:23)
[2020-07-24] MEDS: Gabapentin 300 MG CAPSULE PO SCH ×3 (08:22→20:23)
[2020-07-24] MEDS: Loratadine 10 MG TABLET PO SCH (08:22)
[2020-07-24] MEDS: Piperacillin/Tazobactam 3.375 GM in 0.9 % Sodium Chloride Mini Bag 100 ML IVPB SCH ×2 (08:23→16:19)
[2020-07-24] MEDS: DOMPERIDONE 20 MG PO SCH ×3 (08:35→18:36)
[2020-07-24 08:52] LABS: BUN/Creatinine Ratio 39 (6-26); Blood Urea Nitrogen 54 mg/dL (8-23); Calcium 8.2 mg/dL (8.6-10.3); Carbon Dioxide 28 mEq/L (23-29); Chloride 101 mEq/L (98-107); Glucose 95 mg/dL (70-105); Osmolality,Calculated 299 (280-300); Potassium 3.4 mEq/L (3.5-5.1); Sodium 137 mEq/L (136-145); eGFR For African Americans > 60 (> 60); eGFR For Non-African Americans 50 (> 60)
[2020-07-24] MEDS: Budesonide/Formoterol 160/4.5 1 PUFF INH IH SCH ×2 (11:40→22:25)
[2020-07-25] MEDS: Piperacillin/Tazobactam 3.375 GM in 0.9 % Sodium Chloride Mini Bag 100 ML IVPB SCH ×2 (00:50→07:46)
[2020-07-25 01:46] LABS: Basophils % 0.1 %; Eosinophils # 0.1 K/mcL (0.0-0.6); Hematocrit 28.6 % (37.5-50.1); Hemoglobin 8.6 g/dL (12.9-16.9); Immature Granulocytes % 1.2 % (0-4); Lymphocytes # 1.4 K/mcL (0.6-4.6); Lymphocytes % 11.9 %; Mean Corpuscular HGB Conc 30.1 g/dL (31.6-35.5); Mean Corpuscular Volume 89.9 fL (83.0-100.0); Mean Platelet Volume 11.2 fL (9.4-12.4); Monocytes % 8.8 %; Neutrophils # 9.2 K/mcL (1.6-8.9); Platelet Count 183 K/mcL (140-400); Red Blood Count 3.18 M/mcL (4.19-5.50); Red Cell Distribution Width 17.2 % (11.5-14.5); White Blood Count 11.9 K/mcL (4.3-11.1)
[2020-07-25 02:07] LABS: BUN/Creatinine Ratio 39 (6-26); Blood Urea Nitrogen 48 mg/dL (8-23); Calcium 7.8 mg/dL (8.6-10.3); Carbon Dioxide 26 mEq/L (23-29); Chloride 106 mEq/L (98-107); Glucose 96 mg/dL (70-105); Osmolality,Calculated 300 (280-300); Potassium 4.1 mEq/L (3.5-5.1); Sodium 139 mEq/L (136-145); eGFR For African Americans > 60 (> 60); eGFR For Non-African Americans 56 (> 60)
[2020-07-25] MEDS: Ipratropium/Albuterol Neb 3 ML IH SCH ×3 (03:58→15:43)
[2020-07-25] MEDS: Acetylcysteine 10% 2 ML INHSOL IH SCH ×3 (03:58→15:51)
[2020-07-25] MEDS: *HR* Heparin 5,000 UNIT/ML VIAL SQ SCH ×2 (05:39→14:35)
[2020-07-25] MEDS: Gabapentin 300 MG CAPSULE PO SCH ×2 (07:45→14:35)
[2020-07-25] MEDS: MethylPREDNISolone 40 MG/ML VIAL IVP SCH (07:45)
[2020-07-25] MEDS: Loratadine 10 MG TABLET PO SCH (07:45)
[2020-07-25] MEDS: Aspirin Enteric Coated 81 MG Tablet PO SCH (07:45)
[2020-07-25] MEDS: Potassium Chloride Elixir 20 MEQ/15 ML UDC PO SCH (07:45)
[2020-07-25] MEDS: DOMPERIDONE 20 MG PO SCH ×2 (07:46→13:38)
[2020-07-25] MEDS: Budesonide/Formoterol 160/4.5 1 PUFF INH IH SCH (09:24)
[2020-07-25 11:21] VITALS: BP 100/56
[2020-07-26 20:38] LABS: Influenza A PCR Body Fluid NOT DETECTED; Influenza B PCR Body Fluid NOT DETECTED; RVP Body Fluid Source BRONCHIAL WASH
[2020-07-26 20:42] LABS: Influenza A PCR Body Fluid INVALID; Influenza B PCR Body Fluid INVALID; RVP Body Fluid Source BAL
[2020-07-27 00:39] LABS: HSV Source BAL LLL
[2020-07-27 10:34] LABS: RSV PCR Body Fluid INVALID; RSV PCR Body Fluid NOT DETECTED
== END 2020-07-25 16:27 | DRG 853 ==
LOC: 2ANU 11:27 → EMEROOARM 11:27 → 2ANU 15:11 → SUATTDRO 07-13 14:25 → ICNU 07-14 23:05 → 3ANU 07-18 17:32 → 2NNU 07-21 13:35
PROVIDERS: ADMIT Internal Medicine; ATTEND Family Medicine
PROC: ENDOBRF (2020-07-17 16:00)